=== PATIENT | male | born 1935 | race Caucasian/White ===

== ENCOUNTER 2023-09-02 18:29 | Emergency (ER) | payer MEDICARE, SELFPAY ==
[2023-09-02 18:33] VITALS: BP 118/65; PULSE 70; RESP 16; TEMP 36.3; O2SAT 99
--- NOTE | 2023-09-02 20:49 | PC.NURSE ---
Pt LWBS at this time. pt educated on s/s that warrant a return visit. pt wheeled out of dept and assisted into vehicle.
== END 2023-09-02 22:08 | disposition left against medical advice (07) ==
DX: S09.90XA Unspecified injury of head, initial encounter (principal)
CPT/HCPCS: 99199

== ENCOUNTER 2024-04-11 09:51 | Inpatient (IN) | payer MEDICARE, SELFPAY ==
[2024-04-11] VITALS (23 sets, daily range): BP systolic 105–141; BP diastolic 50–85; PULSE 85–119; RESP 23–36; TEMP 36.4–36.7; O2SAT 92–99; BMI 28.6
--- NOTE | ~2024-04-11 | XR_ITS ---
EXAMINATION: XR chest 1V portable DATE: 04/11/2024 10:59 INDICATION: Dyspnea TECHNIQUE: frontal view of the chest was obtained. COMPARISON: None FINDINGS: Airspace opacities in the bilateral mid and lower lung zones. Blunting at the bilateral costophrenic angles consistent with small bilateral pleural effusions. No pneumothorax. Cardiomegaly. Dual lead pa cemaker seen with leads projecting over the expected locations of the right atrium and right ventricl e. IMPRESSION: 1. Opacities in bilateral mid and lower lung zones which could represent atelectasis or pneumonia. 2. Small bilateral pleural effusions. 3. Cardiomegaly. Reviewed, dictated and finalized at location A. SCAPER IMPRESSION: 1. Opacities in bilateral mid and lower lung zones which could represent atelec tasis or pneumonia. 2. Small bilateral pleural effusions. 3. Cardiomegaly.
--- NOTE | ~2024-04-11 | XR_ITS ---
MODIFIED ESOPHAGRAM HISTORY: Dysphagia. TECHNIQUE: Modified barium esophagram was performed on 04/13/2024. I administered fluoroscopy and per formed the exam with speech pathologist. Patient was seated for lateral fluoroscopic imaging for ing estion of thin liquids, pudding, solids and quantified amounts, followed by thin liquids in uncontrol led amounts. This was recorded on tape. A single fluoroscopic spot image was also recorded. The DAP f or this procedure was 1.93 Gycm2. The amount of fluoroscopy time used during this procedure was 2.6 m inutes. FINDINGS: Oral stage: Adequate function. Pharyngeal stage: There is reduced laryngeal elevation and tongue base retraction. There is vallecula r residue and piriform sinus residue. Premature spillover from the vallecula into the piriform sinus prior to the swallow contributes to laryngeal penetration without aspiration with multiple consistenc ies. Cervical/esophageal stage: Adequate function. IMPRESSION: Pharyngeal dysphagia with laryngeal penetration without aspiration with multiple consiste ncies. Please correlate with speech pathologist findings and specific feeding recommendations. Reviewed, dictated and finalized at location A. SUPPORT REPRESENTATIVE IMPRESSION: Pharyngeal dysphagia with laryngeal penetration without aspiration with multiple consistencies. Please correlate with speech pathologist findings and specific feeding recommendations.
--- NOTE | ~2024-04-11 | XR_ITS ---
XR chest 1V portable 04/14/2024 15:26 Indication: Shortness of breath Procedure: AP portable chest Comparison: 04/11/2024 Findings: Small pleural effusions. There is patchy bilateral airspace disease, compatible with pneumo niru. No pneumothorax. No acute osseous abnormality. Pacemaker leads are stable. Impression: 1: Patchy bilateral airspace disease, compatible with pneumonia. 2: Small pleural effusions. Reviewed, dictated and finalized at location B. K GENERAL Impression: 1: Patchy bilateral airspace disease, compatible with pneumonia. 2: Small pleural effusions.
--- NOTE | ~2024-04-11 | XR_ITS ---
MODIFIED ESOPHAGRAM HISTORY: Aspiration pneumonia TECHNIQUE: Modified barium esophagram was performed on 04/16/2024. I administered fluoroscopy and per formed the exam with speech pathologist. Patient was seated for lateral fluoroscopic imaging for ing estion of thin liquids, pudding, solids and quantified amounts, followed by thin liquids in uncontrol led amounts. This was recorded on tape. A single fluoroscopic spot image was also recorded. The DAP f or this procedure was 1.0 Gycm2. The amount of fluoroscopy time used during this procedure was 1.6 mi nutes. FINDINGS: Oral stage: Adequate function. Pharyngeal stage: There is reduced laryngeal elevation and tongue base retraction. There is mild vall ecular residue. There is laryngeal penetration without aspiration. Cervical/esophageal stage: Adequate function. IMPRESSION: Pharyngeal dysphagia with laryngeal penetration without aspiration. Please correlate wit h speech pathologist findings and specific feeding recommendations. Reviewed, dictated and finalized at location A. PACKER IMPRESSION: Pharyngeal dysphagia with laryngeal penetration without aspiration. Please correlate with speech pathologist findings and specific feeding recomm endations.
--- NOTE | 2024-04-11 09:54 | ECG_ITS ---
Test Date: 2024-04-11 13:14:07 Measurements Intervals [place] Rate: 99 P: 0 LA: 0 QRS: 2 QRSD: 88 T: 32 QT: 342 QTc: 440 Interpretive Statements ATRIAL FIBRILLATION LOW QRS VOLTAGE IN PRECORDIAL LEADS [QRS DEFLECTION < 1.0 mV IN CHEST LEADS] POSSIBLE RIGHT VENTRICULAR CONDUCTION DELAY [RSR (QR) IN V1/V2] ABNORMAL RHYTHM ECG Compared to ECG 04/11/2024 09:57:21 ST (T wave) deviation no longer present Electronically Signed On 04-12-2024 08:42:58 FLIGHT ATTENDANT RAMP by Brandon Wright M.D.
[2024-04-11 10:17] LABS: Basophils Absolute Auto 0.1 K/mm3 (0.0-0.1); Basophils Percent Auto 1.9 % (0.2-1.2); Eosinophils Absolute Auto 0.2 K/mm3 (0-0.3); Eosinophils Percent Auto 7.1 % (0-4.4); Hematocrit 31.5 % (42.0-52.0); Hemoglobin 9.9 g/dL (14.0-18.0); Immature Granulocyte Absolute 0.01 K/mm3 (0.00-0.031); Immature Granulocyte Percent A 0.3 % (0-0.5); Lymphocytes Absolute Auto 0.44 K/mm3 (0.9-3.2); Lymphocytes Percent Auto 14.1 % (18.3-44.2); Mean Corpuscular HGB Conc 31.4 g/dl (32-36); Mean Corpuscular Hemoglobin 32.1 pg (26-34); Mean Corpuscular Volume 102.3 fl (80-100); Mean Platelet Volume 10.4 fl (7.4-10.4); Monocytes Absolute Auto 0.4 K/mm3 (0.1-0.6); Monocytes Percent Auto 13.8 % (2.6-8.5); Neutrophils Percent Auto 62.8 % (45.5-73.1); Platelet Count Result 209 k/mm3 (150-375); Red Blood Count 3.08 M/mm3 (4.6-6.20); Red Cell Distribution Width 16.7 % (11.5-14.5); White Blood Count 3.1 K/mm3 (4.5-10.0)
[2024-04-11] MEDS: IPRATROPIUM 0.5 MG/ALBUTEROL SULFATE 2.5 MG AMPUL.NEB 3 ML INHALATION (10:22)
[2024-04-11 10:27] LABS: Alveolar/Arterial O2 Gradient 63.6 mmHg; Base Excess ABG -1.6 mEq/l (+/-2.0); Fractional Inspired Oxygen 21 %; HCO3 ABG 20.9 mEq/l (22.0-26.0); Oxygen Content ABG 16.1 %vol (16.0-22.0); Oxygen Saturation ABG 89.1 % (95.0-100.0); PCO2 ABG 29.2 mmHg (35.0-45.0); PO2 ABG 51.2 mmHg (80.0-100.0); PO2 FiO2 Ratio Arterial Blood 2.44 %; Total Hemoglobin 13.3 g/dL (12.0-18.0); pH ABG 7.473 (7.350-7.450)
[2024-04-11 10:28] LABS: Device ROOM AIR; Modified Allen's Test Pass; Oxyhemoglobin 86.3 % THb (90.0-100.0); Site Drawn RIGHT RADIAL
[2024-04-11 10:29] LABS: INR 2.3; Prothrombin Time 25.2 Seconds (11.1-14.7)
[2024-04-11 10:30] LABS: Lactic Acid Reflex 2.9 mmol/L (0.7-2.0); Partial Thromboplastin Time 62.1 Seconds (22.3-36.8)
[2024-04-11 10:31] LABS: Alanine Aminotransferase 12 U/L (6-50); Alkaline Phosphatase 87 U/L (38-126); Anion Gap 2 mmol/L (4-12); Aspartate Amino Transferase 19 U/L (17-59); Bilirubin,Total 0.8 mg/dL (0.2-1.3); Blood Urea Nitrogen 16 mg/dL (9-20); Calcium 8.8 mg/dL (8.4-10.2); Carbon Dioxide 26 mmol/L (22-30); Chloride 111 mmol/L (98-107); Estimated CRCL calculation 57 ml/min; Estimated Glomerular Filt Rate > 60; Glucose 156 mg/dL (65-110); Magnesium 1.8 mg/dL (1.6-2.3); Potassium 3.5 mmol/L (3.4-5.0); Sodium 139 mmol/L (137-145)
[2024-04-11 10:42] LABS: NT Pro B Type Natriuretic Pept 5180 pg/mL (19.9-100); Troponin I 0.016 ng/mL (0.000-0.034)
[2024-04-11 10:56] LABS: Influenza A QL RT-PCR Negative (Negative); Influenza B QL RT-PCR Negative (Negative); RSV RNA, RT-PCR Negative (Negative); SARS-CoV-2 RNA PCR Negative (Negative)
--- NOTE | 2024-04-11 11:16 | ED.GENADULT ---
HPI - General Adult General Chief complaint: Shortness of Breath/Dyspnea Stated complaint: SOB Time Seen by Provider: 04/11/24 10:00 History of Present Illness HPI narrative: Patient is 88-year-old gentleman who presents emergency department with chief complaint of shortness of breath. Patient was diagnosed with pneumonia yesterday and started on Augmentin and initially a Z-Anish but then to doxycycline patient had increasing shortness of breath at the facility and was found to be hypoxic the patient does not normally wear oxygen patient has prior history of AFib dementia and has a pacemaker. Related Data Allergies Allergy/AdvReac Type Severity Reaction Status Date / Time No Known Allergies Allergy Verified 04/11/24 11:10 Review of Systems Review of Systems: A 10 system review of systems was completed on the patient and is negative except for what is stated in the HPI. Nursing and ancillary documentation was reviewed. Exam Narrative: GENERAL: Well-appearing, well-nourished, and in no acute distress. HEAD: Normocephalic, atraumatic. EYES: PERRLA and EOMI. ENT: Nares clear, no rhinorrhea or epistaxis. Mucous membranes moist. NECK: Supple. CHEST: Wheezes to auscultation. No respiratory distress. HEART: Regular rate and rhythm. No murmur heard. Normal peripheral pulses. ABDOMEN: Soft, nontender, nondistended, normal active bowel sounds. EXTREMITIES: Normal range of motion. No edema. SKIN: Warm, dry, no rash. NEURO: No focal deficits. Alert and oriented x3. PSYCH: Normal mood and affect. Course Vital Signs Vital signs: Vital Signs Temperature 36.4 C L 04/11/24 09:55 Pulse Rate 119 H 04/11/24 09:55 Respiratory Rate 27 H 04/11/24 09:55 Blood Pressure 105/62 04/11/24 09:55 Pulse Oximetry 93 04/11/24 09:55 Oxygen Delivery Room Air 04/11/24 09:55 Temperature 36.4 C L 04/11/24 09:55 Pulse Rate 114 H 04/11/24 11:09 Respiratory Rate 30 H 04/11/24 11:09 Blood Pressure 124/67 04/11/24 11:09 Pulse Oximetry 97 04/11/24 11:09 Oxygen Delivery Nasal Cannula 04/11/24 10:35 Oxygen Flow Rate 2 04/11/24 10:35 Fraction of Inspired Oxygen 28 14/24 10:35 Medical Decision Making [facility] Narrative Medical decision making narrative: differential diagnosis includes pneumonia, CHF laboratory studies were obtained which showed a white count of 3.1 INR is therapeutic at 2.3 ABG showed a pH 7.473 pCO2 was 29 PO2 was 51 saturation was 89% lactic acid was 2.9 electrolytes showed no significant abnormalities troponin is 0.016 BNP was 5180 COVID flu and RSV were negative blood cultures were obtained chest x-ray showed . Opacities in bilateral mid and lower lung zones which could represent atelectasis or pneumonia. 2. Small bilateral pleural effusions. 3. Cardiomegaly. Vital Signs Vital Signs: Vital Signs Temperature 36.4 C L 04/11/24 09:55 Pulse Rate 119 H 04/11/24 09:55 Respiratory Rate 27 H 04/11/24 09:55 Blood Pressure 105/62 04/11/24 09:55 Pulse Oximetry 93 04/11/24 09:55 Oxygen Delivery Room Air 04/11/24 09:55 Temperature 36.4 C L 04/11/24 09:55 Pulse Rate 114 H 04/11/24 11:09 Respiratory Rate 30 H 04/11/24 11:09 Blood Pressure 124/67 04/11/24 11:09 Pulse Oximetry 97 04/11/24 11:09 Oxygen Delivery Nasal Cannula 04/11/24 10:35 Oxygen Flow Rate 2 04/11/24 10:35 Fraction of Inspired Oxygen 04/11/24 10:35 Lab Data 04/11/24 10:07 04/11/24 10:09 Labs: Lab Results 04/11/24 04/11/24 Range/Units 10:07 10:09 WBC 3.1 L (4.5-10.0) K/mm3 RBC 3.08 L (4.6-6.20) M/mm3 Hgb 9.9 L (14.0-18.0) g/dL Hct 31.5 L (42.0-52.0) % MCV 102.3 H (80-100) fl MCH 32.1 (26-34) pg MCHC 31.4 L (32-36) g/dl RDW 16.7 H (11.5-14.5) % Plt Count 209 (150-375) k/mm3 MPV 10.4 (7.4-10.4) fl Immature Gran % (Auto) 0.3 (0-0.5) % Neut % (Auto) 62.8 (45.5-73.1) % Lymph % (Auto) 14.1 L (18.3-44.2) % Angelina % (Auto) 13.8 H (2.6-8.5) % Eos % (Auto) 7.1 H (0-4.4) % Baso % (Auto) 1.9 H (0.2-1.2) % Lymph # (Auto) 0.44 L (0.9-3.2) K/mm3 Angelina # (Auto) 0.4 (0.1-0.6) K/mm3 Eos # (Auto) 0.2 (0-0.3) K/mm3 Baso # (Auto) 0.1 (0.0-0.1) K/mm3 Abs Immat Gran (auto) 0.01 (0.00-0.031) K/mm3 Absolute Neuts (auto) 2.0 (1.3-6.7) K/mm3 Absolute Nucleated RBC 0.000 (0.0-0.012) K/mm3 Nucleated RBC % 0.0 (0.0-0.2) % PT 25.2 H (11.1-14.7) Seconds INR 2.3 APTT 62.1 H (22.3-36.8) Seconds Sodium Cancelled 139 Potassium Cancelled 3.5 Chloride Cancelled 111 H Carbon Dioxide Cancelled 26 Anion Gap Cancelled 2 L BUN Cancelled 16 Creatinine Cancelled 0.80 Estim Creat Clear Calc Cancelled 57 Estimated GFR Cancelled > 60 Glucose Cancelled 156 H Lactic Acid 2.9 H (0.7-2.0) mmol/L Calcium Cancelled 8.8 Magnesium 1.8 (1.6-2.3) mg/dL Total Bilirubin Cancelled 0.8 AST Cancelled 19 ALT Cancelled 12 Alkaline Phosphatase Cancelled 87 Troponin I 0.016 (0.000-0.034) ng/mL NT-Pro-B Natriuret Pep 5180 H (19.9-100) pg/mL Total Protein Cancelled 6.0 L Albumin Cancelled 3.0 L Procalcitonin Pending Influenza A (RT-PCR) Negative (Negative) Influenza B (RT-PCR) Negative (Negative) RSV (RT-PCR) Negative (Negative) SARS-CoV-2 RNA (RT-PCR) Negative (Negative) ABG Data ABG results: 04/11/24 10:20 Puncture Site Right radial ABG pH 7.473 H ABG pCO2 29.2 L ABG pO2 51.2 L ABG PO2/FiO2 Ratio 2.44 ABG HCO3 20.9 L ABG O2 Saturation 89.1 L ABG O2 Content 16.1 ABG Base Excess -1.6 A-a Gradient 63.6 Oxyhemoglobin 86.3 L* Total Hemoglobin 13.3 O2 Delivery Device Room air O2 Liters/Min Not Reportable FiO2 21 Discharge Plan Discharge Clinical Impression: Community acquired pneumonia, Acute hypoxic respiratory failure Patient Disposition: Still a Patient Condition: Stable Patient Language: Nepali Follow-up/Referrals: Aleyda,Bossman Snell DO [Primary Care Provider] -
[2024-04-11 11:29] LABS: Procalcitonin 0.1 ng/mL
[2024-04-11] MEDS: SODIUM CHLORIDE 0.9% IV 1,000 ML 999 ML IV CONT (12:11)
--- NOTE | 2024-04-11 12:45 | PC.NURSE ---
Gave Yuliya Burkett RN an update on pts admission dx.
[2024-04-11] MEDS: LORazepam INJ (*CRX) 2 MG/ML VIAL 0.5 MG IV PUSH (12:47)
[2024-04-11] MEDS: DOXYCYCLINE 100 MG/NS 100 ML 100 MG/100 ML BAG IVPB ×2 (12:48→21:14)
--- NOTE | 2024-04-11 12:50 | PM.IMHP ---
H&P: HPI History of Present Illness Date/Time: 04/11/24 13:30 Chief Complaint: Shortness of breath. Narrative: This is a pleasant 88-year-old male with dementia, coronary artery disease with history of stents, paroxysmal atrial fibrillation on chronic anticoagulation, obstructive sleep apnea, rheumatoid arthritis, hypothyroidism, and anxiety who presented to the emergency department via EMS from [facility] for evaluation of shortness of breath. The patient provides the following history and his daughter provides additional information with the patient's permission. He developed a loose but nonproductive cough last Saturday and was diagnosed with pneumonia yesterday for which he was started on amoxicillin/clavulanic acid and doxycycline. This morning he was increasingly short of breath and hypoxic with an SpO2 of 84% on room air and was sent in for evaluation. He does not have a roommate at the facility and denies sick contacts. At times he has dysphagia, mostly with breads and meats, and he admits that sometimes he coughs or chokes with eating but he does not recall a time where he could have aspirated. Daughter has noticed that he seems more swollen than usual in his upper and lower extremities. She denies fever, chills, sweats, sinus congestion, sore throat, chest pain, pleuritic pain, hematemesis, nausea, vomiting, diarrhea, and calf pain. In the ED: He was afebrile on arrival with stable blood pressures. He has been tachypneic in the mid 20s. SpO2 has been in the mid to upper 90s on 2 L. labs were significant for WBC count 3.1, hemoglobin 9.9, MCV 102.3, INR 2.3, lactic acid 2.9, proBNP 5180, procalcitonin 0.1, troponin 0.016. He tested negative for influenza, RSV, and COVID. Chest x-ray was read as having opacities in the bilateral mid and lower lung zones which could represent atelectasis or pneumonia, small bilateral effusions, and cardiomegaly. He was given nebulizer treatment, ceftriaxone 1 gm, doxycycline 100 mg and he is being admitted in this setting for further treatment. Review of Systems Review of Systems: 12 systems were reviewed and are negative except for as per HPI. FORMERLY [facility], [facility] Past Medical History Medical History (Updated 04/11/24 @ 19:19 by Clotilde G Gerling, PA-C) Hyperlipidemia Hypertension Rheumatoid arthritis Hypothyroidism Coronary artery disease Chronic anticoagulation Paroxysmal atrial fibrillation Surgical History Surgical History (Updated 04/11/24 @ 19:19 by Clotilde Stratton PA-C) History of vasectomy History of coronary artery stent placement History of permanent cardiac pacemaker placement Family History Family History (Updated 04/11/24 @ 19:19 by Clotilde Stratton PA-C) Other Family history non-contributory Social History Social History (Updated 04/11/24 @ 19:20 by Clotilde Stratton PA-C) Social History: Surrogate medical decision maker: Azucena welsh, children. Code status: Modified code, no intubation. Smoking status: Never smoker Alcohol intake: never Substance use: never Do You Feel Safe in your Home?: Yes Lack of Transportation: No Lack of Food: Never True Current Housing: I Have Housing Concerned About Future Housing: No Difficulty Paying Gas/Electric Bills: No Difficulty Paying for Meds: No Currently Unemployed: No Education: Trade/Vocational Certificate Difficulty w/ Childcare or Family Care: No Living arrangements: shelter Additional living arrangements comments: [facility]. Occupation/Education: retired Additional occupation/education comments: [employer]. Spiritual care concerns: Yes Meds Home Medications and Allergies Allergies Allergy/AdvReac Type Severity Reaction Status Date / Time No Known Allergies Allergy Verified 04/11/24 11:10 Vital Signs Vital Signs - 24 hr 04/11/24 09:55 04/11/24 10:02 04/11/24 10:02 Temperature 97.5 F L Pulse Rate 119 H 113 H Respiratory Rate 27 H Blood Pressure 105/62 Pulse Oximetry 93 94 Oxygen Delivery Room Air Room Air Oxygen Flow Rate Fraction of Inspired Oxygen 04/11/24 10:22 04/11/24 10:22 04/11/24 10:32 Temperature Pulse Rate 114 H 115 H Respiratory Rate 30 H 36 H Blood Pressure Pulse Oximetry 92 Oxygen Delivery Room Air Oxygen Flow Rate Fraction of Inspired Oxygen 21 04/11/24 10:35 04/11/24 11:09 04/11/24 11:38 Temperature Pulse Rate 114 H 96 Respiratory Rate 30 H 25 H Blood Pressure 124/67 108/69 Pulse Oximetry 94 97 99 Oxygen Delivery Nasal Cannula Oxygen Flow Rate 2 Fraction of Inspired Oxygen 28 04/11/24 12:14 Temperature Pulse Rate Respiratory Rate Blood Pressure Pulse Oximetry 98 Oxygen Delivery Nasal Cannula Oxygen Flow Rate 2 Fraction of Inspired Oxygen Exam Narrative: General: He moderately ill-appearing gentleman sitting up in bed. Weight: 87.9 kg. BMI: 28.6. HEENT: Slightly hard of hearing. Wearing glasses. PERRL, EOMI. Sclera anicteric. Oral mucosa moist. Neck: Supple. No significant JVD. Respiratory: Mild conversational dyspnea. Currently on 2 L nasal cannula. Lung sounds are coarse with scattered rales and crackles and occasional expiratory wheezing. Cardiovascular: Irregularly irregular rate and rhythm. Gastrointestinal: Abdomen is soft, protuberant, nontender, and nondistended with positive bowel sounds. Skin: Warm and dry. Widespread actinic keratoses. Skin is dry and scaly. Scattered bruising of the upper extremities. Chronic skin changes of the lower legs bilaterally with faint erythema, likely due to swelling. Extremities: No cyanosis or clubbing. Mild edema of the lower arms and legs bilaterally. Radial and pedal pulses intact. No palpable knots or cords. Negative Nicole sign bilaterally. Neurological: Alert. Cranial nerves 2-12 are grossly intact. No gross focal deficits to casual conversation. Psychiatric: Pleasant and cooperative with appropriate mood and affect. He is in good spirits. H&P: Results Labs Labs: Short CBC 04/11/24 Range/Units 10:07 WBC 3.1 L (4.5-10.0) K/mm3 Hgb 9.9 L (14.0-18.0) g/dL Hct 31.5 L (42.0-52.0) % Plt Count 209 (150-375) k/mm3 BMP 04/11/24 04/11/24 10:07 10:09 Sodium Cancelled 139 Potassium Cancelled 3.5 Chloride Cancelled 111 H Carbon Dioxide Cancelled 26 BUN Cancelled 16 Creatinine Cancelled 0.80 Glucose Cancelled 156 H Calcium Cancelled 8.8 Cardiac Enzymes 04/11/24 Range/Units 10:09 Troponin I 0.016 (0.000-0.034) ng/mL Liver Function 04/11/24 04/11/24 Range/Units 10:07 10:09 Total Bilirubin Cancelled 0.8 AST Cancelled 19 ALT Cancelled 12 Alkaline Phosphatase Cancelled 87 Albumin Cancelled 3.0 L Imaging Chest X-Ray 04/11/24 11:02 IMPRESSION: 1. Opacities in bilateral mid and lower lung zones which could represent atelectasis or pneumonia. 2. Small bilateral pleural effusions. 3. Cardiomegaly. ABG ABG results: 04/11/24 10:20 Puncture Site Right radial ABG pH 7.473 H ABG pCO2 29.2 L ABG pO2 51.2 L ABG PO2/FiO2 Ratio 2.44 ABG HCO3 20.9 L ABG O2 Saturation 89.1 L ABG O2 Content 16.1 ABG Base Excess -1.6 A-a Gradient 63.6 Oxyhemoglobin 86.3 L* Total Hemoglobin 13.3 O2 Delivery Device Room air O2 Liters/Min Not Reportable FiO2 21 Assessment and Plan Assessment and plan (1) Acute hypoxic respiratory failure: Code(s): J96.01 - Acute respiratory failure with hypoxia Status: Acute (2) Community acquired pneumonia: Code(s): J18.9 - Pneumonia, unspecified organism Status: Acute (3) Paroxysmal atrial fibrillation: Code(s): I48.0 - Paroxysmal atrial fibrillation Status: Acute (4) Macrocytic anemia: Code(s): D53.9 - Nutritional anemia, unspecified Status: Acute (5) Chronic anticoagulation: Code(s): Z79.01 - ocean transportation intermediary (current) use of anticoagulants Status: Acute (6) Hypertension: Code(s): I10 - Essential (primary) hypertension Status: Acute (7) Hyperlipidemia: Code(s): E78.5 - Hyperlipidemia, unspecified Status: Acute (8) Hypothyroidism: Code(s): E03.9 - Hypothyroidism, unspecified Status: Acute Plan The patient presented to the emergency department for increasing shortness of breath and hypoxia after being diagnosed with pneumonia yesterday as detailed in HPI. Labs, imaging, EKG, and all reports were personally reviewed. He is currently on 2 L nasal cannula to maintain his SpO2 in the mid upper 90s and oxygen will be weaned as tolerated. Continue ceftriaxone and doxycycline for community-acquired pneumonia. Attempt sputum for culture. Check Legionella and pneumococcal antigens as well as mycoplasma IgM. Continue scheduled bronchodilators. Add Mucinex and Cornet help mobilize secretions. Furosemide 40 mg IV x1 ordered given edema; there may be some component of heart failure as well. Echocardiogram ordered. Swallow study ordered given reports of dysphagia. He is currently in atrial fibrillation with rates in the upper 90s. Continue metoprolol for rate control and Xarelto for stroke prophylaxis. Check iron studies, B12, and folate for evaluation of macrocytic anemia. Blood pressures were reviewed and they have been stable. Continue levothyroxine and check TSH. The rest of his home medications will be reviewed and resumed as appropriate. Findings and treatment plan were discussed with the patient. Questions were solicited and answered to satisfaction. The patient's medical management will be taken over by the hospitalist team in a.m. Quality VTE Prophylaxis VTE prophylaxis: pharmacologic ordered (on rivaroxaban) The patient has been admitted under observation status. Hospitalist MIPS Advance Care Plan I have confirmed that the patient's Advanced Care Plan is present, code status is documented, or surrogate decision maker is listed in patient medical record.: Yes Medication Reconciliation I have utilized all available resources to obtain, update and review the patients current medications (includes all prescriptions, OTC, herbals, cannabis, and nutritional supplements).: Yes
--- NOTE | 2024-04-11 12:59 | ECG_ITS ---
Test Date: 2024-04-11 09:57:21 Measurements Intervals [place] Rate: 109 P: 0 MI: 0 QRS: 0 QRSD: 86 T: 180 QT: 375 QTc: 507 Interpretive Statements ATRIAL FIBRILLATION WITH RAPID VENTRICULAR RESPONSE LOW QRS VOLTAGE IN PRECORDIAL LEADS [QRS DEFLECTION < 1.0 mV IN CHEST LEADS] POSSIBLE RIGHT VENTRICULAR CONDUCTION DELAY [RSR (QR) IN V1/V2] none specific st changes ABNORMAL QRS-T ANGLE [QRS-T AXIS DIFFERENCE > 60] No previous ECG available for comparison Electronically Signed On 04-12-2024 08:40:30 CEMENT RUBBER by Brandon Wright M.D.
[2024-04-11 13:14] LABS: Reflex Lactic Acid Yes or No Add Lactic
[2024-04-11 13:44] LABS: Troponin I 0.018 ng/mL (0.000-0.034)
[2024-04-11 13:49] LABS: Iron 24 ug/dL (49-181)
[2024-04-11 13:58] LABS: Percent Iron Saturation 11 % (20-50)
[2024-04-11 14:28] LABS: Lactic Acid 2.1 mmol/L (0.7-2.0)
[2024-04-11] MEDS: IPRATROPIUM 0.5 MG/ALBUTEROL SULFATE 2.5 MG AMPUL.NEB 3 ML NEBULIZE ×2 (14:45→21:08)
[2024-04-11 14:56] LABS: Folic Acid 4.1 ng/mL (2.76->20)
[2024-04-11] MEDS: guaiFENesin 12 HR 600 MG TABCR 1200 MG PO ×2 (15:13→21:05)
[2024-04-11 16:39] LABS: MRSA (PCR) NOT DETECTED (NOT DETECTE)
[2024-04-11] MEDS: FUROSEMIDE INJ 40 MG/4 ML VIAL IV PUSH (16:51)
--- NOTE | 2024-04-11 19:03 | ADMGEN ---
This patient, Edwardo Justiec, was admitted to IMU Room 203-01 at 1713. Patient/family oriented to hospital policies and general routines including ID bracelet, bed and alarms, visiting hours, pain management, procedures, bathroom and other care routines, personal items, smoking policy, room service/diet, and visiting hours. Information on how to activate the Rapid Response Team has been discussed. Patient/Family are encouraged to report perceived risks to care and to ask questions if they do not understand what they are told or what they should do.
[2024-04-11] MEDS: ACETAMINOPHEN 325 MG TABLET 650 MG PO (21:05)
[2024-04-12] VITALS (29 sets, daily range): BP systolic 120–145; BP diastolic 50–84; PULSE 76–114; RESP 20–24; TEMP 36.3–37.1; O2SAT 90–96
[2024-04-12] MEDS: IPRATROPIUM 0.5 MG/ALBUTEROL SULFATE 2.5 MG AMPUL.NEB 3 ML NEBULIZE ×2 (01:24→08:30)
[2024-04-12 05:04] LABS: Hematocrit 27.8 % (42.0-52.0); Hemoglobin 8.9 g/dL (14.0-18.0); Mean Corpuscular Hemoglobin 32.2 pg (26-34); Mean Corpuscular Volume 100.7 fl (80-100); Mean Platelet Volume 10.5 fl (7.4-10.4); Platelet Count Result 203 k/mm3 (150-375); Red Blood Count 2.76 M/mm3 (4.6-6.20); Red Cell Distribution Width 16.8 % (11.5-14.5); White Blood Count 3.5 K/mm3 (4.5-10.0)
[2024-04-12 05:17] LABS: Anion Gap 0 mmol/L (4-12); Blood Urea Nitrogen 16 mg/dL (9-20); Calcium 8.7 mg/dL (8.4-10.2); Carbon Dioxide 29 mmol/L (22-30); Chloride 109 mmol/L (98-107); Estimated CRCL calculation 51 ml/min; Estimated Glomerular Filt Rate > 60; Glucose 87 mg/dL (65-110); Magnesium 1.9 mg/dL (1.6-2.3); Potassium 3.9 mmol/L (3.4-5.0); Sodium 138 mmol/L (137-145)
[2024-04-12] MEDS: LEVOTHYROXINE SODIUM 75 MCG TABLET PO (06:50)
[2024-04-12] MEDS: HYDROXYCHLOROQUINE SULFATE 200 MG TABLET PO ×2 (09:46→20:59)
[2024-04-12] MEDS: ACETAMINOPHEN 325 MG TABLET 650 MG PO (09:46)
[2024-04-12] MEDS: guaiFENesin 12 HR 600 MG TABCR 1200 MG PO ×2 (09:48→20:58)
[2024-04-12] MEDS: SENNOSIDES 8.6 MG TABLET PO (09:48)
[2024-04-12] MEDS: hydrALAZINE HCL 25 MG TABLET PO ×2 (09:49→20:58)
[2024-04-12] MEDS: TAMSULOSIN HCL 0.4 MG CAPSULE PO (09:49)
[2024-04-12] MEDS: METOPROLOL SUCCINATE EXT REL 100 MG TABCR PO (09:49)
--- NOTE | 2024-04-12 09:59 | PC.NURSE ---
04/11/24 at 2030-Pt's code status was verified with the Pt's son, Connor Justice (HCPOA), Pt's daughter, Azucena, and the lithopone charger, Halima Arvizu. Code status changed to a DNR as per the Pt's wishes.
[2024-04-12] MEDS: DOXYCYCLINE 100 MG/NS 100 ML 100 MG/100 ML BAG IVPB ×2 (10:12→20:57)
--- NOTE | 2024-04-12 11:36 | PM.IMPN ---
Progress Note: A&P Assessment and Plan (1) Acute hypoxic respiratory failure: Code(s): J96.01 - Acute respiratory failure with hypoxia Status: Acute (2) Community acquired pneumonia: Code(s): J18.9 - Pneumonia, unspecified organism Status: Acute (3) Paroxysmal atrial fibrillation: Code(s): I48.0 - Paroxysmal atrial fibrillation Status: Acute (4) Macrocytic anemia: Code(s): D53.9 - Nutritional anemia, unspecified Status: Acute (5) Chronic anticoagulation: Code(s): Z79.01 - [facility] (current) use of anticoagulants Status: Acute (6) Hypertension: Code(s): I10 - Essential (primary) hypertension Status: Acute (7) Hyperlipidemia: Code(s): E78.5 - Hyperlipidemia, unspecified Status: Acute (8) Hypothyroidism: Code(s): E03.9 - Hypothyroidism, unspecified Status: Acute Plan This is a pleasant 88-year-old male with dementia, coronary artery disease with history of stents, paroxysmal atrial fibrillation on chronic anticoagulation, obstructive sleep apnea, rheumatoid arthritis, hypothyroidism, and anxiety who presented to the emergency department via EMS from [facility] for evaluation of shortness of breath. He developed a loose but nonproductive cough last Saturday and was diagnosed with pneumonia yesterday for which he was started on amoxicillin/clavulanic acid and doxycycline. This morning he was increasingly short of breath and hypoxic with an SpO2 of 84% on room air and was sent in for evaluation. He does not have a roommate at the facility and denies sick contacts. At times he has dysphagia, mostly with breads and meats, and he admits that sometimes he coughs or chokes with eating but he does not recall a time where he could have aspirated. Daughter has noticed that he seems more swollen than usual in his upper and lower extremities. She denies fever, chills, sweats, sinus congestion, sore throat, chest pain, pleuritic pain, hematemesis, nausea, vomiting, diarrhea, and calf pain. In the ED: He was afebrile on arrival with stable blood pressures. He has been tachypneic in the mid 20s. SpO2 has been in the mid to upper 90s on 2 L. labs were significant for WBC count 3.1, hemoglobin 9.9, MCV 102.3, INR 2.3, lactic acid 2.9, proBNP 5180, procalcitonin 0.1, troponin 0.016. He tested negative for influenza, RSV, and COVID. Chest x-ray was read as having opacities in the bilateral mid and lower lung zones which could represent atelectasis or pneumonia, small bilateral effusions, and cardiomegaly. He was given nebulizer treatment, ceftriaxone 1 gm, doxycycline 100 mg and he is being admitted in this setting for further treatment. Acute hypoxic respiratory failure needing oxygen supplementation Multifocal pneumonia scheduled Mucinex and core night to help mobilize secretions. Urine antigens. Ceftriaxone and doxycycline Possible congestive heart failure received a dose of Lasix. Echocardiogram order. Elevated BNP. Will re-dose Lasix. Some bronchospasm with active wheezing. Will start some steroid. No history of smoking or asthma Dysphagia: Swallow study ordered AFib with RVR metoprolol and Xarelto Chronic anemia with no signs of bleeding Coronary artery disease status post stents Paroxysmal atrial fibrillation chronic anticoagulation Obstructive sleep apnea Rheumatoid arthritis Hypothyroidism Anxiety DVT prophylaxis on Xarelto Code status do not resuscitate Subjective Date/time seen: 04/12/24 11:36 Interval history: No Overnight events. Feels about the same. Wheezing present. AFib with mild RVR on telemetry. Prior history of AFib. Son at bedside discussed with him. Denies any leg swelling. Review of Systems Review of Systems: All systems reviewed & are unremarkable except as noted in HPI and below Exam Narrative: General: He moderately ill-appearing gentleman sitting up in bed. Not in acute distress HEENT: Slightly hard of hearing. Wearing glasses. PERRL, EOMI. Sclera anicteric. Oral mucosa moist. Neck: Supple. No significant JVD. Respiratory: Mild conversational dyspnea. Currently on 2 L nasal cannula. Lung sounds are coarse with scattered rales and crackles and expiratory wheezing. Cardiovascular: Irregularly irregular rate and rhythm. Mild RVR. Gastrointestinal: Abdomen is soft, protuberant, nontender, and nondistended with positive bowel sounds. Skin: Warm and dry. Widespread actinic keratoses. Skin is dry and scaly. Scattered bruising of the upper extremities. Chronic skin changes of the lower legs bilaterally with faint erythema, likely due to swelling. Extremities: No cyanosis or clubbing. Mild edema of the lower arms and legs bilaterally. Radial and pedal pulses intact. No palpable knots or cords. Negative Nicole sign bilaterally. Neurological: Alert. Cranial nerves 2-12 are grossly intact. No gross focal deficits to casual conversation. Psychiatric: Pleasant and cooperative with appropriate mood and affect. He is in good spirits. Objective Data Vital Signs Vital Signs: Vital Signs - 24 hr 04/11/24 11:38 04/11/24 12:14 04/11/24 12:50 Temperature Pulse Rate 96 96 Respiratory Rate 25 H 28 H Blood Pressure 108/69 133/80 Pulse Oximetry 99 98 96 Oxygen Delivery Nasal Cannula Oxygen Flow Rate 2 04/11/24 14:23 04/11/24 14:47 04/11/24 14:56 Temperature Pulse Rate 86 88 97 Respiratory Rate 24 H 25 H 24 H Blood Pressure 125/50 L Pulse Oximetry 96 Oxygen Delivery Oxygen Flow Rate 04/11/24 15:15 04/11/24 16:11 04/11/24 16:11 Temperature Pulse Rate 91 98 Respiratory Rate 28 H 23 H Blood Pressure 127/68 126/77 Pulse Oximetry 95 93 93 Oxygen Delivery Nasal Cannula Oxygen Flow Rate 2 04/11/24 17:10 04/11/24 18:00 04/11/24 18:25 Temperature 97.5 F L 98.0 F Pulse Rate 85 99 108 H Respiratory Rate 27 H 31 H Blood Pressure 124/85 141/79 H Pulse Oximetry 98 92 Oxygen Delivery Oxygen Flow Rate 04/11/24 19:33 04/11/24 19:50 04/11/24 20:00 Temperature 97.9 F Pulse Rate 103 H 103 H 93 Respiratory Rate 28 H 28 H Blood Pressure 113/50 L Pulse Oximetry 97 97 Oxygen Delivery Nasal Cannula Oxygen Flow Rate 2 04/11/24 21:08 04/11/24 21:12 04/11/24 22:00 Temperature Pulse Rate 88 102 H Respiratory Rate 24 H Blood Pressure Pulse Oximetry 95 Oxygen Delivery Nasal Cannula Oxygen Flow Rate 2 04/12/24 00:00 04/12/24 00:06 04/12/24 00:20 Temperature 98.0 F Pulse Rate 88 92 92 Respiratory Rate 22 H 22 H Blood Pressure 131/50 L Pulse Oximetry 94 94 Oxygen Delivery Nasal Cannula Oxygen Flow Rate 2 04/12/24 01:25 04/12/24 01:31 04/12/24 02:00 Temperature Pulse Rate 92 88 87 Respiratory Rate 24 H 24 H Blood Pressure Pulse Oximetry Oxygen Delivery Oxygen Flow Rate 04/12/24 03:47 04/12/24 03:47 04/12/24 04:00 Temperature 97.4 F L Pulse Rate 91 91 97 Respiratory Rate 20 20 Blood Pressure 128/68 Pulse Oximetry 96 96 Oxygen Delivery Nasal Cannula Oxygen Flow Rate 2 04/12/24 06:00 04/12/24 07:57 04/12/24 08:31 Temperature 97.4 F L Pulse Rate 94 107 H Respiratory Rate 20 Blood Pressure 145/76 H Pulse Oximetry 91 92 Oxygen Delivery Nasal Cannula Oxygen Flow Rate 2 04/12/24 08:31 04/12/24 08:38 04/12/24 11:26 Temperature 98.1 F Pulse Rate 108 H 112 H 101 H Respiratory Rate 24 H 24 H 24 H Blood Pressure 120/74 Pulse Oximetry 93 Oxygen Delivery Oxygen Flow Rate Intake/Output Intake/Output: Intake & Output 04/09/24 04/10/24 04/11/24 04/12/24 23:59 23:59 23:59 23:59 Intake Total 1250 250 Output Total 1150 1810 Balance 100 -1560 Meds/Results Medications: Active Medications Generic Name Dose Route Start Last Admin Trade Name Freq PRN Reason Stop Dose Admin Acetaminophen 650 mg 04/11/24 11:45 04/12/24 09:46 Acetaminophen 325 Mg Tablet PO 650 mg Q4H PRN Administration Mild Pain (1-3) or Fever Albuterol/Ipratropium 3 ml 04/11/24 14:00 04/12/24 08:30 Ipratropium 0.5 Mg/Albuterol Sulfate 2.5 Mg Ampul.Neb 3 Ml NEBULIZE 3 ml Q6HRT WILMA Administration Atorvastatin Calcium 10 mg 04/12/24 21:00 Atorvastatin 10 Mg Tablet PO HS [facility] Calcium Carbonate 200 mg 04/12/24 02:16 Calcium Carbonate (Tums) 500 Mg (200 Mg Elemental) PO DAILY PRN indigestion Guaifenesin 1,200 mg 04/11/24 21:00 04/12/24 09:48 Guaifenesin 12 Hr 600 Mg Tabcr PO 1,200 mg Q12HR WILMA Administration Hydralazine HCl 25 mg 04/12/24 09:00 04/12/24 09:49 Hydralazine Hcl 25 Mg Tablet PO 25 mg Q12HR [facility]ILMA Administration Hydroxychloroquine Sulfate 200 mg 04/12/24 09:00 04/12/24 09:46 Hydroxychloroquine Sulfate 200 Mg Tablet PO 200 mg Q12HR [facility]ILMA Administration Ceftriaxone Sodium 1 gm in 50 mls @ 100 mls/hr 04/12/24 09:00 04/12/24 10:00 Rocephin 1 Gm/Ns 50 Ml IVPB 100 mls/hr Q24H [facility]IL[facility] Administration Doxycycline Hyclate 100 mg in 100 mls @ 100 mls/hr 04/11/24 21:00 04/12/24 10:12 Vibramycin 100 Mg/Ns 100 Ml IVPB 100 mls/hr Q12H [facility] Administration Levothyroxine Sodium 75 mcg 04/12/24 06:30 04/12/24 06:50 Levothyroxine Sodium 75 Mcg Tablet PO 75 mcg DAILY@0630 [facility] Administration Metoprolol Succinate 100 mg 04/12/24 09:00 04/12/24 09:49 Metoprolol Succinate Ext Rel 100 Mg Tabcr PO 100 mg DAILY [facility] Administration Olanzapine 2.5 mg 04/12/24 18:00 Olanzapine 2.5 Mg Tablet PO QPM PRN AGITATION Perflutren Lipid Microsphere 0 ml 04/11/24 16:42 Perflutren Lipid Microspheres 1.5 Ml Vial Diluted To 10 Ml Total Volume IV PUSH 04/14/24 16:42 ONCE PRN adequate visualization Protocol Polyethylene Glycol 17 gm 04/12/24 09:00 04/12/24 09:50 Polyethylene Glycol 3350 17 Gm Powd.Pack PO Not Given BID [facility] Rivaroxaban 20 mg 04/12/24 17:00 Rivaroxaban 20 Mg Tablet PO DAILY@1700 [facility] Senna 8.6 mg 04/12/24 09:00 04/12/24 09:48 Sennosides 8.6 Mg Tablet PO 8.6 mg DAILY [facility] Administration Simethicone 125 mg 04/12/24 02:16 Simethicone 125 Mg Chew Tab PO TID PRN gas Tamsulosin HCl 0.4 mg 04/12/24 09:00 04/12/24 09:49 Tamsulosin Hcl 0.4 Mg Capsule PO 0.4 mg DAILY [facility] Administration Radiology Results: ITS Impressions Chest X-Ray 04/11/24 11:02 IMPRESSION: 1. Opacities in bilateral mid and lower lung zones which could represent atelectasis or pneumonia. 2. Small bilateral pleural effusions. 3. Cardiomegaly. Labs Labs: Laboratory Results - last 24 hr 04/11/24 04/11/24 04/11/24 13:02 13:10 14:14 WBC RBC Hgb Hct MCV MCH MCHC RDW Plt Count MPV Sodium Potassium Chloride Carbon Dioxide Anion Gap BUN Creatinine Estim Creat Clear Calc Estimated GFR Glucose Lactic Acid 2.1 H Calcium Magnesium Iron 24 L TIBC 225 L % Saturation 11 L Ferritin 226.00 Troponin I 0.018 Vitamin B12 276.0 Folate 4.1 TSH (Reflex) 2.670 Nasal MRSA (PCR) 04/11/24 04/12/24 15:17 04:28 WBC 3.5 L RBC 2.76 L Hgb 8.9 L Hct 27.8 L MCV 100.7 H MCH 32.2 MCHC 32.0 RDW 16.8 H Plt Count 203 MPV 10.5 H Sodium 138 Potassium 3.9 Chloride 109 H Carbon Dioxide 29 Anion Gap 0 L BUN 16 Creatinine 0.90 Estim Creat Clear Calc 51 Estimated GFR > 60 Glucose 87 Lactic Acid Calcium 8.7 Magnesium 1.9 Iron TIBC % Saturation Ferritin Troponin I Vitamin B12 Folate TSH (Reflex) Nasal MRSA (PCR) Not detected
[2024-04-12] MEDS: FUROSEMIDE INJ 40 MG/4 ML VIAL IV PUSH (11:55)
[2024-04-12] MEDS: LEVALBUTEROL NEB 1.25 MG/3 ML INHALATION ×2 (13:25→20:15)
[2024-04-12] MEDS: IPRATROPIUM BR 0.02% INH SOLN 0.5 MG/2.5 ML VIAL INHALATION ×2 (13:25→20:15)
[2024-04-12] MEDS: methylPREDNISolone SOD SUCC 40 MG VIAL IV PUSH ×2 (14:05→20:59)
[2024-04-12] MEDS: RIVAROXABAN 20 MG TABLET PO (18:28)
[2024-04-12] MEDS: ATORVASTATIN 10 MG TABLET PO (20:56)
[2024-04-13] VITALS (21 sets, daily range): BP systolic 105–140; BP diastolic 57–87; PULSE 82–104; RESP 18–30; TEMP 36.3–36.9; O2SAT 90–98
[2024-04-13] MEDS: LEVALBUTEROL NEB 1.25 MG/3 ML INHALATION ×4 (02:10→21:39)
[2024-04-13] MEDS: IPRATROPIUM BR 0.02% INH SOLN 0.5 MG/2.5 ML VIAL INHALATION ×4 (02:10→21:39)
[2024-04-13 05:46] LABS: Basophils Percent Auto 0.4 % (0.2-1.2); Hematocrit 29.7 % (42.0-52.0); Hemoglobin 9.5 g/dL (14.0-18.0); Immature Granulocyte Absolute 0.01 K/mm3 (0.00-0.031); Immature Granulocyte Percent A 0.4 % (0-0.5); Lymphocytes Absolute Auto 0.26 K/mm3 (0.9-3.2); Lymphocytes Percent Auto 9.6 % (18.3-44.2); Mean Corpuscular Hemoglobin 31.8 pg (26-34); Mean Corpuscular Volume 99.3 fl (80-100); Mean Platelet Volume 10.3 fl (7.4-10.4); Monocytes Absolute Auto 0.1 K/mm3 (0.1-0.6); Monocytes Percent Auto 3.7 % (2.6-8.5); Neutrophils Absolute Auto 2.3 K/mm3 (1.3-6.7); Neutrophils Percent Auto 85.9 % (45.5-73.1); Platelet Count Result 215 k/mm3 (150-375); Red Blood Count 2.99 M/mm3 (4.6-6.20); Red Cell Distribution Width 16.4 % (11.5-14.5); White Blood Count 2.7 K/mm3 (4.5-10.0)
[2024-04-13] MEDS: LEVOTHYROXINE SODIUM 75 MCG TABLET PO (06:01)
[2024-04-13] MEDS: methylPREDNISolone SOD SUCC 40 MG VIAL IV PUSH (06:01)
[2024-04-13 06:04] LABS: Alanine Aminotransferase 14 U/L (6-50); Albumin Level 2.8 g/dL (3.5-5.1); Alkaline Phosphatase 79 U/L (38-126); Anion Gap 5 mmol/L (4-12); Aspartate Amino Transferase 20 U/L (17-59); Bilirubin,Total 0.6 mg/dL (0.2-1.3); Blood Urea Nitrogen 19 mg/dL (9-20); Calcium 9.2 mg/dL (8.4-10.2); Carbon Dioxide 27 mmol/L (22-30); Chloride 107 mmol/L (98-107); Estimated CRCL calculation 57 ml/min; Estimated Glomerular Filt Rate > 60; Glucose 156 mg/dL (65-110); Magnesium 1.9 mg/dL (1.6-2.3); Potassium 3.8 mmol/L (3.4-5.0); Sodium 139 mmol/L (137-145)
[2024-04-13] MEDS: guaiFENesin 12 HR 600 MG TABCR 1200 MG PO ×2 (08:30→20:32)
[2024-04-13] MEDS: TAMSULOSIN HCL 0.4 MG CAPSULE PO (08:30)
[2024-04-13] MEDS: SENNOSIDES 8.6 MG TABLET PO (08:30)
[2024-04-13] MEDS: hydrALAZINE HCL 25 MG TABLET PO ×2 (08:31→20:31)
[2024-04-13] MEDS: HYDROXYCHLOROQUINE SULFATE 200 MG TABLET PO ×2 (08:31→20:31)
[2024-04-13] MEDS: METOPROLOL SUCCINATE EXT REL 100 MG TABCR PO (08:31)
[2024-04-13] MEDS: PERFLUTREN LIPID MICROSPHERES 1.5 ML VIAL DILUTED TO 10 ML TOTAL VOLUME IV PUSH (10:30)
--- NOTE | 2024-04-13 11:34 | PCSTNOTE ---
Please refer to the Modified Barium Swallow Evaluation in the EMR.
--- NOTE | 2024-04-13 12:10 | P.PNIM_ITS ---
Progress Note: A&P Assessment and Plan (1) Acute hypoxic respiratory failure: Code(s): J96.01 - Acute respiratory failure with hypoxia Status: Acute (2) Community acquired pneumonia: Code(s): J18.9 - Pneumonia, unspecified organism Status: Acute (3) Paroxysmal atrial fibrillation: Code(s): I48.0 - Paroxysmal atrial fibrillation Status: Acute (4) Macrocytic anemia: Code(s): D53.9 - Nutritional anemia, unspecified Status: Acute (5) Chronic anticoagulation: Code(s): Z79.01 - [facility] (current) use of anticoagulants Status: Acute (6) Hypertension: Code(s): I10 - Essential (primary) hypertension Status: Acute (7) Hyperlipidemia: Code(s): E78.5 - Hyperlipidemia, unspecified Status: Acute (8) Hypothyroidism: Code(s): E03.9 - Hypothyroidism, unspecified Status: Acute Plan This is a pleasant 88-year-old male with dementia, coronary artery disease with history of stents, paroxysmal atrial fibrillation on chronic anticoagulation, obstructive sleep apnea, rheumatoid arthritis, hypothyroidism, and anxiety who presented to the emergency department via EMS from [facility] for evaluation of shortness of breath. He developed a loose but nonproductive cough last Saturday and was diagnosed with pneumonia yesterday for which he was started on amoxicillin/clavulanic acid and doxycycline. This morning he was increasingly short of breath and hypoxic with an SpO2 of 84% on room air and was sent in for evaluation. He does not have a roommate at the facility and denies sick contacts. At times he has dysphagia, mostly with breads and meats, and he admits that sometimes he coughs or chokes with eating but he does not recall a time where he could have aspirated. Daughter has noticed that he seems more swollen than usual in his upper and lower extremities. She denies fever, chills, sweats, sinus congestion, sore throat, chest pain, pleuritic pain, hematemesis, nausea, vomiting, diarrhea, and calf pain. In the ED: He was afebrile on arrival with stable blood pressures. He has been tachypneic in the mid 20s. SpO2 has been in the mid to upper 90s on 2 L. labs were significant for WBC count 3.1, hemoglobin 9.9, MCV 102.3, INR 2.3, lactic acid 2.9, proBNP 5180, procalcitonin 0.1, troponin 0.016. He tested negative for influenza, RSV, and COVID. Chest x-ray was read as having opacities in the bilateral mid and lower lung zones which could represent atelectasis or pneumonia, small bilateral effusions, and cardiomegaly. He was given nebulizer treatment, ceftriaxone 1 gm, doxycycline 100 mg and he is being admitted in this setting for further treatment. Acute hypoxic respiratory failure needing oxygen supplementation Multifocal pneumonia scheduled Mucinex and core night to help mobilize secretions. Urine antigens. Ceftriaxone and doxycycline Possible congestive heart failure received a dose of Lasix. Echocardiogram pending. Elevated BNP. Will re-dose Lasix. Some bronchospasm with active wheezing. Started on some steroid. Will switch to oral prednisone. No history of smoking or asthma Dysphagia: Swallow study ordered therapy. On dysphagia diet with thickened liquid AFib with RVR metoprolol and Xarelto Chronic anemia with no signs of bleeding Coronary artery disease status post stents Paroxysmal atrial fibrillation chronic anticoagulation Obstructive sleep apnea has not use CPAP at night for year so Rheumatoid arthritis Hypothyroidism Anxiety DVT prophylaxis on Xarelto Code status do not resuscitate Subjective Date/time seen: 04/13/24 12:10 Interval history: No overnight events. Wheezing went away with this. Shortness of breath has improved. Remains on 2 L oxygen. Discussed with the nursing staff. Discussed son at bedside. Review of Systems Review of Systems: All systems reviewed & are unremarkable except as noted in HPI and below Exam Narrative: General: He moderately ill-appearing gentleman sitting up in bed. Not in acute distress HEENT: Slightly hard of hearing. Wearing glasses. PERRL, EOMI. Sclera anicteric. Oral mucosa moist. Neck: Supple. No significant JVD. Respiratory: Mild conversational dyspnea. Currently on 2 L nasal cannula. Lung sounds are coarse with scattered rales no wheezing Cardiovascular: Irregularly irregular rate and rhythm. Mild RVR. Gastrointestinal: Abdomen is soft, protuberant, nontender, and nondistended with positive bowel sounds. Skin: Warm and dry. Widespread actinic keratoses. Skin is dry and scaly. Scattered bruising of the upper extremities. Chronic skin changes of the lower legs bilaterally with faint erythema, likely due to swelling. Extremities: No cyanosis or clubbing. Mild edema of the lower arms and legs bilaterally. Radial and pedal pulses intact. No palpable knots or cords. Negative Nicole sign bilaterally. Neurological: Alert. Cranial nerves 2-12 are grossly intact. No gross focal deficits to casual conversation. Psychiatric: Pleasant and cooperative with appropriate mood and affect. He is in good spirits. Objective Data Vital Signs Vital Signs: Vital Signs - 24 hr 04/12/24 13:25 04/12/24 13:25 04/12/24 13:39 Temperature Pulse Rate 114 H 88 Respiratory Rate 20 20 Blood Pressure Pulse Oximetry 92 Oxygen Delivery Nasal Cannula Oxygen Flow Rate 2 Fraction of Inspired Oxygen 04/12/24 14:00 04/12/24 15:52 04/12/24 16:00 Temperature 97.7 F Pulse Rate 107 H 98 95 Respiratory Rate 20 Blood Pressure 145/84 H Pulse Oximetry 92 Oxygen Delivery Oxygen Flow Rate Fraction of Inspired Oxygen 04/12/24 18:00 04/12/24 19:51 04/12/24 20:00 Temperature 98.1 F Pulse Rate 84 91 76 Respiratory Rate 20 Blood Pressure 134/73 Pulse Oximetry 95 Oxygen Delivery Oxygen Flow Rate Fraction of Inspired Oxygen 04/12/24 20:15 04/12/24 20:15 04/12/24 20:25 Temperature Pulse Rate 82 76 Respiratory Rate 20 20 Blood Pressure Pulse Oximetry 92 Oxygen Delivery Nasal Cannula Oxygen Flow Rate 2 Fraction of Inspired Oxygen 04/12/24 20:25 04/12/24 22:00 04/12/24 22:59 Temperature 98.8 F Pulse Rate 91 83 84 Respiratory Rate 20 20 Blood Pressure 127/74 Pulse Oximetry 95 90 Oxygen Delivery Nasal Cannula Oxygen Flow Rate 2 Fraction of Inspired Oxygen 04/12/24 23:50 04/13/24 00:00 04/13/24 01:32 Temperature Pulse Rate 84 83 83 Respiratory Rate 20 Blood Pressure Pulse Oximetry 90 Oxygen Delivery Nasal Cannula Oxygen Flow Rate 2 Fraction of Inspired Oxygen 04/13/24 02:10 04/13/24 02:20 04/13/24 03:55 Temperature Pulse Rate 85 82 88 Respiratory Rate 20 20 20 Blood Pressure Pulse Oximetry 93 Oxygen Delivery Nasal Cannula Oxygen Flow Rate 2 Fraction of Inspired Oxygen 04/13/24 04:00 04/13/24 04:12 04/13/24 06:00 Temperature 97.5 F L Pulse Rate 97 88 85 Respiratory Rate 20 Blood Pressure 105/59 L Pulse Oximetry 93 Oxygen Delivery Oxygen Flow Rate Fraction of Inspired Oxygen 04/13/24 07:41 04/13/24 08:00 04/13/24 08:20 Temperature 98.1 F Pulse Rate 93 97 Respiratory Rate 18 Blood Pressure 117/72 Pulse Oximetry 93 90 Oxygen Delivery Nasal Cannula Oxygen Flow Rate 2 Fraction of Inspired Oxygen 28 04/13/24 08:20 04/13/24 08:27 04/13/24 10:00 Temperature Pulse Rate 87 96 101 H Respiratory Rate 20 20 Blood Pressure Pulse Oximetry Oxygen Delivery Oxygen Flow Rate Fraction of Inspired Oxygen 04/13/24 10:12 04/13/24 10:30 Temperature 98.4 F Pulse Rate 91 Respiratory Rate 20 Blood Pressure 113/57 L Pulse Oximetry 93 Oxygen Delivery Nasal Cannula Oxygen Flow Rate 2 Fraction of Inspired Oxygen Intake/Output Intake/Output: Intake & Output 04/10/24 04/11/24 04/12/24 04/13/24 23:59 23:59 23:59 23:59 Intake Total 1250 980 250 Output Total 1150 3710 1200 Balance 100 -5505 -950 Meds/Results Medications: Active Medications Generic Name Dose Route Start Last Admin Trade Name Freq PRN Reason Stop Dose Admin Acetaminophen 650 mg 04/11/24 11:45 04/12/24 09:46 Acetaminophen 325 Mg Tablet PO 650 mg Q4H PRN Administration Mild Pain (1-3) or Fever Atorvastatin Calcium 10 mg 04/12/24 21:00 04/12/24 20:56 Atorvastatin 10 Mg Tablet PO 10 mg HS [facility] Administration Calcium Carbonate 200 mg 04/12/24 02:16 Calcium Carbonate (Tums) 500 Mg (200 Mg Elemental) PO DAILY PRN indigestion Guaifenesin 1,200 mg 04/11/24 21:00 04/13/24 08:30 Guaifenesin 12 Hr 600 Mg Tabcr PO 1,200 mg Q12HR [facility] Administration Hydralazine HCl 25 mg 04/12/24 09:00 04/13/24 08:31 Hydralazine Hcl 25 Mg Tablet PO 25 mg Q12HR [facility] Administration Hydroxychloroquine Sulfate 200 mg 04/12/24 09:00 04/13/24 08:31 Hydroxychloroquine Sulfate 200 Mg Tablet PO 200 mg Q12HR [facility] Administration Ceftriaxone Sodium 1 gm in 50 mls @ 100 mls/hr 04/12/24 09:00 04/12/24 16:49 Rocephin 1 Gm/Ns 50 Ml IVPB Infused Q24H [facility] Infusion Doxycycline Hyclate 100 mg in 100 mls @ 100 mls/hr 04/11/24 21:00 04/12/24 22:00 Vibramycin 100 Mg/Ns 100 Ml IVPB Infused Q12H [facility] Infusion Ipratropium [place] 0.5 mg 04/12/24 14:00 04/13/24 08:20 Ipratropium Br 0.02% Inh Soln 0.5 Mg/2.5 Ml Vial INHALATION 0.5 mg Q6HRT WILMA Administration Levalbuterol HCl 1.25 mg 04/12/24 14:00 04/13/24 08:20 Levalbuterol Neb 1.25 Mg/3 Ml INHALATION 1.25 mg Q6HRT WILMA Administration Levothyroxine Sodium 75 mcg 04/12/24 06:30 04/13/24 06:01 Levothyroxine Sodium 75 Mcg Tablet PO 75 mcg DAILY@0630 [facility] Administration Methylprednisolone Sodium Succinate 40 mg 04/12/24 14:00 04/13/24 06:01 Methylprednisolone Sod Succ 40 Mg Vial IV PUSH 40 mg Q8H [facility] Administration Metoprolol Succinate 100 mg 04/12/24 09:00 04/13/24 08:31 Metoprolol Succinate Ext Rel 100 Mg Tabcr PO 100 mg DAILY [facility] Administration Olanzapine 2.5 mg 04/12/24 18:00 Olanzapine 2.5 Mg Tablet PO QPM PRN AGITATION Perflutren Lipid Microsphere 0 ml 04/11/24 16:42 Perflutren Lipid Microspheres 1.5 Ml Vial Diluted To 10 Ml Total Volume IV PUSH 04/14/24 16:42 ONCE PRN adequate visualization Protocol Polyethylene Glycol 17 gm 04/12/24 09:00 04/13/24 08:31 Polyethylene Glycol 3350 17 Gm Powd.Pack PO Not Given BID [facility] Rivaroxaban 20 mg 04/12/24 17:00 04/12/24 18:28 Rivaroxaban 20 Mg Tablet PO 20 mg DAILY@1700 [facility] Administration Senna 8.6 mg 04/12/24 09:00 04/13/24 08:30 Sennosides 8.6 Mg Tablet PO 8.6 mg DAILY [facility] Administration Simethicone 125 mg 04/12/24 02:16 Simethicone 125 Mg Chew Tab PO TID PRN gas Tamsulosin HCl 0.4 mg 04/12/24 09:00 04/13/24 08:30 Tamsulosin Hcl 0.4 Mg Capsule PO 0.4 mg DAILY [facility] Administration Radiology Results: ITS Impressions Chest X-Ray 04/11/24 11:02 IMPRESSION: 1. Opacities in bilateral mid and lower lung zones which could represent atelectasis or pneumonia. 2. Small bilateral pleural effusions. 3. Cardiomegaly. Modified Barium Swallow 04/13/24 09:29 IMPRESSION: Pharyngeal dysphagia with laryngeal penetration without aspiration with multiple consistencies. Please correlate with speech pathologist findings and specific feeding recommendations. Labs Labs: Laboratory Results - last 24 hr 04/13/24 04/13/24 05:32 05:33 WBC 2.7 L RBC 2.99 L Hgb 9.5 L Hct 29.7 L MCV 99.3 MCH 31.8 MCHC 32.0 RDW 16.4 H Plt Count 215 MPV 10.3 Immature Gran % (Auto) 0.4 Neut % (Auto) 85.9 H Lymph % (Auto) 9.6 L [place] % (Auto) 3.7 Eos % (Auto) 0.0 Baso % (Auto) 0.4 Lymph # (Auto) 0.26 L [place] # (Auto) 0.1 Eos # (Auto) 0.0 Baso # (Auto) 0.0 Abs Immat Gran (auto) 0.01 Absolute Neuts (auto) 2.3 Absolute Nucleated RBC 0.000 Nucleated RBC % 0.0 Sodium 139 Potassium 3.8 Chloride 107 Carbon Dioxide 27 Anion Gap 5 BUN 19 Creatinine 0.80 Estim Creat Clear Calc 57 Estimated GFR > 60 Glucose 156 H Calcium 9.2 Magnesium 1.9 Total Bilirubin 0.6 AST 20 ALT 14 Alkaline Phosphatase 79 Total Protein 6.0 L Albumin 2.8 L
[2024-04-13] MEDS: DOXYCYCLINE HYCLATE 100 MG TABLET PO ×2 (14:32→20:32)
[2024-04-13] MEDS: AMOXICILLIN/CLAVULANATE K 875-125 MG TAB 1 TABLET PO ×2 (14:32→20:32)
[2024-04-13] MEDS: FUROSEMIDE INJ 40 MG/4 ML VIAL IV PUSH (14:32)
--- NOTE | 2024-04-13 14:51 | IVDEFINITY ---
Prior to administration of IV Definity the patient was educated on the risks and benefits of the imaging enhancing agent including potential adverse side effects. The patient verbalized understanding. Allergies were verified. No exclusion criteria were identified and at least one of the following inclusion criteria were met: 1) physician request, 2) patient technically difficult to image (per the [place] [employer] guidelines of two or more segments not discernable within the apical view), or 3) questionable left ventricular function. ?
--- NOTE | 2024-04-13 16:42 | ECHO_ITS ---
Patient Info Name: Edwardo Justice Age: 88 years : 1935 Gender: Male Ht: 69 in Wt: 189 lbs BSA: 2.06 m2 HR: 85 bpm BP: 105 / 59 mmHg Heart Rhythm: Atrial Fibrillation Technical Quality: Fair Exam Date: 04/13/2024 11:21 AM Exam Location: Echo Lab Patient Status: Inpatient Admit Date: 04/11/2024 Staff Ordering Physician: Clotilde Stratton PA-C Logistics Planner: Elicia Steiner RDCS Attending Provider: Tre Schwab MD Referring Physician: Viral TONEY; Exam Type: CA echo dop color flow w con Study Info Indications - cad, chf, afib Complete two-dimensional, color flow and Doppler transthoracic echocardiogram is performed with contrast to opacify the left ventricle and to improve the deliniation of the left ventricle endocardial borders. Contrast/Agitated Saline Contrast/Ag. Saline: Definity Amount: 3.00 ml Administered By: Elicia Steiner RDCS Existing IV Access: Yes IV Access Condition: patent with no signs of infiltration Summary 1. Left ventricular systolic function is normal, estimated at 60-65%. 2. There is no increased left ventricular wall thickness. 3. Left atrial chamber dimension is mildly enlarged. 4. There is trace mitral valve regurgitation. 5. There is mild tricuspid valve regurgitation. 6. Moderate pulmonary hypertension, estimated pulmonary arterial systolic pressure is 49 mmHg. 7. There is small pericardial effusion. 8. Pleural effusion. Left Ventricle Left ventricular chamber dimension is normal. Left ventricular systolic function is normal, estimated at 60-65%. There is no increased left ventricular wall thickness. Left ventricular septal wall motion is normal. The left ventricular diastolic function is abnormal. Right Ventricle Right ventricular chamber dimension is normal. Right ventricular systolic function is normal. Left Atria Left atrial chamber dimension is mildly enlarged. Right Atria Right atrial chamber dimension is normal. Atrial Septum Intact interatrial septum visualized by color flow imaging. Aortic Valve The aortic valve is trileaflet. There is no aortic valve sclerosis. There is no aortic valve stenosis. There is no aortic valve regurgitation. Pulmonic Valve The pulmonic valve is normal. There is no pulmonic valve stenosis. There is no pulmonic regurgitation. Mitral Valve The mitral valve has normal leaflets. There is no mitral valve stenosis. There is trace mitral valve regurgitation. Tricuspid Valve The tricuspid valve leaflets are normal. There is no significant tricuspid valve stenosis. There is mild tricuspid valve regurgitation. Moderate pulmonary hypertension, estimated pulmonary arterial systolic pressure is 49 mmHg. Pericardium/Pleural The pericardium appears normal. There is small pericardial effusion. Inferior Vena Cava Normal inferior vena cava with >50% collapse upon inspiration consistent with Empty right atrial pressure, 5 mmHg. Aorta The aortic root size at the sinus of Valsalva is normal. The prox ascending aorta size is normal. Left Ventricular Outflow Tract Name Value Normal LVOT 2D LVOT Diameter 2.02 cm LVOT Doppler LVOT Peak Gradient 3 mmHg LVOT Mean Gradient 1 mmHg LVOT VTI 14.49 cm LVOT VTI/AV VTI Ratio 0.65 LVOT Stroke Volume 46.44 ml LVOT CO 8.76 l/min LVOT CI 4.25 L/min/m2 Mitral Valve Name Value Normal MV Doppler MV Decel Otero 656.60 cm/s2 MV PHT 0 s MV Area (PHT) 5.56 cm2 4.00-5.00 MV Diastolic Function MV E Peak Velocity 89.61 cm/s MV A Peak Velocity 1.53 cm/s MV E/A 58.75 MV Decel Time 0 s MV Annular TDI MV E/e' (Septal) 16.91 <=8.00 MV E/e' (Lateral) 11.23 <=8.00 MV E/e' (Average) 14.07 Tricuspid Valve Name Value Normal TV Regurgitation Doppler TR Peak Velocity 329.96 cm/s TR Peak Gradient 40 mmHg Estimated PAP/RSVP RA Pressure 5 mmHg <=5 PA Systolic Pressure 49 mmHg <36 RV Systolic Pressure 49 mmHg <36 Aorta Name Value Normal Ascending Aorta Ao Root Diameter (MM) 3.32 cm Ao Root Diam Index (MM) 1.61 cm/m2 Aortic Valve Name Value Normal AV Doppler AV Peak Velocity 125.50 cm/s AV Peak Gradient 5 mmHg AV Mean Gradient 3 mmHg AV VTI 22.35 cm AV Area (Cont Eq VTI) 2.08 cm2 >=3.00 AV Area (Cont Eq Bo) 2.32 cm2 AV Regurgitation 2D LVOT Area 3.21 cm2 Ventricles Name Value Normal LV Dimensions 2D/MM IVS Diastolic Thickness (2D) 1.11 cm 0.60-1.00 LVID Diastole (2D) 4.86 cm 4.20-5.80 LVIW Diastolic Thickness (2D) 0.97 cm 0.60-1.00 LVID Systole (2D) 2.76 cm 2.50-4.00 LVOT Diameter 2.02 cm LV Mass (2D Cubed) 183.31 g 88.00-224.00 LV Mass Index (2D Cubed) 0.01 g/cm2 0.00-0.01 Relative Wall Thickness (2D) 0.40 LV Fractional Shortening/Ejection Fraction 2D/MM LV Fractional Shortening (2D) 43 % 25-43 LV EF (2D Teicholz) 74 % 52-72 LV Diastolic Volume (4C MOD) 66.42 ml LV EF (4C MOD) 61 % LV Diastolic Volume (2C MOD) 40.00 ml LV EF (2C MOD) 72 % LV Diastolic Volume (BP MOD) 55.85 ml 62.00-150.00 LV Diastolic Volume Index (BP MOD) 0.03 l/m2 0.03-0.07 LV Systolic Volume (BP MOD) 17.49 ml 21.00-61.00 LV Systolic Volume Index (BP MOD) 0.01 l/m2 0.01-0.03 LV EF (BP MOD) 69 % 52-72 LV Diastolic Length (4C) 9.00 cm LV Systolic Length (4C) 6.67 cm LV Stroke Volume (4C MOD) 40.49 ml Atria Name Value Normal LA Dimensions LA Dimension (MM) 5.48 cm 3.00-4.10 LA Volume (4C A-L) 75.99 ml LA Volume (BP A-L) 83.46 ml RA Dimensions RA Area (4C) 15.52 cm2 <=18.00 Report Signatures
[2024-04-13] MEDS: RIVAROXABAN 20 MG TABLET PO (17:29)
[2024-04-13] MEDS: hydrOXYzine HCL 25 MG TABLET PO (17:51)
[2024-04-13] MEDS: OLANZapine 2.5 MG TABLET PO (20:31)
[2024-04-13] MEDS: ATORVASTATIN 10 MG TABLET PO (20:32)
[2024-04-14] VITALS (18 sets, daily range): BP systolic 92–144; BP diastolic 53–84; PULSE 61–118; RESP 18–26; TEMP 36.1–36.8; O2SAT 90–98
[2024-04-14] MEDS: LEVALBUTEROL NEB 1.25 MG/3 ML INHALATION ×4 (02:58→21:46)
[2024-04-14] MEDS: IPRATROPIUM BR 0.02% INH SOLN 0.5 MG/2.5 ML VIAL INHALATION ×4 (02:59→21:45)
[2024-04-14] MEDS: LEVOTHYROXINE SODIUM 75 MCG TABLET PO (05:50)
[2024-04-14 06:14] LABS: Basophils Percent Auto 1.1 % (0.2-1.2); Eosinophils Absolute Auto 0.1 K/mm3 (0-0.3); Eosinophils Percent Auto 2.2 % (0-4.4); Hematocrit 33.6 % (42.0-52.0); Hemoglobin 10.7 g/dL (14.0-18.0); Immature Granulocyte Absolute 0.01 K/mm3 (0.00-0.031); Immature Granulocyte Percent A 0.4 % (0-0.5); Lymphocytes Absolute Auto 0.24 K/mm3 (0.9-3.2); Lymphocytes Percent Auto 8.9 % (18.3-44.2); Mean Corpuscular HGB Conc 31.8 g/dl (32-36); Mean Corpuscular Hemoglobin 31.6 pg (26-34); Mean Corpuscular Volume 99.1 fl (80-100); Mean Platelet Volume 10.4 fl (7.4-10.4); Monocytes Absolute Auto 0.3 K/mm3 (0.1-0.6); Monocytes Percent Auto 9.3 % (2.6-8.5); Neutrophils Absolute Auto 2.1 K/mm3 (1.3-6.7); Neutrophils Percent Auto 78.1 % (45.5-73.1); Platelet Count Result 243 k/mm3 (150-375); Red Blood Count 3.39 M/mm3 (4.6-6.20); Red Cell Distribution Width 16.8 % (11.5-14.5); White Blood Count 2.7 K/mm3 (4.5-10.0)
[2024-04-14 06:26] LABS: Alanine Aminotransferase 13 U/L (6-50); Alkaline Phosphatase 87 U/L (38-126); Anion Gap 3 mmol/L (4-12); Aspartate Amino Transferase 22 U/L (17-59); Bilirubin,Total 0.6 mg/dL (0.2-1.3); Blood Urea Nitrogen 27 mg/dL (9-20); Calcium 9.2 mg/dL (8.4-10.2); Carbon Dioxide 29 mmol/L (22-30); Chloride 103 mmol/L (98-107); Estimated CRCL calculation 51 ml/min; Estimated Glomerular Filt Rate > 60; Glucose 101 mg/dL (65-110); Magnesium 1.9 mg/dL (1.6-2.3); Potassium 3.6 mmol/L (3.4-5.0); Sodium 135 mmol/L (137-145)
--- NOTE | 2024-04-14 06:50 | PCRCNOTE ---
Unable to complete Apnea link at this time. Pt became confused in the middle of the night and took everything off. Pt only had the apnea link on for a couple of hrs and hadn't really gone to sleep.
[2024-04-14] MEDS: HYDROXYCHLOROQUINE SULFATE 200 MG TABLET PO ×2 (08:55→21:04)
[2024-04-14] MEDS: guaiFENesin 12 HR 600 MG TABCR 1200 MG PO ×2 (08:55→21:04)
[2024-04-14] MEDS: TAMSULOSIN HCL 0.4 MG CAPSULE PO (08:55)
[2024-04-14] MEDS: predniSONE 20 MG TABLET 40 MG PO (08:55)
[2024-04-14] MEDS: AMOXICILLIN/CLAVULANATE K 875-125 MG TAB 1 TABLET PO ×2 (08:55→21:04)
[2024-04-14] MEDS: SENNOSIDES 8.6 MG TABLET PO (08:55)
[2024-04-14] MEDS: METOPROLOL SUCCINATE EXT REL 100 MG TABCR PO (08:56)
[2024-04-14] MEDS: DOXYCYCLINE HYCLATE 100 MG TABLET PO ×2 (08:56→21:05)
[2024-04-14] MEDS: polyethylene glycoL 3350 17 GM POWD.PACK PO (08:58)
[2024-04-14] MEDS: hydrALAZINE HCL 25 MG TABLET PO ×2 (08:59→21:04)
--- NOTE | 2024-04-14 12:47 | PM.IMPN ---
Progress Note: A&P Assessment and Plan (1) Acute hypoxic respiratory failure: Code(s): J96.01 - Acute respiratory failure with hypoxia Status: Acute (2) Community acquired pneumonia: Code(s): J18.9 - Pneumonia, unspecified organism Status: Acute (3) Paroxysmal atrial fibrillation: Code(s): I48.0 - Paroxysmal atrial fibrillation Status: Acute (4) Macrocytic anemia: Code(s): D53.9 - Nutritional anemia, unspecified Status: Acute (5) Chronic anticoagulation: Code(s): Z79.01 - residential (current) use of anticoagulants Status: Acute (6) Hypertension: Code(s): I10 - Essential (primary) hypertension Status: Acute (7) Hyperlipidemia: Code(s): E78.5 - Hyperlipidemia, unspecified Status: Acute (8) Hypothyroidism: Code(s): E03.9 - Hypothyroidism, unspecified Status: Acute Plan This is a pleasant 88-year-old male with dementia, coronary artery disease with history of stents, paroxysmal atrial fibrillation on chronic anticoagulation, obstructive sleep apnea, rheumatoid arthritis, hypothyroidism, and anxiety who presented to the emergency department via EMS from [facility] for evaluation of shortness of breath. He developed a loose but nonproductive cough last Saturday and was diagnosed with pneumonia yesterday for which he was started on amoxicillin/clavulanic acid and doxycycline. This morning he was increasingly short of breath and hypoxic with an SpO2 of 84% on room air and was sent in for evaluation. He does not have a roommate at the facility and denies sick contacts. At times he has dysphagia, mostly with breads and meats, and he admits that sometimes he coughs or chokes with eating but he does not recall a time where he could have aspirated. Daughter has noticed that he seems more swollen than usual in his upper and lower extremities. She denies fever, chills, sweats, sinus congestion, sore throat, chest pain, pleuritic pain, hematemesis, nausea, vomiting, diarrhea, and calf pain. In the ED: He was afebrile on arrival with stable blood pressures. He has been tachypneic in the mid 20s. SpO2 has been in the mid to upper 90s on 2 L. labs were significant for WBC count 3.1, hemoglobin 9.9, MCV 102.3, INR 2.3, lactic acid 2.9, proBNP 5180, procalcitonin 0.1, troponin 0.016. He tested negative for influenza, RSV, and COVID. Chest x-ray was read as having opacities in the bilateral mid and lower lung zones which could represent atelectasis or pneumonia, small bilateral effusions, and cardiomegaly. He was given nebulizer treatment, ceftriaxone 1 gm, doxycycline 100 mg and he is being admitted in this setting for further treatment. Acute hypoxic respiratory failure needing oxygen supplementation. continue to taper oxygen as needed. will get xray chest repeated Multifocal pneumonia scheduled Mucinex and core night to help mobilize secretions. Urine antigens. Ceftriaxone and doxycycline Possible congestive heart failure received a dose of Lasix. Echocardiogram pending. Elevated BNP. Will re-dose Lasix. Some bronchospasm with active wheezing. Started on some steroid. switched to oral prednisone. No history of smoking or asthma Dysphagia: Swallow study ordered therapy. On dysphagia diet with thickened liquid AFib with RVR metoprolol and Xarelto. Echo with normal EF moderate pulmonary hypertension. Chronic anemia with no signs of bleeding Coronary artery disease status post stents Paroxysmal atrial fibrillation chronic anticoagulation Obstructive sleep apnea has not use CPAP at night for year so Rheumatoid arthritis Hypothyroidism Anxiety used to be on venlafaxine, which was recently stopped. used to be on 225 mg daily will restart. anxiety/panic attack yesterday. will add hydroxyzine prn as well. he follows with psychiatrist as op basis. DVT prophylaxis on Xarelto Code status do not resuscitate Subjective Date/time seen: 04/14/24 12:47 Interval history: Patient was quite anxious yesterday evening. Received hydroxyzine also got a dose of olanzapine last night. Breathing has improved per patient. Still has some cough. Son at bedside used to be on Effexor in the past which was stopped 3 weeks ago Review of Systems Review of Systems: All systems reviewed & are unremarkable except as noted in HPI and below Exam Narrative: General: He moderately ill-appearing gentleman sitting up in bed. Not in acute distress HEENT: Slightly hard of hearing. Wearing glasses. PERRL, EOMI. Sclera anicteric. Oral mucosa moist. Neck: Supple. No significant JVD. Respiratory: Mild conversational dyspnea. Currently on 2 L nasal cannula. Lung sounds are coarse with scattered rales no wheezing Cardiovascular: Irregularly irregular rate and rhythm. Mild RVR. Gastrointestinal: Abdomen is soft, protuberant, nontender, and nondistended with positive bowel sounds. Skin: Warm and dry. Widespread actinic keratoses. Skin is dry and scaly. Scattered bruising of the upper extremities. Chronic skin changes of the lower legs bilaterally with faint erythema, likely due to swelling. Extremities: No cyanosis or clubbing. Mild edema of the lower arms and legs bilaterally. Radial and pedal pulses intact. No palpable knots or cords. Negative Nicole sign bilaterally. Neurological: Alert. Cranial nerves 2-12 are grossly intact. No gross focal deficits to casual conversation. Psychiatric: Pleasant and cooperative with appropriate mood and affect. He is in good spirits. Objective Data Vital Signs Vital Signs: Vital Signs - 24 hr 04/13/24 12:54 04/13/24 13:38 04/13/24 13:38 Temperature Pulse Rate 90 Respiratory Rate 20 Blood Pressure Pulse Oximetry 91 Oxygen Delivery Nasal Cannula Nasal Cannula Oxygen Flow Rate 2 3 Fraction of Inspired Oxygen 32 04/13/24 16:00 04/13/24 16:00 04/13/24 20:00 Temperature 97.4 F L 98.3 F Pulse Rate 94 91 101 H Respiratory Rate 20 30 H Blood Pressure 127/69 140/87 Pulse Oximetry 96 98 Oxygen Delivery Oxygen Flow Rate Fraction of Inspired Oxygen 04/13/24 20:00 04/13/24 21:40 04/13/24 21:49 Temperature Pulse Rate 104 H 97 Respiratory Rate 28 H Blood Pressure Pulse Oximetry 92 Oxygen Delivery Nasal Cannula Oxygen Flow Rate 3 Fraction of Inspired Oxygen 04/13/24 21:59 04/14/24 00:00 04/14/24 02:59 Temperature Pulse Rate 98 106 H 103 H Respiratory Rate 28 H 24 H Blood Pressure Pulse Oximetry Oxygen Delivery Oxygen Flow Rate Fraction of Inspired Oxygen 04/14/24 03:10 04/14/24 04:00 04/14/24 06:00 Temperature 98.2 F Pulse Rate 103 H 102 H 99 Respiratory Rate 24 H 26 H Blood Pressure 112/57 L Pulse Oximetry 96 Oxygen Delivery Oxygen Flow Rate Fraction of Inspired Oxygen 04/14/24 08:00 04/14/24 08:00 04/14/24 08:24 Temperature Pulse Rate 114 H 111 H Respiratory Rate 20 Blood Pressure Pulse Oximetry 90 93 Oxygen Delivery Nasal Cannula Nasal Cannula Oxygen Flow Rate 3 3 Fraction of Inspired Oxygen 04/14/24 08:24 04/14/24 08:46 04/14/24 08:56 Temperature Pulse Rate 111 H 114 H 112 H Respiratory Rate 20 20 Blood Pressure Pulse Oximetry Oxygen Delivery Oxygen Flow Rate Fraction of Inspired Oxygen Intake/Output Intake/Output: Intake & Output 04/11/24 04/12/24 04/13/24 04/14/24 23:59 23:59 23:59 23:59 Intake Total 1250 980 840 340 Output Total 1150 3710 2600 1500 Balance 100 -2730 -1760 -1160 Meds/Results Medications: Active Medications Generic Name Dose Route Start Last Admin Trade Name Freq PRN Reason Stop Dose Admin Acetaminophen 650 mg 04/11/24 11:45 04/12/24 09:46 Acetaminophen 325 Mg Tablet PO 650 mg Q4H PRN Administration Mild Pain (1-3) or Fever Amoxicillin/Clavulanate Potassium 1 tablet 04/13/24 13:30 04/14/24 08:55 Amoxicillin/Clavulanate K 875-125 Mg Tab PO 04/17/24 21:01 1 tablet Q12HR WILMA Administration Atorvastatin Calcium 10 mg 04/12/24 21:00 04/13/24 20:32 Atorvastatin 10 Mg Tablet PO 10 mg HS WILMA Administration Calcium Carbonate 200 mg 04/12/24 02:16 Calcium Carbonate (Tums) 500 Mg (200 Mg Elemental) PO DAILY PRN indigestion Doxycycline Hyclate 100 mg 04/13/24 13:30 04/14/24 08:56 Doxycycline Hyclate 100 Mg Tablet PO 04/15/24 21:01 100 mg Q12HR WILMA Administration Guaifenesin 1,200 mg 04/11/24 21:00 04/14/24 08:55 Guaifenesin 12 Hr 600 Mg Tabcr PO 1,200 mg Q12HR WILMA Administration Hydralazine HCl 25 mg 04/12/24 09:00 04/14/24 08:59 Hydralazine Hcl 25 Mg Tablet PO 25 mg Q12HR WILMA Administration Hydroxychloroquine Sulfate 200 mg 04/12/24 09:00 04/14/24 08:55 Hydroxychloroquine Sulfate 200 Mg Tablet PO 200 mg Q12HR WILMA Administration Ipratropium [place] 0.5 mg 04/12/24 14:00 04/14/24 08:20 Ipratropium Br 0.02% Inh Soln 0.5 Mg/2.5 Ml Vial INHALATION 0.5 mg Q6HRT WILMA Administration Levalbuterol HCl 1.25 mg 04/12/24 14:00 04/14/24 08:20 Levalbuterol Neb 1.25 Mg/3 Ml INHALATION 1.25 mg Q6HRT WILMA Administration Levothyroxine Sodium 75 mcg 04/12/24 06:30 04/14/24 05:50 Levothyroxine Sodium 75 Mcg Tablet PO 75 mcg DAILY@0630 WILMA Administration Metoprolol Succinate 100 mg 04/12/24 09:00 04/14/24 08:56 Metoprolol Succinate Ext Rel 100 Mg Tabcr PO 100 mg DAILY WILMA Administration Olanzapine 2.5 mg 04/12/24 18:00 04/13/24 20:31 Olanzapine 2.5 Mg Tablet PO 2.5 mg QPM PRN Administration AGITATION Polyethylene Glycol 17 gm 04/12/24 09:00 04/14/24 08:58 Polyethylene Glycol 3350 17 Gm Powd.Pack PO 17 gm BID WILMA Administration Prednisone 40 mg 04/14/24 08:00 04/14/24 08:55 Prednisone 20 Mg Tablet PO 40 mg DAILY@0800 WILMA Administration Rivaroxaban 20 mg 04/12/24 17:00 04/13/24 17:29 Rivaroxaban 20 Mg Tablet PO 20 mg DAILY@1700 [facility] Administration Senna 8.6 mg 04/12/24 09:00 04/14/24 08:55 Sennosides 8.6 Mg Tablet PO 8.6 mg DAILY WILMA Administration Simethicone 125 mg 04/12/24 02:16 Simethicone 125 Mg Chew Tab PO TID PRN gas Tamsulosin HCl 0.4 mg 04/12/24 09:00 04/14/24 08:55 Tamsulosin Hcl 0.4 Mg Capsule PO 0.4 mg DAILY WILMA Administration Radiology Results: ITS Impressions Chest X-Ray 04/11/24 11:02 IMPRESSION: 1. Opacities in bilateral mid and lower lung zones which could represent atelectasis or pneumonia. 2. Small bilateral pleural effusions. 3. Cardiomegaly. Modified Barium Swallow 04/13/24 09:29 IMPRESSION: Pharyngeal dysphagia with laryngeal penetration without aspiration with multiple consistencies. Please correlate with speech pathologist findings and specific feeding recommendations. Labs Labs: Laboratory Results - last 24 hr 04/14/24 05:44 WBC 2.7 L RBC 3.39 L Hgb 10.7 L Hct 33.6 L MCV 99.1 MCH 31.6 MCHC 31.8 L RDW 16.8 H Plt Count 243 MPV 10.4 Immature Gran % (Auto) 0.4 Neut % (Auto) 78.1 H Lymph % (Auto) 8.9 L [place] % (Auto) 9.3 H Eos % (Auto) 2.2 Baso % (Auto) 1.1 Lymph # (Auto) 0.24 L [place] # (Auto) 0.3 Eos # (Auto) 0.1 Baso # (Auto) 0.0 Abs Immat Gran (auto) 0.01 Absolute Neuts (auto) 2.1 Absolute Nucleated RBC 0.000 Nucleated RBC % 0.0 Sodium 135 L Potassium 3.6 Chloride 103 Carbon Dioxide 29 Anion Gap 3 L BUN 27 H Creatinine 0.90 Estim Creat Clear Calc 51 Estimated GFR > 60 Glucose 101 Calcium 9.2 Magnesium 1.9 Total Bilirubin 0.6 AST 22 ALT 13 Alkaline Phosphatase 87 Total Protein 6.0 L Albumin 3.0 L
[2024-04-14 13:35] LABS: NT Pro B Type Natriuretic Pept 5170 pg/mL (19.9-100)
[2024-04-14] MEDS: VENLAFAXINE HCL XR 37.5 MG CAP PO (14:06)
[2024-04-14] MEDS: FUROSEMIDE INJ 40 MG/4 ML VIAL IV PUSH (14:06)
[2024-04-14] MEDS: RIVAROXABAN 20 MG TABLET PO (17:30)
[2024-04-14] MEDS: ATORVASTATIN 10 MG TABLET PO (21:04)
[2024-04-15] VITALS (19 sets, daily range): BP systolic 107–125; BP diastolic 56–62; PULSE 60–109; RESP 16–20; TEMP 36.1–36.7; O2SAT 94–99
[2024-04-15] MEDS: LEVALBUTEROL NEB 1.25 MG/3 ML INHALATION ×3 (02:31→21:39)
[2024-04-15] MEDS: IPRATROPIUM BR 0.02% INH SOLN 0.5 MG/2.5 ML VIAL INHALATION ×4 (02:32→21:39)
[2024-04-15] MEDS: LEVOTHYROXINE SODIUM 75 MCG TABLET PO (06:48)
[2024-04-15 07:01] LABS: Basophils Percent Auto 0.3 % (0.2-1.2); Eosinophils Percent Auto 0.7 % (0-4.4); Hematocrit 28.6 % (42.0-52.0); Hemoglobin 8.8 g/dL (14.0-18.0); Immature Granulocyte Absolute 0.01 K/mm3 (0.00-0.031); Immature Granulocyte Percent A 0.3 % (0-0.5); Lymphocytes Absolute Auto 0.51 K/mm3 (0.9-3.2); Lymphocytes Percent Auto 17.1 % (18.3-44.2); Mean Corpuscular HGB Conc 30.8 g/dl (32-36); Mean Corpuscular Volume 100.7 fl (80-100); Mean Platelet Volume 10.5 fl (7.4-10.4); Monocytes Absolute Auto 0.5 K/mm3 (0.1-0.6); Monocytes Percent Auto 15.4 % (2.6-8.5); Neutrophils Percent Auto 66.2 % (45.5-73.1); Platelet Count Result 191 k/mm3 (150-375); Red Blood Count 2.84 M/mm3 (4.6-6.20); Red Cell Distribution Width 16.3 % (11.5-14.5)
[2024-04-15 07:07] LABS: Alanine Aminotransferase 12 U/L (6-50); Albumin Level 2.5 g/dL (3.5-5.1); Alkaline Phosphatase 76 U/L (38-126); Anion Gap 1 mmol/L (4-12); Aspartate Amino Transferase 20 U/L (17-59); Bilirubin,Total 0.5 mg/dL (0.2-1.3); Blood Urea Nitrogen 27 mg/dL (9-20); Calcium 8.9 mg/dL (8.4-10.2); Carbon Dioxide 31 mmol/L (22-30); Chloride 105 mmol/L (98-107); Estimated CRCL calculation 51 ml/min; Estimated Glomerular Filt Rate > 60; Glucose 109 mg/dL (65-110); Magnesium 2.1 mg/dL (1.6-2.3); Potassium 3.3 mmol/L (3.4-5.0); Sodium 137 mmol/L (137-145)
[2024-04-15] MEDS: predniSONE 20 MG TABLET 40 MG PO (09:49)
[2024-04-15] MEDS: POTASSIUM CHLORIDE 20 MEQ ER TABLET 40 MEQ PO (09:49)
[2024-04-15] MEDS: VENLAFAXINE HCL XR 37.5 MG CAP PO (09:49)
[2024-04-15] MEDS: HYDROXYCHLOROQUINE SULFATE 200 MG TABLET PO ×2 (09:50→20:37)
[2024-04-15] MEDS: hydrALAZINE HCL 25 MG TABLET PO ×2 (09:50→20:37)
[2024-04-15] MEDS: AMOXICILLIN/CLAVULANATE K 875-125 MG TAB 1 TABLET PO ×2 (09:50→20:40)
[2024-04-15] MEDS: CYANOCOBALAMIN 1,000 MCG TABLET 1000 MCG PO (09:50)
[2024-04-15] MEDS: DOXYCYCLINE HYCLATE 100 MG TABLET PO ×2 (09:50→20:37)
[2024-04-15] MEDS: TAMSULOSIN HCL 0.4 MG CAPSULE PO (09:50)
[2024-04-15] MEDS: METOPROLOL SUCCINATE EXT REL 100 MG TABCR PO (09:51)
[2024-04-15] MEDS: guaiFENesin 12 HR 600 MG TABCR 1200 MG PO ×2 (09:51→20:37)
[2024-04-15] MEDS: SENNOSIDES 8.6 MG TABLET PO (09:53)
[2024-04-15] MEDS: CYANOCOBALAMIN INJ 1,000 MCG/ML VIAL 1000 MCG IM (10:03)
--- NOTE | 2024-04-15 14:24 | P.PNIM_ITS ---
Progress Note: A&P Assessment and Plan (1) Acute hypoxic respiratory failure: Code(s): J96.01 - Acute respiratory failure with hypoxia Status: Acute (2) Community acquired pneumonia: Code(s): J18.9 - Pneumonia, unspecified organism Status: Acute (3) Paroxysmal atrial fibrillation: Code(s): I48.0 - Paroxysmal atrial fibrillation Status: Acute (4) Macrocytic anemia: Code(s): D53.9 - Nutritional anemia, unspecified Status: Acute (5) Chronic anticoagulation: Code(s): Z79.01 - longterm (current) use of anticoagulants Status: Acute (6) Hypertension: Code(s): I10 - Essential (primary) hypertension Status: Acute (7) Hyperlipidemia: Code(s): E78.5 - Hyperlipidemia, unspecified Status: Acute (8) Hypothyroidism: Code(s): E03.9 - Hypothyroidism, unspecified Status: Acute Plan Patient was brought in to the emergency department via EMS from [facility] for evaluation of shortness of breath. He was started on amoxicillin/clavulanic acid and doxycycline the day before for pneumonia. Patient noted to be hypoxic on day admission. In the ED, patient was afebrile with stable blood pressure. Was mildly tachypneic and was hypoxic. WBC 3.1K, Hgb 9.9 with macrocytosis, INR 2.3, lactic acid 2.9, proBNP 5180, procalcitonin 0.1, troponin 0.016. TSH and folate normal. B12 low end of normal at 276 (MMA ordered). Iron studies more consistent with anemia of chronic disease. He tested negative for influenza, RSV, and COVID. MRSA nasal swab negative. CXR with opacities in the bilateral mid and lower lung zones which could represent atelectasis or pneumonia, small bilateral effusions, and cardiomegaly. He was started on ceftriaxone and doxycycline. He was started on bronchodilators. He has MARISELA but has not use CPAP for over a year. ABG; 7.47 on RA. He did receive a dose of Lasix. Echo showing EF of 60-65% and diastolic dysfunction with moderate pulmonary hypertension. Patient has been treated with multiple doses of IV Lasix. He has a negative fluid balance since admission. Speech therapy evaluation with [facility] ed barium swallow minced and moist diet level 5 with moderately thick level 3 liquids. Heart rate has been mildly elevated at times. Prednisone started 04 14 due to wheezing. Patient does not have a history of smoking or asthma. Patient with Anxiety and used to be on venlafaxine, which was recently stopped. Venlafaxine and hydroxyzine was started here due to anxiety/panic attack the other day. He follows with psychiatrist as outpatient. Apnea link was incomplete. Sputum Cx negative. BCx grew Staph capitis in one aerobic bottle only that was sensitive to tetracycline and vanco. BCx not repeated. CXR 04/14 showing patchy bilateral airspace disease and small pleural effusions. Patient switched to oral abx. Assuming care. Patient still with O2 requirement but feels better overall. Speech therapy felt patient did much better with bedside. Since he had trace aspiration by MBS, we will repeat this test before advancing diet. Replace B12. Low WBC related to Plaquenil. Waiting on insurance approval to see if he qualifies for SNF. Continue PT/OT. Wean O2 off as tolerated. DVT prophylaxis on Xarelto Code status do not resuscitate Subjective Date/time seen: 04/15/24 14:24 Interval history: 88yo male with dementia, CAD, pAFib on anticoagulation, MARISELA, RA and anxiety here for SOB. Assuming care. Chart reviewed. Patient does not wear oxygen at the facility. States he was supposed to be on a noninvasive ventilator has not been wearing this recently. He slept well last night. He did not wear the noninvasive ventilator. No chest pain or shortness of breath. No odynophagia or dysphagia. He is wheelchair-bound mostly but can stand and pivot. Exam Narrative: AF 96.9 116/56 88 16 98% 3L Gen - NARD Chest -right basilar inspiratory crackles. Patient with a course dry cough. CV -irregularly irregular. S1-S2. Telemetry showing PACs and occasionally paced rhythm. Abd - Soft, NT/ND, Positive BS Ext - No pedal edema Neuro - Alert and oriented x4 Psych - Nml mood and affect Skin - Warm and dry Objective Data Vital Signs Vital Signs: Vital Signs - 24 hr 04/14/24 14:50 04/14/24 15:03 04/14/24 16:00 Temperature Pulse Rate 61 72 83 Respiratory Rate 20 20 Blood Pressure Pulse Oximetry Oxygen Delivery Oxygen Flow Rate 04/14/24 20:00 04/14/24 21:41 04/14/24 21:46 Temperature 97.8 F Pulse Rate 73 76 77 Respiratory Rate 22 H 20 Blood Pressure 92/53 L Pulse Oximetry 97 Oxygen Delivery Oxygen Flow Rate 04/14/24 21:55 04/15/24 00:00 04/15/24 02:32 Temperature Pulse Rate 74 74 61 Respiratory Rate 20 20 Blood Pressure Pulse Oximetry Oxygen Delivery Oxygen Flow Rate 04/15/24 02:45 04/15/24 04:00 04/15/24 07:43 Temperature Pulse Rate 73 78 67 Respiratory Rate 20 Blood Pressure Pulse Oximetry 98 Oxygen Delivery Nasal Cannula Oxygen Flow Rate 3 04/15/24 07:43 04/15/24 07:58 04/15/24 09:51 Temperature Pulse Rate 67 66 72 Respiratory Rate 18 18 Blood Pressure Pulse Oximetry Oxygen Delivery Oxygen Flow Rate 04/15/24 11:51 04/15/24 14:06 04/15/24 14:14 Temperature 97.1 F L Pulse Rate 109 H 61 63 Respiratory Rate 16 18 18 Blood Pressure 125/57 L Pulse Oximetry 99 Oxygen Delivery Oxygen Flow Rate 04/15/24 14:17 Temperature 96.9 F L Pulse Rate 88 Respiratory Rate 16 Blood Pressure 116/56 L Pulse Oximetry 98 Oxygen Delivery Oxygen Flow Rate Intake/Output Intake/Output: Intake & Output 04/12/24 04/13/24 04/14/24 04/15/24 23:59 23:59 23:59 23:59 Intake Total 903 323 2145 320 Output Total 3710 2600 2100 750 Balance -2730 -1760 -1020 -430 Meds/Results Medications: Active Medications Generic Name Dose Route Start Last Admin Trade Name Blas PRN Reason Stop Dose Admin Acetaminophen 650 mg 04/11/24 11:45 04/12/24 09:46 Acetaminophen 325 Mg Tablet PO 650 mg Q4H PRN Administration Mild Pain (1-3) or Fever Amoxicillin/Clavulanate Potassium 1 tablet 04/13/24 13:30 04/15/24 09:50 Amoxicillin/Clavulanate K 875-125 Mg Tab PO 04/17/24 21:01 1 tablet Q12HR WILMA Administration Atorvastatin Calcium 10 mg 04/12/24 21:00 04/14/24 21:04 Atorvastatin 10 Mg Tablet PO 10 mg HS WILMA Administration Calcium Carbonate 200 mg 04/12/24 02:16 Calcium Carbonate (Tums) 500 Mg (200 Mg Elemental) PO DAILY PRN indigestion Cyanocobalamin 1,000 mcg 04/15/24 09:00 04/15/24 09:50 Cyanocobalamin 1,000 Mcg Tablet PO 1,000 mcg QAM WILMA Administration Doxycycline Hyclate 100 mg 04/13/24 13:30 04/15/24 09:50 Doxycycline Hyclate 100 Mg Tablet PO 04/15/24 21:01 100 mg Q12HR WILMA Administration Guaifenesin 1,200 mg 04/11/24 21:00 04/15/24 09:51 Guaifenesin 12 Hr 600 Mg Tabcr PO 1,200 mg Q12HR WILMA Administration Hydralazine HCl 25 mg 04/12/24 09:00 04/15/24 09:50 Hydralazine Hcl 25 Mg Tablet PO 25 mg Q12HR WILMA Administration Hydroxychloroquine Sulfate 200 mg 04/12/24 09:00 04/15/24 09:50 Hydroxychloroquine Sulfate 200 Mg Tablet PO 200 mg Q12HR WILMA Administration Ipratropium [place] 0.5 mg 04/12/24 14:00 04/15/24 13:58 Ipratropium Br 0.02% Inh Soln 0.5 Mg/2.5 Ml Vial INHALATION 0.5 mg Q6HRT WILMA Administration Levalbuterol HCl 1.25 mg 04/12/24 14:00 04/15/24 07:43 Levalbuterol Neb 1.25 Mg/3 Ml INHALATION 1.25 mg Q6HRT WILMA Administration Levothyroxine Sodium 75 mcg 04/12/24 06:30 04/15/24 06:48 Levothyroxine Sodium 75 Mcg Tablet PO 75 mcg DAILY@0630 [facility] Administration Metoprolol Succinate 100 mg 04/12/24 09:00 04/15/24 09:51 Metoprolol Succinate Ext Rel 100 Mg Tabcr PO 100 mg DAILY [facility] Administration Olanzapine 2.5 mg 04/12/24 18:00 04/13/24 20:31 Olanzapine 2.5 Mg Tablet PO 2.5 mg QPM PRN Administration AGITATION Polyethylene Glycol 17 gm 04/12/24 09:00 04/15/24 09:52 Polyethylene Glycol 3350 17 Gm Powd.Pack PO Not Given BID [facility] Prednisone 40 mg 04/14/24 08:00 04/15/24 09:49 Prednisone 20 Mg Tablet PO 40 mg DAILY@0800 WILMA Administration Rivaroxaban 20 mg 04/12/24 17:00 04/14/24 17:30 Rivaroxaban 20 Mg Tablet PO 20 mg DAILY@1700 [facility] Administration Senna 8.6 mg 04/12/24 09:00 04/15/24 09:53 Sennosides 8.6 Mg Tablet PO 8.6 mg DAILY WILMA Administration Simethicone 125 mg 04/12/24 02:16 Simethicone 125 Mg Chew Tab PO TID PRN gas Tamsulosin HCl 0.4 mg 04/12/24 09:00 04/15/24 09:50 Tamsulosin Hcl 0.4 Mg Capsule PO 0.4 mg DAILY WILMA Administration Venlafaxine HCl 37.5 mg 04/14/24 12:55 04/15/24 09:49 Venlafaxine Hcl Xr 37.5 Mg Cap PO 37.5 mg DAILY@0800 WILMA Administration Radiology Results: ITS Impressions Modified Barium Swallow 04/13/24 09:29 IMPRESSION: Pharyngeal dysphagia with laryngeal penetration without aspiration with multiple consistencies. Please correlate with speech pathologist findings and specific feeding recommendations. Chest X-Ray 04/14/24 15:34 Impression: 1: Patchy bilateral airspace disease, compatible with pneumonia. 2: Small pleural effusions. Labs Labs: Laboratory Results - last 24 hr 04/15/24 06:24 WBC 3.0 L RBC 2.84 L Hgb 8.8 L Hct 28.6 L MCV 100.7 H MCH 31.0 MCHC 30.8 L RDW 16.3 H Plt Count 191 MPV 10.5 H Immature Gran % (Auto) 0.3 Neut % (Auto) 66.2 Lymph % (Auto) 17.1 L Wallace % (Auto) 15.4 H Eos % (Auto) 0.7 Baso % (Auto) 0.3 Lymph # (Auto) 0.51 L Wallace # (Auto) 0.5 Eos # (Auto) 0.0 Baso # (Auto) 0.0 Abs Immat Gran (auto) 0.01 Absolute Neuts (auto) 2.0 Absolute Nucleated RBC 0.000 Nucleated RBC % 0.0 Sodium 137 Potassium 3.3 L Chloride 105 Carbon Dioxide 31 H Anion Gap 1 L BUN 27 H Creatinine 0.90 Estim Creat Clear Calc 51 Estimated GFR > 60 Glucose 109 Calcium 8.9 Magnesium 2.1 Total Bilirubin 0.5 AST 20 ALT 12 Alkaline Phosphatase 76 Total Protein 5.0 L Albumin 2.5 L
[2024-04-15] MEDS: RIVAROXABAN 20 MG TABLET PO (17:34)
[2024-04-15] MEDS: ATORVASTATIN 10 MG TABLET PO (20:37)
[2024-04-16] VITALS (15 sets, daily range): BP systolic 108–121; BP diastolic 58–59; PULSE 58–95; RESP 16–18; TEMP 36.3–36.7; O2SAT 92–97
[2024-04-16] MEDS: IPRATROPIUM BR 0.02% INH SOLN 0.5 MG/2.5 ML VIAL INHALATION ×3 (03:25→13:13)
[2024-04-16] MEDS: LEVALBUTEROL NEB 1.25 MG/3 ML INHALATION ×3 (03:25→13:13)
[2024-04-16] MEDS: LEVOTHYROXINE SODIUM 75 MCG TABLET PO (06:24)
[2024-04-16 07:15] LABS: Hematocrit 28.3 % (42.0-52.0); Hemoglobin 8.7 g/dL (14.0-18.0); Lymphocytes Absolute Auto 0.42 K/mm3 (0.9-3.2); Lymphocytes Percent Auto 15.3 % (18.3-44.2); Mean Corpuscular HGB Conc 30.7 g/dl (32-36); Mean Corpuscular Hemoglobin 31.1 pg (26-34); Mean Corpuscular Volume 101.1 fl (80-100); Mean Platelet Volume 10.6 fl (7.4-10.4); Monocytes Absolute Auto 0.3 K/mm3 (0.1-0.6); Monocytes Percent Auto 9.9 % (2.6-8.5); Neutrophils Absolute Auto 2.1 K/mm3 (1.3-6.7); Neutrophils Percent Auto 74.8 % (45.5-73.1); Platelet Count Result 189 k/mm3 (150-375); Red Cell Distribution Width 15.9 % (11.5-14.5); White Blood Count 2.7 K/mm3 (4.5-10.0)
[2024-04-16 07:22] LABS: Anion Gap 2 mmol/L (4-12); Blood Urea Nitrogen 24 mg/dL (9-20); Calcium 9.1 mg/dL (8.4-10.2); Carbon Dioxide 29 mmol/L (22-30); Chloride 107 mmol/L (98-107); Estimated CRCL calculation 64 ml/min; Estimated Glomerular Filt Rate > 60; Glucose 111 mg/dL (65-110); Magnesium 2.2 mg/dL (1.6-2.3); Potassium 4.1 mmol/L (3.4-5.0); Sodium 138 mmol/L (137-145)
[2024-04-16] MEDS: CYANOCOBALAMIN 1,000 MCG TABLET 1000 MCG PO (08:22)
[2024-04-16] MEDS: polyethylene glycoL 3350 17 GM POWD.PACK PO (08:22)
[2024-04-16] MEDS: SENNOSIDES 8.6 MG TABLET PO (08:22)
[2024-04-16] MEDS: AMOXICILLIN/CLAVULANATE K 875-125 MG TAB 1 TABLET PO (08:22)
[2024-04-16] MEDS: TAMSULOSIN HCL 0.4 MG CAPSULE PO (08:22)
[2024-04-16] MEDS: VENLAFAXINE HCL XR 37.5 MG CAP PO (08:22)
[2024-04-16] MEDS: predniSONE 20 MG TABLET 40 MG PO (08:22)
[2024-04-16] MEDS: METOPROLOL SUCCINATE EXT REL 100 MG TABCR PO (08:22)
[2024-04-16] MEDS: HYDROXYCHLOROQUINE SULFATE 200 MG TABLET PO (08:22)
[2024-04-16] MEDS: hydrALAZINE HCL 25 MG TABLET PO (08:23)
[2024-04-16] MEDS: guaiFENesin 12 HR 600 MG TABCR 1200 MG PO (08:23)
--- NOTE | 2024-04-16 15:37 | PM.DS ---
DS: Admitting Diagnosis Discharge Date 04/16/24 Admitting Diagnosis Shortness of breath DS: Discharge Diagnosis Discharge Diagnosis (1) Acute hypoxic respiratory failure: Code(s): J96.01 - Acute respiratory failure with hypoxia Status: Acute (2) Community acquired pneumonia: Code(s): J18.9 - Pneumonia, unspecified organism Status: Acute (3) Paroxysmal atrial fibrillation: Code(s): I48.0 - Paroxysmal atrial fibrillation Status: Acute (4) Macrocytic anemia: Code(s): D53.9 - Nutritional anemia, unspecified Status: Acute (5) Chronic anticoagulation: Code(s): Z79.01 - group home (current) use of anticoagulants Status: Acute (6) Hypertension: Code(s): I10 - Essential (primary) hypertension Status: Acute (7) Hyperlipidemia: Code(s): E78.5 - Hyperlipidemia, unspecified Status: Acute (8) Hypothyroidism: Code(s): E03.9 - Hypothyroidism, unspecified Status: Acute DS: Summary Hospital Course Reason for hospitalization: 88yo male with dementia, CAD, pAFib on anticoagulation, MARISELA, RA and anxiety here for SOB. Please see H&P for details. Hospital Course: Patient was brought in to the emergency department via EMS from [facility] for evaluation of shortness of breath. He was started on amoxicillin/clavulanic acid and doxycycline the day before for pneumonia. Patient noted to be hypoxic on day of admission. In the ED, patient was afebrile with stable blood pressure. Was mildly tachypneic and was hypoxic. WBC 3.1K, Hgb 9.9 with macrocytosis, INR 2.3, lactic acid 2.9, proBNP 5180, procalcitonin 0.1, troponin 0.016. TSH and folate normal. B12 low end of normal at 276 (MMA ordered). Iron studies more consistent with anemia of chronic disease. He tested negative for influenza, RSV, and COVID. MRSA nasal swab negative. CXR with opacities in the bilateral mid and lower lung zones which could represent atelectasis or pneumonia, small bilateral effusions, and cardiomegaly. He was started on ceftriaxone and doxycycline. He was started on bronchodilators. He has MARISELA but has not use CPAP for over a year. ABG; 7.47/29/51 on RA. He did receive a dose of Lasix. Echo showing EF of 60-65% and diastolic dysfunction with moderate pulmonary hypertension. Patient has been treated with multiple doses of IV Lasix. He has a negative fluid balance since admission. Speech therapy evaluation with modified barium swallow minced and moist diet level 5 with moderately thick level 3 liquids. Heart rate has been mildly elevated at times. Prednisone started 04/14 due to wheezing. Patient does not have a history of smoking or asthma. Patient with anxiety and used to be on venlafaxine, which was recently stopped. Venlafaxine and hydroxyzine was started here due to anxiety/panic attack with benefit. He follows with psychiatrist as outpatient. Apnea link was incomplete. Sputum Cx negative. BCx grew Staph capitis in one aerobic bottle only that was sensitive to tetracycline and vanco. BCx not repeated. CXR 04/14 showing patchy bilateral airspace disease and small pleural effusions. Patient switched to oral abx. Speech therapy felt patient did much better with bedside swallow so MBS was repeated. This showed patietn could be advanced to Level 6 soft and bite sized but remain on Level 3 thickened liquids. Long discussion with patient and son in the room about these findings. Discussed risks of not adhering to this diet including PNA, resp distress, resp failure and even . THey both voice understanding but patient was insistent on having coffee without thickener. We replaced B12. WBC remained low but more chronic issue and could be related to Plaquenil. Patient was able to be weaned down on his Oxygen. He overall did well and was able to be discharged on 04/16/24 Status at Discharge Cognitive/behavioral status at discharge: stable Time Spent with Patient Time attestation: Total time spent providing and/or coordinating discharge services:38 minutes Time spent: Greater than 30 minutes Exam Narrative: AF 98.0 108/59 66 18 92% 1L Gen - NARD Chest - distant BS CV - irregularly irregular. S1-S2. Tele showing AFib Abd - Soft, NT/ND, Positive BS Ext - trace pedal edema Psych - Nml mood and affect Skin - Warm and dry DS: Data Data Completed and Pending Labs on day of discharge: Labs from last 24 hours 04/16/24 06:47 WBC 2.7 L RBC 2.80 L Hgb 8.7 L Hct 28.3 L MCV 101.1 H MCH 31.1 MCHC 30.7 L RDW 15.9 H Plt Count 189 MPV 10.6 H Immature Gran % (Auto) 0.0 Neut % (Auto) 74.8 H Lymph % (Auto) 15.3 L [place] % (Auto) 9.9 H Eos % (Auto) 0.0 Baso % (Auto) 0.0 L Lymph # (Auto) 0.42 L [place] # (Auto) 0.3 Eos # (Auto) 0.0 Baso # (Auto) 0.0 Abs Immat Gran (auto) 0.00 Absolute Neuts (auto) 2.1 Absolute Nucleated RBC 0.000 Nucleated RBC % 0.0 Sodium 138 Potassium 4.1 Chloride 107 Carbon Dioxide 29 Anion Gap 2 L BUN 24 H Creatinine 0.70 Estim Creat Clear Calc 64 Estimated GFR > 60 Glucose 111 H Calcium 9.1 Magnesium 2.2 Preliminary micro results at discharge 04/11/24 10:15 Blood Culture - Preliminary Blood Staphylococcus capitis 04/11/24 10:47 Blood Culture - Preliminary Blood Discharge Plan Discharge Attending physician on discharge: Vitaly Martin Discharging Clinician: Vitaly Martin Anticipated Discharge Date/Time: 04/16/24 15:47 Patient Disposition: NH Senior Living/Asst Living Activity: as tolerated Diet: heart healthy and other - see discharge instructions Discharge Instructions: Diet: soft and bite sized Level 6 diet with moderately thick liquids Level 3. Alternate sips and solids. Assistance with eating. Multiple chews per bite. Oxygen at 1Liter. Wean to off to keep Spo2>92%. Check blood pressure 1 to 2 times a day. Record for the doctor's review. Take precautions to avoid falls. Rise slowly from a lying or sitting position. Contact the doctor if the patient has any shortness of breath, persistent cough or other worrisome symptoms. Avoid NSAIDs (ibuprofen, naproxen, Aleve). Tylenol is safe to take. Follow-up with the provider at the facility. Thank you for using [facility] for your health care needs. Patient Instructions: Antibiotic Form, Rivaroxaban (By mouth), Pneumonia (DC) Patient Language: [place]se Stand Alone Forms: General Discharge Information Follow-up/Referrals: Aleyda,Bossman Snell DO [Primary Care Provider] - Discharge Medications: New guaifenesin [Mucus Relief ER] 600 mg Tablet Extended Release 12hr 1,200 mg PO Q12HR Qty: 10 0RF venlafaxine [Effexor XR] 37.5 mg Capsule,Extended Release 24hr 37.5 mg PO DAILY@0800 Qty: 30 0RF cyanocobalamin (vitamin B-12) [Vitamin B-12] 1,000 mcg Tablet 1,000 mcg PO QAM Qty: 30 0RF Continued acetaminophen 650 mg tablet extended release 650 mg PO Q6H PRN (Reason: Pain, fever) ipratropium-albuterol 0.5 mg-3 mg(2.5 mg base)/3 mL solution for nebulization 3 ml INHALATION Q6-8H PRN (Reason: shortness of breath or wheezing) atorvastatin 10 mg tablet 10 mg PO HS metoprolol succinate 100 mg tablet extended release 24 hr 100 mg PO DAILY hydralazine 25 mg tablet 25 mg PO Q12H levothyroxine 75 mcg tablet 75 mcg PO 0630 hydroxychloroquine 200 mg tablet 200 mg PO .q12hr polyethylene glycol 3350 [Miralax] 17 gram/dose powder 17 g PO BID Xarelto 20 mg tablet 20 mg PO Q24H tamsulosin 0.4 mg capsule 0.4 mg PO Q24H sennosides 8.6 mg tablet 8.6 mg PO DAILY simethicone [Gas Relief (simethicone)] 125 mg capsule 125 mg PO .q8 PRN (Reason: gas) calcium carbonate [Antacid (calcium carbonate)] 200 mg calcium (500 mg) tablet,chewable 200 mg PO DAILY PRN (Reason: indigestion) amoxicillin-pot clavulanate 875-125 mg tablet 1 tablet PO Q12H Qty: 3 0RF Rx Instructions: twice a day x 7 days Changed olanzapine 2.5 mg tablet 2.5 mg PO QPM PRN (Reason: Anxiety) Qty: 10 0RF Rx Instructions: POA requests this medication be made PRN Discontinued doxycycline hyclate 100 mg capsule 100 mg PO Q12H Rx Instructions: x 7 days Date of admission: 04/11/24 17:10 Primary Care Provider: DerrickBossman Admitting Provider: Tre Schwab Attending physician on admission: Tre Schwab Condition: Stable Hospitalist MIPS Heart Failure (Exclusion) Patient has history of Heart Transplant or Left Ventricular Assistive Device?: No IF YES, STOP HERE Heart Failure (Qualifier) Patient has current or prior documentation of LVEF less than or equal to 40%, or mod/servere depressed LVSF?: No IF NO, STOP HERE
[2024-04-16 16:04] LABS: Pneumococcal Antigen Urine NOT DETECTED
[2024-04-16 18:23] LABS: Mycoplasma IgM Antibody Titer 47 U/mL
[2024-04-17 15:43] LABS: Methylmalonic Acid 176 nmol/L (85-423)
[2024-04-21 17:28] LABS: Legionella pneumophila Ag Ur NOT DETECTED
== END 2024-04-16 16:55 | DRG 193 ==
LOC: ANHED 11:23 → ANHIMU 12:36 → ANH3MEDSUR 04-13 12:12
PROVIDERS: Physician Assistant; Admitting Provider Internal Medicine; Emergency Provider Emergency Medicine; PCP Internal Medicine; Visit Provider Internal Medicine
DX: J18.9 Pneumonia, unspecified organism (principal); I50.31 Acute diastolic (congestive) heart failure; J96.01 Acute respiratory failure with hypoxia; I11.0 Hypertensive heart disease with heart failure; I25.10 Atherosclerotic heart disease of native coronary artery without angina pectoris; I48.0 Paroxysmal atrial fibrillation; D53.9 Nutritional anemia, unspecified; E03.9 Hypothyroidism, unspecified; R13.10 Dysphagia, unspecified; M06.9 Rheumatoid arthritis, unspecified; G47.33 Obstructive sleep apnea (adult) (pediatric); F41.9 Anxiety disorder, unspecified; F03.90 Unspecified dementia, unspecified severity, without behavioral disturbance, psychotic disturbance, mood disturbance, and anxiety; Z20.822 Contact with and (suspected) exposure to COVID-19; Z95.5 Presence of coronary angioplasty implant and graft; Z95.0 Presence of cardiac pacemaker; Z79.01 Long term (current) use of anticoagulants; Z99.3 Dependence on wheelchair
CPT/HCPCS: 36415; 36600; 71045; 80048; 80053; 82607; 82728; 82746; 82805; 83540; 83550; 83605; 83735; 83880; 83921; 84145; 84443; 84484; 85018; 85025; 85027; 85610; 85730; 86738; 87040; 87070; 87181; 87205; 87449; 87637; 87641; 87899; 92526; 92611; 93005; 94640; 94667; 94668; 94762; 96365; 96367; 96375; 97110; 97116; 97161; 97165; 97530; 99285; A9270; C8929; G0378; J0696; J1940; J2060; J2919; J3420; J7030; J7040; J7512; Q9957

== ENCOUNTER 2024-04-29 10:21 | Inpatient (IN) | payer MEDICARE, SELFPAY ==
[2024-04-29] VITALS (13 sets, daily range): BP systolic 106–152; BP diastolic 54–70; PULSE 60–85; RESP 14–20; TEMP 36.2–36.7; O2SAT 95–99; BMI 26.2
--- NOTE | ~2024-04-29 | XR_ITS ---
XR chest 1V portable Ordering provider: Brian Jang MD History: 88 years Male with . left effusion . Comparison: May 05, 2024 FINDINGS: MEDIASTINUM: The cardiac silhouette is slightly enlarged. Prominent both maude. Left bipolar pacemaker. LUNGS: No effusions or pneumothorax. Opacification the right upper lobe unchanged from previous exami nation. OTHER: Multiple healing rib fractures in the right upper thorax. No free air under the diaphragm. Deg enerative changes of the spine. IMPRESSION: Right upper lobe pneumonia. Reviewed, dictated and finalized at location A. S ATTENDANT BUILDING MATERIALS IMPRESSION: Right upper lobe pneumonia.
--- NOTE | ~2024-04-29 | XR_ITS ---
CHEST RADIOGRAPH CLINICAL HISTORY: post thoracentesis . COMPARISON: 05/04/2024 TECHNIQUE: Single portable view of the chest. FINDINGS The left mid lung is partially obscured due to pacemaker generator. Wires project over the right atrium and right ventricle. The remainder of the cardiomediastinal silhouette is otherwise unremarkable. Improved aeration of the left hemithorax with significant decrease in the left-sided pleural effusion , seen on earlier examination. The left lung is fully inflated. Right upper lobe opacification is unchanged. IMPRESSION: No pneumothorax following left-sided thoracentesis, as detailed above. Improved aeration when compared with earlier study. Reviewed, dictated and finalized at location A. CULTURE DEPARTMENT CHAIR
--- NOTE | ~2024-04-29 | XR_ITS ---
EXAMINATION: XR chest 1V portable DATE: 05/04/2024 09:20 INDICATION: Pneumonia. TECHNIQUE: A single frontal view of the chest was obtained. COMPARISON: Chest 2 views 04/29/2024 FINDINGS: There are airspace opacities in all lung zones bilaterally, worst in the right upper lung z one and left mid and lower lung zones. There is a small left pleural effusion. No pneumothorax. The h eart size is normal. There is a left chest wall pacer with leads in the right atrium and right ventri kamilah. There are old healed right rib fractures. IMPRESSION: 1. Diffuse lung disease with worsening in left midlung zone, consistent with pneumonia. 2. Stable small left pleural effusion. Reviewed, dictated and finalized at location A. RVISOR TRANSFERRING AND BOXING IMPRESSION: 1. Diffuse lung disease with worsening in left midlung zone, consistent with pn eumonia. 2. Stable small left pleural effusion.
--- NOTE | ~2024-04-29 | CT_ITS ---
EXAMINATION:CT diagnostic chest wo con DATE: 05/04/2024 14:33 INDICATION: Lung infiltrates. Rheumatoid arthritis. TECHNIQUE: Computed tomography (CT) of the chest was performed without intravenous contrast. Automate d exposure control and iterative reconstruction technique were employed. The dose-length product (DLP ) was 608.39 mGy-cm. COMPARISON: Chest single view 05/04/2024, 04/14/2024 FINDINGS: There are patchy airspace and groundglass opacities in the upper lobes, right middle lobe, and right lower lobe. There is a small loculated right pleural effusion. There is a moderate-sized le ft pleural effusion. Cardiomegaly is noted. There are coronary artery calcifications. No pericardial effusion. Calcified left hilar and mediastinal lymph nodes are consistent with old granulomatous dise ase. There is a left chest wall pacer with leads in the right atrium and right ventricle. There is bi lateral gynecomastia. Calcifications in the liver and spleen are consistent with old granulomatous di sease. There is a filter in the inferior vena cava. There are cysts in right kidney measuring up to 3 .3 cm. There are old healed bilateral rib fractures. There is severe cervical spondylosis and mild th oracic spondylosis. There is a subacute versus chronic burst fracture of T11 with 3/5 loss of height and retropulsion of bone 2 mm into central spinal canal. IMPRESSION: 1. Diffuse lung disease, consistent with pneumonia. 2. Small loculated right pleural effusion. Moderate-sized left pleural effusion. 3. Cardiomegaly. Reviewed, dictated and finalized at location A. NG CUTTING MACHINE OPERATOR IMPRESSION: 1. Diffuse lung disease, consistent with pneumonia. 2. Small loculated right pleural effusion. Moderate-sized left pleural effusion . 3. Cardiomegaly.
--- NOTE | ~2024-04-29 | US_ITS ---
EXAMINATION:US venous doppler UE LT INDICATION:Swelling TECHNIQUE: Multiple grayscale, color flow and Doppler images of the left upper extremity deep venous systems were obtained and reviewed. COMPARISON:None FINDINGS: The left jugular, subclavian, axillary, brachial, basilic, cephalic, radial and ulnar veins demonstrate normal respiratory variation, augmentation and compressibility. Color flow is also seen within the left jugular, subclavian, axillary, brachial, basilic, cephalic an d radial veins. IMPRESSION: No left upper extremity deep venous thrombosis. Reviewed, dictated and finalized at location A. I POWDER MIXER
--- NOTE | ~2024-04-29 | XR_ITS ---
EXAMINATION: XR chest 2V DATE: 04/29/2024 12:37 INDICATION: Abnormal lung zones TECHNIQUE: frontal and lateral views of the chest were obtained. COMPARISON: Chest radiograph dated 04/14/2024 FINDINGS: Increasing diffuse opacities in the right lung greatest in the upper lung zone. Additional increasing opacities in the left mid and lower lung zone which include a small posterior layering left pleural effusion. No pneumothorax or right-sided pleural effusion. Heart size is normal. Dual lead pacemaker seen with leads projecting over the expected locations of the right atrium and right ventricle. IMPRESSION: 1. Increasing bilateral airspace opacities suspicious for worsening pneumonia. 2. Increasing small left pleural effusion. Reviewed, dictated and finalized at location A. OR BACK END JAVA DEVELOPER
--- NOTE | ~2024-04-29 | US_ITS ---
EXAMINATION: US thoracentesis DATE: 05/05/2024 16:30 INDICATION: pleural effusion TECHNIQUE: The procedure and its risks, benefits, and alternatives were discussed with the patient an d his son. Potential risks discussed included bleeding, infection, and pneumothorax. The patient's so n understood the risks and agreed to proceed. The skin was prepped and draped in sterile fashion. 1% lidocaine was used for local anesthesia. Under ultrasound guidance, a 5 Fr catheter with trochar was advanced into the left pleural effusion. Fluid was aspirated. The catheter was removed, and a dressin g was applied. There were no immediate complications. FINDINGS: Ultrasound images demonstrate a left pleural effusion and the catheter within the fluid. IMPRESSION: 1. Successful ultrasound-guided thoracentesis yielding 1000 mL of yellow fluid. Reviewed, dictated and finalized at location A. ASSISTANT MANAGER IMPRESSION: 1. Successful ultrasound-guided thoracentesis yielding 1000 mL of yellow fluid .
--- NOTE | 2024-04-29 11:32 | ED_ITS ---
HPI - Recheck/Abnormal Lab/Rx General Chief Complaint: Recheck/Abnormal Lab/Rx Stated Complaint: ABN lung sounds Time Seen by Provider: 04/29/24 10:47 Source: patient, EMS and RN notes reviewed Mode of arrival: EMS Limitations: no limitations History of Present Illness HPI narrative: Patient presents from a facility for report of abnormal lung sounds. Recently diagnosed with pneumonia and placed on antibiotis. Alert and oriented by report. He received a DuoNeb en route and wears 2L NC at baseline. PA had taken provider to provider report and documented that the patient's doctor wanted him to get a troponin, CBC, CMP and EKG. Patient states he has been coughing up sputum and is having a little difficulty breathing as well as some chest pain. In particular, he states it hurts when he coughs. He is also having back pain. Denies weakness. Related Data Home Medications ?Medication ?Instructions ?Recorded ?Confirmed ?Last Taken ?Type acetaminophen 650 mg 650 mg PO Q6H PRN Pain, fever 04/11/24 04/29/24 Unknown History tablet,extended release atorvastatin 10 mg tablet 10 mg PO HS 04/11/24 04/29/24 Unknown History hydralazine 25 mg tablet 25 mg PO Q12H 04/11/24 04/29/24 Unknown History hydroxychloroquine 200 mg tablet 200 mg PO .q12hr 04/11/24 04/29/24 Unknown History ipratropium 0.5 mg-albuterol 3 mg 3 ml inhalation Q6-8H PRN 04/11/24 04/29/24 Unknown History (2.5 mg base)/3 mL nebulization shortness of breath or wheezing soln levothyroxine 75 mcg tablet 75 mcg PO 0630 04/11/24 04/29/24 Unknown History metoprolol succinate 100 mg 100 mg PO DAILY 04/11/24 04/29/24 Unknown History tablet,extended release 24 hr polyethylene glycol 3350 17 17 g PO BID 04/11/24 04/29/24 Unknown History gram/dose oral powder (Miralax) calcium carbonate (Antacid 200 mg PO DAILY PRN indigestion 04/12/24 04/29/24 Unknown History (calcium carbonate)) rivaroxaban 20 mg tablet (Xarelto) 20 mg PO Q24H 04/12/24 04/29/24 Unknown History sennosides 8.6 mg tablet 8.6 mg PO DAILY 04/12/24 04/29/24 Unknown History simethicone 125 mg capsule (Gas 125 mg PO .q8 PRN gas 04/12/24 04/29/24 Unknown History Relief (simethicone)) tamsulosin 0.4 mg capsule 0.4 mg PO Q24H 04/12/24 04/29/24 Unknown History Allergies Allergy/AdvReac Type Severity Reaction Status Date / Time No Known Allergies Allergy Verified 04/29/24 10:37 [facility] Past Medical History Medical History Hyperlipidemia Hypertension Rheumatoid arthritis Hypothyroidism Coronary artery disease Chronic anticoagulation Paroxysmal atrial fibrillation Surgical History Surgical History History of vasectomy History of coronary artery stent placement History of permanent cardiac pacemaker placement Family History Family History Other Family history non-contributory Social History Social History Social History: Surrogate medical decision maker: Azucena or Connor welsh, children. Code status: Modified code, no intubation. (long-term documentation signed 02/21/24 lists No CPR/Do not attempt resuscitation, selective treatment). Smoking status: Never smoker Alcohol intake: never Substance use: never Do You Feel Safe in your Home?: Yes Lack of Transportation: No Lack of Food: Never True Current Housing: I Have Housing Concerned About Future Housing: No Difficulty Paying Gas/Electric Bills: No Difficulty Paying for Meds: No Currently Unemployed: No Education: Trade/Vocational Certificate Difficulty w/ Childcare or Family Care: No Living arrangements: half-way Additional living arrangements comments: [facility] Occupation/Education: retired Additional occupation/education comments: [employer]. Spiritual care concerns: Yes Exam 2 Narrative: GENERAL: well-nourished, and in no acute distress. HEAD: Normocephalic, atraumatic. EYES: Non injected, non icteric ENT: Nares clear, no rhinorrhea or epistaxis. NECK: Supple. CHEST: Speaking in full sentences. No respiratory distress. NC in place. Coarse bilateral breath sounds. HEART: Regular rate and rhythm. . ABDOMEN: Soft, nondistended. EXTREMITIES: Normal range of motion. No lower extremity edema. SKIN: Warm, dry, no rash. NEURO: No focal deficits. Alert and oriented x3. PSYCH: Normal mood and affect. Course Vital Signs Vital signs: Vital Signs Temperature 97.1 F L 04/29/24 10:23 Pulse Rate 85 04/29/24 10:23 Respiratory Rate 14 04/29/24 10:23 Blood Pressure 127/60 04/29/24 10:23 Pulse Oximetry 96 04/29/24 10:23 Oxygen Delivery Nasal Cannula 04/29/24 10:23 Oxygen Flow Rate 2 04/29/24 10:23 Temperature 98.1 F 04/30/24 21:26 Pulse Rate 95 04/30/24 21:26 Respiratory Rate 18 04/30/24 21:26 Blood Pressure 112/60 04/30/24 21:26 Pulse Oximetry 95 04/30/24 21:26 Oxygen Delivery Nasal Cannula 04/30/24 20:04 Oxygen Flow Rate 2 04/30/24 20:04 MDM - Recheck/Abnormal Lab/Rx MDM Narrative Medical decision making narrative: Patient presents from facility with report of abnormal breath sounds. Recently diagnosed with PNA and started on antibiotics. Coarse bilateral breath sounds. Wears 2L at baseline. In the emergency department they are afebrile with vital signs within normal limits. Per review of half-way documentation, patient is on Xarelto. CXR shows worsening PNA with negative viral swab. Has essentially failed outpatient therapy. PSI/PORT Score: Pneumonia Severity Index for CAP Age: 88 years Sex (F -10; Male 0): 0 long-term resident (No 0, Yes +10): 10 Neoplastic disease (No 0, Yes +30): 0 Liver disease history (No 0, Yes +20): 0 CHF history (No 0, Yes +10):0 Cerebrovascular disease history (No 0, Yes +10):0 Renal disease history (No 0, Yes +10):0 Altered mental status (No 0, Yes +20):0 RR >/=30 breaths/min (No 0, Yes +20):0 SBP <90mmHg (No 0, Yes +20):0 Temp <35C (95F) or >39.9C (103.8F) - (No 0, Yes +15):0 Pulse >/=125 beats/min (No 0, Yes +10):0 pH <7.35 (No 0, Yes +30):0 BUN >/=30 mg/dL or >/=11mmol/L (No 0, Yes +20):0 Na <130mmol/L (No 0, Yes +20):0 Glucose >/=250mg/dl (No 0, Yes +10):0 Hct <30% (No 0, Yes +10):0 partial pressure of oxygen <60mmHg (No 0, Yes +10):0 Pleural effusion on xray (No 0, Yes +10): 10 Result: 107 points, Risk Class IV; 8.2-9.3% mortality. Moderate risk and inpatient admission recommended. Given this will be an inpatient/floor patient, will start ceftriaxone for potential drug resistant strep + azithromycin. Patient has a leukocytosis. Also macrocytic anemia that does appear to be stable from a had previously been seen. Because there was questionable discrepancy between documentation regarding patient's code status, I did have conversation with patient and his daughter was at bedside and they both confirm that in the event of cardiopulmonary arrest, patient would did not want chest compressions or intubation. His coarse breath sounds are improving on exam but now there are appreciable wheeze; additional albuterol ordered. Discussed with water purification chemist hospitalist KEISHA. Stable for admission. Lab Data Attestation: I reviewed the patient's lab results. 04/30/24 06:56 04/30/24 06:56 Labs: Lab Results 04/29/24 Range/Units 12:55 WBC 3.2 L (4.5-10.0) K/mm3 RBC 3.10 L (4.6-6.20) M/mm3 Hgb 9.7 L (14.0-18.0) g/dL Hct 31.2 L (42.0-52.0) % MCV 100.6 H (80-100) fl MCH 31.3 (26-34) pg MCHC 31.1 L (32-36) g/dl RDW 15.4 H (11.5-14.5) % Plt Count 217 (150-375) k/mm3 MPV 10.3 (7.4-10.4) fl Immature Gran % (Auto) 0.3 (0-0.5) % Neut % (Auto) 71.9 (45.5-73.1) % Lymph % (Auto) 9.8 L (18.3-44.2) % [place] % (Auto) 11.7 H (2.6-8.5) % Eos % (Auto) 5.0 H (0-4.4) % Baso % (Auto) 1.3 H (0.2-1.2) % Lymph # (Auto) 0.31 L (0.9-3.2) K/mm3 [place] # (Auto) 0.4 (0.1-0.6) K/mm3 Eos # (Auto) 0.2 (0-0.3) K/mm3 Baso # (Auto) 0.0 (0.0-0.1) K/mm3 Abs Immat Gran (auto) 0.01 (0.00-0.031) K/mm3 Absolute Neuts (auto) 2.3 (1.3-6.7) K/mm3 Absolute Nucleated RBC 0.000 (0.0-0.012) K/mm3 Nucleated RBC % 0.0 (0.0-0.2) % Sodium 140 (137-145) mmol/L Potassium 4.2 (3.4-5.0) mmol/L Chloride 106 (98-107) mmol/L Carbon Dioxide 34 H (22-30) mmol/L Anion Gap 0 L (4-12) mmol/L BUN 14 D (9-20) mg/dL Creatinine 0.80 (0.7-1.3) mg/dL Estim Creat Clear Calc 60 ml/min Estimated GFR > 60 (59 - ) Glucose 101 (65-110) mg/dL Calcium 9.4 (8.4-10.2) mg/dL Total Bilirubin 0.9 (0.2-1.3) mg/dL AST 21 (17-59) U/L ALT 17 (6-50) U/L Alkaline Phosphatase 106 (38-126) U/L Troponin I < 0.012 (0.000-0.034) ng/mL Total Protein 6.0 L (6.3-8.2) g/dL Albumin 3.0 L (3.5-5.1) g/dL Lipase 18 L (23-300) U/L Influenza A (RT-PCR) Negative (Negative) Influenza B (RT-PCR) Negative (Negative) RSV (RT-PCR) Negative (Negative) SARS-CoV-2 RNA (RT-PCR) Negative (Negative) ABG Data ABG results: 04/29/24 11:53 Puncture Site Right radial ABG pH 7.443 ABG pCO2 44.5 ABG pO2 78.6 L ABG PO2/FiO2 Ratio 2.81 ABG HCO3 29.8 H ABG O2 Saturation 96.0 ABG O2 Content 13.8 L ABG Base Excess 5.1 A-a Gradient 68.5 Oxyhemoglobin 94.7 Total Hemoglobin 10.3 L O2 Delivery Device Nasal cannula O2 Liters/Min Not Reportable FiO2 28 Attestation: I personally reviewed and interpreted this ABG as follows: Interpretation: Metabolic alkalosis , appropriately compensated by resp acidosis Imaging Data Radiologist's impression: IMPRESSION: 1. Increasing bilateral airspace opacities suspicious for worsening pneumonia. 2. Increasing small left pleural effusion. ECG Data EKG #1: Attestation: I personally reviewed and interpreted this ECG as follows: ECG completion date: 04/29/24 ECG completion time: 11:43 Prior ECG tracings: available for review (atrial fibrillation with RVR 04/11/24) Interpretation: Electronic atrial pacemaker at a rate of 62 beats per minute. DC interval marked as prolonged at 310 but it is difficult to appreciate P-waves. QRS 97. Incomplete RBBB given QRS less [id number]; RSR' M-shaped pattern in V1-V3; wide, slurred S wave in lateral leads (I, aVL, V5-6). T-wave flattening throughout the inferior leads. Poor baseline wander in lateral precordial leads limits interpretation although it does not appear there marked elevations or T- wave inversions. Discharge Plan Discharge Clinical Impression: Bilateral pneumonia, Hypoalbuminemia, Leukocytosis, Anemia, macrocytic Patient Disposition: Still a Patient Condition: Stable
--- NOTE | 2024-04-29 11:32 | ECG_ITS ---
Test Date: 2024-04-29 11:43:38 Measurements Intervals Dietrich Rate: 62 P: 60 WA: 310 QRS: -16 QRSD: 97 T: -27 QT: 442 QTc: 450 Interpretive Statements ATRIAL FIBRILLATION INCOMPLETE RIGHT BUNDLE BRANCH BLOCK [90+ ms QRS DURATION, TERMINAL R IN V1/V2, 40+ ms S IN I/aVL/V4/V5/V6] SEPTAL MYOCARDIAL INFARCTION , PROBABLY OLD [40+ ms Q WAVE IN V1/V2] INFERIOR MYOCARDIAL INFARCTION , PROBABLY OLD [40+ ms Q WAVE AND/OR ST/T ABNORMALITY IN II/aVF] Compared to ECG 04/11/2024 13:14:07 Incomplete right bundle-branch block now present Myocardial infarct finding now present Atrial fibrillation no longer present Electronically Signed On 05-04-2024 10:16:22 PRODUCTION SUPPORT SUPERVISOR by Ralph Leonardo M.D.
[2024-04-29] MEDS: IPRATROPIUM 0.5 MG/ALBUTEROL SULFATE 2.5 MG AMPUL.NEB 3 ML INHALATION (11:47)
[2024-04-29 11:55] LABS: Alveolar/Arterial O2 Gradient 68.5 mmHg; Base Excess ABG 5.1 mEq/l (+/-2.0); Fractional Inspired Oxygen 28 %; HCO3 ABG 29.8 mEq/l (22.0-26.0); Oxygen Content ABG 13.8 %vol (16.0-22.0); Oxyhemoglobin 94.7 % THb (90.0-100.0); PCO2 ABG 44.5 mmHg (35.0-45.0); PO2 ABG 78.6 mmHg (80.0-100.0); PO2 FiO2 Ratio Arterial Blood 2.81 %; Total Hemoglobin 10.3 g/dL (12.0-18.0); pH ABG 7.443 (7.350-7.450)
[2024-04-29 11:56] LABS: Device NASAL CANNULA; Modified Allen's Test Pass; Site Drawn RIGHT RADIAL
[2024-04-29 13:01] LABS: Basophils Percent Auto 1.3 % (0.2-1.2); Eosinophils Absolute Auto 0.2 K/mm3 (0-0.3); Hematocrit 31.2 % (42.0-52.0); Hemoglobin 9.7 g/dL (14.0-18.0); Immature Granulocyte Absolute 0.01 K/mm3 (0.00-0.031); Immature Granulocyte Percent A 0.3 % (0-0.5); Lymphocytes Absolute Auto 0.31 K/mm3 (0.9-3.2); Lymphocytes Percent Auto 9.8 % (18.3-44.2); Mean Corpuscular HGB Conc 31.1 g/dl (32-36); Mean Corpuscular Hemoglobin 31.3 pg (26-34); Mean Corpuscular Volume 100.6 fl (80-100); Mean Platelet Volume 10.3 fl (7.4-10.4); Monocytes Absolute Auto 0.4 K/mm3 (0.1-0.6); Monocytes Percent Auto 11.7 % (2.6-8.5); Neutrophils Absolute Auto 2.3 K/mm3 (1.3-6.7); Neutrophils Percent Auto 71.9 % (45.5-73.1); Platelet Count Result 217 k/mm3 (150-375); Red Cell Distribution Width 15.4 % (11.5-14.5); White Blood Count 3.2 K/mm3 (4.5-10.0)
[2024-04-29 13:16] LABS: Alanine Aminotransferase 17 U/L (6-50); Alkaline Phosphatase 106 U/L (38-126); Anion Gap 0 mmol/L (4-12); Aspartate Amino Transferase 21 U/L (17-59); Bilirubin,Total 0.9 mg/dL (0.2-1.3); Blood Urea Nitrogen 14 mg/dL (9-20); Calcium 9.4 mg/dL (8.4-10.2); Carbon Dioxide 34 mmol/L (22-30); Chloride 106 mmol/L (98-107); Estimated CRCL calculation 60 ml/min; Estimated Glomerular Filt Rate > 60; Glucose 101 mg/dL (65-110); Lipase 18 U/L (23-300); Potassium 4.2 mmol/L (3.4-5.0); Sodium 140 mmol/L (137-145)
[2024-04-29 13:28] LABS: Troponin I < 0.012 ng/mL (0.000-0.034)
[2024-04-29 13:42] LABS: Influenza A QL RT-PCR Negative (Negative); Influenza B QL RT-PCR Negative (Negative); RSV RNA, RT-PCR Negative (Negative); SARS-CoV-2 RNA PCR Negative (Negative)
[2024-04-29] MEDS: ALBUTEROL SULFATE NEB 2.5 MG/3 ML INH INHALATION (14:17)
--- NOTE | 2024-04-29 17:39 | P.HP_ITS ---
H&P: HPI History of Present Illness Date/Time: 04/29/24 17:39 Chief Complaint: Abnormal Lung Sounds Narrative: Patient has a Hx of dementia, coronary artery disease with history of stents, paroxysmal atrial fibrillation on chronic anticoagulation, obstructive sleep apnea, rheumatoid arthritis, hypothyroidism, and anxiety. Patient was brought to the ER when staff at the SNF that he resides notice adventitious lung sounds. Patient is very BUCKLAND and does not provide much Hx but daughter bedside reports that pt was discharged from this facility less than 2 weeks ago after being treated for PNA. During the last admission, pt was seen by ST and soft and bite sized diet with thickened liquids was recommended. Patient is reporting that he has been having regular fluids at the facility with no thickenings. He reports some episodes of coughing during meals. He denies any fevers or chills, chest pain, SOB, nausea and vomiting, diarrhea. Review of Systems Review of Systems: All systems reviewed & are unremarkable except as noted in HPI and below PMFSH Past Medical History Medical History Hyperlipidemia Hypertension Rheumatoid arthritis Hypothyroidism Coronary artery disease Chronic anticoagulation Paroxysmal atrial fibrillation Surgical History Surgical History History of vasectomy History of coronary artery stent placement History of permanent cardiac pacemaker placement Family History Family History Other Family history non-contributory Social History Social History Social History: Surrogate medical decision maker: Azucena or Connor welsh, children. Code status: Modified code, no intubation. (senior living documentation signed 02/21/24 lists No CPR/Do not attempt resuscitation, selective treatment). Smoking status: Never smoker Alcohol intake: never Substance use: never Do You Feel Safe in your Home?: Yes Lack of Transportation: No Lack of Food: Never True Current Housing: I Have Housing Concerned About Future Housing: No Difficulty Paying Gas/Electric Bills: No Difficulty Paying for Meds: No Currently Unemployed: No Education: Trade/Vocational Certificate Difficulty w/ Childcare or Family Care: No Living arrangements: residential Additional living arrangements comments: [facility] Occupation/Education: retired Additional occupation/education comments: [employer]. Spiritual care concerns: Yes Meds Home Medications and Allergies Home Medications ?Medication ?Instructions ?Recorded ?Confirmed ?Type acetaminophen 650 mg 650 mg PO Q6H PRN Pain, fever 04/11/24 04/29/24 History tablet,extended release atorvastatin 10 mg tablet 10 mg PO HS 04/11/24 04/29/24 History hydralazine 25 mg tablet 25 mg PO Q12H 04/11/24 04/29/24 History hydroxychloroquine 200 mg tablet 200 mg PO .q12hr 04/11/24 04/29/24 History ipratropium 0.5 mg-albuterol 3 mg 3 ml inhalation Q6-8H PRN 04/11/24 04/29/24 History (2.5 mg base)/3 mL nebulization shortness of breath or wheezing soln levothyroxine 75 mcg tablet 75 mcg PO 0630 04/11/24 04/29/24 History metoprolol succinate 100 mg 100 mg PO DAILY 04/11/24 04/29/24 History tablet,extended release 24 hr polyethylene glycol 3350 17 17 g PO BID 04/11/24 04/29/24 History gram/dose oral powder (Miralax) calcium carbonate (Antacid 200 mg PO DAILY PRN indigestion 04/12/24 04/29/24 History (calcium carbonate)) rivaroxaban 20 mg tablet (Xarelto) 20 mg PO Q24H 04/12/24 04/29/24 History sennosides 8.6 mg tablet 8.6 mg PO DAILY 04/12/24 04/29/24 History simethicone 125 mg capsule (Gas 125 mg PO .q8 PRN gas 04/12/24 04/29/24 History Relief (simethicone)) tamsulosin 0.4 mg capsule 0.4 mg PO Q24H 04/12/24 04/29/24 History amoxicillin 875 mg-potassium 1 tablet PO Q12H #3 tabs 04/16/24 04/29/24 Rx clavulanate 125 mg tablet cyanocobalamin (vitamin B-12) 1,000 mcg PO QAM #30 tabs 04/16/24 04/29/24 Rx 1,000 mcg tablet (Vitamin B-12) guaifenesin 600 mg tablet, 1,200 mg (2 x 600 mg) PO Q12HR #10 04/16/24 04/29/24 Rx extended release 12 hr (Mucus tabs Relief ER) olanzapine 2.5 mg tablet 2.5 mg PO QPM PRN Anxiety #10 tabs 04/16/24 04/29/24 Rx venlafaxine 37.5 mg 37.5 mg PO DAILY@0800 #30 caps 04/16/24 04/29/24 Rx capsule,extended release 24 hr (Effexor XR) Allergies Allergy/AdvReac Type Severity Reaction Status Date / Time No Known Allergies Allergy Verified 04/29/24 10:37 Vital Signs Vital Signs - 24 hr 04/29/24 10:23 04/29/24 10:35 04/29/24 11:24 Temperature 97.1 F L 97.8 F Pulse Rate 85 60 Respiratory Rate 14 18 Blood Pressure 127/60 124/62 Pulse Oximetry 96 96 98 Oxygen Delivery Nasal Cannula Oxygen Flow Rate 2 2 04/29/24 11:50 04/29/24 12:01 04/29/24 13:44 Temperature 97.7 F Pulse Rate 62 62 60 Respiratory Rate 19 19 18 Blood Pressure 152/70 H Pulse Oximetry 99 Oxygen Delivery Oxygen Flow Rate 04/29/24 14:17 04/29/24 14:28 04/29/24 16:42 Temperature 98.1 F Pulse Rate 62 63 68 Respiratory Rate 20 18 20 Blood Pressure 144/70 H Pulse Oximetry 97 Oxygen Delivery Oxygen Flow Rate 04/29/24 17:17 Temperature 97.7 F Pulse Rate 67 Respiratory Rate 18 Blood Pressure 126/62 Pulse Oximetry 99 Oxygen Delivery Oxygen Flow Rate Exam Narrative: General: Fair appearing, general muscle weakness. HEENT: Atraumatic, PERRL, EOM, anicteric, moist mucosa. NECK: Supple. Lungs: Coarse bilaterally. Heart: RRR, no murmurs. Abdomen: Soft, obese, non-tender, non-distended. Extremities: Acyanotic, no edema. Skin: Warm and dry. Neuro: Fairly oriented, BU[place], CN II-XII grossly intact. Psych: Pleasant and co-operative. H&P: Results Labs Labs: Short CBC 04/29/24 Range/Units 12:55 WBC 3.2 L (4.5-10.0) K/mm3 Hgb 9.7 L (14.0-18.0) g/dL Hct 31.2 L (42.0-52.0) % Plt Count 217 (150-375) k/mm3 BMP 04/29/24 12:55 Sodium 140 Potassium 4.2 Chloride 106 Carbon Dioxide 34 H BUN 14 D Creatinine 0.80 Glucose 101 Calcium 9.4 Cardiac Enzymes 04/29/24 Range/Units 12:55 Troponin I < 0.012 (0.000-0.034) ng/mL Liver Function 04/29/24 Range/Units 12:55 Total Bilirubin 0.9 (0.2-1.3) mg/dL AST 21 (17-59) U/L ALT 17 (6-50) U/L Alkaline Phosphatase 106 (38-126) U/L Albumin 3.0 L (3.5-5.1) g/dL Assessment and Plan Assessment and plan (1) Bilateral pneumonia: Code(s): J18.9 - Pneumonia, unspecified organism Status: Acute Assessment and Plan: - Blood cultures collected. - Urine strep pneumo Ag, urine legionella Ag ordered. - Started on broad-spectrum IV abx. - Currently on RA with sats > 90 %. - Follow cultures. (2) Paroxysmal atrial fibrillation: Code(s): I48.0 - Paroxysmal atrial fibrillation Status: Acute Assessment and Plan: - Rate well controlled. - Continue Metoprolol and Xarelto. (3) Hypertension: Code(s): I10 - Essential (primary) hypertension Status: Acute Assessment and Plan: - Well controlled. - Continue metoprolol and hydralazine. (4) Coronary artery disease: Code(s): I25.10 - Atherosclerotic heart disease of [place] coronary artery without angina pectoris Status: Acute Assessment and Plan: - Stable. - Continue metoprolol, xarelto and statin. (5) Hyperlipidemia: Code(s): E78.5 - Hyperlipidemia, unspecified Status: Acute Assessment and Plan: - Resume statin (6) Hypothyroidism: Code(s): E03.9 - Hypothyroidism, unspecified Status: Acute Assessment and Plan: - Resume levothyroxine. (7) Leukopenia: Code(s): D72.819 - Decreased white blood cell count, unspecified Status: Acute Assessment and Plan: - Appears chronic. - Monitor trend. Quality VTE Prophylaxis VTE prophylaxis: pharmacologic ordered Hospitalist MIPS Advance Care Plan I have confirmed that the patient's Advanced Care Plan is present, code status is documented, or surrogate decision maker is listed in patient medical record.: Yes Medication Reconciliation I have utilized all available resources to obtain, update and review the mayco ents current medications (includes all prescriptions, OTC, herbals, cannabis, and nutritional supplements).: Yes
[2024-04-29] MEDS: AZITHROMYCIN 500 MG/NS 250 ML 500 MG/250 ML BAG 250 MG IVPB (18:29)
[2024-04-29] MEDS: CEFEPIME 1 GM/NS 50 ML 1 GM/50 ML BAG IVPB (18:34)
[2024-04-29] MEDS: ACETAMINOPHEN 325 MG TABLET 650 MG PO (18:55)
[2024-04-29] MEDS: OLANZapine 2.5 MG TABLET PO (19:20)
[2024-04-29] MEDS: VANCOMYCIN 1,000 MG/NS 250 ML 1,000 MG/250 ML BAG 250 MG IVPB (22:00)
[2024-04-29] MEDS: VANCOMYCIN 1,250 MG/NS 250 ML 1,250 MG/250 ML BAG 166.67 MG IVPB (22:01)
[2024-04-30] VITALS (10 sets, daily range): BP systolic 103–127; BP diastolic 47–72; PULSE 60–95; RESP 16–18; TEMP 36.4–36.9; O2SAT 94–96
[2024-04-30] MEDS: LEVOTHYROXINE SODIUM 75 MCG TABLET PO (06:33)
[2024-04-30] MEDS: CEFEPIME 1 GM/NS 50 ML 1 GM/50 ML BAG IVPB (06:35)
[2024-04-30 07:01] LABS: Basophils Absolute Auto 0.1 K/mm3 (0.0-0.1); Basophils Percent Auto 2.3 % (0.2-1.2); Eosinophils Absolute Auto 0.2 K/mm3 (0-0.3); Eosinophils Percent Auto 6.8 % (0-4.4); Hematocrit 29.7 % (42.0-52.0); Immature Granulocyte Absolute 0.01 K/mm3 (0.00-0.031); Immature Granulocyte Percent A 0.4 % (0-0.5); Lymphocytes Absolute Auto 0.35 K/mm3 (0.9-3.2); Lymphocytes Percent Auto 13.2 % (18.3-44.2); Mean Corpuscular HGB Conc 30.3 g/dl (32-36); Mean Corpuscular Hemoglobin 31.4 pg (26-34); Mean Corpuscular Volume 103.5 fl (80-100); Mean Platelet Volume 10.3 fl (7.4-10.4); Monocytes Absolute Auto 0.4 K/mm3 (0.1-0.6); Monocytes Percent Auto 13.6 % (2.6-8.5); Neutrophils Absolute Auto 1.7 K/mm3 (1.3-6.7); Neutrophils Percent Auto 63.7 % (45.5-73.1); Platelet Count Result 194 k/mm3 (150-375); Red Blood Count 2.87 M/mm3 (4.6-6.20); Red Cell Distribution Width 15.6 % (11.5-14.5); White Blood Count 2.7 K/mm3 (4.5-10.0)
[2024-04-30 07:13] LABS: Anion Gap -2 mmol/L (4-12); Blood Urea Nitrogen 14 mg/dL (9-20); Carbon Dioxide 31 mmol/L (22-30); Chloride 108 mmol/L (98-107); Estimated CRCL calculation 68 ml/min; Estimated Glomerular Filt Rate > 60; Glucose 79 mg/dL (65-110); Potassium 4.2 mmol/L (3.4-5.0); Sodium 137 mmol/L (137-145)
[2024-04-30 07:58] LABS: MRSA (PCR) NOT DETECTED (NOT DETECTE)
[2024-04-30] MEDS: hydrALAZINE HCL 25 MG TABLET PO ×2 (09:16→20:32)
[2024-04-30] MEDS: SENNOSIDES 8.6 MG TABLET PO (09:16)
[2024-04-30] MEDS: HYDROXYCHLOROQUINE SULFATE 200 MG TABLET PO ×2 (09:16→20:32)
[2024-04-30] MEDS: CYANOCOBALAMIN 1,000 MCG TABLET 1000 MCG PO (09:16)
[2024-04-30] MEDS: VENLAFAXINE HCL XR 37.5 MG CAP PO (09:17)
[2024-04-30] MEDS: guaiFENesin 12 HR 600 MG TABCR 1200 MG PO ×2 (09:18→20:32)
[2024-04-30] MEDS: METOPROLOL SUCCINATE EXT REL 100 MG TABCR PO (09:18)
[2024-04-30] MEDS: polyethylene glycoL 3350 17 GM POWD.PACK PO ×2 (09:19→17:04)
--- NOTE | 2024-04-30 11:11 | PM.IMPN ---
Progress Note: A&P Assessment and Plan (1) Bilateral pneumonia: Code(s): J18.9 - Pneumonia, unspecified organism Status: Acute Assessment and Plan: - Blood cultures collected. - Urine strep pneumo Ag, urine legionella Ag ordered. - Started on broad-spectrum IV abx. - Currently on RA with sats > 90 %. - During the last admission, pt was seen by ST and soft and bite sized diet with thickened liquids was recommended. Patient is reporting that he has been having regular fluids at the facility with no thickenings. He reports some episodes of coughing during meals. - ST to evaluate swallowing. - Cefepime 2 gram IVPB q 12. - Follow cultures. (2) Paroxysmal atrial fibrillation: Code(s): I48.0 - Paroxysmal atrial fibrillation Status: Acute Assessment and Plan: - Rate well controlled. - Continue Metoprolol and Xarelto. (3) Hypertension: Code(s): I10 - Essential (primary) hypertension Status: Acute Assessment and Plan: - Well controlled, blood pressure today 127/72. - Continue metoprolol and hydralazine. (4) Coronary artery disease: Code(s): I25.10 - Atherosclerotic heart disease of [place] coronary artery without angina pectoris Status: Acute Assessment and Plan: - Stable. - Continue metoprolol, xarelto and statin. (5) Hyperlipidemia: Code(s): E78.5 - Hyperlipidemia, unspecified Status: Acute Assessment and Plan: - Resume statin (6) Hypothyroidism: Code(s): E03.9 - Hypothyroidism, unspecified Status: Acute Assessment and Plan: - Resume levothyroxine. (7) Leukopenia: Code(s): D72.819 - Decreased white blood cell count, unspecified Status: Acute Assessment and Plan: - Appears chronic. - Monitor trend. Subjective Date/time seen: 04/30/24 11:11 Interval history: Patient sitting up in bed with daughter at bedside. Patient reports shortness of breath at rest and with exertion. Patient denies chest pain, palpitations, headache, dizziness, nausea, or vomiting. Patient reports coughing up green sputum. Review of Systems Review of Systems: All systems reviewed & are unremarkable except as noted in HPI and below Exam Const: General: no acute distress HENMT: Other: [place] Eyes: Sclera: sclerae normal Resp: Auscultation: crackles (scattered) and wheezes expiratory wheezes Cardio: Rate: regular rate Rhythm: regular rhythm GI: GI Palp: Yes Soft to palpation Auscultation: normal bowel sounds Skin: General skin exam: no rashes or lesions noted Neuro: Speech: normal speech Extrem: General: pedal edema Other: 1+ LLE edema, Trace LUE and trace RLE edema. Psych: Affect: normal affect Other: Pleasant and co-operative. Objective Data Vital Signs Vital Signs: Vital Signs - 24 hr 04/29/24 11:24 04/29/24 11:50 04/29/24 12:01 Temperature 97.8 F Pulse Rate 60 62 62 Respiratory Rate 18 19 19 Blood Pressure 124/62 Pulse Oximetry 98 Oxygen Delivery Oxygen Flow Rate 04/29/24 13:44 04/29/24 14:17 04/29/24 14:28 Temperature 97.7 F Pulse Rate 60 62 63 Respiratory Rate 18 20 18 Blood Pressure 152/70 H Pulse Oximetry 99 Oxygen Delivery Oxygen Flow Rate 04/29/24 16:42 04/29/24 17:17 04/29/24 18:41 Temperature 98.1 F 97.7 F Pulse Rate 68 67 Respiratory Rate 20 18 Blood Pressure 144/70 H 126/62 Pulse Oximetry 97 99 95 Oxygen Delivery Nasal Cannula Oxygen Flow Rate 2 04/29/24 20:00 04/29/24 22:00 04/30/24 06:00 Temperature 97.5 F L 98.4 F Pulse Rate 62 60 Respiratory Rate 16 18 Blood Pressure 106/54 L 127/72 Pulse Oximetry 97 97 95 Oxygen Delivery Nasal Cannula Oxygen Flow Rate 2 04/30/24 09:18 Temperature Pulse Rate 74 Respiratory Rate Blood Pressure Pulse Oximetry Oxygen Delivery Oxygen Flow Rate Intake/Output Intake/Output: Intake & Output 04/27/24 04/28/24 04/29/24 04/30/24 23:59 23:59 23:59 23:59 Intake Total 290 Output Total 1900 Balance 290 -1900 Meds/Results Medications: Active Medications Generic Name Dose Route Start Last Admin Trade Name Freq PRN Reason Stop Dose Admin Acetaminophen 650 mg 04/29/24 22:48 Acetaminophen 325 Mg Tablet PO Q6H PRN PAIN RATED 1-3/FEVER Albuterol/Ipratropium 3 ml 04/29/24 22:48 Ipratropium 0.5 Mg/Albuterol Sulfate 2.5 Mg Ampul.Neb 3 Ml INHALATION Q6H PRN shortness of breath or wheezin Atorvastatin Calcium 10 mg 04/30/24 21:00 Atorvastatin 10 Mg Tablet PO HS WILMA Calcium Carbonate 200 mg 04/29/24 22:48 Calcium Carbonate (Tums) 500 Mg (200 Mg Elemental) PO DAILY PRN indigestion Cyanocobalamin 1,000 mcg 04/30/24 09:00 04/30/24 09:16 Cyanocobalamin 1,000 Mcg Tablet PO 1,000 mcg QAM WILMA Administration Guaifenesin 1,200 mg 04/30/24 09:00 04/30/24 09:18 Guaifenesin 12 Hr 600 Mg Tabcr PO 1,200 mg Q12HR WILMA Administration Hydralazine HCl 25 mg 04/30/24 09:00 04/30/24 09:16 Hydralazine Hcl 25 Mg Tablet PO 25 mg Q12HR WILMA Administration Hydroxychloroquine Sulfate 200 mg 04/30/24 09:00 04/30/24 09:16 Hydroxychloroquine Sulfate 200 Mg Tablet PO 200 mg Q12HR WILMA Administration Cefepime HCl 1 gm in 50 mls @ 100 mls/hr 04/29/24 18:00 04/30/24 06:35 Maxipime 1 Gm/Ns 50 Ml IVPB 100 mls/hr Q12H WILMA Administration Vancomycin HCl 1,250 mg in 250 mls @ 166.667 mls/hr 04/30/24 16:00 Vancomycin 1,250 Mg/Ns 250 Ml IVPB Q18H WILMA Levothyroxine Sodium 75 mcg 04/30/24 06:30 04/30/24 06:33 Levothyroxine Sodium 75 Mcg Tablet PO 75 mcg 0630 WILMA Administration Metoprolol Succinate 100 mg 04/30/24 09:00 04/30/24 09:18 Metoprolol Succinate Ext Rel 100 Mg Tabcr PO 100 mg DAILY WILMA Administration Olanzapine 2.5 mg 04/29/24 22:48 Olanzapine 2.5 Mg Tablet PO QPM PRN Anxiety Ondansetron HCl 4 mg 04/29/24 14:56 Ondansetron Inj 4 Mg/2 Ml Vial IV PUSH Q4H PRN Nausea Polyethylene Glycol 17 gm 04/30/24 09:00 04/30/24 09:19 Polyethylene Glycol 3350 17 Gm Powd.Pack PO 17 gm BID [facility] Administration Rivaroxaban 20 mg 04/30/24 17:00 Rivaroxaban 20 Mg Tablet PO DAILY@1700 [facility] Senna 8.6 mg 04/30/24 09:00 04/30/24 09:16 Sennosides 8.6 Mg Tablet PO 8.6 mg DAILY WILMA Administration Simethicone 125 mg 04/29/24 22:48 Simethicone 125 Mg Chew Tab PO Q8H PRN gas Tamsulosin HCl 0.4 mg 04/30/24 21:00 Tamsulosin Hcl 0.4 Mg Capsule PO HS [facility] Venlafaxine HCl 37.5 mg 04/30/24 08:00 04/30/24 09:17 Venlafaxine Hcl Xr 37.5 Mg Cap PO 37.5 mg DAILY@0800 [facility] Administration Radiology Results: ITS Impressions Chest X-Ray 04/29/24 12:48 IMPRESSION: 1. Increasing bilateral airspace opacities suspicious for worsening pneumonia. 2. Increasing small left pleural effusion. Labs Labs: Laboratory Results - last 24 hr 04/29/24 04/29/24 04/30/24 11:53 12:55 06:37 WBC 3.2 L RBC 3.10 L Hgb 9.7 L Hct 31.2 L MCV 100.6 H MCH 31.3 MCHC 31.1 L RDW 15.4 H Plt Count 217 MPV 10.3 Immature Gran % (Auto) 0.3 Neut % (Auto) 71.9 Lymph % (Auto) 9.8 L [place] % (Auto) 11.7 H Eos % (Auto) 5.0 H Baso % (Auto) 1.3 H Lymph # (Auto) 0.31 L [place] # (Auto) 0.4 Eos # (Auto) 0.2 Baso # (Auto) 0.0 Abs Immat Gran (auto) 0.01 Absolute Neuts (auto) 2.3 Absolute Nucleated RBC 0.000 Nucleated RBC % 0.0 Puncture Site Right radial ABG pH 7.443 ABG pCO2 44.5 ABG pO2 78.6 L ABG PO2/FiO2 Ratio 2.81 ABG HCO3 29.8 H ABG O2 Saturation 96.0 ABG O2 Content 13.8 L ABG Base Excess 5.1 A-a Gradient 68.5 Oxyhemoglobin 94.7 Total Hemoglobin 10.3 L O2 Delivery Device Nasal cannula O2 Liters/Min Not Reportable FiO2 28 Sodium 140 Potassium 4.2 Chloride 106 Carbon Dioxide 34 H Anion Gap 0 L BUN 14 D Creatinine 0.80 Estim Creat Clear Calc 60 Estimated GFR > 60 Glucose 101 Calcium 9.4 Magnesium Total Bilirubin 0.9 AST 21 ALT 17 Alkaline Phosphatase 106 Troponin I < 0.012 Total Protein 6.0 L Albumin 3.0 L Lipase 18 L Nasal MRSA (PCR) Not detected Influenza A (RT-PCR) Negative Influenza B (RT-PCR) Negative RSV (RT-PCR) Negative SARS-CoV-2 RNA (RT-PCR) Negative 04/30/24 06:56 WBC 2.7 L RBC 2.87 L Hgb 9.0 L Hct 29.7 L MCV 103.5 H MCH 31.4 MCHC 30.3 L RDW 15.6 H Plt Count 194 MPV 10.3 Immature Gran % (Auto) 0.4 Neut % (Auto) 63.7 Lymph % (Auto) 13.2 L [place] % (Auto) 13.6 H Eos % (Auto) 6.8 H Baso % (Auto) 2.3 H Lymph # (Auto) 0.35 L [place] # (Auto) 0.4 Eos # (Auto) 0.2 Baso # (Auto) 0.1 Abs Immat Gran (auto) 0.01 Absolute Neuts (auto) 1.7 Absolute Nucleated RBC 0.000 Nucleated RBC % 0.0 Puncture Site ABG pH ABG pCO2 ABG pO2 ABG PO2/FiO2 Ratio ABG HCO3 ABG O2 Saturation ABG O2 Content ABG Base Excess A-a Gradient Oxyhemoglobin Total Hemoglobin O2 Delivery Device O2 Liters/Min FiO2 Sodium 137 Potassium 4.2 Chloride 108 H Carbon Dioxide 31 H Anion Gap -2 L BUN 14 Creatinine 0.70 Estim Creat Clear Calc 68 Estimated GFR > 60 Glucose 79 Calcium 9.0 Magnesium 2.0 Total Bilirubin AST ALT Alkaline Phosphatase Troponin I Total Protein Albumin Lipase Nasal MRSA (PCR) Influenza A (RT-PCR) Influenza B (RT-PCR) RSV (RT-PCR) SARS-CoV-2 RNA (RT-PCR) Quality VTE Prophylaxis VTE prophylaxis: pharmacologic ordered
[2024-04-30] MEDS: FUROSEMIDE INJ 40 MG/4 ML VIAL 20 MG IV PUSH (12:46)
[2024-04-30] MEDS: IPRATROPIUM 0.5 MG/ALBUTEROL SULFATE 2.5 MG AMPUL.NEB 3 ML INHALATION ×2 (13:05→19:58)
[2024-04-30] MEDS: CEFEPIME 2 GM/NS 50 ML 2 GM/50 ML BAG IVPB ×2 (14:20→23:20)
--- NOTE | 2024-04-30 17:02 | PCSTNOTE ---
Please refer to the Bedside Swallow Evaluation in the EMR. Please note, silent aspiration cannot be ruled out at bedside.
[2024-04-30] MEDS: RIVAROXABAN 20 MG TABLET PO (17:04)
[2024-04-30] MEDS: TAMSULOSIN HCL 0.4 MG CAPSULE PO (20:32)
[2024-04-30] MEDS: ATORVASTATIN 10 MG TABLET PO (20:32)
[2024-05-01] VITALS (14 sets, daily range): BP systolic 105–112; BP diastolic 46–71; PULSE 61–73; RESP 16–19; TEMP 36.3–36.6; O2SAT 94–100
[2024-05-01] MEDS: IPRATROPIUM 0.5 MG/ALBUTEROL SULFATE 2.5 MG AMPUL.NEB 3 ML INHALATION ×4 (01:00→20:17)
[2024-05-01] MEDS: LEVOTHYROXINE SODIUM 75 MCG TABLET PO (05:42)
[2024-05-01 07:35] LABS: Basophils Absolute Auto 0.1 K/mm3 (0.0-0.1); Eosinophils Absolute Auto 0.2 K/mm3 (0-0.3); Eosinophils Percent Auto 9.8 % (0-4.4); Hemoglobin 8.9 g/dL (14.0-18.0); Immature Granulocyte Absolute 0.01 K/mm3 (0.00-0.031); Immature Granulocyte Percent A 0.4 % (0-0.5); Lymphocytes Absolute Auto 0.46 K/mm3 (0.9-3.2); Lymphocytes Percent Auto 18.9 % (18.3-44.2); Mean Corpuscular HGB Conc 30.7 g/dl (32-36); Mean Corpuscular Hemoglobin 30.8 pg (26-34); Mean Corpuscular Volume 100.3 fl (80-100); Mean Platelet Volume 10.3 fl (7.4-10.4); Monocytes Absolute Auto 0.3 K/mm3 (0.1-0.6); Monocytes Percent Auto 13.9 % (2.6-8.5); Neutrophils Absolute Auto 1.3 K/mm3 (1.3-6.7); Platelet Count Result 185 k/mm3 (150-375); Red Blood Count 2.89 M/mm3 (4.6-6.20); Red Cell Distribution Width 15.3 % (11.5-14.5); White Blood Count 2.4 K/mm3 (4.5-10.0)
[2024-05-01 07:52] LABS: Alanine Aminotransferase 19 U/L (6-50); Albumin Level 2.5 g/dL (3.5-5.1); Alkaline Phosphatase 95 U/L (38-126); Anion Gap -2 mmol/L (4-12); Aspartate Amino Transferase 25 U/L (17-59); Bilirubin,Total 0.7 mg/dL (0.2-1.3); Blood Urea Nitrogen 15 mg/dL (9-20); Calcium 8.9 mg/dL (8.4-10.2); Carbon Dioxide 34 mmol/L (22-30); Chloride 103 mmol/L (98-107); Estimated CRCL calculation 68 ml/min; Estimated Glomerular Filt Rate > 60; Glucose 85 mg/dL (65-110); Potassium 3.8 mmol/L (3.4-5.0); Sodium 135 mmol/L (137-145)
[2024-05-01] MEDS: polyethylene glycoL 3350 17 GM POWD.PACK PO ×2 (09:28→17:37)
[2024-05-01] MEDS: HYDROXYCHLOROQUINE SULFATE 200 MG TABLET PO ×2 (09:29→22:03)
[2024-05-01] MEDS: METOPROLOL SUCCINATE EXT REL 100 MG TABCR PO (09:29)
[2024-05-01] MEDS: CYANOCOBALAMIN 1,000 MCG TABLET 1000 MCG PO (09:29)
[2024-05-01] MEDS: VENLAFAXINE HCL XR 37.5 MG CAP PO (09:29)
[2024-05-01] MEDS: guaiFENesin 12 HR 600 MG TABCR 1200 MG PO ×2 (09:31→22:02)
[2024-05-01] MEDS: hydrALAZINE HCL 25 MG TABLET PO ×2 (09:32→22:03)
[2024-05-01] MEDS: CEFEPIME 2 GM/NS 50 ML 2 GM/50 ML BAG IVPB ×2 (09:32→22:01)
[2024-05-01] MEDS: SENNOSIDES 8.6 MG TABLET PO (09:33)
--- NOTE | 2024-05-01 11:10 | P.PNIM_ITS ---
Progress Note: A&P Assessment and Plan (1) Bilateral pneumonia: Code(s): J18.9 - Pneumonia, unspecified organism Status: Acute Assessment and Plan: - Blood cultures collected. - Urine strep pneumo Ag, urine legionella Ag ordered. - Started on broad-spectrum IV abx. - Currently on RA with sats > 90 %. - During the last admission, pt was seen by ST and soft and bite sized diet with thickened liquids was recommended. Patient is reporting that he has been having regular fluids at the facility with no thickenings. He reports some episodes of coughing during meals. - ST evaluated swallowing and patient did well eating breakfast. - Cefepime 2 gram IVPB q 12. - Follow cultures. (2) Paroxysmal atrial fibrillation: Code(s): I48.0 - Paroxysmal atrial fibrillation Status: Acute Assessment and Plan: - Rate well controlled. - Continue Metoprolol and Xarelto. (3) Hypertension: Code(s): I10 - Essential (primary) hypertension Status: Acute Assessment and Plan: - Well controlled, blood pressure today 112/71. - Continue metoprolol and hydralazine. (4) Coronary artery disease: Code(s): I25.10 - Atherosclerotic heart disease of [place] coronary artery without angina pectoris Status: Acute Assessment and Plan: - Stable. - Continue metoprolol, xarelto and statin. (5) Hyperlipidemia: Code(s): E78.5 - Hyperlipidemia, unspecified Status: Acute Assessment and Plan: - Resume statin (6) Hypothyroidism: Code(s): E03.9 - Hypothyroidism, unspecified Status: Acute Assessment and Plan: - Continue levothyroxine. (7) Leukopenia: Code(s): D72.819 - Decreased white blood cell count, unspecified Status: Acute Assessment and Plan: - Appears chronic. WBC 2.4 today. - Monitor trend. - Oncology/ Hematology consult. (8) Iron deficiency anemia: Code(s): D50.9 - Iron deficiency anemia, unspecified Status: Acute Assessment and Plan: * 04/11/24: Iron 24, TIBC 225, % saturation 11. * Start Ferrous Sulfate 325 mg PO BID. * Oncology/ Hematology consult. Subjective Date/time seen: 05/01/24 11:10 Interval history: Patient sitting up in bed with daughter at bedside. Patient reports shortness of breath at rest has slightly improved. Patient denies chest pain, palpitations, headache, dizziness, nausea, or vomiting. Patient reports coughing up green sputum. Patient tolerated breakfast well per daughter and nurse. Review of Systems Review of Systems: All systems reviewed & are unremarkable except as noted in HPI and below Exam Const: General: no acute distress Eyes: Sclera: sclerae normal Resp: Auscultation: crackles (scattered) and diminished lung sounds Cardio: Rate: regular rate Rhythm: regular rhythm GI: GI Palp: Yes Soft to palpation Auscultation: normal bowel sounds Skin: General skin exam: no rashes or lesions noted Neuro: Speech: normal speech Extrem: Other: trace LUE and LLE edema. Psych: Affect: normal affect Other: Pleasant and co-operative. Objective Data Vital Signs Vital Signs: Vital Signs - 24 hr 04/30/24 13:05 04/30/24 13:15 04/30/24 14:00 Temperature 97.5 F L Pulse Rate 70 72 61 Respiratory Rate 18 18 16 Blood Pressure 103/47 L Pulse Oximetry 96 Oxygen Delivery Oxygen Flow Rate 04/30/24 20:00 04/30/24 20:04 04/30/24 20:07 Temperature Pulse Rate 74 68 Respiratory Rate 18 18 Blood Pressure Pulse Oximetry 96 Oxygen Delivery Nasal Cannula Oxygen Flow Rate 2 04/30/24 21:26 05/01/24 01:26 05/01/24 01:33 Temperature 98.1 F Pulse Rate 95 65 64 Respiratory Rate 18 18 19 Blood Pressure 112/60 Pulse Oximetry 95 Oxygen Delivery Oxygen Flow Rate 05/01/24 06:00 05/01/24 07:00 05/01/24 07:00 Temperature 97.9 F Pulse Rate 63 66 66 Respiratory Rate 16 18 18 Blood Pressure 112/71 Pulse Oximetry 98 97 Oxygen Delivery Nasal Cannula Oxygen Flow Rate 2 05/01/24 07:10 05/01/24 09:29 Temperature Pulse Rate 65 73 Respiratory Rate 18 Blood Pressure Pulse Oximetry Oxygen Delivery Oxygen Flow Rate Intake/Output Intake/Output: Intake & Output 04/28/24 04/29/24 04/30/24 05/01/24 23:59 23:59 23:59 23:59 Intake Total 290 1180 880 Output Total 4600 900 Balance 290 -9140 -20 Meds/Results Medications: Active Medications Generic Name Dose Route Start Last Admin Trade Name Freq PRN Reason Stop Dose Admin Acetaminophen 650 mg 04/29/24 22:48 Acetaminophen 325 Mg Tablet PO Q6H PRN PAIN RATED 1-3/FEVER Albuterol/Ipratropium 3 ml 04/30/24 12:00 05/01/24 07:00 Ipratropium 0.5 Mg/Albuterol Sulfate 2.5 Mg Ampul.Neb 3 Ml INHALATION 3 ml Q6HR WILMA Administration Atorvastatin Calcium 10 mg 04/30/24 21:00 04/30/24 20:32 Atorvastatin 10 Mg Tablet PO 10 mg HS [facility]ILMA Administration Calcium Carbonate 200 mg 04/29/24 22:48 Calcium Carbonate (Tums) 500 Mg (200 Mg Elemental) PO DAILY PRN indigestion Cyanocobalamin 1,000 mcg 04/30/24 09:00 05/01/24 09:29 Cyanocobalamin 1,000 Mcg Tablet PO 1,000 mcg QAM WILMA Administration Guaifenesin 1,200 mg 04/30/24 09:00 05/01/24 09:31 Guaifenesin 12 Hr 600 Mg Tabcr PO 1,200 mg Q12HR WILMA Administration Hydralazine HCl 25 mg 04/30/24 09:00 05/01/24 09:32 Hydralazine Hcl 25 Mg Tablet PO 25 mg Q12HR WILMA Administration Hydroxychloroquine Sulfate 200 mg 04/30/24 09:00 05/01/24 09:29 Hydroxychloroquine Sulfate 200 Mg Tablet PO 200 mg Q12HR [facility] Administration Cefepime HCl 2 gm in 50 mls @ 100 mls/hr 04/30/24 13:30 05/01/24 09:32 Maxipime 2 Gm/Ns 50 Ml IVPB 100 mls/hr Q12HR [facility]ILMA Administration Levothyroxine Sodium 75 mcg 04/30/24 06:30 05/01/24 05:42 Levothyroxine Sodium 75 Mcg Tablet PO 75 mcg 0630 WILMA Administration Metoprolol Succinate 100 mg 04/30/24 09:00 05/01/24 09:29 Metoprolol Succinate Ext Rel 100 Mg Tabcr PO 100 mg DAILY [facility] Administration Olanzapine 2.5 mg 04/29/24 22:48 Olanzapine 2.5 Mg Tablet PO QPM PRN Anxiety Ondansetron HCl 4 mg 04/29/24 14:56 Ondansetron Inj 4 Mg/2 Ml Vial IV PUSH Q4H PRN Nausea Polyethylene Glycol 17 gm 04/30/24 09:00 05/01/24 09:28 Polyethylene Glycol 3350 17 Gm Powd.Pack PO 17 gm BID WILMA Administration Rivaroxaban 20 mg 04/30/24 17:00 04/30/24 17:04 Rivaroxaban 20 Mg Tablet PO 20 mg DAILY@1700 [facility] Administration Senna 8.6 mg 04/30/24 09:00 05/01/24 09:33 Sennosides 8.6 Mg Tablet PO 8.6 mg DAILY [facility]IL[facility] Administration Simethicone 125 mg 04/29/24 22:48 Simethicone 125 Mg Chew Tab PO Q8H PRN gas Tamsulosin HCl 0.4 mg 04/30/24 21:00 04/30/24 20:32 Tamsulosin Hcl 0.4 Mg Capsule PO 0.4 mg HS WILMA Administration Venlafaxine HCl 37.5 mg 04/30/24 08:00 05/01/24 09:29 Venlafaxine Hcl Xr 37.5 Mg Cap PO 37.5 mg DAILY@0800 [facility] Administration Radiology Results: ITS Impressions Chest X-Ray 04/29/24 12:48 IMPRESSION: 1. Increasing bilateral airspace opacities suspicious for worsening pneumonia. 2. Increasing small left pleural effusion. Labs Labs: Laboratory Results - last 24 hr 05/01/24 06:54 WBC 2.4 L RBC 2.89 L Hgb 8.9 L Hct 29.0 L MCV 100.3 H MCH 30.8 MCHC 30.7 L RDW 15.3 H Plt Count 185 MPV 10.3 Immature Gran % (Auto) 0.4 Neut % (Auto) 55.0 Lymph % (Auto) 18.9 [place] % (Auto) 13.9 H Eos % (Auto) 9.8 H Baso % (Auto) 2.0 H Lymph # (Auto) 0.46 L [place] # (Auto) 0.3 Eos # (Auto) 0.2 Baso # (Auto) 0.1 Abs Immat Gran (auto) 0.01 Absolute Neuts (auto) 1.3 Absolute Nucleated RBC 0.000 Nucleated RBC % 0.0 Sodium 135 L Potassium 3.8 Chloride 103 Carbon Dioxide 34 H Anion Gap -2 L BUN 15 Creatinine 0.70 Estim Creat Clear Calc 68 Estimated GFR > 60 Glucose 85 Calcium 8.9 Total Bilirubin 0.7 AST 25 ALT 19 Alkaline Phosphatase 95 Total Protein 5.0 L Albumin 2.5 L Quality VTE Prophylaxis VTE prophylaxis: pharmacologic ordered
--- NOTE | 2024-05-01 11:14 | PCPTNOTE ---
pt refused PT eval ~ 1050 due to tired. Unable to convince pt to get OOB; family present and agreed with pt-- tired and needs to rest.
[2024-05-01] MEDS: POTASSIUM CHLORIDE 20 MEQ ER TABLET 40 MEQ PO (12:16)
[2024-05-01] MEDS: FUROSEMIDE INJ 40 MG/4 ML VIAL 20 MG IV PUSH (12:17)
[2024-05-01] MEDS: FERROUS SULFATE 325 MG TABLET DR PO (17:37)
[2024-05-01] MEDS: RIVAROXABAN 20 MG TABLET PO (17:37)
[2024-05-01] MEDS: ATORVASTATIN 10 MG TABLET PO (22:03)
[2024-05-01] MEDS: TAMSULOSIN HCL 0.4 MG CAPSULE PO (22:03)
[2024-05-02] VITALS (14 sets, daily range): BP systolic 102–114; BP diastolic 48–54; PULSE 62–76; RESP 16–20; TEMP 36.1–36.6; O2SAT 93–99
[2024-05-02] MEDS: IPRATROPIUM 0.5 MG/ALBUTEROL SULFATE 2.5 MG AMPUL.NEB 3 ML INHALATION ×4 (02:48→20:20)
[2024-05-02] MEDS: LEVOTHYROXINE SODIUM 75 MCG TABLET PO (06:30)
[2024-05-02 06:33] LABS: Basophils Percent Auto 1.6 % (0.2-1.2); Eosinophils Absolute Auto 0.2 K/mm3 (0-0.3); Eosinophils Percent Auto 9.5 % (0-4.4); Hematocrit 28.8 % (42.0-52.0); Hemoglobin 8.8 g/dL (14.0-18.0); Immature Granulocyte Absolute 0.01 K/mm3 (0.00-0.031); Immature Granulocyte Percent A 0.4 % (0-0.5); Lymphocytes Absolute Auto 0.46 K/mm3 (0.9-3.2); Lymphocytes Percent Auto 18.3 % (18.3-44.2); Mean Corpuscular HGB Conc 30.6 g/dl (32-36); Mean Corpuscular Hemoglobin 30.9 pg (26-34); Mean Corpuscular Volume 101.1 fl (80-100); Mean Platelet Volume 10.5 fl (7.4-10.4); Monocytes Absolute Auto 0.4 K/mm3 (0.1-0.6); Monocytes Percent Auto 15.9 % (2.6-8.5); Neutrophils Absolute Auto 1.4 K/mm3 (1.3-6.7); Neutrophils Percent Auto 54.3 % (45.5-73.1); Platelet Count Result 177 k/mm3 (150-375); Red Blood Count 2.85 M/mm3 (4.6-6.20); Red Cell Distribution Width 15.2 % (11.5-14.5); White Blood Count 2.5 K/mm3 (4.5-10.0)
[2024-05-02 07:04] LABS: Alanine Aminotransferase 21 U/L (6-50); Albumin Level 2.4 g/dL (3.5-5.1); Alkaline Phosphatase 95 U/L (38-126); Anion Gap -4 mmol/L (4-12); Aspartate Amino Transferase 27 U/L (17-59); Bilirubin,Total 0.7 mg/dL (0.2-1.3); Blood Urea Nitrogen 19 mg/dL (9-20); Calcium 9.1 mg/dL (8.4-10.2); Carbon Dioxide 34 mmol/L (22-30); Chloride 105 mmol/L (98-107); Estimated CRCL calculation 60 ml/min; Estimated Glomerular Filt Rate > 60; Glucose 82 mg/dL (65-110); Sodium 135 mmol/L (137-145)
[2024-05-02] MEDS: METOPROLOL SUCCINATE EXT REL 100 MG TABCR PO (09:17)
[2024-05-02] MEDS: HYDROXYCHLOROQUINE SULFATE 200 MG TABLET PO ×2 (09:17→22:11)
[2024-05-02] MEDS: FERROUS SULFATE 325 MG TABLET DR PO ×2 (09:17→16:23)
[2024-05-02] MEDS: polyethylene glycoL 3350 17 GM POWD.PACK PO ×2 (09:17→16:23)
[2024-05-02] MEDS: VENLAFAXINE HCL XR 37.5 MG CAP PO (09:17)
[2024-05-02] MEDS: guaiFENesin 12 HR 600 MG TABCR 1200 MG PO ×2 (09:17→22:10)
[2024-05-02] MEDS: SENNOSIDES 8.6 MG TABLET PO (09:17)
[2024-05-02] MEDS: CYANOCOBALAMIN 1,000 MCG TABLET 1000 MCG PO (09:18)
[2024-05-02] MEDS: CEFEPIME 2 GM/NS 50 ML 2 GM/50 ML BAG IVPB ×2 (09:18→22:12)
[2024-05-02] MEDS: hydrALAZINE HCL 25 MG TABLET PO ×2 (09:18→22:11)
--- NOTE | 2024-05-02 12:07 | P.PNIM_ITS ---
Progress Note: A&P Assessment and Plan (1) Bilateral pneumonia: Code(s): J18.9 - Pneumonia, unspecified organism Status: Acute Assessment and Plan: - Blood cultures collected. - Urine strep pneumo Ag, urine legionella Ag ordered. - Started on broad-spectrum IV abx. - Currently on RA with sats > 90 %. - During the last admission, pt was seen by ST and soft and bite sized diet with thickened liquids was recommended. Patient is reporting that he has been having regular fluids at the facility with no thickenings. He reports some episodes of coughing during meals. - ST evaluated swallowing and patient did well eating breakfast. - Cefepime 2 gram IVPB q 12. - Follow cultures. (2) Paroxysmal atrial fibrillation: Code(s): I48.0 - Paroxysmal atrial fibrillation Status: Acute Assessment and Plan: - Rate well controlled. - Continue Metoprolol and Xarelto. (3) Hypertension: Code(s): I10 - Essential (primary) hypertension Status: Acute Assessment and Plan: - Well controlled, blood pressure today 106/51. - Continue metoprolol and hydralazine. (4) Coronary artery disease: Code(s): I25.10 - Atherosclerotic heart disease of [place] coronary artery without angina pectoris Status: Acute Assessment and Plan: - Stable. - Continue metoprolol, xarelto and statin. (5) Hyperlipidemia: Code(s): E78.5 - Hyperlipidemia, unspecified Status: Acute Assessment and Plan: - Resume statin (6) Hypothyroidism: Code(s): E03.9 - Hypothyroidism, unspecified Status: Acute Assessment and Plan: - Continue levothyroxine. (7) Leukopenia: Code(s): D72.819 - Decreased white blood cell count, unspecified Status: Acute Assessment and Plan: - Appears chronic. WBC 2.5 today. - Monitor trend. - Oncology/ Hematology consult. (8) Iron deficiency anemia: Code(s): D50.9 - Iron deficiency anemia, unspecified Status: Acute Assessment and Plan: * 04/11/24: Iron 24, TIBC 225, % saturation 11. * Start Ferrous Sulfate 325 mg PO BID. * Oncology/ Hematology consult, appreciate recommendations. -Ferritin, B12, folate, stool occult blood, and reticulocyte count. -We will continue to monitor his blood counts. -A bone marrow test will be considered if above workup is negative and if leukopenia persists at the present level. Subjective Date/time seen: 05/02/24 12:07 Interval history: Patient sitting up in bed with daughter at bedside. Patient denies chest pain, palpitations, shortness of breath at rest, headache, dizziness, nausea, or vo miting. Review of Systems Review of Systems: All systems reviewed & are unremarkable except as noted in HPI and below Exam Const: General: comfortable and no acute distress Eyes: Sclera: sclerae normal Resp: Auscultation: diminished lung sounds Cardio: Rate: regular rate Rhythm: regular rhythm GI: GI Palp: Yes Soft to palpation Auscultation: normal bowel sounds Skin: General skin exam: no rashes or lesions noted Neuro: Speech: normal speech Extrem: Other: Trace LUE and LLE edema. Psych: Affect: normal affect Other: Pleasant and co-operative. Objective Data Vital Signs Vital Signs: Vital Signs - 24 hr 05/01/24 12:10 05/01/24 12:55 05/01/24 13:02 Temperature Pulse Rate 67 66 Respiratory Rate 18 18 Blood Pressure Pulse Oximetry Oxygen Delivery Nasal Cannula Oxygen Flow Rate 2 Fraction of Inspired Oxygen 05/01/24 14:00 05/01/24 20:00 05/01/24 20:19 Temperature 97.7 F Pulse Rate 61 Respiratory Rate 18 Blood Pressure 105/58 L Pulse Oximetry 100 98 97 Oxygen Delivery Nasal Cannula Nasal Cannula Oxygen Flow Rate 2 2 Fraction of Inspired Oxygen 05/01/24 20:19 05/01/24 20:29 05/01/24 21:54 Temperature 97.3 F L Pulse Rate 63 66 72 Respiratory Rate 18 18 18 Blood Pressure 110/46 L Pulse Oximetry 99 Oxygen Delivery Oxygen Flow Rate Fraction of Inspired Oxygen 05/02/24 02:51 05/02/24 02:59 05/02/24 04:10 Temperature 98 F Pulse Rate 67 69 73 Respiratory Rate 18 18 18 Blood Pressure 106/51 L Pulse Oximetry 93 Oxygen Delivery Oxygen Flow Rate Fraction of Inspired Oxygen 05/02/24 07:29 05/02/24 07:29 05/02/24 07:37 Temperature Pulse Rate 68 71 Respiratory Rate 16 16 Blood Pressure Pulse Oximetry 97 Oxygen Delivery Nasal Cannula Oxygen Flow Rate 2 Fraction of Inspired Oxygen 28 05/02/24 08:00 05/02/24 10:31 Temperature Pulse Rate Respiratory Rate Blood Pressure Pulse Oximetry 97 Oxygen Delivery Nasal Cannula Nasal Cannula Oxygen Flow Rate 2 2 Fraction of Inspired Oxygen Intake/Output Intake/Output: Intake & Output 04/29/24 04/30/24 05/01/24 05/02/24 23:59 23:59 23:59 23:59 Intake Total 290 1180 1780 300 Output Total 4600 8093 650 Balance 290 -3420 -545 -350 Meds/Results Medications: Active Medications Generic Name Dose Route Start Last Admin Trade Name Freq PRN Reason Stop Dose Admin Acetaminophen 650 mg 04/29/24 22:48 Acetaminophen 325 Mg Tablet PO Q6H PRN PAIN RATED 1-3/FEVER Albuterol/Ipratropium 3 ml 04/30/24 12:00 05/02/24 07:29 Ipratropium 0.5 Mg/Albuterol Sulfate 2.5 Mg Ampul.Neb 3 Ml INHALATION 3 ml Q6HR WILMA Administration Atorvastatin Calcium 10 mg 04/30/24 21:00 05/01/24 22:03 Atorvastatin 10 Mg Tablet PO 10 mg HS [facility]IL[facility] Administration Calcium Carbonate 200 mg 04/29/24 22:48 Calcium Carbonate (Tums) 500 Mg (200 Mg Elemental) PO DAILY PRN indigestion Cyanocobalamin 1,000 mcg 04/30/24 09:00 05/02/24 09:18 Cyanocobalamin 1,000 Mcg Tablet PO 1,000 mcg QAM [facility]ILMA Administration Ferrous Sulfate 325 mg 05/01/24 17:00 05/02/24 09:17 Ferrous Sulfate [address] PO 325 mg BIDWM [facility]ILMA Administration Guaifenesin 1,200 mg 04/30/24 09:00 05/02/24 09:17 Guaifenesin 12 Hr 600 Mg Tabcr PO 1,200 mg Q12HR [facility]IL[facility] Administration Hydralazine HCl 25 mg 04/30/24 09:00 05/02/24 09:18 Hydralazine Hcl 25 Mg Tablet PO 25 mg Q12HR [facility] Administration Hydroxychloroquine Sulfate 200 mg 04/30/24 09:00 05/02/24 09:17 Hydroxychloroquine Sulfate 200 Mg Tablet PO 200 mg Q12HR [facility]ILMA Administration Cefepime HCl 2 gm in 50 mls @ 100 mls/hr 04/30/24 13:30 05/02/24 09:48 Maxipime 2 Gm/Ns 50 Ml IVPB Infused Q12HR [facility] Infusion Levothyroxine Sodium 75 mcg 04/30/24 06:30 05/02/24 06:30 Levothyroxine Sodium 75 Mcg Tablet PO 75 mcg 0630 [facility]IL[facility] Administration Metoprolol Succinate 100 mg 04/30/24 09:00 05/02/24 09:17 Metoprolol Succinate Ext Rel 100 Mg Tabcr PO 100 mg DAILY [facility] Administration Olanzapine 2.5 mg 04/29/24 22:48 Olanzapine 2.5 Mg Tablet PO QPM PRN Anxiety Ondansetron HCl 4 mg 04/29/24 14:56 Ondansetron Inj 4 Mg/2 Ml Vial IV PUSH Q4H PRN Nausea Polyethylene Glycol 17 gm 04/30/24 09:00 05/02/24 09:17 Polyethylene Glycol 3350 17 Gm Powd.Pack PO 17 gm BID [facility] Administration Rivaroxaban 20 mg 04/30/24 17:00 05/01/24 17:37 Rivaroxaban 20 Mg Tablet PO 20 mg DAILY@1700 [facility] Administration Senna 8.6 mg 04/30/24 09:00 05/02/24 09:17 Sennosides 8.6 Mg Tablet PO 8.6 mg DAILY [facility] Administration Simethicone 125 mg 04/29/24 22:48 Simethicone 125 Mg Chew Tab PO Q8H PRN gas Tamsulosin HCl 0.4 mg 04/30/24 21:00 05/01/24 22:03 Tamsulosin Hcl 0.4 Mg Capsule PO 0.4 mg HS [facility] Administration Venlafaxine HCl 37.5 mg 04/30/24 08:00 05/02/24 09:17 Venlafaxine Hcl Xr 37.5 Mg Cap PO 37.5 mg DAILY@0800 [facility] Administration Radiology Results: ITS Impressions Chest X-Ray 04/29/24 12:48 IMPRESSION: 1. Increasing bilateral airspace opacities suspicious for worsening pneumonia. 2. Increasing small left pleural effusion. Labs Labs: Laboratory Results - last 24 hr 05/02/24 06:01 WBC 2.5 L RBC 2.85 L Hgb 8.8 L Hct 28.8 L MCV 101.1 H MCH 30.9 MCHC 30.6 L RDW 15.2 H Plt Count 177 MPV 10.5 H Immature Gran % (Auto) 0.4 Neut % (Auto) 54.3 Lymph % (Auto) 18.3 [place] % (Auto) 15.9 H Eos % (Auto) 9.5 H Baso % (Auto) 1.6 H Lymph # (Auto) 0.46 L [place] # (Auto) 0.4 Eos # (Auto) 0.2 Baso # (Auto) 0.0 Abs Immat Gran (auto) 0.01 Absolute Neuts (auto) 1.4 Absolute Nucleated RBC 0.000 Nucleated RBC % 0.0 Sodium 135 L Potassium 4.0 Chloride 105 Carbon Dioxide 34 H Anion Gap -4 L BUN 19 Creatinine 0.80 Estim Creat Clear Calc 60 Estimated GFR > 60 Glucose 82 Calcium 9.1 Total Bilirubin 0.7 AST 27 ALT 21 Alkaline Phosphatase 95 Total Protein 5.0 L Albumin 2.4 L Quality VTE Prophylaxis VTE prophylaxis: pharmacologic ordered
--- NOTE | 2024-05-02 14:51 | P.CONS_ITS ---
HPI Data of Consult Date/Time: 05/02/24 14:51 Requesting Physician: Zach Martin MD Primary Care Provider: Bossman Maynard, DO Consult Narrative Narrative: Edwardo Welsh is a 88 year old male Review of Systems 2 Review of Systems: This is an 88-year-old gentleman with a [facility] resident with a background of dementia coronary artery disease hypertension and paroxysmal atrial fibrillation. He is hard of hearing and gives little history. He was noted to to be coughing more and to be ch[facility] on [facility] at the [facility]. She was brought to the emergency room for evaluation. Imaging studies showed bilateral pneumonia. Therefore he was admitted for in-hospital treatment. He was noted to have neutropenia with a white cell as low as 2.5 K per mL. He was also noted to have microcytic anemia. He is referred for evaluation and comanagement of hematologic problems. There is no history of GI bleeding. There is no history of frequent infections. [facility] Past Medical History Medical History Hyperlipidemia Hypertension Rheumatoid arthritis Hypothyroidism Coronary artery disease Chronic anticoagulation Paroxysmal atrial fibrillation Surgical History Surgical History History of vasectomy History of coronary artery stent placement History of permanent cardiac pacemaker placement Family History Family History Other Family history non-contributory Social History Social History Social History: Surrogate medical decision maker: Azucena hammond Connor welsh, children. Code status: Modified code, no intubation. (jail documentation signed 02/21/24 lists No CPR/Do not attempt resuscitation, selective treatment). Smoking status: Never smoker Alcohol intake: never Substance use: never Do You Feel Safe in your Home?: Yes Lack of Transportation: No Lack of Food: Never True Current Housing: I Have Housing Concerned About Future Housing: No Difficulty Paying Gas/Electric Bills: No Difficulty Paying for Meds: No Currently Unemployed: No Education: Trade/Vocational Certificate Difficulty w/ Childcare or Family Care: No Living arrangements: [facility] Additional living arrangements comments: [facility] Occupation/Education: retired Additional occupation/education comments: [employer]. Spiritual care concerns: Yes Meds Home Medications and Allergies Home Medications ?Medication ?Instructions ?Recorded ?Confirmed ?Type acetaminophen 650 mg 650 mg PO Q6H PRN Pain, fever 04/11/24 04/29/24 History tablet,extended release atorvastatin 10 mg tablet 10 mg PO HS 04/11/24 04/29/24 History hydralazine 25 mg tablet 25 mg PO Q12H 04/11/24 04/29/24 History hydroxychloroquine 200 mg tablet 200 mg PO .q12hr 04/11/24 04/29/24 History ipratropium 0.5 mg-albuterol 3 mg 3 ml inhalation Q6-8H PRN 04/11/24 04/29/24 History (2.5 mg base)/3 mL nebulization shortness of breath or wheezing soln levothyroxine 75 mcg tablet 75 mcg PO 0630 04/11/24 04/29/24 History metoprolol succinate 100 mg 100 mg PO DAILY 04/11/24 04/29/24 History tablet,extended release 24 hr polyethylene glycol 3350 17 17 g PO BID 04/11/24 04/29/24 History gram/dose oral powder (Miralax) calcium carbonate (Antacid 200 mg PO DAILY PRN indigestion 04/12/24 04/29/24 History (calcium carbonate)) rivaroxaban 20 mg tablet (Xarelto) 20 mg PO Q24H 04/12/24 04/29/24 History sennosides 8.6 mg tablet 8.6 mg PO DAILY 04/12/24 04/29/24 History simethicone 125 mg capsule (Gas 125 mg PO .q8 PRN gas 04/12/24 04/29/24 History Relief (simethicone)) tamsulosin 0.4 mg capsule 0.4 mg PO Q24H 04/12/24 04/29/24 History amoxicillin 875 mg-potassium 1 tablet PO Q12H #3 tabs 04/16/24 04/29/24 Rx clavulanate 125 mg tablet cyanocobalamin (vitamin B-12) 1,000 mcg PO QAM #30 tabs 04/16/24 04/29/24 Rx 1,000 mcg tablet (Vitamin B-12) guaifenesin 600 mg tablet, 1,200 mg (2 x 600 mg) PO Q12HR #10 04/16/24 04/29/24 Rx extended release 12 hr (Mucus tabs Relief ER) olanzapine 2.5 mg tablet 2.5 mg PO QPM PRN Anxiety #10 tabs 04/16/24 04/29/24 Rx venlafaxine 37.5 mg 37.5 mg PO DAILY@0800 #30 caps 04/16/24 04/29/24 Rx capsule,extended release 24 hr (Effexor XR) Allergies Allergy/AdvReac Type Severity Reaction Status Date / Time No Known Allergies Allergy Verified 04/29/24 10:37 Vital Signs Vital Signs - 24 hr 05/01/24 20:00 05/01/24 20:19 05/01/24 20:19 Temperature Pulse Rate 63 Respiratory Rate 18 Blood Pressure Pulse Oximetry 98 97 Oxygen Delivery Nasal Cannula Nasal Cannula Oxygen Flow Rate 2 2 Fraction of Inspired Oxygen 05/01/24 20:29 05/01/24 21:54 05/02/24 02:51 Temperature 36.3 C L Pulse Rate 66 72 67 Respiratory Rate 18 18 18 Blood Pressure 110/46 L Pulse Oximetry 99 Oxygen Delivery Oxygen Flow Rate Fraction of Inspired Oxygen 05/02/24 02:59 05/02/24 04:10 05/02/24 07:29 Temperature 36.6 C Pulse Rate 69 73 Respiratory Rate 18 18 Blood Pressure 106/51 L Pulse Oximetry 93 97 Oxygen Delivery Nasal Cannula Oxygen Flow Rate 2 Fraction of Inspired Oxygen 28 05/02/24 07:29 05/02/24 07:37 05/02/24 08:00 Temperature Pulse Rate 68 71 Respiratory Rate 16 16 Blood Pressure Pulse Oximetry 97 Oxygen Delivery Nasal Cannula Oxygen Flow Rate 2 Fraction of Inspired Oxygen 05/02/24 10:31 05/02/24 13:22 05/02/24 13:22 Temperature Pulse Rate 76 Respiratory Rate 20 Blood Pressure Pulse Oximetry 93 Oxygen Delivery Nasal Cannula Nasal Cannula Oxygen Flow Rate 2 2 Fraction of Inspired Oxygen 28 05/02/24 13:29 Temperature Pulse Rate 70 Respiratory Rate 20 Blood Pressure Pulse Oximetry Oxygen Delivery Oxygen Flow Rate Fraction of Inspired Oxygen Results Labs 05/02/24 06:01 05/02/24 06:01 Labs: Short CBC 05/02/24 Range/Units 06:01 WBC 2.5 L (4.5-10.0) K/mm3 Hgb 8.8 L (14.0-18.0) g/dL Hct 28.8 L (42.0-52.0) % Plt Count 177 (150-375) k/mm3 BMP 05/02/24 06:01 Sodium 135 L Potassium 4.0 Chloride 105 Carbon Dioxide 34 H BUN 19 Creatinine 0.80 Glucose 82 Calcium 9.1 Liver Function 05/02/24 Range/Units 06:01 Total Bilirubin 0.7 (0.2-1.3) mg/dL AST 27 (17-59) U/L ALT 21 (6-50) U/L Alkaline Phosphatase 95 (38-126) U/L Albumin 2.4 L (3.5-5.1) g/dL Attestation Student Attestation Assessment: Leukopenia of undetermined cause it is. Review of his medications shows none with adverse effects of leukopenia. As stated above there is also no known history of blood loss to explain his anemia. Plan: We will perform a basic evaluation for anemia to include Ferritin, B12, folate, stool occult blood, and reticulocyte count. We will continue to monitor his blood counts. A bone marrow test will be considered if above workup is negative and if leukopenia persists at the present level.
[2024-05-02 15:23] LABS: Reticulocyte Hemoglobin Conten 28.6 pg (28.2-36.6); Reticulocyte Percent 2.62 % (0.7-4.3); Reticulocytes Absolute 0.07 10^6/uL (0.02-0.10)
[2024-05-02] MEDS: RIVAROXABAN 20 MG TABLET PO (16:23)
[2024-05-02 17:10] LABS: Folic Acid 5.1 ng/mL (2.76->20)
[2024-05-02] MEDS: ATORVASTATIN 10 MG TABLET PO (22:10)
[2024-05-02] MEDS: TAMSULOSIN HCL 0.4 MG CAPSULE PO (22:11)
[2024-05-03] VITALS (11 sets, daily range): BP systolic 110–115; BP diastolic 53–55; PULSE 60–76; RESP 16–20; TEMP 36.1–36.5; O2SAT 92–99
[2024-05-03] MEDS: IPRATROPIUM 0.5 MG/ALBUTEROL SULFATE 2.5 MG AMPUL.NEB 3 ML INHALATION ×3 (02:02→16:06)
[2024-05-03] MEDS: LEVOTHYROXINE SODIUM 75 MCG TABLET PO (05:13)
[2024-05-03 06:24] LABS: Basophils Percent Auto 1.3 % (0.2-1.2); Eosinophils Absolute Auto 0.3 K/mm3 (0-0.3); Eosinophils Percent Auto 12.3 % (0-4.4); Hemoglobin 8.4 g/dL (14.0-18.0); Immature Granulocyte Absolute 0.01 K/mm3 (0.00-0.031); Immature Granulocyte Percent A 0.4 % (0-0.5); Lymphocytes Absolute Auto 0.46 K/mm3 (0.9-3.2); Lymphocytes Percent Auto 20.3 % (18.3-44.2); Mean Corpuscular HGB Conc 31.1 g/dl (32-36); Mean Corpuscular Hemoglobin 30.9 pg (26-34); Mean Corpuscular Volume 99.3 fl (80-100); Mean Platelet Volume 10.1 fl (7.4-10.4); Monocytes Absolute Auto 0.4 K/mm3 (0.1-0.6); Monocytes Percent Auto 15.4 % (2.6-8.5); Neutrophils Absolute Auto 1.1 K/mm3 (1.3-6.7); Neutrophils Percent Auto 50.3 % (45.5-73.1); Platelet Count Result 176 k/mm3 (150-375); Red Blood Count 2.72 M/mm3 (4.6-6.20); Red Cell Distribution Width 15.3 % (11.5-14.5); White Blood Count 2.3 K/mm3 (4.5-10.0)
[2024-05-03 06:38] LABS: Alanine Aminotransferase 22 U/L (6-50); Albumin Level 2.4 g/dL (3.5-5.1); Alkaline Phosphatase 100 U/L (38-126); Anion Gap -4 mmol/L (4-12); Aspartate Amino Transferase 25 U/L (17-59); Bilirubin,Total 0.8 mg/dL (0.2-1.3); Blood Urea Nitrogen 16 mg/dL (9-20); Calcium 8.9 mg/dL (8.4-10.2); Carbon Dioxide 35 mmol/L (22-30); Chloride 102 mmol/L (98-107); Estimated CRCL calculation 60 ml/min; Estimated Glomerular Filt Rate > 60; Glucose 76 mg/dL (65-110); Potassium 4.1 mmol/L (3.4-5.0); Sodium 133 mmol/L (137-145)
[2024-05-03] MEDS: CEFEPIME 2 GM/NS 50 ML 2 GM/50 ML BAG IVPB ×2 (08:51→20:23)
[2024-05-03] MEDS: HYDROXYCHLOROQUINE SULFATE 200 MG TABLET PO ×2 (08:52→20:23)
[2024-05-03] MEDS: FERROUS SULFATE 325 MG TABLET DR PO ×2 (08:52→16:19)
[2024-05-03] MEDS: SENNOSIDES 8.6 MG TABLET PO (08:52)
[2024-05-03] MEDS: guaiFENesin 12 HR 600 MG TABCR 1200 MG PO ×2 (08:52→20:23)
[2024-05-03] MEDS: VENLAFAXINE HCL XR 37.5 MG CAP PO (08:52)
[2024-05-03] MEDS: hydrALAZINE HCL 25 MG TABLET PO ×2 (08:52→20:23)
[2024-05-03] MEDS: METOPROLOL SUCCINATE EXT REL 100 MG TABCR PO (08:52)
[2024-05-03] MEDS: CYANOCOBALAMIN 1,000 MCG TABLET 1000 MCG PO (08:52)
--- NOTE | 2024-05-03 11:57 | PM.IMPN ---
Progress Note: A&P Assessment and Plan (1) Bilateral pneumonia: Code(s): J18.9 - Pneumonia, unspecified organism Status: Acute Assessment and Plan: - Blood cultures no growth to date. - Urine strep pneumo Ag, urine legionella Ag ordered. - Started on broad-spectrum IV abx. - Currently on RA with sats > 90 %. - During the last admission, pt was seen by ST and soft and bite sized diet with thickened liquids was recommended. Patient is reporting that he has been having regular fluids at the facility with no thickenings. He reports some episodes of coughing during meals. - ST evaluated swallowing and patient did well eating breakfast. - Cefepime 2 gram IVPB q 12. - Pulmonary consult. (2) Paroxysmal atrial fibrillation: Code(s): I48.0 - Paroxysmal atrial fibrillation Status: Acute Assessment and Plan: - Rate well controlled. - Continue Metoprolol and Xarelto. (3) Hypertension: Code(s): I10 - Essential (primary) hypertension Status: Acute Assessment and Plan: - Well controlled, blood pressure today 115/55. - Continue metoprolol and hydralazine. (4) Coronary artery disease: Code(s): I25.10 - Atherosclerotic heart disease of [place] coronary artery without angina pectoris Status: Acute Assessment and Plan: - Stable. - Continue metoprolol, xarelto and statin. (5) Hyperlipidemia: Code(s): E78.5 - Hyperlipidemia, unspecified Status: Acute Assessment and Plan: - Resume statin (6) Hypothyroidism: Code(s): E03.9 - Hypothyroidism, unspecified Status: Acute Assessment and Plan: - Continue levothyroxine. (7) Leukopenia: Code(s): D72.819 - Decreased white blood cell count, unspecified Status: Acute Assessment and Plan: - Appears chronic. WBC 2.3 today. - Monitor trend. - Oncology/ Hematology consulted, appreciate recommendations. (8) Iron deficiency anemia: Code(s): D50.9 - Iron deficiency anemia, unspecified Status: Acute Assessment and Plan: 04/11/24: Iron 24, TIBC 225, % saturation 11. Start Ferrous Sulfate 325 mg PO BID. Oncology/ Hematology consult, appreciate recommendations. -Ferritin 263, B12 848, folate 5.1, and reticulocyte count (absolute retic 0.07, percent retic 2.62, immature retic fraction 23.0, retic Hgb content 28.6). -Stool for occult blood. -We will continue to monitor his blood counts. -A bone marrow test will be considered if above workup is negative and if leukopenia persists at the present level. Subjective Date/time seen: 05/03/24 11:57 Interval history: Son at bedside. Patient denies chest pain, palpitations, headache, dizziness, nausea, or vomiting. Reports shortness of breath at times. 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 Review of Systems Review of Systems: All systems reviewed & are unremarkable except as noted in HPI and below Exam Const: General: comfortable and no acute distress Eyes: Sclera: sclerae normal Resp: Auscultation: diminished lung sounds Cardio: Rate: regular rate Rhythm: regular rhythm GI: GI Palp: Yes Soft to palpation Auscultation: normal bowel sounds Neuro: Speech: normal speech Extrem: Other: Trace LUE edema, check doppler. Psych: Affect: normal affect Other: Pleasant and cooperative. Objective Data Vital Signs Vital Signs: Vital Signs - 24 hr 05/02/24 13:22 05/02/24 13:22 05/02/24 13:29 Temperature Pulse Rate 76 70 Respiratory Rate 20 20 Blood Pressure Pulse Oximetry 93 Oxygen Delivery Nasal Cannula Oxygen Flow Rate 2 Fraction of Inspired Oxygen 05/02/24 14:00 05/02/24 20:00 05/02/24 20:21 Temperature 97.5 F L Pulse Rate 63 69 Respiratory Rate 18 20 Blood Pressure 102/54 L Pulse Oximetry 99 98 Oxygen Delivery Nasal Cannula Oxygen Flow Rate 2 Fraction of Inspired Oxygen 05/02/24 20:25 05/02/24 20:30 05/02/24 22:00 Temperature 97 F L Pulse Rate 70 62 Respiratory Rate 20 18 Blood Pressure 114/48 L Pulse Oximetry 93 99 Oxygen Delivery Nasal Cannula Oxygen Flow Rate 2 Fraction of Inspired Oxygen 05/03/24 02:02 05/03/24 02:18 05/03/24 05:10 Temperature 97.7 F Pulse Rate 65 68 60 Respiratory Rate 20 20 16 Blood Pressure 111/54 L Pulse Oximetry 99 Oxygen Delivery Oxygen Flow Rate Fraction of Inspired Oxygen 05/03/24 08:00 05/03/24 09:49 05/03/24 09:49 Temperature Pulse Rate 72 Respiratory Rate 20 Blood Pressure Pulse Oximetry 99 95 Oxygen Delivery Nasal Cannula Nasal Cannula Oxygen Flow Rate 2 2 Fraction of Inspired Oxygen 05/03/24 10:01 Temperature Pulse Rate 76 Respiratory Rate 20 Blood Pressure Pulse Oximetry Oxygen Delivery Oxygen Flow Rate Fraction of Inspired Oxygen Intake/Output Intake/Output: Intake & Output 04/30/24 05/01/24 05/02/24 05/03/24 23:59 23:59 23:59 23:59 Intake Total 1180 1780 1330 440 Output Total 4600 2325 1400 550 [facility] -3420 -545 -70 -110 Meds/Results Medications: Active Medications Generic Name Dose Route Start Last Admin Trade Name Freq PRN Reason Stop Dose Admin Acetaminophen 650 mg 04/29/24 22:48 Acetaminophen 325 Mg Tablet PO Q6H PRN PAIN RATED 1-3/FEVER Albuterol/Ipratropium 3 ml 05/03/24 08:00 05/03/24 09:43 Ipratropium 0.5 Mg/Albuterol Sulfate 2.5 Mg Ampul.Neb 3 Ml INHALATION 3 ml Q6HRT WILMA Administration Atorvastatin Calcium 10 mg 04/30/24 21:00 05/02/24 22:10 Atorvastatin 10 Mg Tablet PO 10 mg HS WILMA Administration Calcium Carbonate 200 mg 04/29/24 22:48 Calcium Carbonate (Tums) 500 Mg (200 Mg Elemental) PO DAILY PRN indigestion Cyanocobalamin 1,000 mcg 04/30/24 09:00 05/03/24 08:52 Cyanocobalamin 1,000 Mcg Tablet PO 1,000 mcg QAM WILMA Administration Ferrous Sulfate 325 mg 05/01/24 17:00 05/03/24 08:52 Ferrous Sulfate [address] PO 325 mg BIDWM WILMA Administration Guaifenesin 1,200 mg 04/30/24 09:00 05/03/24 08:52 Guaifenesin 12 Hr 600 Mg Tabcr PO 1,200 mg Q12HR [facility]ILMA Administration Hydralazine HCl 25 mg 04/30/24 09:00 05/03/24 08:52 Hydralazine Hcl 25 Mg Tablet PO 25 mg Q12HR [facility]IL[facility] Administration Hydroxychloroquine Sulfate 200 mg 04/30/24 09:00 05/03/24 08:52 Hydroxychloroquine Sulfate 200 Mg Tablet PO 200 mg Q12HR [facility] Administration Cefepime HCl 2 gm in 50 mls @ 100 mls/hr 04/30/24 13:30 05/03/24 09:21 Maxipime 2 Gm/Ns 50 Ml IVPB Infused Q12HR [facility] Infusion Levothyroxine Sodium 75 mcg 04/30/24 06:30 05/03/24 05:13 Levothyroxine Sodium 75 Mcg Tablet PO 75 mcg 0630 [facility] Administration Metoprolol Succinate 100 mg 04/30/24 09:00 05/03/24 08:52 Metoprolol Succinate Ext Rel 100 Mg Tabcr PO 100 mg DAILY [facility] Administration Olanzapine 2.5 mg 04/29/24 22:48 Olanzapine 2.5 Mg Tablet PO QPM PRN Anxiety Ondansetron HCl 4 mg 04/29/24 14:56 Ondansetron Inj 4 Mg/2 Ml Vial IV PUSH Q4H PRN Nausea Polyethylene Glycol 17 gm 04/30/24 09:00 05/03/24 08:52 Polyethylene Glycol 3350 17 Gm Powd.Pack PO Not Given BID [facility] Rivaroxaban 20 mg 04/30/24 17:00 05/02/24 16:23 Rivaroxaban 20 Mg Tablet PO 20 mg DAILY@1700 [facility] Administration Senna 8.6 mg 04/30/24 09:00 05/03/24 08:52 Sennosides 8.6 Mg Tablet PO 8.6 mg DAILY [facility] Administration Simethicone 125 mg 04/29/24 22:48 Simethicone 125 Mg Chew Tab PO Q8H PRN gas Tamsulosin HCl 0.4 mg 04/30/24 21:00 05/02/24 22:11 Tamsulosin Hcl 0.4 Mg Capsule PO 0.4 mg HS [facility] Administration Venlafaxine HCl 37.5 mg 04/30/24 08:00 05/03/24 08:52 Venlafaxine Hcl Xr 37.5 Mg Cap PO 37.5 mg DAILY@0800 [facility] Administration Radiology Results: ITS Impressions Chest X-Ray 04/29/24 12:48 IMPRESSION: 1. Increasing bilateral airspace opacities suspicious for worsening pneumonia. 2. Increasing small left pleural effusion. Labs Labs: Laboratory Results - last 24 hr 05/02/24 05/02/24 05/02/24 06:01 15:21 15:21 WBC RBC Hgb Hct MCV MCH MCHC RDW Plt Count MPV Immature Gran % (Auto) Neut % (Auto) Lymph % (Auto) [place] % (Auto) Eos % (Auto) Baso % (Auto) Lymph # (Auto) [place] # (Auto) Eos # (Auto) Baso # (Auto) Abs Immat Gran (auto) Absolute Neuts (auto) Absolute Nucleated RBC Nucleated RBC % Absolute Retic 0.07 Percent Retic 2.62 Immature Retic Fraction 23.0 H Retic Hgb Content 28.6 Sodium Potassium Chloride Carbon Dioxide Anion Gap BUN Creatinine Estim Creat Clear Calc Estimated GFR Glucose Calcium Ferritin 263.00 Total Bilirubin AST ALT Alkaline Phosphatase Total Protein Albumin Vitamin B12 848.0 Folate Cancelled 5.1 05/03/24 06:02 WBC 2.3 L RBC 2.72 L Hgb 8.4 L Hct 27.0 L MCV 99.3 MCH 30.9 MCHC 31.1 L RDW 15.3 H Plt Count 176 MPV 10.1 Immature Gran % (Auto) 0.4 Neut % (Auto) 50.3 Lymph % (Auto) 20.3 [place] % (Auto) 15.4 H Eos % (Auto) 12.3 H Baso % (Auto) 1.3 H Lymph # (Auto) 0.46 L [place] # (Auto) 0.4 Eos # (Auto) 0.3 Baso # (Auto) 0.0 Abs Immat Gran (auto) 0.01 Absolute Neuts (auto) 1.1 L Absolute Nucleated RBC 0.000 Nucleated RBC % 0.0 Absolute Retic Percent Retic Immature Retic Fraction Retic Hgb Content Sodium 133 L Potassium 4.1 Chloride 102 Carbon Dioxide 35 H Anion Gap -4 L BUN 16 Creatinine 0.80 Estim Creat Clear Calc 60 Estimated GFR > 60 Glucose 76 Calcium 8.9 Ferritin Total Bilirubin 0.8 AST 25 ALT 22 Alkaline Phosphatase 100 Total Protein 5.0 L Albumin 2.4 L Vitamin B12 Folate Quality VTE Prophylaxis VTE prophylaxis: pharmacologic ordered
[2024-05-03] MEDS: OLANZapine 2.5 MG TABLET PO ×2 (15:07→21:51)
[2024-05-03] MEDS: RIVAROXABAN 20 MG TABLET PO (16:20)
[2024-05-03] MEDS: TAMSULOSIN HCL 0.4 MG CAPSULE PO (20:23)
[2024-05-03] MEDS: ATORVASTATIN 10 MG TABLET PO (20:23)
[2024-05-04] VITALS (15 sets, daily range): BP systolic 116–125; BP diastolic 54–71; PULSE 60–71; RESP 16–24; TEMP 36.1–36.4; O2SAT 87–100
[2024-05-04 01:44] LABS: Legionella pneumophila Ag Ur. NOT DETECTED
[2024-05-04] MEDS: IPRATROPIUM 0.5 MG/ALBUTEROL SULFATE 2.5 MG AMPUL.NEB 3 ML INHALATION ×4 (02:50→19:55)
[2024-05-04] MEDS: LEVOTHYROXINE SODIUM 75 MCG TABLET PO (05:42)
[2024-05-04 06:05] LABS: Basophils Absolute Auto 0.1 K/mm3 (0.0-0.1); Basophils Percent Auto 2.5 % (0.2-1.2); Eosinophils Absolute Auto 0.3 K/mm3 (0-0.3); Eosinophils Percent Auto 10.3 % (0-4.4); Hematocrit 27.6 % (42.0-52.0); Hemoglobin 8.4 g/dL (14.0-18.0); Immature Granulocyte Absolute 0.01 K/mm3 (0.00-0.031); Immature Granulocyte Percent A 0.4 % (0-0.5); Lymphocytes Percent Auto 20.6 % (18.3-44.2); Mean Corpuscular HGB Conc 30.4 g/dl (32-36); Mean Corpuscular Hemoglobin 30.5 pg (26-34); Mean Corpuscular Volume 100.4 fl (80-100); Mean Platelet Volume 10.4 fl (7.4-10.4); Monocytes Absolute Auto 0.4 K/mm3 (0.1-0.6); Monocytes Percent Auto 15.2 % (2.6-8.5); Neutrophils Absolute Auto 1.2 K/mm3 (1.3-6.7); Platelet Count Result 163 k/mm3 (150-375); Red Blood Count 2.75 M/mm3 (4.6-6.20); Red Cell Distribution Width 15.1 % (11.5-14.5); White Blood Count 2.4 K/mm3 (4.5-10.0)
[2024-05-04 06:19] LABS: Alanine Aminotransferase 23 U/L (6-50); Albumin Level 2.4 g/dL (3.5-5.1); Alkaline Phosphatase 97 U/L (38-126); Anion Gap -5 mmol/L (4-12); Aspartate Amino Transferase 29 U/L (17-59); Bilirubin,Total 0.7 mg/dL (0.2-1.3); Blood Urea Nitrogen 17 mg/dL (9-20); Calcium 9.2 mg/dL (8.4-10.2); Carbon Dioxide 37 mmol/L (22-30); Chloride 104 mmol/L (98-107); Estimated CRCL calculation 60 ml/min; Estimated Glomerular Filt Rate > 60; Glucose 89 mg/dL (65-110); Magnesium 2.2 mg/dL (1.6-2.3); Potassium 4.4 mmol/L (3.4-5.0); Sodium 136 mmol/L (137-145)
[2024-05-04] MEDS: SENNOSIDES 8.6 MG TABLET PO (09:11)
[2024-05-04] MEDS: CYANOCOBALAMIN 1,000 MCG TABLET 1000 MCG PO (09:11)
[2024-05-04] MEDS: FERROUS SULFATE 325 MG TABLET DR PO ×2 (09:11→17:36)
[2024-05-04] MEDS: polyethylene glycoL 3350 17 GM POWD.PACK PO ×2 (09:11→17:36)
[2024-05-04] MEDS: VENLAFAXINE HCL XR 37.5 MG CAP PO (09:11)
[2024-05-04] MEDS: hydrALAZINE HCL 25 MG TABLET PO ×2 (09:12→20:00)
[2024-05-04] MEDS: METOPROLOL SUCCINATE EXT REL 100 MG TABCR PO (09:12)
[2024-05-04] MEDS: guaiFENesin 12 HR 600 MG TABCR 1200 MG PO ×2 (09:13→20:00)
[2024-05-04] MEDS: CEFEPIME 2 GM/NS 50 ML 2 GM/50 ML BAG IVPB ×2 (09:14→19:59)
[2024-05-04] MEDS: HYDROXYCHLOROQUINE SULFATE 200 MG TABLET PO ×2 (09:15→20:00)
--- NOTE | 2024-05-04 09:45 | PCOTNOTE ---
The patient treatment was not able to be completed. Respiratory in the room. Will plan to continue treatment per plan of care.
--- NOTE | 2024-05-04 10:16 | PCPTNOTE ---
Attempted to see for physical therapy treatment, pt shook his head no when asked to participate. Pts son states he was up all night and finally resting. RN notified, will continue to follow.
[2024-05-04 10:58] LABS: NT Pro B Type Natriuretic Pept 2450 pg/mL (19.9-100)
[2024-05-04 11:16] LABS: Procalcitonin 0.1 ng/mL
--- NOTE | 2024-05-04 11:46 | PM.IMPN ---
Progress Note: A&P Assessment and Plan (1) Bilateral pneumonia: Code(s): J18.9 - Pneumonia, unspecified organism Status: Acute Assessment and Plan: - Blood cultures no growth to date. - Urine strep pneumo Ag, urine legionella Ag ordered. - Started on broad-spectrum IV abx. - Currently on RA with sats > 90 %. - During the last admission, pt was seen by ST and soft and bite sized diet with thickened liquids was recommended. Patient is reporting that he has been having regular fluids at the facility with no thickenings. He reports some episodes of coughing during meals. - ST evaluated swallowing and patient did well eating breakfast. - Cefepime 2 gram IVPB q 12. - Chest X-ray today showed: IMPRESSION: 1. Diffuse lung disease with worsening in left midlung zone, consistent with pneumonia. 2. Stable small left pleural effusion. - Pulmonary consult, appreciate recommendations: Add Levofloxacin 750 IVPB daily, chest CT, respiratory panel, BNP, sputum culture, and add Cornet flutter valve. (2) Paroxysmal atrial fibrillation: Code(s): I48.0 - Paroxysmal atrial fibrillation Status: Acute Assessment and Plan: - Rate well controlled. - Continue Metoprolol and Xarelto. (3) Hypertension: Code(s): I10 - Essential (primary) hypertension Status: Acute Assessment and Plan: - Well controlled, blood pressure today 120/54. - Continue metoprolol and hydralazine. (4) Coronary artery disease: Code(s): I25.10 - Atherosclerotic heart disease of [place] coronary artery without angina pectoris Status: Acute Assessment and Plan: - Stable. - Continue metoprolol, xarelto and statin. (5) Hyperlipidemia: Code(s): E78.5 - Hyperlipidemia, unspecified Status: Acute Assessment and Plan: - Resume statin (6) Hypothyroidism: Code(s): E03.9 - Hypothyroidism, unspecified Status: Acute Assessment and Plan: - Continue levothyroxine. (7) Leukopenia: Code(s): D72.819 - Decreased white blood cell count, unspecified Status: Acute Assessment and Plan: - Appears chronic. WBC 2.4 today. - Monitor trend. - Oncology/ Hematology consulted, appreciate recommendations. (8) Iron deficiency anemia: Code(s): D50.9 - Iron deficiency anemia, unspecified Status: Acute Assessment and Plan: 04/11/24: Iron 24, TIBC 225, % saturation 11. Start Ferrous Sulfate 325 mg PO BID. Oncology/ Hematology consult, appreciate recommendations. -Ferritin 263, B12 848, folate 5.1, and reticulocyte count (absolute retic 0.07, percent retic 2.62, immature retic fraction 23.0, retic Hgb content 28.6). -Stool for occult blood. -We will continue to monitor his blood counts. -A bone marrow test will be considered if above workup is negative and if leukopenia persists at the present level. Subjective Date/time seen: 05/04/24 11:46 Interval history: Son at bedside. Patient denies chest pain, palpitations, headache, dizziness, nausea, or vomiting. Reports shortness of breath at times and coughing up garsia sputum. Review of Systems Review of Systems: All systems reviewed & are unremarkable except as noted in HPI and below Exam Const: General: comfortable and no acute distress Resp: Effort & Inspection: normal respiratory effort Auscultation: crackles Cardio: Rate: regular rate Rhythm: regular rhythm GI: GI Palp: Yes Soft to palpation Auscultation: normal bowel sounds Neuro: Speech: normal speech Extrem: Other: Trace LUE edema, doppler negative. Psych: Affect: normal affect Other: Pleasant and cooperative. Objective Data Vital Signs Vital Signs: Vital Signs - 24 hr 05/03/24 15:35 05/03/24 16:06 05/03/24 16:16 Temperature 97.0 F L Pulse Rate 70 76 76 Respiratory Rate 18 20 20 Blood Pressure 115/55 L Pulse Oximetry 92 Oxygen Delivery Oxygen Flow Rate Fraction of Inspired Oxygen 05/03/24 20:00 05/03/24 22:00 05/04/24 02:52 Temperature 97.1 F L Pulse Rate 73 Respiratory Rate 18 Blood Pressure 110/53 L Pulse Oximetry 99 93 94 Oxygen Delivery Nasal Cannula Nasal Cannula Oxygen Flow Rate 2 2 Fraction of Inspired Oxygen 05/04/24 02:52 05/04/24 02:58 05/04/24 06:00 Temperature 97.3 F L Pulse Rate 66 70 63 Respiratory Rate 24 H 24 H 22 H Blood Pressure 120/54 L Pulse Oximetry 96 Oxygen Delivery Oxygen Flow Rate Fraction of Inspired Oxygen 05/04/24 09:12 05/04/24 09:39 05/04/24 09:39 Temperature Pulse Rate 70 60 Respiratory Rate 20 Blood Pressure Pulse Oximetry 93 Oxygen Delivery Nasal Cannula Oxygen Flow Rate 2 Fraction of Inspired Oxygen 28 05/04/24 09:46 Temperature Pulse Rate 60 Respiratory Rate 20 Blood Pressure Pulse Oximetry Oxygen Delivery Oxygen Flow Rate Fraction of Inspired Oxygen Intake/Output Intake/Output: Intake & Output 05/01/24 05/02/24 05/03/24 05/04/24 23:59 23:59 23:59 23:59 Intake Total 1780 1330 1520 Output Total 2325 5932 786 3482 Balance -545 -70 570 -1200 Meds/Results Medications: Active Medications Generic Name Dose Route Start Last Admin Trade Name Freq PRN Reason Stop Dose Admin Acetaminophen 650 mg 04/29/24 22:48 Acetaminophen 325 Mg Tablet PO Q6H PRN PAIN RATED 1-3/FEVER Albuterol/Ipratropium 3 ml 05/03/24 08:00 05/04/24 09:39 Ipratropium 0.5 Mg/Albuterol Sulfate 2.5 Mg Ampul.Neb 3 Ml INHALATION 3 ml Q6HRT WILMA Administration Atorvastatin Calcium 10 mg 04/30/24 21:00 05/03/24 20:23 Atorvastatin 10 Mg Tablet PO 10 mg HS WILMA Administration Calcium Carbonate 200 mg 04/29/24 22:48 Calcium Carbonate (Tums) 500 Mg (200 Mg Elemental) PO DAILY PRN indigestion Cyanocobalamin 1,000 mcg 04/30/24 09:00 05/04/24 09:11 Cyanocobalamin 1,000 Mcg Tablet PO 1,000 mcg QAM WILMA Administration Ferrous Sulfate 325 mg 05/01/24 17:00 05/04/24 09:11 Ferrous Sulfate [address] PO 325 mg BIDWM WILMA Administration Guaifenesin 1,200 mg 04/30/24 09:00 05/04/24 09:13 Guaifenesin 12 Hr 600 Mg Tabcr PO 1,200 mg Q12HR WILMA Administration Hydralazine HCl 25 mg 04/30/24 09:00 05/04/24 09:12 Hydralazine Hcl 25 Mg Tablet PO 25 mg Q12HR WILMA Administration Hydroxychloroquine Sulfate 200 mg 04/30/24 09:00 05/04/24 09:15 Hydroxychloroquine Sulfate 200 Mg Tablet PO 200 mg Q12HR WILMA Administration Cefepime HCl 2 gm in 50 mls @ 100 mls/hr 04/30/24 13:30 05/04/24 09:14 Maxipime 2 Gm/Ns 50 Ml IVPB 100 mls/hr Q12HR WILMA Administration Levothyroxine Sodium 75 mcg 04/30/24 06:30 05/04/24 05:42 Levothyroxine Sodium 75 Mcg Tablet PO 75 mcg 0630 WILMA Administration Metoprolol Succinate 100 mg 04/30/24 09:00 05/04/24 09:12 Metoprolol Succinate Ext Rel 100 Mg Tabcr PO 100 mg DAILY WILMA Administration Olanzapine 2.5 mg 04/29/24 22:48 05/03/24 15:07 Olanzapine 2.5 Mg Tablet PO 2.5 mg QPM PRN Administration Anxiety Ondansetron HCl 4 mg 04/29/24 14:56 Ondansetron Inj 4 Mg/2 Ml Vial IV PUSH Q4H PRN Nausea Polyethylene Glycol 17 gm 04/30/24 09:00 05/04/24 09:11 Polyethylene Glycol 3350 17 Gm Powd.Pack PO 17 gm BID WILMA Administration Rivaroxaban 20 mg 04/30/24 17:00 05/03/24 16:20 Rivaroxaban 20 Mg Tablet PO 20 mg DAILY@1700 [facility] Administration Senna 8.6 mg 04/30/24 09:00 05/04/24 09:11 Sennosides 8.6 Mg Tablet PO 8.6 mg DAILY WILMA Administration Simethicone 125 mg 04/29/24 22:48 Simethicone 125 Mg Chew Tab PO Q8H PRN gas Tamsulosin HCl 0.4 mg 04/30/24 21:00 05/03/24 20:23 Tamsulosin Hcl 0.4 Mg Capsule PO 0.4 mg HS WILMA Administration Venlafaxine HCl 37.5 mg 04/30/24 08:00 05/04/24 09:11 Venlafaxine Hcl Xr 37.5 Mg Cap PO 37.5 mg DAILY@0800 [facility] Administration Radiology Results: ITS Impressions Venous Doppler Study 05/03/24 16:17 IMPRESSION: No left upper extremity deep venous thrombosis. Chest X-Ray 05/04/24 09:22 IMPRESSION: 1. Diffuse lung disease with worsening in left midlung zone, consistent with pneumonia. 2. Stable small left pleural effusion. Labs Labs: Laboratory Results - last 24 hr 04/30/24 05/04/24 14:58 05:46 WBC 2.4 L RBC 2.75 L Hgb 8.4 L Hct 27.6 L MCV 100.4 H MCH 30.5 MCHC 30.4 L RDW 15.1 H Plt Count 163 MPV 10.4 Immature Gran % (Auto) 0.4 Neut % (Auto) 51.0 Lymph % (Auto) 20.6 [place] % (Auto) 15.2 H Eos % (Auto) 10.3 H Baso % (Auto) 2.5 H Lymph # (Auto) 0.50 L [place] # (Auto) 0.4 Eos # (Auto) 0.3 Baso # (Auto) 0.1 Abs Immat Gran (auto) 0.01 Absolute Neuts (auto) 1.2 L Absolute Nucleated RBC 0.000 Nucleated RBC % 0.0 Sodium 136 L Potassium 4.4 Chloride 104 Carbon Dioxide 37 H Anion Gap -5 L BUN 17 Creatinine 0.80 Estim Creat Clear Calc 60 Estimated GFR > 60 Glucose 89 Calcium 9.2 Magnesium 2.2 Total Bilirubin 0.7 AST 29 ALT 23 Alkaline Phosphatase 97 NT-Pro-B Natriuret Pep 2450 H Total Protein 5.0 L Albumin 2.4 L Procalcitonin 0.1 Ur L.pneumophila Ag Not detected Quality VTE Prophylaxis VTE prophylaxis: pharmacologic ordered
--- NOTE | 2024-05-04 12:30 | P.CONPL_ITS ---
Assessment and Plan Assessment and plan (1) Bilateral pneumonia: Code(s): J18.9 - Pneumonia, unspecified organism Status: Acute Assessment and Plan: patient recently admitted for pneumonia on 04/11/2024 through 04/16/2024 was treated with ceftriaxone, doxycycline. Also with fluid overloaded and treated with IV Lasix. Recommended he have thickened liquids it is unclear if this is being followed. According to the son he never really improved and still had coughing and presented on 04/29/2024 with white blood cell count 2.7, afebrile, 2 L nasal cannula saturation 96% and a chest x-ray that showed right upper lobe infiltrate and left lower lobe infiltrate stable since previous admission. The patient has been admitted and treated with vancomycin initially until his MRSA swab was negative and now cefepime. 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 Plan: I will add Levaquin 750 mg IV q.day to his cefepime, day 6. obtain a CT scan of the chest looking for focal consolidations, evidence of chronic aspiration, interstitial lung disease and fluid overload. I will send a respiratory pathogen panel looking for 21 respiratory pathogens. I will send a BNP. I will send a sputum for culture. I will continue guaifenesin 1200 mg p.o. b.i.d., DuoNebs q.6 hours and add a Cornet flutter valve. Discussed with son in room, daughter on speaker phone and with Marilin Ramirez, will follow with you (2) Acute hypoxic respiratory failure: Code(s): J96.01 - Acute respiratory failure with hypoxia Status: Acute Assessment and Plan: Patient was discharged on 04/16 with 1 L nasal cannula. 05/04/2024: ABG on admission was 7.44/45/79. currently is on 1 L nasal cannula saturations 95%. Plan: Goal saturation 90-94%, will wean oxygen accordingly. History of Present Illness History of Present Illness Consult date: 05/04/24 Chief complaint: Pneumonia Narrative: 05/04/2024: This is a new pulmonary consult for pneumonia. 88-year-old with a history of dementia, coronary artery disease status post stents, paroxysmal atrial fibrillation on anticoagulation, untreated obstructive sleep apnea, rheumatoid arthritis from 2017 initially on prednisone and now on Plaquenil, hypothyroidism and recent pneumonia and fluid overload admitted to [facility] 04/11-04/16. patient was discharged on 1 L oxygen. Speech therapy recommended that he have thickened liquids although is unclear if this is being followed at the longterm. the son who is in the room says the patient never completely recovered from this pneumonia on and has had persistent cough since then. The cough cause back pains. Patient denies fever, chills, rigors, sweats. He presented to the emergency room on 04/29/2024 with a blood pressure 127/60, heart rate 85, afebrile, 2 L nasal cannula saturation 96%. White blood cell count 2.7, creatinine 0.7, COVID, influenza, RSV RT PCR negative, MRSA swab negative, 2 L ABG 7.44/45/79. Patient was admitted and treated for pneumonia with ceftriaxone and azithromycin. He was then changed to vancomycin and cefepime later in the day. Overall the patient tells me that he feels about the same. The daughter who was on the phone says that she thinks he got better over the 1st 2 or 3 days but has plateaued off or worse at this point. The patient tells me he has some rest shortness of breath and dyspnea on exertion although he does not walk he pivots to wheelchair. When I enter the room his saturations were 99% on 2 L and I decreased him to room air and after 3 minutes he desatted to 89 I placed him on 1 L and his saturations were 95%. DATA: EXAMINATION: XR chest 1V portable DATE: 05/04/2024 09:20 INDICATION: Pneumonia. TECHNIQUE: A single frontal view of the chest was obtained. COMPARISON: Chest 2 views 04/29/2024 FINDINGS: There are airspace opacities in all lung zones bilaterally, worst in the right upper lung zone and left mid and lower lung zones. There is a small left pleural effusion. No pneumothorax. The heart size is normal. There is a left chest wall pacer with leads in the right atrium and right ventricle. There are old healed right rib fractures. IMPRESSION: 1. Diffuse lung disease with worsening in left midlung zone, consistent with pneumonia. 2. Stable small left pleural effusion. 04/16/24: IMPRESSION: Pharyngeal dysphagia with laryngeal penetration without aspiration. Please correlate with speech pathologist findings and specific feeding recommendations. 04/13/25: Summary 1. Left ventricular systolic function is normal, estimated at 60-65%. 2. There is no increased left ventricular wall thickness. 3. Left atrial chamber dimension is mildly enlarged. 4. There is trace mitral valve regurgitation. 5. There is mild tricuspid valve regurgitation. 6. Moderate pulmonary hypertension, estimated pulmonary arterial systolic pressure is 49 mmHg. 7. There is small pericardial effusion. 8. Pleural effusion. Left Ventricle Left ventricular chamber dimension is normal. Left ventricular systolic function is normal, estimated at 60-65%. There is no increased left ventricular wall thickness. Left ventricular septal wall motion is normal. The left ventricular diastolic function is abnormal. Right Ventricle Right ventricular chamber dimension is normal. Right ventricular systolic function is normal. Left Atria Left atrial chamber dimension is mildly enlarged. Right Atria Right atrial chamber dimension is normal. Atrial Septum Intact interatrial septum visualized by color flow imaging. 04/11/25: EXAMINATION: XR chest 1V portable INDICATION: Dyspnea TECHNIQUE: frontal view of the chest was obtained. COMPARISON: None FINDINGS: Airspace opacities in the bilateral mid and lower lung zones. Blunting at the bilateral costophrenic angles consistent with small bilateral pleural effusions. No pneumothorax. Cardiomegaly. Dual lead pacemaker seen with leads projecting over the expected locations of the right atrium and right ventricle. IMPRESSION: 1. Opacities in bilateral mid and lower lung zones which could represent atelectasis or pneumonia. 2. Small bilateral pleural effusions. 3. Cardiomegaly. Review of Systems 2 Constitutional: Constitutional: Reports no additional constitutional complaints Eyes: Eyes: Reports no additional eye complaints ENT: Reports system reviewed and no additional complaints, except as documented Cardiovascular: Cardiovascular: Reports no additional cardiovascular complaints Respiratory: Respiratory: Reports no additional respiratory complaints Gastrointestinal: Gastrointestinal: Reports no additional gastrointestinal complaints Musculoskeletal: Musculoskeletal: Reports no additional musculoskeletal complaints Neurologic: Reports system reviewed and no additional complaints, except as documented Psychiatric: Psychiatric: Reports no additional psychiatric complaints Endocrine: Endocrine: Reports no additional endocrine complaints Hematologic/Lymphatic: Hematologic/Lymphatic: Reports no additional hematologic/lymphatic complaints Allergic/Immunologic: Allergic/Immunologic: Reports no additional allergic/immunologic complaints [facility] Past Medical History Medical History Hyperlipidemia Hypertension Rheumatoid arthritis Hypothyroidism Coronary artery disease Chronic anticoagulation Paroxysmal atrial fibrillation Surgical History Surgical History History of vasectomy History of coronary artery stent placement History of permanent cardiac pacemaker placement Family History Family History Other Family history non-contributory Social History Social History Social History: Surrogate medical decision maker: Azucena or Connor welsh, children. Code status: Modified code, no intubation. ([facility] documentation signed 02/21/24 lists No CPR/Do not attempt resuscitation, selective treatment). Smoking status: Never smoker Alcohol intake: never Substance use: never Do You Feel Safe in your Home?: Yes Lack of Transportation: No Lack of Food: Never True Current Housing: I Have Housing Concerned About Future Housing: No Difficulty Paying Gas/Electric Bills: No Difficulty Paying for Meds: No Currently Unemployed: No Education: Trade/Vocational Certificate Difficulty w/ Childcare or Family Care: No Living arrangements: longterm Additional living arrangements comments: [facility] Occupation/Education: retired Additional occupation/education comments: [employer]. Spiritual care concerns: Yes Meds Home Medications and Allergies Home Medications ?Medication ?Instructions ?Recorded ?Confirmed ?Type acetaminophen 650 mg 650 mg PO Q6H PRN Pain, fever 04/11/24 04/29/24 History tablet,extended release atorvastatin 10 mg tablet 10 mg PO HS 04/11/24 04/29/24 History hydralazine 25 mg tablet 25 mg PO Q12H 04/11/24 04/29/24 History hydroxychloroquine 200 mg tablet 200 mg PO .q12hr 04/11/24 04/29/24 History ipratropium 0.5 mg-albuterol 3 mg 3 ml inhalation Q6-8H PRN 04/11/24 04/29/24 History (2.5 mg base)/3 mL nebulization shortness of breath or wheezing soln levothyroxine 75 mcg tablet 75 mcg PO 0630 04/11/24 04/29/24 History metoprolol succinate 100 mg 100 mg PO DAILY 04/11/24 04/29/24 History tablet,extended release 24 hr polyethylene glycol 3350 17 17 g PO BID 04/11/24 04/29/24 History gram/dose oral powder (Miralax) calcium carbonate (Antacid 200 mg PO DAILY PRN indigestion 04/12/24 04/29/24 History (calcium carbonate)) rivaroxaban 20 mg tablet (Xarelto) 20 mg PO Q24H 04/12/24 04/29/24 History sennosides 8.6 mg tablet 8.6 mg PO DAILY 04/12/24 04/29/24 History simethicone 125 mg capsule (Gas 125 mg PO .q8 PRN gas 04/12/24 04/29/24 History Relief (simethicone)) tamsulosin 0.4 mg capsule 0.4 mg PO Q24H 04/12/24 04/29/24 History amoxicillin 875 mg-potassium 1 tablet PO Q12H #3 tabs 04/16/24 04/29/24 Rx clavulanate 125 mg tablet cyanocobalamin (vitamin B-12) 1,000 mcg PO QAM #30 tabs 04/16/24 04/29/24 Rx 1,000 mcg tablet (Vitamin B-12) guaifenesin 600 mg tablet, 1,200 mg (2 x 600 mg) PO Q12HR #10 04/16/24 04/29/24 Rx extended release 12 hr (Mucus tabs Relief ER) olanzapine 2.5 mg tablet 2.5 mg PO QPM PRN Anxiety #10 tabs 04/16/24 04/29/24 Rx venlafaxine 37.5 mg 37.5 mg PO DAILY@0800 #30 caps 04/16/24 04/29/24 Rx capsule,extended release 24 hr (Effexor XR) Allergies Allergy/AdvReac Type Severity Reaction Status Date / Time No Known Allergies Allergy Verified 04/29/24 10:37 Vital Signs Vital Signs - 24 hr 05/03/24 15:35 05/03/24 16:06 05/03/24 16:16 Temperature 36.1 C L Pulse Rate 70 76 76 Respiratory Rate 18 20 20 Blood Pressure 115/55 L Pulse Oximetry 92 Oxygen Delivery Oxygen Flow Rate Fraction of Inspired Oxygen 05/03/24 20:00 05/03/24 22:00 05/04/24 02:52 Temperature 36.2 C L Pulse Rate 73 Respiratory Rate 18 Blood Pressure 110/53 L Pulse Oximetry 99 93 94 Oxygen Delivery Nasal Cannula Nasal Cannula Oxygen Flow Rate 2 2 Fraction of Inspired Oxygen 05/04/24 02:52 05/04/24 02:58 05/04/24 06:00 Temperature 36.3 C L Pulse Rate 66 70 63 Respiratory Rate 24 H 24 H 22 H Blood Pressure 120/54 L Pulse Oximetry 96 Oxygen Delivery Oxygen Flow Rate Fraction of Inspired Oxygen 05/04/24 09:12 05/04/24 09:39 05/04/24 09:39 Temperature Pulse Rate 70 60 Respiratory Rate 20 Blood Pressure Pulse Oximetry 93 Oxygen Delivery Nasal Cannula Oxygen Flow Rate 2 Fraction of Inspired Oxygen 28 05/04/24 09:46 Temperature Pulse Rate 60 Respiratory Rate 20 Blood Pressure Pulse Oximetry Oxygen Delivery Oxygen Flow Rate Fraction of Inspired Oxygen Exam 2 Const: General: cooperative and comfortable HENMT: Head: normal to inspection Ears: hearing grossly normal bilaterally Eyes: General: appearance normal, both eyes and all related structures Neck: Neck: normal visual inspection Chest: Chest palpation & inspection: normal inspection of the chest Resp: Effort & Inspection: normal respiratory effort and able to speak in complete sentences Auscultation: crackles, no rales, no rhonchi, no wheezes and lung sounds not diminished Cardio: Jugular venous distension: no JVD GI: Inspection: normal to inspection GI Palp: No abdominal tenderness Skin: General skin exam: normal color Neuro: General: oriented to person, oriented to place and oriented to time Extrem: General: normal to inspection Other: Swollen left upper extremity no pedal edema Psych: Appearance: grossly normal Results Laboratory Findings 05/04/24 05:46 05/04/24 05:46 ABG, PT/INR, D-dimer: ABG ABG pH 7.443 (7.350-7.450) 04/29/24 11:53 ABG pCO2 44.5 mmHg (35.0-45.0) 04/29/24 11:53 ABG pO2 78.6 mmHg (80.0-100.0) L 04/29/24 11:53 ABG O2 Saturation 96.0 % (95.0-100.0) 04/29/24 11:53 Abnormal lab findings: Abnormal Labs 04/29/24 04/29/24 04/30/24 11:53 12:55 06:56 WBC 3.2 L 2.7 L RBC 3.10 L 2.87 L Hgb 9.7 L 9.0 L Hct 31.2 L 29.7 L MCV 100.6 H 103.5 H MCHC 31.1 L 30.3 L RDW 15.4 H 15.6 H MPV Lymph % (Auto) 9.8 L 13.2 L [place] % (Auto) 11.7 H 13.6 H Eos % (Auto) 5.0 H 6.8 H Baso % (Auto) 1.3 H 2.3 H Lymph # (Auto) 0.31 L 0.35 L Absolute Neuts (auto) Immature Retic Fraction ABG pO2 78.6 L ABG HCO3 29.8 H ABG O2 Content 13.8 L Total Hemoglobin 10.3 L Sodium Chloride 108 H Carbon Dioxide 34 H 31 H Anion Gap 0 L -2 L NT-Pro-B Natriuret Pep Total Protein 6.0 L Albumin 3.0 L Lipase 18 L 05/01/24 05/02/24 05/03/24 06:54 06:01 06:02 WBC 2.4 L 2.5 L 2.3 L RBC 2.89 L 2.85 L 2.72 L Hgb 8.9 L 8.8 L 8.4 L Hct 29.0 L 28.8 L 27.0 L MCV 100.3 H 101.1 H MCHC 30.7 L 30.6 L 31.1 L RDW 15.3 H 15.2 H 15.3 H MPV 10.5 H Lymph % (Auto) [place] % (Auto) 13.9 H 15.9 H 15.4 H Eos % (Auto) 9.8 H 9.5 H 12.3 H Baso % (Auto) 2.0 H 1.6 H 1.3 H Lymph # (Auto) 0.46 L 0.46 L 0.46 L Absolute Neuts (auto) 1.1 L Immature Retic Fraction 23.0 H ABG pO2 ABG HCO3 ABG O2 Content Total Hemoglobin Sodium 135 L 135 L 133 L Chloride Carbon Dioxide 34 H 34 H 35 H Anion Gap -2 L -4 L -4 L NT-Pro-B Natriuret Pep Total Protein 5.0 L 5.0 L 5.0 L Albumin 2.5 L 2.4 L 2.4 L Lipase 05/04/24 05:46 WBC 2.4 L RBC 2.75 L Hgb 8.4 L Hct 27.6 L MCV 100.4 H MCHC 30.4 L RDW 15.1 H MPV Lymph % (Auto) [place] % (Auto) 15.2 H Eos % (Auto) 10.3 H Baso % (Auto) 2.5 H Lymph # (Auto) 0.50 L Absolute Neuts (auto) 1.2 L Immature Retic Fraction ABG pO2 ABG HCO3 ABG O2 Content Total Hemoglobin Sodium 136 L Chloride Carbon Dioxide 37 H Anion Gap -5 L NT-Pro-B Natriuret Pep 2450 H Total Protein 5.0 L Albumin 2.4 L Lipase Diagnostic Findings Additional studies: ITS Impressions Chest X-Ray 04/29/24 12:48 IMPRESSION: 1. Increasing bilateral airspace opacities suspicious for worsening pneumonia. 2. Increasing small left pleural effusion. Venous Doppler Study 05/03/24 16:17 IMPRESSION: No left upper extremity deep venous thrombosis. Chest X-Ray 05/04/24 09:22
[2024-05-04] MEDS: OLANZapine 2.5 MG TABLET PO (12:37)
[2024-05-04] MEDS: levoFLOXacin 750 MG/D5W 150 ML 750 MG/150 ML BAG 100 MG IVPB (15:21)
[2024-05-04] MEDS: TAMSULOSIN HCL 0.4 MG CAPSULE PO (20:00)
[2024-05-04] MEDS: ATORVASTATIN 10 MG TABLET PO (20:00)
[2024-05-05] VITALS (13 sets, daily range): BP systolic 97–114; BP diastolic 48–60; PULSE 53–97; RESP 18–20; TEMP 36.1; O2SAT 93–96
[2024-05-05] MEDS: IPRATROPIUM 0.5 MG/ALBUTEROL SULFATE 2.5 MG AMPUL.NEB 3 ML INHALATION ×3 (01:32→19:45)
[2024-05-05] MEDS: LEVOTHYROXINE SODIUM 75 MCG TABLET PO (05:39)
[2024-05-05 05:57] LABS: Basophils Percent Auto 1.5 % (0.2-1.2); Eosinophils Absolute Auto 0.3 K/mm3 (0-0.3); Eosinophils Percent Auto 10.9 % (0-4.4); Hematocrit 28.7 % (42.0-52.0); Hemoglobin 8.6 g/dL (14.0-18.0); Immature Granulocyte Absolute 0.01 K/mm3 (0.00-0.031); Immature Granulocyte Percent A 0.4 % (0-0.5); Lymphocytes Absolute Auto 0.43 K/mm3 (0.9-3.2); Lymphocytes Percent Auto 16.2 % (18.3-44.2); Mean Corpuscular Hemoglobin 30.4 pg (26-34); Mean Corpuscular Volume 101.4 fl (80-100); Mean Platelet Volume 10.3 fl (7.4-10.4); Monocytes Absolute Auto 0.4 K/mm3 (0.1-0.6); Monocytes Percent Auto 15.5 % (2.6-8.5); Neutrophils Absolute Auto 1.5 K/mm3 (1.3-6.7); Neutrophils Percent Auto 55.5 % (45.5-73.1); Platelet Count Result 172 k/mm3 (150-375); Red Blood Count 2.83 M/mm3 (4.6-6.20); White Blood Count 2.7 K/mm3 (4.5-10.0)
[2024-05-05 06:08] LABS: INR 1.7; Prothrombin Time 20.7 Seconds (11.1-14.7)
[2024-05-05 06:09] LABS: Partial Thromboplastin Time 44.4 Seconds (22.3-36.8)
[2024-05-05 06:14] LABS: Alanine Aminotransferase 20 U/L (6-50); Albumin Level 2.6 g/dL (3.5-5.1); Alkaline Phosphatase 112 U/L (38-126); Anion Gap 0 mmol/L (4-12); Aspartate Amino Transferase 21 U/L (17-59); Bilirubin,Total 0.8 mg/dL (0.2-1.3); Blood Urea Nitrogen 14 mg/dL (9-20); Carbon Dioxide 33 mmol/L (22-30); Chloride 103 mmol/L (98-107); Estimated CRCL calculation 72 ml/min; Estimated Glomerular Filt Rate > 60; Glucose 80 mg/dL (65-110); Lactate Dehydrogenase 167 U/L (120-246); Magnesium 2.2 mg/dL (1.6-2.3); Potassium 4.1 mmol/L (3.4-5.0); Sodium 136 mmol/L (137-145)
--- NOTE | 2024-05-05 09:17 | CY_PTH ---
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 Flick, DO Tissues: A - Pleural Fluid Procedures: Hematoxylin and Eosin Stain Cell Block Cytopathology Cytospin
--- NOTE | 2024-05-05 09:44 | P.PNPL_ITS ---
Progress Note: A&P Assessment and Plan (1) Bilateral pneumonia: Code(s): J18.9 - Pneumonia, unspecified organism Status: Acute Assessment and Plan: patient recently admitted for pneumonia on 04/11/2024 through 04/16/2024 was treated with ceftriaxone, doxycycline. Also with fluid overloaded and treated with IV Lasix. Recommended he have thickened liquids it is unclear if this is being followed. According to the son he never really improved and still had coughing and presented on 04/29/2024 with white blood cell count 2.7, afebrile, 2 L nasal cannula saturation 96% and a chest x-ray that showed right upper lobe infiltrate and left lower lobe infiltrate stable since previous admission. The patient has been admitted and treated with vancomycin initially until his MRSA swab was negative and now cefepime. 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 Plan: I will add Levaquin 750 mg IV q.day to his cefepime, day 6. obtain a CT scan of the chest looking for focal consolidations, evidence of chronic aspiration, interstitial lung disease and fluid overload. I will send a respiratory pathogen panel looking for 21 respiratory pathogens. I will send a BNP. I will send a sputum for culture. I will continue guaifenesin 1200 mg p.o. b.i.d., DuoNebs q.6 hours and add a Cornet flutter valve. Discussed with son in room, daughter on speaker phone and with Marilin Ramirez, will follow with you Later in the day the patient had a CT scan of the chest with right upper, right middle and right lower lobe infiltrates, left upper lobe infiltrates with small right and moderate left pleural effusion. 05/05/2024: Overall the patient states that he feels the same. From the son who was with him all day yesterday and spent the night last night he is about the same. He has some difficulty at night trying to take his oxygen off. His cough is about the same patient does not complain of shortness of breath at rest. Currently is on 2 L nasal cannula saturations 97%. White blood cell count is 2.7, creatinine is 0.66. Plan: Will continue to treat for bacterial pneumonia with cefepime day 7 and Levaquin day 2. continue DuoNebs and guaifenesin. Patient with a moderate left pleural effusion and I were ordered a left thoracentesis with full set of chemistries, cell count, stains and cultures and cytology. Last dose of Xarelto was 05/03 at 4:20 p.m. respiratory pathogen panel pending. CT scan shows infiltrates all lobes of the right and left upper lobe. I have talked to the son and he is unsure if the patient ever had any old CAT scans but he will check with [facility] and if so try to printout reports. I have encouraged them to try to obtain discs with any old imaging for comparison. Discussed with son in the room and Marilin Ramirez. (2) Acute hypoxic respiratory failure: Code(s): J96.01 - Acute respiratory failure with hypoxia Status: Acute Assessment and Plan: Patient was discharged on 04/16 with 1 L nasal cannula. 05/04/2024: ABG on admission was 7.44/45/79. currently is on 1 L nasal cannula saturations 95%. Plan: Goal saturation 90-94%, will wean oxygen accordingly. 05/05/23: Currently on 2 L nasal cannula saturations 97%. Wean saturations for goal 90-94%. Subjective Date/time seen: 05/05/24 09:44 Interval history: 05/04/2024: This is a new pulmonary consult for pneumonia. 88-year-old with a history of dementia, coronary artery disease status post stents, paroxysmal atrial fibrillation on anticoagulation, untreated obstructive sleep apnea, rheumatoid arthritis from 2017 initially on prednisone and now on Plaquenil, hypothyroidism and recent pneumonia and fluid overload admitted to [facility] 04/11-04/16. patient was discharged on 1 L oxygen. Speech therapy recommended that he have thickened liquids although is unclear if this is being followed at the [place] [facility]. the son who is in the room says the patient never completely recovered from this pneumonia on and has had persistent cough since then. The cough cause back pains. Patient denies fever, chills, rigors, sweats. He presented to the emergency room on 04/29/2024 with a blood pressure 127/60, heart rate 85, afebrile, 2 L nasal cannula saturation 96%. White blood cell count 2.7, creatinine 0.7, COVID, influenza, RSV RT PCR negative, MRSA swab negative, 2 L ABG 7.44/45/79. Patient was admitted and treated for pneumonia with ceftriaxone and azithromycin. He was then changed to vancomycin and cefepime later in the day. 05/04/24: Overall the patient tells me that he feels about the same. The daughter who was on the phone says that she thinks he got better over the 1st 2 or 3 days but has plateaued off or worse at this point. The patient tells me he has some rest shortness of breath and dyspnea on exertion although he does not walk he pivots to wheelchair. When I enter the room his saturations were 99% on 2 L and I decreased him to room air and after 3 minutes he desatted to 89 I placed him on 1 L and his saturations were 95%. Later in the day the patient had a CT scan of the chest with right upper, right middle and right lower lobe infiltrates, left upper lobe infiltrates with small right and moderate left pleural effusion. 05/05/2024: Overall the patient states that he feels the same. From the son who was with him all day yesterday and spent the night last night he is about the same. He has some difficulty at night trying to take his oxygen off. His cough is about the same patient does not complain of shortness of breath at rest. Currently is on 2 L nasal cannula saturations 97%. White blood cell count is 2.7, creatinine is 0.66. DATA: EXAMINATION: XR chest 1V portable DATE: 05/04/2024 09:20 INDICATION: Pneumonia. TECHNIQUE: A single frontal view of the chest was obtained. COMPARISON: Chest 2 views 04/29/2024 FINDINGS: There are airspace opacities in all lung zones bilaterally, worst in the right upper lung zone and left mid and lower lung zones. There is a small left pleural effusion. No pneumothorax. The heart size is normal. There is a left chest wall pacer with leads in the right atrium and right ventricle. There are old healed right rib fractures. IMPRESSION: 1. Diffuse lung disease with worsening in left midlung zone, consistent with pneumonia. 2. Stable small left pleural effusion. 04/16/24: IMPRESSION: Pharyngeal dysphagia with laryngeal penetration without aspiration. Please correlate with speech pathologist findings and specific feeding recommendations. 04/13/25: Summary 1. Left ventricular systolic function is normal, estimated at 60-65%. 2. There is no increased left ventricular wall thickness. 3. Left atrial chamber dimension is mildly enlarged. 4. There is trace mitral valve regurgitation. 5. There is mild tricuspid valve regurgitation. 6. Moderate pulmonary hypertension, estimated pulmonary arterial systolic pressure is 49 mmHg. 7. There is small pericardial effusion. 8. Pleural effusion. Left Ventricle Left ventricular chamber dimension is normal. Left ventricular systolic function is normal, estimated at 60-65%. There is no increased left ventricular wall thickness. Left ventricular septal wall motion is normal. The left ventricular diastolic function is abnormal. Right Ventricle Right ventricular chamber dimension is normal. Right ventricular systolic function is normal. Left Atria Left atrial chamber dimension is mildly enlarged. Right Atria Right atrial chamber dimension is normal. Atrial Septum Intact interatrial septum visualized by color flow imaging. 04/11/25: EXAMINATION: XR chest 1V portable INDICATION: Dyspnea TECHNIQUE: frontal view of the chest was obtained. COMPARISON: None FINDINGS: Airspace opacities in the bilateral mid and lower lung zones. Blunting at the bilateral costophrenic angles consistent with small bilateral pleural effusions. No pneumothorax. Cardiomegaly. Dual lead pacemaker seen with leads projecting over the expected locations of the right atrium and right ventricle. IMPRESSION: 1. Opacities in bilateral mid and lower lung zones which could represent atelectasis or pneumonia. 2. Small bilateral pleural effusions. 3. Cardiomegaly. Review of Systems Constitutional: Constitutional: Reports no additional constitutional complaints Eyes: Eyes: Reports no additional eye complaints ENT: Reports system reviewed and no additional complaints, except as documented Cardiovascular: Cardiovascular: Reports no additional cardiovascular complaints Respiratory: Respiratory: Reports no additional respiratory complaints Gastrointestinal: Gastrointestinal: Reports no additional gastrointestinal complaints Musculoskeletal: Musculoskeletal: Reports no additional musculoskeletal complaints Neurologic: Reports system reviewed and no additional complaints, except as documented Psychiatric: Psychiatric: Reports no additional psychiatric complaints Endocrine: Endocrine: Reports no additional endocrine complaints Hematologic/Lymphatic: Hematologic/Lymphatic: Reports no additional hematologic/lymphatic complaints Allergic/Immunologic: Allergic/Immunologic: Reports no additional allergic/immunologic complaints Exam Const: General: cooperative and comfortable Orientation/consciousness: oriented to person, oriented to place and oriented to time HENMT: Head: normal to inspection Ears: hearing grossly normal bilaterally Eyes: General: appearance normal, both eyes and all related structures Neck: Neck: normal visual inspection Chest: Chest palpation & inspection: normal inspection of the chest Resp: Effort & Inspection: normal respiratory effort and able to speak in complete sentences Auscultation: crackles, no rales, no rhonchi, no wheezes and diminished lung sounds Other: bases Cardio: Jugular venous distension: no JVD GI: Inspection: normal to inspection Skin: General skin exam: normal color Neuro: General: oriented to person, oriented to place and oriented to time Extrem: General: normal to inspection Other: Swollen left upper extremity no pedal edema Psych: Appearance: grossly normal Objective Data Vital Signs Vital Signs: Vital Signs - 24 hr 05/04/24 09:46 05/04/24 14:00 05/04/24 14:04 Temperature 36.4 C Pulse Rate 60 65 65 Respiratory Rate 20 16 18 Blood Pressure 125/71 Pulse Oximetry 94 Oxygen Delivery Oxygen Flow Rate Fraction of Inspired Oxygen 05/04/24 14:13 05/04/24 19:58 05/04/24 20:00 Temperature Pulse Rate 62 71 Respiratory Rate 18 18 Blood Pressure Pulse Oximetry 87 L Oxygen Delivery Nasal Cannula Oxygen Flow Rate 2 Fraction of Inspired Oxygen 28 05/04/24 20:00 05/04/24 20:01 05/04/24 20:10 Temperature Pulse Rate 68 Respiratory Rate 18 Blood Pressure Pulse Oximetry 100 91 Oxygen Delivery Nasal Cannula Nasal Cannula Oxygen Flow Rate 2 2.5 Fraction of Inspired Oxygen 05/04/24 20:21 05/05/24 01:34 05/05/24 01:40 Temperature 36.1 C L Pulse Rate 66 63 65 Respiratory Rate 20 18 18 Blood Pressure 116/55 L Pulse Oximetry 100 Oxygen Delivery Oxygen Flow Rate Fraction of Inspired Oxygen 05/05/24 05:40 Temperature 36.1 C L Pulse Rate 63 Respiratory Rate 20 Blood Pressure 113/53 L Pulse Oximetry 96 Oxygen Delivery Oxygen Flow Rate Fraction of Inspired Oxygen Intake/Output Intake/Output: Intake & Output 01/04/25 05/03/24 05/04/24 05/05/24 23:59 23:59 23:59 23:59 Intake Total 1330 1520 830 350 Output Total 9214 786 7327 550 Balance -70 570 -370 -200 Meds/Results Medications: Active Medications Generic Name Dose Route Start Last Admin Trade Name Freq PRN Reason Stop Dose Admin Acetaminophen 650 mg 04/29/24 22:48 Acetaminophen 325 Mg Tablet PO Q6H PRN PAIN RATED 1-3/FEVER Albuterol/Ipratropium 3 ml 05/03/24 08:00 05/05/24 01:32 Ipratropium 0.5 Mg/Albuterol Sulfate 2.5 Mg Ampul.Neb 3 Ml INHALATION 3 ml Q6HRT WILMA Administration Atorvastatin Calcium 10 mg 04/30/24 21:00 05/04/24 20:00 Atorvastatin 10 Mg Tablet PO 10 mg HS WILMA Administration Calcium Carbonate 200 mg 04/29/24 22:48 Calcium Carbonate (Tums) 500 Mg (200 Mg Elemental) PO DAILY PRN indigestion Cyanocobalamin 1,000 mcg 04/30/24 09:00 05/04/24 09:11 Cyanocobalamin 1,000 Mcg Tablet PO 1,000 mcg QAM WILMA Administration Ferrous Sulfate 325 mg 05/01/24 17:00 05/04/24 17:36 Ferrous Sulfate [address] PO 325 mg BIDWM WILMA Administration Guaifenesin 1,200 mg 04/30/24 09:00 05/04/24 20:00 Guaifenesin 12 Hr 600 Mg Tabcr PO 1,200 mg Q12HR WILMA Administration Hydralazine HCl 25 mg 04/30/24 09:00 05/04/24 20:00 Hydralazine Hcl 25 Mg Tablet PO 25 mg Q12HR WILMA Administration Hydroxychloroquine Sulfate 200 mg 04/30/24 09:00 05/04/24 20:00 Hydroxychloroquine Sulfate 200 Mg Tablet PO 200 mg Q12HR WILMA Administration Cefepime HCl 2 gm in 50 mls @ 100 mls/hr 04/30/24 13:30 05/04/24 20:29 Maxipime 2 Gm/Ns 50 Ml IVPB Infused Q12HR WILMA Infusion Levofloxacin/Dextrose 750 mg in 150 mls @ 100 mls/hr 05/04/24 13:00 05/04/24 15:21 Levaquin 750 Mg/D5w 150 Ml IVPB 100 mls/hr Q24H WILMA Administration Levothyroxine Sodium 75 mcg 04/30/24 06:30 05/05/24 05:39 Levothyroxine Sodium 75 Mcg Tablet PO 75 mcg 0630 WILMA Administration Metoprolol Succinate 100 mg 04/30/24 09:00 05/04/24 09:12 Metoprolol Succinate Ext Rel 100 Mg Tabcr PO 100 mg DAILY WILMA Administration Olanzapine 2.5 mg 04/29/24 22:48 05/04/24 12:37 Olanzapine 2.5 Mg Tablet PO 2.5 mg QPM PRN Administration Anxiety Ondansetron HCl 4 mg 04/29/24 14:56 Ondansetron Inj 4 Mg/2 Ml Vial IV PUSH Q4H PRN Nausea Polyethylene Glycol 17 gm 04/30/24 09:00 05/04/24 17:36 Polyethylene Glycol 3350 17 Gm Powd.Pack PO 17 gm BID WILMA Administration Rivaroxaban 20 mg 04/30/24 17:00 05/03/24 16:20 Rivaroxaban 20 Mg Tablet PO 20 mg DAILY@1700 [facility] Administration Senna 8.6 mg 04/30/24 09:00 05/04/24 09:11 Sennosides 8.6 Mg Tablet PO 8.6 mg DAILY WILMA Administration Simethicone 125 mg 04/29/24 22:48 Simethicone 125 Mg Chew Tab PO Q8H PRN gas Tamsulosin HCl 0.4 mg 04/30/24 21:00 05/04/24 20:00 Tamsulosin Hcl 0.4 Mg Capsule PO 0.4 mg HS [facility] Administration Venlafaxine HCl 37.5 mg 04/30/24 08:00 05/04/24 09:11 Venlafaxine Hcl Xr 37.5 Mg Cap PO 37.5 mg DAILY@0800 [facility] Administration Radiology Results: ITS Impressions Venous Doppler Study 05/03/24 16:17 IMPRESSION: No left upper extremity deep venous thrombosis. Chest X-Ray 05/04/24 09:22 IMPRESSION: 1. Diffuse lung disease with worsening in left midlung zone, consistent with pneumonia. 2. Stable small left pleural effusion. Chest CT 05/04/24 14:47 IMPRESSION: 1. Diffuse lung disease, consistent with pneumonia. 2. Small loculated right pleural effusion. Moderate-sized left pleural effusion. 3. Cardiomegaly. Labs Labs: Laboratory Results - last 24 hr 05/04/24 05/05/24 05:46 05:38 WBC 2.7 L RBC 2.83 L Hgb 8.6 L Hct 28.7 L MCV 101.4 H MCH 30.4 MCHC 30.0 L RDW 15.0 H Plt Count 172 MPV 10.3 Immature Gran % (Auto) 0.4 Neut % (Auto) 55.5 Lymph % (Auto) 16.2 L [place] % (Auto) 15.5 H Eos % (Auto) 10.9 H Baso % (Auto) 1.5 H Lymph # (Auto) 0.43 L [place] # (Auto) 0.4 Eos # (Auto) 0.3 Baso # (Auto) 0.0 Abs Immat Gran (auto) 0.01 Absolute Neuts (auto) 1.5 Absolute Nucleated RBC 0.000 Nucleated RBC % 0.0 PT 20.7 H INR 1.7 APTT 44.4 H Sodium 136 L Potassium 4.1 Chloride 103 Carbon Dioxide 33 H Anion Gap 0 L BUN 14 Creatinine 0.66 L Estim Creat Clear Calc 72 Estimated GFR > 60 Glucose 80 Calcium 9.0 Magnesium 2.2 Total Bilirubin 0.8 AST 21 ALT 20 Alkaline Phosphatase 112 Lactate Dehydrogenase 167 NT-Pro-B Natriuret Pep 2450 H Total Protein 5.0 L Albumin 2.6 L Procalcitonin 0.1
--- NOTE | 2024-05-05 10:08 | PM.IMPN ---
Progress Note: A&P Assessment and Plan (1) Bilateral pneumonia: Code(s): J18.9 - Pneumonia, unspecified organism Status: Acute Assessment and Plan: - Blood cultures no growth to date. - Urine strep pneumo Ag, urine legionella Ag ordered. - Started on broad-spectrum IV abx. - Currently on RA with sats > 90 %. - During the last admission, pt was seen by ST and soft and bite sized diet with thickened liquids was recommended. Patient is reporting that he has been having regular fluids at the facility with no thickenings. He reports some episodes of coughing during meals. - ST evaluated swallowing and patient did well eating breakfast. - Cefepime 2 gram IVPB q 12. - Chest X-ray today showed: IMPRESSION: 1. Diffuse lung disease with worsening in left midlung zone, consistent with pneumonia. 2. Stable small left pleural effusion. - Pulmonary consult, appreciate recommendations: Add Levofloxacin 750 IVPB daily, chest CT, respiratory panel, BNP, sputum culture, and add Cornet flutter valve. - Chest CT on 05/04/24 showed: IMPRESSION: 1. Diffuse lung disease, consistent with pneumonia. 2. Small loculated right pleural effusion. Moderate-sized left pleural effusion. 3. Cardiomegaly. 05/05/24 Thoracentesis completed and 1,000 ml removed and fluid sent for testing. (2) Paroxysmal atrial fibrillation: Code(s): I48.0 - Paroxysmal atrial fibrillation Status: Acute Assessment and Plan: - Rate well controlled. - Continue Metoprolol and Xarelto. (3) Hypertension: Code(s): I10 - Essential (primary) hypertension Status: Acute Assessment and Plan: - Well controlled, blood pressure today 114/60. - Continue metoprolol and hydralazine. (4) Coronary artery disease: Code(s): I25.10 - Atherosclerotic heart disease of [place] coronary artery without angina pectoris Status: Acute Assessment and Plan: - Stable. - Continue metoprolol, xarelto and statin. (5) Hyperlipidemia: Code(s): E78.5 - Hyperlipidemia, unspecified Status: Acute Assessment and Plan: - Resume statin (6) Hypothyroidism: Code(s): E03.9 - Hypothyroidism, unspecified Status: Acute Assessment and Plan: - Continue levothyroxine. (7) Leukopenia: Code(s): D72.819 - Decreased white blood cell count, unspecified Status: Acute Assessment and Plan: - Appears chronic. WBC 2.7 today. - Monitor trend. - Oncology/ Hematology consulted, appreciate recommendations. (8) Iron deficiency anemia: Code(s): D50.9 - Iron deficiency anemia, unspecified Status: Acute Assessment and Plan: 04/11/24: Iron 24, TIBC 225, % saturation 11. Start Ferrous Sulfate 325 mg PO BID. Oncology/ Hematology consult, appreciate recommendations. -Ferritin 263, B12 848, folate 5.1, and reticulocyte count (absolute retic 0.07, percent retic 2.62, immature retic fraction 23.0, retic Hgb content 28.6). -Stool for occult blood. -We will continue to monitor his blood counts. -A bone marrow test will be considered if above workup is negative and if leukopenia persists at the present level. Plan Dr. Jang wanted any outside records films. Son mentioned tests at [facility]. Lalita nurse was going to have him fill out paper for medical records release. Subjective Date/time seen: 05/05/24 10:08 Interval history: Son at bedside. Patient denies chest pain, palpitations, headache, dizziness, nausea, or vomiting. Patient NPO for thoracentesis. Review of Systems Review of Systems: All systems reviewed & are unremarkable except as noted in HPI and below Exam Const: General: comfortable and no acute distress Resp: Effort & Inspection: normal respiratory effort Auscultation: crackles Cardio: Rate: regular rate Rhythm: regular rhythm GI: GI Palp: Yes Soft to palpation Auscultation: normal bowel sounds Neuro: Speech: normal speech Extrem: Other: Trace LUE edema, doppler negative. Psych: Other: Pleasant and cooperative. Objective Data Vital Signs Vital Signs: Vital Signs - 24 hr 05/04/24 14:00 05/04/24 14:04 05/04/24 14:13 Temperature 97.6 F Pulse Rate 65 65 62 Respiratory Rate 16 18 18 Blood Pressure 125/71 Pulse Oximetry 94 Oxygen Delivery Oxygen Flow Rate Fraction of Inspired Oxygen 05/04/24 19:58 05/04/24 20:00 05/04/24 20:00 Temperature Pulse Rate 71 Respiratory Rate 18 Blood Pressure Pulse Oximetry 87 L 100 Oxygen Delivery Nasal Cannula Nasal Cannula Oxygen Flow Rate 2 2 Fraction of Inspired Oxygen 05/04/24 20:01 05/04/24 20:10 05/04/24 20:21 Temperature 97.0 F L Pulse Rate 68 66 Respiratory Rate 18 20 Blood Pressure 116/55 L Pulse Oximetry 91 100 Oxygen Delivery Nasal Cannula Oxygen Flow Rate 2.5 Fraction of Inspired Oxygen 05/05/24 01:34 05/05/24 01:40 05/05/24 05:40 Temperature 97.0 F L Pulse Rate 63 65 63 Respiratory Rate 18 18 20 Blood Pressure 113/53 L Pulse Oximetry 96 Oxygen Delivery Oxygen Flow Rate Fraction of Inspired Oxygen 05/05/24 09:50 05/05/24 09:50 05/05/24 10:00 Temperature Pulse Rate 75 64 Respiratory Rate 18 20 Blood Pressure Pulse Oximetry 93 Oxygen Delivery Nasal Cannula Oxygen Flow Rate 2.5 Fraction of Inspired Oxygen Intake/Output Intake/Output: Intake & Output 05/02/24 05/03/24 05/04/24 05/05/24 23:59 23:59 23:59 23:59 Intake Total 1330 1520 830 350 Output Total 3809 028 0482 550 Balance -70 570 -370 -200 Meds/Results Medications: Active Medications Generic Name Dose Route Start Last Admin Trade Name Freq PRN Reason Stop Dose Admin Acetaminophen 650 mg 04/29/24 22:48 Acetaminophen 325 Mg Tablet PO Q6H PRN PAIN RATED 1-3/FEVER Albuterol/Ipratropium 3 ml 05/03/24 08:00 05/05/24 09:50 Ipratropium 0.5 Mg/Albuterol Sulfate 2.5 Mg Ampul.Neb 3 Ml INHALATION 3 ml Q6HRT WILMA Administration Atorvastatin Calcium 10 mg 04/30/24 21:00 05/04/24 20:00 Atorvastatin 10 Mg Tablet PO 10 mg HS WILMA Administration Calcium Carbonate 200 mg 04/29/24 22:48 Calcium Carbonate (Tums) 500 Mg (200 Mg Elemental) PO DAILY PRN indigestion Cyanocobalamin 1,000 mcg 04/30/24 09:00 05/04/24 09:11 Cyanocobalamin 1,000 Mcg Tablet PO 1,000 mcg QAM WILMA Administration Ferrous Sulfate 325 mg 05/01/24 17:00 05/04/24 17:36 Ferrous Sulfate [address] PO 325 mg BIDWM [facility] Administration Guaifenesin 1,200 mg 04/30/24 09:00 05/04/24 20:00 Guaifenesin 12 Hr 600 Mg Tabcr PO 1,200 mg Q12HR WILMA Administration Hydralazine HCl 25 mg 04/30/24 09:00 05/04/24 20:00 Hydralazine Hcl 25 Mg Tablet PO 25 mg Q12HR WILMA Administration Hydroxychloroquine Sulfate 200 mg 04/30/24 09:00 05/04/24 20:00 Hydroxychloroquine Sulfate 200 Mg Tablet PO 200 mg Q12HR WILMA Administration Cefepime HCl 2 gm in 50 mls @ 100 mls/hr 04/30/24 13:30 05/04/24 20:29 Maxipime 2 Gm/Ns 50 Ml IVPB Infused Q12HR WILMA Infusion Levofloxacin/Dextrose 750 mg in 150 mls @ 100 mls/hr 05/04/24 13:00 05/04/24 15:21 Levaquin 750 Mg/D5w 150 Ml IVPB 100 mls/hr Q24H WILMA Administration Levothyroxine Sodium 75 mcg 04/30/24 06:30 05/05/24 05:39 Levothyroxine Sodium 75 Mcg Tablet PO 75 mcg 0630 [facility] Administration Metoprolol Succinate 100 mg 04/30/24 09:00 05/04/24 09:12 Metoprolol Succinate Ext Rel 100 Mg Tabcr PO 100 mg DAILY [facility] Administration Ondansetron HCl 4 mg 04/29/24 14:56 Ondansetron Inj 4 Mg/2 Ml Vial IV PUSH Q4H PRN Nausea Polyethylene Glycol 17 gm 04/30/24 09:00 05/04/24 17:36 Polyethylene Glycol 3350 17 Gm Powd.Pack PO 17 gm BID WILMA Administration Rivaroxaban 20 mg 04/30/24 17:00 05/03/24 16:20 Rivaroxaban 20 Mg Tablet PO 20 mg DAILY@1700 [facility] Administration Senna 8.6 mg 04/30/24 09:00 05/04/24 09:11 Sennosides 8.6 Mg Tablet PO 8.6 mg DAILY WILMA Administration Simethicone 125 mg 04/29/24 22:48 Simethicone 125 Mg Chew Tab PO Q8H PRN gas Tamsulosin HCl 0.4 mg 04/30/24 21:00 05/04/24 20:00 Tamsulosin Hcl 0.4 Mg Capsule PO 0.4 mg HS WILMA Administration Venlafaxine HCl 37.5 mg 04/30/24 08:00 05/04/24 09:11 Venlafaxine Hcl Xr 37.5 Mg Cap PO 37.5 mg DAILY@0800 [facility] Administration Radiology Results: ITS Impressions Venous Doppler Study 05/03/24 16:17 IMPRESSION: No left upper extremity deep venous thrombosis. Chest X-Ray 05/04/24 09:22 IMPRESSION: 1. Diffuse lung disease with worsening in left midlung zone, consistent with pneumonia. 2. Stable small left pleural effusion. Chest CT 05/04/24 14:47 IMPRESSION: 1. Diffuse lung disease, consistent with pneumonia. 2. Small loculated right pleural effusion. Moderate-sized left pleural effusion. 3. Cardiomegaly. Labs Labs: Laboratory Results - last 24 hr 05/04/24 05/05/24 05:46 05:38 WBC 2.7 L RBC 2.83 L Hgb 8.6 L Hct 28.7 L MCV 101.4 H MCH 30.4 MCHC 30.0 L RDW 15.0 H Plt Count 172 MPV 10.3 Immature Gran % (Auto) 0.4 Neut % (Auto) 55.5 Lymph % (Auto) 16.2 L [place] % (Auto) 15.5 H Eos % (Auto) 10.9 H Baso % (Auto) 1.5 H Lymph # (Auto) 0.43 L [place] # (Auto) 0.4 Eos # (Auto) 0.3 Baso # (Auto) 0.0 Abs Immat Gran (auto) 0.01 Absolute Neuts (auto) 1.5 Absolute Nucleated RBC 0.000 Nucleated RBC % 0.0 PT 20.7 H INR 1.7 APTT 44.4 H Sodium 136 L Potassium 4.1 Chloride 103 Carbon Dioxide 33 H Anion Gap 0 L BUN 14 Creatinine 0.66 L Estim Creat Clear Calc 72 Estimated GFR > 60 Glucose 80 Calcium 9.0 Magnesium 2.2 Total Bilirubin 0.8 AST 21 ALT 20 Alkaline Phosphatase 112 Lactate Dehydrogenase 167 NT-Pro-B Natriuret Pep 2450 H Total Protein 5.0 L Albumin 2.6 L Procalcitonin 0.1 Quality VTE Prophylaxis VTE prophylaxis: pharmacologic ordered
[2024-05-05] MEDS: FERROUS SULFATE 325 MG TABLET DR PO ×2 (10:41→17:55)
[2024-05-05] MEDS: CYANOCOBALAMIN 1,000 MCG TABLET 1000 MCG PO (10:41)
[2024-05-05] MEDS: HYDROXYCHLOROQUINE SULFATE 200 MG TABLET PO ×2 (10:41→20:31)
[2024-05-05] MEDS: guaiFENesin 12 HR 600 MG TABCR 1200 MG PO ×2 (10:41→20:31)
[2024-05-05] MEDS: CEFEPIME 2 GM/NS 50 ML 2 GM/50 ML BAG IVPB ×2 (10:41→20:31)
[2024-05-05] MEDS: VENLAFAXINE HCL XR 37.5 MG CAP PO (10:41)
[2024-05-05] MEDS: hydrALAZINE HCL 25 MG TABLET PO (10:41)
[2024-05-05] MEDS: METOPROLOL SUCCINATE EXT REL 100 MG TABCR PO (10:43)
[2024-05-05] MEDS: levoFLOXacin 750 MG/D5W 150 ML 750 MG/150 ML BAG 100 MG IVPB (13:11)
[2024-05-05] MEDS: FUROSEMIDE INJ 40 MG/4 ML VIAL 20 MG IV PUSH (13:12)
[2024-05-05] MEDS: OLANZapine 2.5 MG TABLET PO (14:23)
[2024-05-05 17:27] LABS: Appearance Pleural Fluid Clear (Clear); Pleural fluid source Pleural fluid
[2024-05-05 17:28] LABS: Color Pleural Fluid Yellow (Colorless); Nucleated Cell Pleural Fluid 150 /uL (0-1000); RBC Pleural Fluid < 2000 /uL (0-10000)
[2024-05-05 17:33] LABS: Neutrophils Pleural Fluid 35 % (0-25)
[2024-05-05 17:34] LABS: Lymphocytes Pleural Fluid 56 %; Mesothelial Cells Pleural Flui 1 %; Monocytes Pleural Fluid 8 %
[2024-05-05] MEDS: SENNOSIDES 8.6 MG TABLET PO (17:55)
[2024-05-05] MEDS: polyethylene glycoL 3350 17 GM POWD.PACK PO (18:04)
[2024-05-05] MEDS: ATORVASTATIN 10 MG TABLET PO (20:31)
[2024-05-05] MEDS: TAMSULOSIN HCL 0.4 MG CAPSULE PO (20:31)
[2024-05-06] VITALS (13 sets, daily range): BP systolic 90–110; BP diastolic 47–56; PULSE 60–86; RESP 15–20; TEMP 36.2–36.6; O2SAT 95–99
[2024-05-06] MEDS: IPRATROPIUM 0.5 MG/ALBUTEROL SULFATE 2.5 MG AMPUL.NEB 3 ML INHALATION ×4 (01:53→19:46)
[2024-05-06] MEDS: LEVOTHYROXINE SODIUM 75 MCG TABLET PO (05:29)
[2024-05-06 06:09] LABS: Basophils Percent Auto 1.1 % (0.2-1.2); Eosinophils Absolute Auto 0.3 K/mm3 (0-0.3); Eosinophils Percent Auto 10.1 % (0-4.4); Hematocrit 29.4 % (42.0-52.0); Immature Granulocyte Absolute 0.01 K/mm3 (0.00-0.031); Immature Granulocyte Percent A 0.4 % (0-0.5); Lymphocytes Absolute Auto 0.53 K/mm3 (0.9-3.2); Lymphocytes Percent Auto 19.2 % (18.3-44.2); Mean Corpuscular HGB Conc 30.6 g/dl (32-36); Mean Corpuscular Hemoglobin 30.7 pg (26-34); Mean Corpuscular Volume 100.3 fl (80-100); Mean Platelet Volume 10.9 fl (7.4-10.4); Monocytes Absolute Auto 0.5 K/mm3 (0.1-0.6); Monocytes Percent Auto 16.7 % (2.6-8.5); Neutrophils Absolute Auto 1.5 K/mm3 (1.3-6.7); Neutrophils Percent Auto 52.5 % (45.5-73.1); Platelet Count Result 177 k/mm3 (150-375); Red Blood Count 2.93 M/mm3 (4.6-6.20); Red Cell Distribution Width 14.9 % (11.5-14.5); White Blood Count 2.8 K/mm3 (4.5-10.0)
[2024-05-06 06:33] LABS: Alanine Aminotransferase 21 U/L (6-50); Albumin Level 2.5 g/dL (3.5-5.1); Alkaline Phosphatase 110 U/L (38-126); Anion Gap 0 mmol/L (4-12); Aspartate Amino Transferase 28 U/L (17-59); Bilirubin,Total 0.8 mg/dL (0.2-1.3); Blood Urea Nitrogen 19 mg/dL (9-20); Calcium 8.8 mg/dL (8.4-10.2); Carbon Dioxide 33 mmol/L (22-30); Chloride 101 mmol/L (98-107); Estimated CRCL calculation 58 ml/min; Estimated Glomerular Filt Rate > 60; Glucose 64 mg/dL (65-110); Magnesium 2.3 mg/dL (1.6-2.3); Potassium 3.8 mmol/L (3.4-5.0); Sodium 134 mmol/L (137-145)
[2024-05-06 09:44] LABS: NT Pro B Type Natriuretic Pept 1620 pg/mL (19.9-100)
[2024-05-06] MEDS: FERROUS SULFATE 325 MG TABLET DR PO ×2 (09:52→17:31)
[2024-05-06] MEDS: HYDROXYCHLOROQUINE SULFATE 200 MG TABLET PO ×2 (09:52→19:32)
[2024-05-06] MEDS: hydrALAZINE HCL 25 MG TABLET PO (09:52)
[2024-05-06] MEDS: VENLAFAXINE HCL XR 37.5 MG CAP PO (09:52)
[2024-05-06] MEDS: SENNOSIDES 8.6 MG TABLET PO (09:52)
[2024-05-06] MEDS: guaiFENesin 12 HR 600 MG TABCR 1200 MG PO ×2 (09:52→19:31)
[2024-05-06] MEDS: CYANOCOBALAMIN 1,000 MCG TABLET 1000 MCG PO (09:52)
[2024-05-06] MEDS: polyethylene glycoL 3350 17 GM POWD.PACK PO ×2 (09:53→17:31)
[2024-05-06] MEDS: CEFEPIME 2 GM/NS 50 ML 2 GM/50 ML BAG IVPB ×2 (09:53→20:21)
[2024-05-06] MEDS: METOPROLOL SUCCINATE EXT REL 100 MG TABCR PO (09:55)
--- NOTE | 2024-05-06 10:13 | P.PNPL_ITS ---
Progress Note: A&P Assessment and Plan (1) Bilateral pneumonia: Code(s): J18.9 - Pneumonia, unspecified organism Status: Acute Assessment and Plan: patient recently admitted for pneumonia on 04/11/2024 through 04/16/2024 was treated with ceftriaxone, doxycycline. Also with fluid overloaded and treated with IV Lasix. Recommended he have thickened liquids it is unclear if this is being followed. According to the son he never really improved and still had coughing and presented on 04/29/2024 with white blood cell count 2.7, afebrile, 2 L nasal cannula saturation 96% and a chest x-ray that showed right upper lobe infiltrate and left lower lobe infiltrate stable since previous admission. The patient has been admitted and treated with vancomycin initially until his MRSA swab was negative and now cefepime. 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 Plan: I will add Levaquin 750 mg IV q.day to his cefepime, day 6. obtain a CT scan of the chest looking for focal consolidations, evidence of chronic aspiration, interstitial lung disease and fluid overload. I will send a respiratory pathogen panel looking for 21 respiratory pathogens. I will send a BNP. I will send a sputum for culture. I will continue guaifenesin 1200 mg p.o. b.i.d., DuoNebs q.6 hours and add a Cornet flutter valve. Discussed with son in room, daughter on speaker phone and with Marilin Ramirez, will follow with you Later in the day the patient had a CT scan of the chest with right upper, right middle and right lower lobe infiltrates, left upper lobe infiltrates with small right and moderate left pleural effusion. 05/05/2024: Overall the patient states that he feels the same. From the son who was with him all day yesterday and spent the night last night he is about the same. He has some difficulty at night trying to take his oxygen off. His cough is about the same patient does not complain of shortness of breath at rest. Currently is on 2 L nasal cannula saturations 97%. White blood cell count is 2.7, creatinine is 0.66. Plan: Will continue to treat for bacterial pneumonia with cefepime day 7 and Levaquin day 2. continue DuoNebs and guaifenesin. Patient with a moderate left pleural effusion and I were ordered a left thoracentesis with full set of chemistries, cell count, stains and cultures and cytology. Last dose of Xarelto was 05/03 at 4:20 p.m. respiratory pathogen panel pending. CT scan shows infiltrates all lobes of the right and left upper lobe. I have talked to the son and he is unsure if the patient ever had any old CAT scans but he will check with [facility] and if so try to printout reports. I have encouraged them to try to obtain discs with any old imaging for comparison. Later in the day the patient underwent a thoracentesis with 1000 mL of yellow fluid removed. G stain showed few white blood cells, no organisms. White blood cells 150. Differential neutrophils 35%, lymphocytes 56%, monocytes 8%, mesothelial cells 1%. Chest x-ray post procedure demonstrated no change in the right upper lobe infiltrates and resolution of the left pleural effusion. 05/06/2024: Overall the patient tells me he feels the same. The son who was at the bedside tells me the cough is better. When I entered the room the patient was on 2 L nasal cannula saturations 98%. I decreased him to room air and after 5 minutes his saturations were 89%. I placed him on 1 L nasal cannula and his saturations were 96% after 15 minutes. White blood cell count 2.8, creatinine 0.84, BNP 1620, improved from 2450 on 05/04. Repeat chest x-ray this morning shows no change right upper lobe infiltrate and no left pleural effusion. Patient received 20 of Lasix IV yesterday with 750 mL diuresis, cumulative diuresis since admission is 4.1 L. His weight today is 78 with an admission weight of 85.3. Plan: overall patient's cough is improved. His oxygen is stable from his baseline at 1 L, he is afebrile is white blood cell count is actually low. He is status post thoracentesis with no rapid reaccumulation. Review of prior CT scans of the chest demonstrates he has chronic interstitial lung disease. I would continue to treat for possible bacterial infection. Currently is on cefepime day 8 and Levaquin day 3 and would continue these today. I will give 20 of Lasix today. Discussed with son in the room and Dr. Oghina. (2) Acute hypoxic respiratory failure: Code(s): J96.01 - Acute respiratory failure with hypoxia Status: Acute Assessment and Plan: Patient was discharged on 04/16 with 1 L nasal cannula to [facility]. At [facility] oxygenation worsened and patient required 2-3 L. 05/04/2024: ABG on admission was 7.44/45/79. currently is on 1 L nasal cannula saturations 95%. Plan: Goal saturation 90-94%, will wean oxygen accordingly. 05/05/23: Currently on 2 L nasal cannula saturations 97%. Wean saturations for goal 90-94%. 05/06/24: currently on 1 L nasal cannula with saturations 94%. (3) ILD (interstitial lung disease): Code(s): J84.9 - Interstitial pulmonary disease, unspecified Status: Acute Assessment and Plan: The son was able to pull up the [facility] MyChart portal and I reviewed prior imaging reports 02/14/2024 chest x-ray compared with 08/07/2023 new opacities in the left lower lobe. 08/07/2023: CT scan of the chest obtained after a fall with rib fractures. Lung findings: Scattered bibasilar and posterior dependent atelectasis and/or scarring. Additional areas of reticular opacities compatible with chronic interstitial lung changes. No honeycombing or traction bronchiectasis. Mild biapical pleural parenchymal thickening and scarring. No focal airspace consolidation. 03/17/2019 CT scan of the chest compared to 08/08/2013: Lung findings: Linear and nodular opacity within the posterior inferior lingula with no change compared to 08/08/2013. Linear scarring right middle lobe similar to 08/08/2013. Linear scar and ground-glass infiltrate posterior right upper lobe similar to 08/08/2013. Mild dependent atelectasis lower lobes. CT scan 05/04/2024 with anterior segment right upper lobe interstitial infiltrate with some consolidation, anterior segment left upper lobe with interstitial infiltrate and consolidation both with air bronchograms. peripheral right lower lobe reticulations in inter finished oral infiltrate and a large left pleural effusion with left lower lobe atelectasis. 05/06/2024: The patient has had chronic infiltrates since 08/08/2013. He is 88-year-old and carries a diagnosis of rheumatoid arthritis. 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 Given his age, dementia and comorbidities I would not entertain giving him anti fibrotic set this time. Plan: Will continue treatment of pneumonia as above. Will ensure adequate oxygenation at rest, with ambulation with sleep. Will perform overnight oximetry on 2 L nasal cannula tonight. The family will attempt to obtain a disc with CT scans of the chest from 08/08/2013, 03/17/2019 and 08/07/2023 for comparison. Subjective Date/time seen: 05/06/24 10:13 Interval history: 05/04/2024: This is a new pulmonary consult for pneumonia. 88-year-old with a history of dementia, coronary artery disease status post stents, paroxysmal atrial fibrillation on anticoagulation, untreated obstructive sleep apnea, rheumatoid arthritis from 2017 initially on prednisone and now on Plaquenil, hypothyroidism and recent pneumonia and fluid overload admitted to [facility] 04/11-04/16. patient was discharged on 1 L oxygen. Speech therapy recommended that he have thickened liquids although is unclear if this is being followed at the assisted. the son who is in the room says the patient never completely recovered from this pneumonia on and has had persistent cough since then. The cough cause back pains. Patient denies fever, chills, rigors, sweats. He presented to the emergency room on 04/29/2024 with a blood pressure 127/60, heart rate 85, afebrile, 2 L nasal cannula saturation 96%. White blood cell count 2.7, creatinine 0.7, COVID, influenza, RSV RT PCR negative, MRSA swab negative, 2 L ABG 7.44/45/79. Patient was admitted and treated for pneumonia with ceftriaxone and azithromycin. He was then changed to vancomycin and cefepime later in the day. 05/04/24: Overall the patient tells me that he feels about the same. The daughter who was on the phone says that she thinks he got better over the 1st 2 or 3 days but has plateaued off or worse at this point. The patient tells me he has some rest shortness of breath and dyspnea on exertion although he does not walk he pivots to wheelchair. When I enter the room his saturations were 99% on 2 L and I decreased him to room air and after 3 minutes he desatted to 89 I placed him on 1 L and his saturations were 95%. Later in the day the patient had a CT scan of the chest with right upper, right middle and right lower lobe infiltrates, left upper lobe infiltrates with small right and moderate left pleural effusion. 05/05/2024: Overall the patient states that he feels the same. From the son who was with him all day yesterday and spent the night last night he is about the same. He has some difficulty at night trying to take his oxygen off. His cough is about the same patient does not complain of shortness of breath at rest. Currently is on 2 L nasal cannula saturations 97%. White blood cell count is 2.7, creatinine is 0.66. Later in the day the patient underwent a thoracentesis with 1000 mL of yellow fluid removed. G stain showed few white blood cells, no organisms. White blood cells 150. Differential neutrophils 35%, lymphocytes 56%, monocytes 8%, mesothelial cells 1%. Chest x-ray post procedure demonstrated no change in the right upper lobe infiltrates and resolution of the left pleural effusion. 05/06/2024: Overall the patient tells me he feels the same. The son who was at the bedside tells me the cough is better. When I entered the room the patient was on 2 L nasal cannula saturations 98%. I decreased him to room air and after 5 minutes his saturations were 89%. I placed him on 1 L nasal cannula and his saturations were 96% after 15 minutes. White blood cell count 2.8, creatinine 0.84, BNP 1620, improved from 2450 on 05/04. Repeat chest x-ray this morning shows no change right upper lobe infiltrate and no left pleural effusion. The son was able to pull up [facility] portal and I was able to review prior x-ray reports. 02/14/2024 chest x-ray compared with 08/07/2023 new opacities in the left lower lobe. 08/07/2023: CT scan of the chest obtained after a fall with rib fractures. Lung findings: Scattered bibasilar and posterior dependent atelectasis and/or scarring. Additional areas of reticular opacities compatible with chronic interstitial lung changes. No honeycombing or traction bronchiectasis. Mild biapical pleural parenchymal thickening and scarring. No focal airspace consolidation. 03/17/2019 CT scan of the chest compared to 08/08/2013: Lung findings: Linear and nodular opacity within the posterior inferior lingula with no change compared to 08/08/2013. Linear scarring right middle lobe similar to 08/08/2013. Linear scar and ground-glass infiltrate posterior right upper lobe similar to 08/08/2013. Mild dependent atelectasis lower lobes. DATA: EXAMINATION: XR chest 1V portable DATE: 05/04/2024 09:20 INDICATION: Pneumonia. TECHNIQUE: A single frontal view of the chest was obtained. COMPARISON: Chest 2 views 04/29/2024 FINDINGS: There are airspace opacities in all lung zones bilaterally, worst in the right upper lung zone and left mid and lower lung zones. There is a small left pleural effusion. No pneumothorax. The heart size is normal. There is a left chest wall pacer with leads in the right atrium and right ventricle. There are old healed right rib fractures. IMPRESSION: 1. Diffuse lung disease with worsening in left midlung zone, consistent with pneumonia. 2. Stable small left pleural effusion. 04/16/24: IMPRESSION: Pharyngeal dysphagia with laryngeal penetration without aspiration. Please correlate with speech pathologist findings and specific feeding recommendations. 04/13/25: Summary 1. Left ventricular systolic function is normal, estimated at 60-65%. 2. There is no increased left ventricular wall thickness. 3. Left atrial chamber dimension is mildly enlarged. 4. There is trace mitral valve regurgitation. 5. There is mild tricuspid valve regurgitation. 6. Moderate pulmonary hypertension, estimated pulmonary arterial systolic pressure is 49 mmHg. 7. There is small pericardial effusion. 8. Pleural effusion. Left Ventricle Left ventricular chamber dimension is normal. Left ventricular systolic function is normal, estimated at 60-65%. There is no increased left ventricular wall thickness. Left ventricular septal wall motion is normal. The left ventricular diastolic function is abnormal. Right Ventricle Right ventricular chamber dimension is normal. Right ventricular systolic function is normal. Left Atria Left atrial chamber dimension is mildly enlarged. Right Atria Right atrial chamber dimension is normal. Atrial Septum Intact interatrial septum visualized by color flow imaging. 04/11/25: EXAMINATION: XR chest 1V portable INDICATION: Dyspnea TECHNIQUE: frontal view of the chest was obtained. COMPARISON: None FINDINGS: Airspace opacities in the bilateral mid and lower lung zones. Blunting at the bilateral costophrenic angles consistent with small bilateral pleural effusions. No pneumothorax. Cardiomegaly. Dual lead pacemaker seen with leads projecting over the expected locations of the right atrium and right ventricle. IMPRESSION: 1. Opacities in bilateral mid and lower lung zones which could represent atelectasis or pneumonia. 2. Small bilateral pleural effusions. 3. Cardiomegaly. 02/14/2024 chest x-ray compared with 08/07/2023 new opacities in the left lower lobe. 08/07/2023: CT scan of the chest obtained after a fall with rib fractures. Lung findings: Scattered bibasilar and posterior dependent atelectasis and/or scarring. Additional areas of reticular opacities compatible with chronic interstitial lung changes. No honeycombing or traction bronchiectasis. Mild biapical pleural parenchymal thickening and scarring. No focal airspace consolidation. 03/17/2019 CT scan of the chest compared to 08/08/2013: Lung findings: Linear and nodular opacity within the posterior inferior lingula with no change compared to 08/08/2013. Linear scarring right middle lobe similar to 08/08/2013. Linear scar and ground-glass infiltrate posterior right upper lobe similar to 08/08/2013. Mild dependent atelectasis lower lobes. Review of Systems Constitutional: Constitutional: Reports no additional constitutional complaints Eyes: Eyes: Reports no additional eye complaints ENT: Reports system reviewed and no additional complaints, except as documented Cardiovascular: Cardiovascular: Reports no additional cardiovascular complaints Respiratory: Respiratory: Reports no additional respiratory complaints Gastrointestinal: Gastrointestinal: Reports no additional gastrointestinal complaints Musculoskeletal: Musculoskeletal: Reports no additional musculoskeletal complaints Neurologic: Reports system reviewed and no additional complaints, except as documented Psychiatric: Psychiatric: Reports no additional psychiatric complaints Endocrine: Endocrine: Reports no additional endocrine complaints Hematologic/Lymphatic: Hematologic/Lymphatic: Reports no additional hematologic/lymphatic complaints Allergic/Immunologic: Allergic/Immunologic: Reports no additional allergic/immunologic complaints Exam Const: General: cooperative and comfortable Orientation/consciousness: oriented to person, oriented to place and oriented to time HENMT: Head: normal to inspection Ears: hearing grossly normal bilaterally Eyes: General: appearance normal, both eyes and all related structures Neck: Neck: normal visual inspection Chest: Chest palpation & inspection: normal inspection of the chest Resp: Effort & Inspection: normal respiratory effort and able to speak in complete sentences Auscultation: crackles, no rales, no rhonchi, no wheezes and diminished lung sounds Other: bases Cardio: Jugular venous distension: no JVD GI: Inspection: normal to inspection Skin: General skin exam: normal color Neuro: General: oriented to person, oriented to place and oriented to time Extrem: General: normal to inspection Other: Swollen left upper extremity no pedal edema Psych: Appearance: grossly normal Objective Data Vital Signs Vital Signs: Vital Signs - 24 hr 05/05/24 10:43 05/05/24 14:44 05/05/24 19:46 Temperature 36.1 C L Pulse Rate 53 L 97 77 Respiratory Rate 18 20 Blood Pressure 114/60 Pulse Oximetry 94 Oxygen Delivery Oxygen Flow Rate 05/05/24 19:48 05/05/24 19:55 05/05/24 20:00 Temperature Pulse Rate 65 Respiratory Rate 20 Blood Pressure Pulse Oximetry 94 95 Oxygen Delivery Nasal Cannula Nasal Cannula Oxygen Flow Rate 2.5 2.5 05/05/24 20:28 05/06/24 01:54 05/06/24 02:00 Temperature 36.1 C L Pulse Rate 73 65 71 Respiratory Rate 20 20 20 Blood Pressure 97/48 L Pulse Oximetry 96 Oxygen Delivery Oxygen Flow Rate 05/06/24 05:28 05/06/24 08:00 05/06/24 08:22 Temperature 36.2 C L Pulse Rate 62 76 86 Respiratory Rate 20 18 20 Blood Pressure 110/56 L Pulse Oximetry 96 96 Oxygen Delivery Nasal Cannula Oxygen Flow Rate 1 05/06/24 08:27 05/06/24 09:55 Temperature Pulse Rate 60 76 Respiratory Rate 18 Blood Pressure Pulse Oximetry Oxygen Delivery Oxygen Flow Rate Intake/Output Intake/Output: Intake & Output 05/03/24 05/04/24 05/05/24 05/06/24 23:59 23:59 23:59 23:59 Intake Total 1520 980 840 488 Output Total 950 1200 1550 300 Balance 609 -425 -203 188 Meds/Results Medications: Active Medications Generic Name Dose Route Start Last Admin Trade Name Freq PRN Reason Stop Dose Admin Acetaminophen 650 mg 04/29/24 22:48 Acetaminophen 325 Mg Tablet PO Q6H PRN PAIN RATED 1-3/FEVER Albuterol/Ipratropium 3 ml 05/03/24 08:00 05/06/24 08:21 Ipratropium 0.5 Mg/Albuterol Sulfate 2.5 Mg Ampul.Neb 3 Ml INHALATION 3 ml Q6HRT WILMA Administration Atorvastatin Calcium 10 mg 04/30/24 21:00 05/05/24 20:31 Atorvastatin 10 Mg Tablet PO 10 mg HS WILMA Administration Calcium Carbonate 200 mg 04/29/24 22:48 Calcium Carbonate (Tums) 500 Mg (200 Mg Elemental) PO DAILY PRN indigestion Cyanocobalamin 1,000 mcg 04/30/24 09:00 05/06/24 09:52 Cyanocobalamin 1,000 Mcg Tablet PO 1,000 mcg QAM WILMA Administration Ferrous Sulfate 325 mg 05/01/24 17:00 05/06/24 09:52 Ferrous Sulfate [address] PO 325 mg BIDWM WILMA Administration Guaifenesin 1,200 mg 04/30/24 09:00 05/06/24 09:52 Guaifenesin 12 Hr 600 Mg Tabcr PO 1,200 mg Q12HR WILMA Administration Hydralazine HCl 25 mg 04/30/24 09:00 05/06/24 09:52 Hydralazine Hcl 25 Mg Tablet PO 25 mg Q12HR WILMA Administration Hydroxychloroquine Sulfate 200 mg 04/30/24 09:00 05/06/24 09:52 Hydroxychloroquine Sulfate 200 Mg Tablet PO 200 mg Q12HR WILMA Administration Cefepime HCl 2 gm in 50 mls @ 100 mls/hr 04/30/24 13:30 05/06/24 09:53 Maxipime 2 Gm/Ns 50 Ml IVPB 100 mls/hr Q12HR WILMA Administration Levofloxacin/Dextrose 750 mg in 150 mls @ 100 mls/hr 05/04/24 13:00 05/05/24 14:41 Levaquin 750 Mg/D5w 150 Ml IVPB Infused Q24H WILMA Infusion Levothyroxine Sodium 75 mcg 04/30/24 06:30 05/06/24 05:29 Levothyroxine Sodium 75 Mcg Tablet PO 75 mcg 0630 WILMA Administration Metoprolol Succinate 100 mg 04/30/24 09:00 05/06/24 09:55 Metoprolol Succinate Ext Rel 100 Mg Tabcr PO 100 mg DAILY WILMA Administration Olanzapine 2.5 mg 05/05/24 10:08 05/05/24 14:23 Olanzapine 2.5 Mg Tablet PO 2.5 mg BID PRN Administration Anxiety Ondansetron HCl 4 mg 04/29/24 14:56 Ondansetron Inj 4 Mg/2 Ml Vial IV PUSH Q4H PRN Nausea Polyethylene Glycol 17 gm 04/30/24 09:00 05/06/24 09:53 Polyethylene Glycol 3350 17 Gm Powd.Pack PO 17 gm BID WILMA Administration Rivaroxaban 20 mg 04/30/24 17:00 05/03/24 16:20 Rivaroxaban 20 Mg Tablet PO 20 mg DAILY@1700 [facility] Administration Senna 8.6 mg 04/30/24 09:00 05/06/24 09:52 Sennosides 8.6 Mg Tablet PO 8.6 mg DAILY WILMA Administration Simethicone 125 mg 04/29/24 22:48 Simethicone 125 Mg Chew Tab PO Q8H PRN gas Tamsulosin HCl 0.4 mg 04/30/24 21:00 05/05/24 20:31 Tamsulosin Hcl 0.4 Mg Capsule PO 0.4 mg HS [facility] Administration Venlafaxine HCl 37.5 mg 04/30/24 08:00 05/06/24 09:52 Venlafaxine Hcl Xr 37.5 Mg Cap PO 37.5 mg DAILY@0800 WILMA Administration Radiology Results: ITS Impressions Venous Doppler Study 05/03/24 16:17 IMPRESSION: No left upper extremity deep venous thrombosis. Chest CT 05/04/24 14:47 IMPRESSION: 1. Diffuse lung disease, consistent with pneumonia. 2. Small loculated right pleural effusion. Moderate-sized left pleural effusion. 3. Cardiomegaly. Thoracentesis Ultrasound 05/05/24 16:31 IMPRESSION: 1. Successful ultrasound-guided thoracentesis yielding 1000 mL of yellow fluid. Chest X-Ray 05/06/24 08:14 IMPRESSION: Right upper lobe pneumonia. Labs Labs: Laboratory Results - last 24 hr 05/05/24 05/06/24 15:43 05:26 WBC 2.8 L RBC 2.93 L Hgb 9.0 L Hct 29.4 L MCV 100.3 H MCH 30.7 MCHC 30.6 L RDW 14.9 H Plt Count 177 MPV 10.9 H Immature Gran % (Auto) 0.4 Neut % (Auto) 52.5 Lymph % (Auto) 19.2 [place] % (Auto) 16.7 H Eos % (Auto) 10.1 H Baso % (Auto) 1.1 Lymph # (Auto) 0.53 L [place] # (Auto) 0.5 Eos # (Auto) 0.3 Baso # (Auto) 0.0 Abs Immat Gran (auto) 0.01 Absolute Neuts (auto) 1.5 Absolute Nucleated RBC 0.000 Nucleated RBC % 0.0 Sodium 134 L Potassium 3.8 Chloride 101 Carbon Dioxide 33 H Anion Gap 0 L BUN 19 Creatinine 0.84 Estim Creat Clear Calc 58 Estimated GFR > 60 Glucose 64 L Calcium 8.8 Magnesium 2.3 Total Bilirubin 0.8 AST 28 ALT 21 Alkaline Phosphatase 110 NT-Pro-B Natriuret Pep 1620 H Total Protein 5.0 L Albumin 2.5 L Pleural Fluid Source Pleural fluid Pleural Color Yellow Pleural Appearance Clear Pleural RBC < 2000 Pleural Nuc Cells 150 Pleural Neutrophils 35 H Pleural Lymphocytes 56 Pleural Monocytes 8 Pleural Mesothelial 1
[2024-05-06] MEDS: FUROSEMIDE INJ 40 MG/4 ML VIAL 20 MG IV PUSH (13:37)
[2024-05-06] MEDS: levoFLOXacin 750 MG/D5W 150 ML 750 MG/150 ML BAG 100 MG IVPB (13:37)
--- NOTE | 2024-05-06 18:24 | PM.IMPN ---
Progress Note: A&P Assessment and Plan (1) Acute hypoxic respiratory failure: Code(s): J96.01 - Acute respiratory failure with hypoxia Status: Acute Assessment and Plan: - Likely secondary to below +/vs pleural effusion +/vs other. - s/p thoracentesis with 1L fluid removal. - [employer] following and we appreciate assistance. - Currently on 1L/NC for sats > 90 %. 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 (2) Bilateral pneumonia: Code(s): J18.9 - Pneumonia, unspecified organism Status: Acute Assessment and Plan: - CXR 05/04/24: Diffuse lung disease with worsening in left midlung zone, consistent with pneumonia. - Repeat CXR 05/06/24; Right upper lobe PNA. - Blood cultures no growth to date. - Urine strep pneumo Ag, urine legionella Ag negative. - Currently on Cefepime and PO Levaquin. - Currently on 1L/NC with sats > 90 %. - MBS 04/21; Pharyngeal dysphagia with laryngeal penetration without aspiration. - Seen by ST and soft and bite sized diet with thickened liquids recommended. - Pt refusing to use liquid thickener and declines repeat MBS as he'll still drink thin liquids regardless of the results of MBS. - [employer] following and we appreciate assistance. - Pleural fluid gram stain with few WBC's. - Sputum culture with few WBC's and gram +ve cocci. - Pulmonary consult, appreciate recommendations: Levofloxacin 750 PO daily, respiratory panel, sputum culture, and add Cornet flutter valve. - Chest CT 05/04/24: IMPRESSION: 1. Diffuse lung disease, consistent with pneumonia. 2. Small loculated right pleural effusion. Moderate-sized left pleural effusion. 3. Cardiomegaly. 05/05/24 Thoracentesis completed and 1,000 ml removed and fluid sent for testing. (3) Paroxysmal atrial fibrillation: Code(s): I48.0 - Paroxysmal atrial fibrillation Status: Acute Assessment and Plan: - Rate well controlled. - Continue Metoprolol and Xarelto. (4) Hypertension: Code(s): I10 - Essential (primary) hypertension Status: Acute Assessment and Plan: - Well controlled. - Continue metoprolol and hydralazine. (5) Coronary artery disease: Code(s): I25.10 - Atherosclerotic heart disease of [place] coronary artery without angina pectoris Status: Acute Assessment and Plan: - Stable. - Continue metoprolol, xarelto and statin. (6) Hyperlipidemia: Code(s): E78.5 - Hyperlipidemia, unspecified Status: Acute Assessment and Plan: - Resume statin (7) Hypothyroidism: Code(s): E03.9 - Hypothyroidism, unspecified Status: Acute Assessment and Plan: - Continue levothyroxine. (8) Leukopenia: Code(s): D72.819 - Decreased white blood cell count, unspecified Status: Acute Assessment and Plan: - Appears chronic. WBC 2.4>>2.7>>2.8 - Continue to monitor trend. (9) Iron deficiency anemia: Code(s): D50.9 - Iron deficiency anemia, unspecified Status: Acute Assessment and Plan: 04/11/24: Iron 24, TIBC 225, % saturation 11. Started on Ferrous Sulfate 325 mg PO BID. Oncology/ Hematology consult, appreciate recommendations. Hgb stable and trending up; 8.4>>8.6>>9 Monitor for now. Plan Possible discharge tomorrow if stable. Evaluate for home O2 requirement before discharge. Time Spent With Patient Time with patient: 25 - 35 minutes Subjective Date/time seen: 05/06/24 11:24 Patient sitting on chair with son bedside. States does not want to use liquids thickener and therefore there's no need of doing modified barium swallow as he would still drink thin liquids even if he's aspirating. Son bedside and states we have to go with patient's wishes. Interval history: Patient calm sitting on chair and denies acute distress. Patient admitted for acute respiratory distress, now on 1L/NC for sats > 90 %. Patient suspected of chronic silent aspiration and was recommended for liquids thickening but pt non-compliant. [employer] following. Review of Systems Review of Systems: All systems reviewed & are unremarkable except as noted in HPI and below Exam Narrative: General: Fair appearing, generalized muscle weakness. HEENT: Atraumatic, PERRL, EOM, anicteric, moist mucosa. NECK: Supple. Lungs: Faint crackles to bases. Heart: RRR, no murmurs. Abdomen: Soft, non-tender, non-distended, +ve BS X4 Quadrants. Extremities: Acyanotic, no edema. Skin: Warm and dry. Neuro: Fairly oriented, [place], CN II-XII grossly intact. Psych: Calm and co-operative. Objective Data Vital Signs Vital Signs: Vital Signs - 24 hr 05/05/24 19:46 05/05/24 19:48 05/05/24 19:55 Temperature Pulse Rate 77 65 Respiratory Rate 20 20 Blood Pressure Pulse Oximetry 94 Oxygen Delivery Nasal Cannula Oxygen Flow Rate 2.5 05/05/24 20:00 05/05/24 20:28 05/06/24 01:54 Temperature 97.0 F L Pulse Rate 73 65 Respiratory Rate 20 20 Blood Pressure 97/48 L Pulse Oximetry 95 96 Oxygen Delivery Nasal Cannula Oxygen Flow Rate 2.5 05/06/24 02:00 05/06/24 05:28 05/06/24 08:00 Temperature 97.1 F L Pulse Rate 71 62 76 Respiratory Rate 20 20 18 Blood Pressure 110/56 L Pulse Oximetry 96 96 Oxygen Delivery Nasal Cannula Oxygen Flow Rate 1 05/06/24 08:22 05/06/24 08:27 05/06/24 09:55 Temperature Pulse Rate 86 60 76 Respiratory Rate 20 18 Blood Pressure Pulse Oximetry Oxygen Delivery Oxygen Flow Rate 05/06/24 13:45 05/06/24 14:00 Temperature 97.5 F L Pulse Rate 62 70 Respiratory Rate 18 16 Blood Pressure 103/47 L Pulse Oximetry 96 Oxygen Delivery Oxygen Flow Rate Intake/Output Intake/Output: Intake & Output 05/03/24 05/04/24 05/05/24 05/06/24 23:59 23:59 23:59 23:59 Intake Total 1520 980 840 548 Output Total 950 1200 1550 650 Balance 570 -220 -710 -102 Meds/Results Medications: Active Medications Generic Name Dose Route Start Last Admin Trade Name Freq PRN Reason Stop Dose Admin Acetaminophen 650 mg 04/29/24 22:48 Acetaminophen 325 Mg Tablet PO Q6H PRN PAIN RATED 1-3/FEVER Albuterol/Ipratropium 3 ml 05/03/24 08:00 05/06/24 13:43 Ipratropium 0.5 Mg/Albuterol Sulfate 2.5 Mg Ampul.Neb 3 Ml INHALATION 3 ml Q6HRT WILMA Administration Atorvastatin Calcium 10 mg 04/30/24 21:00 05/05/24 20:31 Atorvastatin 10 Mg Tablet PO 10 mg HS WILMA Administration Calcium Carbonate 200 mg 04/29/24 22:48 Calcium Carbonate (Tums) 500 Mg (200 Mg Elemental) PO DAILY PRN indigestion Cyanocobalamin 1,000 mcg 04/30/24 09:00 05/06/24 09:52 Cyanocobalamin 1,000 Mcg Tablet PO 1,000 mcg QAM WILMA Administration Ferrous Sulfate 325 mg 05/01/24 17:00 05/06/24 17:31 Ferrous Sulfate [address] PO 325 mg BIDWM WILMA Administration Guaifenesin 1,200 mg 04/30/24 09:00 05/06/24 09:52 Guaifenesin 12 Hr 600 Mg Tabcr PO 1,200 mg Q12HR WILMA Administration Hydralazine HCl 25 mg 04/30/24 09:00 05/06/24 09:52 Hydralazine Hcl 25 Mg Tablet PO 25 mg Q12HR WILMA Administration Hydroxychloroquine Sulfate 200 mg 04/30/24 09:00 05/06/24 09:52 Hydroxychloroquine Sulfate 200 Mg Tablet PO 200 mg Q12HR WILMA Administration Cefepime HCl 2 gm in 50 mls @ 100 mls/hr 04/30/24 13:30 05/06/24 09:53 Maxipime 2 Gm/Ns 50 Ml IVPB 05/06/24 23:59 100 mls/hr Q12HR WILMA Administration Levofloxacin 750 mg 05/07/24 09:00 Levofloxacin 750 Mg Tablet PO 05/10/24 09:01 DAILY [facility] Levothyroxine Sodium 75 mcg 04/30/24 06:30 05/06/24 05:29 Levothyroxine Sodium 75 Mcg Tablet PO 75 mcg 0630 WILMA Administration Metoprolol Succinate 100 mg 04/30/24 09:00 05/06/24 09:55 Metoprolol Succinate Ext Rel 100 Mg Tabcr PO 100 mg DAILY WILMA Administration Olanzapine 2.5 mg 05/05/24 10:08 05/05/24 14:23 Olanzapine 2.5 Mg Tablet PO 2.5 mg BID PRN Administration Anxiety Ondansetron HCl 4 mg 04/29/24 14:56 Ondansetron Inj 4 Mg/2 Ml Vial IV PUSH Q4H PRN Nausea Polyethylene Glycol 17 gm 04/30/24 09:00 05/06/24 17:31 Polyethylene Glycol 3350 17 Gm Powd.Pack PO 17 gm BID WILMA Administration Rivaroxaban 20 mg 04/30/24 17:00 05/03/24 16:20 Rivaroxaban 20 Mg Tablet PO 20 mg DAILY@1700 [facility] Administration Senna 8.6 mg 04/30/24 09:00 05/06/24 09:52 Sennosides 8.6 Mg Tablet PO 8.6 mg DAILY WILMA Administration Simethicone 125 mg 04/29/24 22:48 Simethicone 125 Mg Chew Tab PO Q8H PRN gas Tamsulosin HCl 0.4 mg 04/30/24 21:00 05/05/24 20:31 Tamsulosin Hcl 0.4 Mg Capsule PO 0.4 mg HS WILMA Administration Venlafaxine HCl 37.5 mg 04/30/24 08:00 05/06/24 09:52 Venlafaxine Hcl Xr 37.5 Mg Cap PO 37.5 mg DAILY@0800 WILMA Administration Radiology Results: ITS Impressions Venous Doppler Study 05/03/24 16:17 IMPRESSION: No left upper extremity deep venous thrombosis. Chest CT 05/04/24 14:47 IMPRESSION: 1. Diffuse lung disease, consistent with pneumonia. 2. Small loculated right pleural effusion. Moderate-sized left pleural effusion. 3. Cardiomegaly. Thoracentesis Ultrasound 05/05/24 16:31 IMPRESSION: 1. Successful ultrasound-guided thoracentesis yielding 1000 mL of yellow fluid. Chest X-Ray 05/06/24 08:14 IMPRESSION: Right upper lobe pneumonia. Labs Labs: Laboratory Results - last 24 hr 05/06/24 05:26 WBC 2.8 L RBC 2.93 L Hgb 9.0 L Hct 29.4 L MCV 100.3 H MCH 30.7 MCHC 30.6 L RDW 14.9 H Plt Count 177 MPV 10.9 H Immature Gran % (Auto) 0.4 Neut % (Auto) 52.5 Lymph % (Auto) 19.2 [place] % (Auto) 16.7 H Eos % (Auto) 10.1 H Baso % (Auto) 1.1 Lymph # (Auto) 0.53 L [place] # (Auto) 0.5 Eos # (Auto) 0.3 Baso # (Auto) 0.0 Abs Immat Gran (auto) 0.01 Absolute Neuts (auto) 1.5 Absolute Nucleated RBC 0.000 Nucleated RBC % 0.0 Sodium 134 L Potassium 3.8 Chloride 101 Carbon Dioxide 33 H Anion Gap 0 L BUN 19 Creatinine 0.84 Estim Creat Clear Calc 58 Estimated GFR > 60 Glucose 64 L Calcium 8.8 Magnesium 2.3 Total Bilirubin 0.8 AST 28 ALT 21 Alkaline Phosphatase 110 NT-Pro-B Natriuret Pep 1620 H Total Protein 5.0 L Albumin 2.5 L Quality VTE Prophylaxis VTE prophylaxis: pharmacologic ordered Hospitalist MIPS Advance Care Plan I have confirmed that the patient's Advanced Care Plan is present, code status is documented, or surrogate decision maker is listed in patient medical record.: Yes Medication Reconciliation I have utilized all available resources to obtain, update and review the patients current medications (includes all prescriptions, OTC, herbals, cannabis, and nutritional supplements).: Yes
--- NOTE | 2024-05-06 18:43 | PC.NURSE ---
In previous documentation it was found that patient had signed a waiver for his thickened liquids. Pt in the past has been told he needs to thicken his liquids. Per family patient does not like thickened liquids and signed a waiver at [facility] to have thin regular liquids. I informed family that this could be contributing to his chronic cough and ailments. Education provided and MD message left.
[2024-05-06] MEDS: OLANZapine 2.5 MG TABLET PO (19:31)
[2024-05-06] MEDS: TAMSULOSIN HCL 0.4 MG CAPSULE PO (19:31)
[2024-05-06] MEDS: ATORVASTATIN 10 MG TABLET PO (19:32)
[2024-05-07] VITALS (7 sets, daily range): BP systolic 112; BP diastolic 47; PULSE 46–76; RESP 16–18; TEMP 36.1; O2SAT 92–96
[2024-05-07] MEDS: LEVOTHYROXINE SODIUM 75 MCG TABLET PO (05:30)
[2024-05-07 05:43] LABS: Basophils Percent Auto 1.5 % (0.2-1.2); Eosinophils Absolute Auto 0.3 K/mm3 (0-0.3); Eosinophils Percent Auto 11.5 % (0-4.4); Hematocrit 28.3 % (42.0-52.0); Hemoglobin 8.8 g/dL (14.0-18.0); Lymphocytes Absolute Auto 0.57 K/mm3 (0.9-3.2); Lymphocytes Percent Auto 21.2 % (18.3-44.2); Mean Corpuscular HGB Conc 31.1 g/dl (32-36); Mean Corpuscular Hemoglobin 30.8 pg (26-34); Mean Platelet Volume 10.4 fl (7.4-10.4); Monocytes Absolute Auto 0.5 K/mm3 (0.1-0.6); Monocytes Percent Auto 17.8 % (2.6-8.5); Neutrophils Absolute Auto 1.3 K/mm3 (1.3-6.7); Platelet Count Result 185 k/mm3 (150-375); Red Blood Count 2.86 M/mm3 (4.6-6.20); Red Cell Distribution Width 14.9 % (11.5-14.5); White Blood Count 2.7 K/mm3 (4.5-10.0)
[2024-05-07 05:54] LABS: Alanine Aminotransferase 21 U/L (6-50); Albumin Level 2.4 g/dL (3.5-5.1); Alkaline Phosphatase 105 U/L (38-126); Anion Gap 1 mmol/L (4-12); Aspartate Amino Transferase 27 U/L (17-59); Bilirubin,Total 0.7 mg/dL (0.2-1.3); Blood Urea Nitrogen 19 mg/dL (9-20); Calcium 8.6 mg/dL (8.4-10.2); Carbon Dioxide 34 mmol/L (22-30); Chloride 101 mmol/L (98-107); Estimated CRCL calculation 52 ml/min; Estimated Glomerular Filt Rate > 60; Glucose 81 mg/dL (65-110); Potassium 3.9 mmol/L (3.4-5.0); Sodium 136 mmol/L (137-145)
[2024-05-07] MEDS: IPRATROPIUM 0.5 MG/ALBUTEROL SULFATE 2.5 MG AMPUL.NEB 3 ML INHALATION ×2 (07:49→13:14)
[2024-05-07] MEDS: hydrALAZINE HCL 25 MG TABLET PO (09:39)
[2024-05-07] MEDS: FERROUS SULFATE 325 MG TABLET DR PO (09:39)
[2024-05-07] MEDS: VENLAFAXINE HCL XR 37.5 MG CAP PO (09:39)
[2024-05-07] MEDS: CYANOCOBALAMIN 1,000 MCG TABLET 1000 MCG PO (09:39)
[2024-05-07] MEDS: HYDROXYCHLOROQUINE SULFATE 200 MG TABLET PO (09:39)
[2024-05-07] MEDS: levoFLOXacin 750 MG TABLET PO (09:39)
[2024-05-07] MEDS: guaiFENesin 12 HR 600 MG TABCR 1200 MG PO (09:39)
[2024-05-07] MEDS: polyethylene glycoL 3350 17 GM POWD.PACK PO (09:39)
[2024-05-07] MEDS: SENNOSIDES 8.6 MG TABLET PO (09:39)
[2024-05-07] MEDS: OLANZapine 2.5 MG TABLET PO (10:42)
--- NOTE | 2024-05-07 10:48 | PCDIET ---
Diet order: regular with Ensure compact BID. Patient is refusing thickener. Plans to continue thin liquids. Hospitalist is aware. Intake has been about 50% of meals. He is drinking diet supplements providing an additional 220 kcal and 9 gm protein. Plans for discharge today.
--- NOTE | 2024-05-07 11:21 | P.PNPL_ITS ---
Progress Note: A&P Assessment and Plan (1) Bilateral pneumonia: Code(s): J18.9 - Pneumonia, unspecified organism Status: Acute Assessment and Plan: patient recently admitted for pneumonia on 04/11/2024 through 04/16/2024 was treated with ceftriaxone, doxycycline. Also with fluid overloaded and treated with IV Lasix. Recommended he have thickened liquids it is unclear if this is being followed. According to the son he never really improved and still had coughing and presented on 04/29/2024 with white blood cell count 2.7, afebrile, 2 L nasal cannula saturation 96% and a chest x-ray that showed right upper lobe infiltrate and left lower lobe infiltrate stable since previous admission. The patient has been admitted and treated with vancomycin initially until his MRSA swab was negative and now cefepime. 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 Plan: I will add Levaquin 750 mg IV q.day to his cefepime, day 6. obtain a CT scan of the chest looking for focal consolidations, evidence of chronic aspiration, interstitial lung disease and fluid overload. I will send a respiratory pathogen panel looking for 21 respiratory pathogens. I will send a BNP. I will send a sputum for culture. I will continue guaifenesin 1200 mg p.o. b.i.d., DuoNebs q.6 hours and add a Cornet flutter valve. Discussed with son in room, daughter on speaker phone and with Marilin Ramirez, will follow with you Later in the day the patient had a CT scan of the chest with right upper, right middle and right lower lobe infiltrates, left upper lobe infiltrates with small right and moderate left pleural effusion. 05/05/2024: Overall the patient states that he feels the same. From the son who was with him all day yesterday and spent the night last night he is about the same. He has some difficulty at night trying to take his oxygen off. His cough is about the same patient does not complain of shortness of breath at rest. Currently is on 2 L nasal cannula saturations 97%. White blood cell count is 2.7, creatinine is 0.66. Plan: Will continue to treat for bacterial pneumonia with cefepime day 7 and Levaquin day 2. continue DuoNebs and guaifenesin. Patient with a moderate left pleural effusion and I were ordered a left thoracentesis with full set of chemistries, cell count, stains and cultures and cytology. Last dose of Xarelto was 05/03 at 4:20 p.m. respiratory pathogen panel pending. CT scan shows infiltrates all lobes of the right and left upper lobe. I have talked to the son and he is unsure if the patient ever had any old CAT scans but he will check with [facility] and if so try to printout reports. I have encouraged them to try to obtain discs with any old imaging for comparison. Later in the day the patient underwent a thoracentesis with 1000 mL of yellow fluid removed. G stain showed few white blood cells, no organisms. White blood cells 150. Differential neutrophils 35%, lymphocytes 56%, monocytes 8%, mesothelial cells 1%. Chest x-ray post procedure demonstrated no change in the right upper lobe infiltrates and resolution of the left pleural effusion. 05/06/2024: Overall the patient tells me he feels the same. The son who was at the bedside tells me the cough is better. When I entered the room the patient was on 2 L nasal cannula saturations 98%. I decreased him to room air and after 5 minutes his saturations were 89%. I placed him on 1 L nasal cannula and his saturations were 96% after 15 minutes. White blood cell count 2.8, creatinine 0.84, BNP 1620, improved from 2450 on 05/04. Repeat chest x-ray this morning shows no change right upper lobe infiltrate and no left pleural effusion. Patient received 20 of Lasix IV yesterday with 750 mL diuresis, cumulative diuresis since admission is 4.1 L. His weight today is 78 with an admission weight of 85.3. Plan: overall patient's cough is improved. His oxygen is stable from his baseline at 1 L, he is afebrile is white blood cell count is actually low. He is status post thoracentesis with no rapid reaccumulation. Review of prior CT scans of the chest demonstrates he has chronic interstitial lung disease. I would continue to treat for possible bacterial infection. Currently is on cefepime day 8 and Levaquin day 3 and would continue these today. I will give 20 of Lasix today. 05/07/24: Patient overall tells me he feels the same. Son tells me the cough is better. He is on 1 L nasal cannula saturations 96%. White blood cell count 2.7, creatinine 0.93. His weight is 78.1 kg. Patient had an overnight oximetry on 2 L with recording duration 7 hours and 18 minutes, average saturation 92%, low saturation 83%. Time with saturation less than or equal to 88% was 27 minutes, oxygen desaturation index 13.6. From a pulmonary perspective patient is ready to be discharged on these pulmonary medications: Levofloxacin 750 mg p.o. q.day x3 days. Last dose 05/10/2024. DuoNebs q.4 hours p.r.n. shortness of breath or wheezing. Diuretics per hospitalist team. Oxygen 3 L when he naps or sleeps. Oxygen at rest or with ambulation per [facility] protocol. Follow-up in the Pulmonary Clinic in 4-6 weeks. I gave him our business card and informed our director cardiac. Discussed with son in the room and Dr. Easley. Call with questions (2) Acute hypoxic respiratory failure: Code(s): J96.01 - Acute respiratory failure with hypoxia Status: Acute Assessment and Plan: Patient was discharged on 04/16 with 1 L nasal cannula to [facility]. At [facility] oxygenation worsened and patient required 2-3 L. 05/04/2024: ABG on admission was 7.44/45/79. currently is on 1 L nasal cannula saturations 95%. Plan: Goal saturation 90-94%, will wean oxygen accordingly. 05/05/23: Currently on 2 L nasal cannula saturations 97%. Wean saturations for goal 90-94%. 05/06/24: currently on 1 L nasal cannula with saturations 94%. 05/07/24: Currently on 1 L with saturation 96%. He will require 3 L at night. (3) ILD (interstitial lung disease): Code(s): J84.9 - Interstitial pulmonary disease, unspecified Status: Acute Assessment and Plan: The son was able to pull up the [facility] [employer] portal and I reviewed prior imaging reports 02/14/2024 chest x-ray compared with 08/07/2023 new opacities in the left lower lobe. 08/07/2023: CT scan of the chest obtained after a fall with rib fractures. Lung findings: Scattered bibasilar and posterior dependent atelectasis and/or scarring. Additional areas of reticular opacities compatible with chronic interstitial lung changes. No honeycombing or traction bronchiectasis. Mild biapical pleural parenchymal thickening and scarring. No focal airspace consolidation. 03/17/2019 CT scan of the chest compared to 08/08/2013: Lung findings: Linear and nodular opacity within the posterior inferior lingula with no change compared to 08/08/2013. Linear scarring right middle lobe similar to 08/08/2013. Linear scar and ground-glass infiltrate posterior right upper lobe similar to 08/08/2013. Mild dependent atelectasis lower lobes. CT scan 05/04/2024 with anterior segment right upper lobe interstitial infiltrate with some consolidation, anterior segment left upper lobe with interstitial infiltrate and consolidation both with air bronchograms. peripheral right lower lobe reticulations in inter finished oral infiltrate and a large left pleural effusion with left lower lobe atelectasis. 05/06/2024: The patient has had chronic infiltrates since 08/08/2013. He is 88-year-old and carries a diagnosis of rheumatoid arthritis. 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 Given his age, dementia and comorbidities I would not entertain giving him anti fibrotic set this time. Plan: Will continue treatment of pneumonia as above. Will ensure adequate oxygenation at rest, with ambulation with sleep. Will perform overnight oximetry on 2 L nasal cannula tonight. The family will attempt to obtain a disc with CT scans of the chest from 08/08/2013, 03/17/2019 and 08/07/2023 for comparison. 05/07/24: patient is clinically stable. Awaiting disc with CT scans for comparison. Subjective Date/time seen: 05/07/24 11:21 Interval history: 05/04/2024: This is a new pulmonary consult for pneumonia. 88-year-old with a history of dementia, coronary artery disease status post stents, paroxysmal atrial fibrillation on anticoagulation, untreated obstructive sleep apnea, rheumatoid arthritis from 2017 initially on prednisone and now on Plaquenil, hypothyroidism and recent pneumonia and fluid overload admitted to [facility] 04/11-04/16. patient was discharged on 1 L oxygen. Speech therapy recommended that he have thickened liquids although is unclear if this is being followed at the assisted. the son who is in the room says the patient never completely recovered from this pneumonia on and has had persistent cough since then. The cough cause back pains. Patient denies fever, chills, rigors, sweats. He presented to the emergency room on 04/29/2024 with a blood pressure 127/60, heart rate 85, afebrile, 2 L nasal cannula saturation 96%. White blood cell count 2.7, creatinine 0.7, COVID, influenza, RSV RT PCR negative, MRSA swab negative, 2 L ABG 7.44/45/79. Patient was admitted and treated for pneumonia with ceftriaxone and azithromycin. He was then changed to vancomycin and cefepime later in the day. 05/04/24: Overall the patient tells me that he feels about the same. The daughter who was on the phone says that she thinks he got better over the 1st 2 or 3 days but has plateaued off or worse at this point. The patient tells me he has some rest shortness of breath and dyspnea on exertion although he does not walk he pivots to wheelchair. When I enter the room his saturations were 99% on 2 L and I decreased him to room air and after 3 minutes he desatted to 89 I placed him on 1 L and his saturations were 95%. Later in the day the patient had a CT scan of the chest with right upper, right middle and right lower lobe infiltrates, left upper lobe infiltrates with small right and moderate left pleural effusion. 05/05/2024: Overall the patient states that he feels the same. From the son who was with him all day yesterday and spent the night last night he is about the same. He has some difficulty at night trying to take his oxygen off. His cough is about the same patient does not complain of shortness of breath at rest. Currently is on 2 L nasal cannula saturations 97%. White blood cell count is 2.7, creatinine is 0.66. Later in the day the patient underwent a thoracentesis with 1000 mL of yellow fluid removed. G stain showed few white blood cells, no organisms. White blood cells 150. Differential neutrophils 35%, lymphocytes 56%, monocytes 8%, mesothelial cells 1%. Chest x-ray post procedure demonstrated no change in the right upper lobe infiltrates and resolution of the left pleural effusion. 05/06/2024: Overall the patient tells me he feels the same. The son who was at the bedside tells me the cough is better. When I entered the room the patient was on 2 L nasal cannula saturations 98%. I decreased him to room air and after 5 minutes his saturations were 89%. I placed him on 1 L nasal cannula and his saturations were 96% after 15 minutes. White blood cell count 2.8, creatinine 0.84, BNP 1620, improved from 2450 on 05/04. Repeat chest x-ray this morning shows no change right upper lobe infiltrate and no left pleural effusion. The son was able to pull up [facility] [employer] portal and I was able to review prior x-ray reports. 02/14/2024 chest x-ray compared with 08/07/2023 new opacities in the left lower lobe. 08/07/2023: CT scan of the chest obtained after a fall with rib fractures. Lung findings: Scattered bibasilar and posterior dependent atelectasis and/or scarring. Additional areas of reticular opacities compatible with chronic interstitial lung changes. No honeycombing or traction bronchiectasis. Mild biapical pleural parenchymal thickening and scarring. No focal airspace consolidation. 03/17/2019 CT scan of the chest compared to 08/08/2013: Lung findings: Linear and nodular opacity within the posterior inferior lingula with no change compared to 08/08/2013. Linear scarring right middle lobe similar to 08/08/2013. Linear scar and ground-glass infiltrate posterior right upper lobe similar to 08/08/2013. Mild dependent atelectasis lower lobes. 05/07/24: Patient overall tells me he feels the same. Son tells me the cough is better. He is on 1 L nasal cannula saturations 96%. White blood cell count 2.7, creatinine 0.93. His weight is 78.1 kg. Patient had an overnight oximetry on 2 L with recording duration 7 hours and 18 minutes, average saturation 92%, low saturation 83%. Time with saturation less than or equal to 88% was 27 minutes, oxygen desaturation index 13.6. DATA: EXAMINATION: XR chest 1V portable DATE: 05/04/2024 09:20 INDICATION: Pneumonia. TECHNIQUE: A single frontal view of the chest was obtained. COMPARISON: Chest 2 views 04/29/2024 FINDINGS: There are airspace opacities in all lung zones bilaterally, worst in the right upper lung zone and left mid and lower lung zones. There is a small left pleural effusion. No pneumothorax. The heart size is normal. There is a left chest wall pacer with leads in the right atrium and right ventricle. There are old healed right rib fractures. IMPRESSION: 1. Diffuse lung disease with worsening in left midlung zone, consistent with pneumonia. 2. Stable small left pleural effusion. 04/16/24: IMPRESSION: Pharyngeal dysphagia with laryngeal penetration without aspiration. Please correlate with speech pathologist findings and specific feed ing recommendations. 04/13/25: Summary 1. Left ventricular systolic function is normal, estimated at 60-65%. 2. There is no increased left ventricular wall thickness. 3. Left atrial chamber dimension is mildly enlarged. 4. There is trace mitral valve regurgitation. 5. There is mild tricuspid valve regurgitation. 6. Moderate pulmonary hypertension, estimated pulmonary arterial systolic pressure is 49 mmHg. 7. There is small pericardial effusion. 8. Pleural effusion. Left Ventricle Left ventricular chamber dimension is normal. Left ventricular systolic function is normal, estimated at 60-65%. There is no increased left ventricular wall thickness. Left ventricular septal wall motion is normal. The left ventricular diastolic function is abnormal. Right Ventricle Right ventricular chamber dimension is normal. Right ventricular systolic function is normal. Left Atria Left atrial chamber dimension is mildly enlarged. Right Atria Right atrial chamber dimension is normal. Atrial Septum Intact interatrial septum visualized by color flow imaging. 04/11/25: EXAMINATION: XR chest 1V portable INDICATION: Dyspnea TECHNIQUE: frontal view of the chest was obtained. COMPARISON: None FINDINGS: Airspace opacities in the bilateral mid and lower lung zones. Blunting at the bilateral costophrenic angles consistent with small bilateral pleural effusions. No pneumothorax. Cardiomegaly. Dual lead pacemaker seen with leads projecting over the expected locations of the right atrium and right ventricle. IMPRESSION: 1. Opacities in bilateral mid and lower lung zones which could represent atelectasis or pneumonia. 2. Small bilateral pleural effusions. 3. Cardiomegaly. 02/14/2024 chest x-ray compared with 08/07/2023 new opacities in the left lower lobe. 08/07/2023: CT scan of the chest obtained after a fall with rib fractures. Lung findings: Scattered bibasilar and posterior dependent atelectasis and/or scarring. Additional areas of reticular opacities compatible with chronic interstitial lung changes. No honeycombing or traction bronchiectasis. Mild biapical pleural parenchymal thickening and scarring. No focal airspace consolidation. 03/17/2019 CT scan of the chest compared to 08/08/2013: Lung findings: Linear and nodular opacity within the posterior inferior lingula with no change compared to 08/08/2013. Linear scarring right middle lobe similar to 08/08/2013. Linear scar and ground-glass infiltrate posterior right upper lobe similar to 08/08/2013. Mild dependent atelectasis lower lobes. Review of Systems Constitutional: Constitutional: Reports no additional constitutional complaints Eyes: Eyes: Reports no additional eye complaints ENT: Reports system reviewed and no additional complaints, except as documented Cardiovascular: Cardiovascular: Reports no additional cardiovascular complaints Respiratory: Respiratory: Reports no additional respiratory complaints Gastrointestinal: Gastrointestinal: Reports no additional gastrointestinal complaints Musculoskeletal: Musculoskeletal: Reports no additional musculoskeletal complaints Neurologic: Reports system reviewed and no additional complaints, except as documented Psychiatric: Psychiatric: Reports no additional psychiatric complaints Endocrine: Endocrine: Reports no additional endocrine complaints Hematologic/Lymphatic: Hematologic/Lymphatic: Reports no additional hematologic/lymphatic complaints Allergic/Immunologic: Allergic/Immunologic: Reports no additional allergic/immunologic complaints Exam Const: General: cooperative and comfortable Orientation/consciousness: oriented to person, oriented to place and oriented to time HENMT: Head: normal to inspection Ears: hearing grossly normal bilaterally Eyes: General: appearance normal, both eyes and all related structures Neck: Neck: normal visual inspection Chest: Chest palpation & inspection: normal inspection of the chest Resp: Effort & Inspection: normal respiratory effort and able to speak in complete sentences Auscultation: crackles, no rales, no rhonchi, no wheezes and diminished lung sounds Other: bases Cardio: Jugular venous distension: no JVD GI: Inspection: normal to inspection Skin: General skin exam: normal color Neuro: General: oriented to person, oriented to place and oriented to time Extrem: General: normal to inspection Other: Swollen left upper extremity no pedal edema Psych: Appearance: grossly normal Objective Data Vital Signs Vital Signs: Vital Signs - 24 hr 05/06/24 13:45 05/06/24 14:00 05/06/24 19:27 Temperature 36.4 C L 36.6 C Pulse Rate 62 70 65 Respiratory Rate 18 16 20 Blood Pressure 103/47 L 90/48 L Pulse Oximetry 96 99 Oxygen Delivery Oxygen Flow Rate 05/06/24 19:46 05/06/24 19:46 05/06/24 19:51 Temperature Pulse Rate 60 73 Respiratory Rate 15 15 Blood Pressure Pulse Oximetry 95 Oxygen Delivery Nasal Cannula Oxygen Flow Rate 1 05/06/24 20:00 05/07/24 06:00 05/07/24 07:50 Temperature 36.1 C L Pulse Rate 65 Respiratory Rate 18 Blood Pressure 112/47 L Pulse Oximetry 99 92 94 Oxygen Delivery Nasal Cannula Nasal Cannula Oxygen Flow Rate 1 2 05/07/24 07:50 05/07/24 08:00 05/07/24 08:01 Temperature Pulse Rate 64 76 62 Respiratory Rate 16 18 16 Blood Pressure Pulse Oximetry 96 Oxygen Delivery Nasal Cannula Oxygen Flow Rate 1 05/07/24 09:41 Temperature Pulse Rate 46 L Respiratory Rate Blood Pressure Pulse Oximetry Oxygen Delivery Oxygen Flow Rate Intake/Output Intake/Output: Intake & Output 05/04/24 05/05/24 05/06/24 05/07/24 23:59 23:59 23:59 23:59 Intake Total 757 944 5439 200 Output Total 1200 1550 650 600 Balance -220 -710 716 -400 Meds/Results Medications: Active Medications Generic Name Dose Route Start Last Admin Trade Name Freq PRN Reason Stop Dose Admin Acetaminophen 650 mg 04/29/24 22:48 Acetaminophen 325 Mg Tablet PO Q6H PRN PAIN RATED 1-3/FEVER Albuterol/Ipratropium 3 ml 05/03/24 08:00 05/07/24 09:46 Ipratropium 0.5 Mg/Albuterol Sulfate 2.5 Mg Ampul.Neb 3 Ml INHALATION Not Given Q6HRT WILMA Atorvastatin Calcium 10 mg 04/30/24 21:00 05/06/24 19:32 Atorvastatin 10 Mg Tablet PO 10 mg HS WILMA Administration Calcium Carbonate 200 mg 04/29/24 22:48 Calcium Carbonate (Tums) 500 Mg (200 Mg Elemental) PO DAILY PRN indigestion Cyanocobalamin 1,000 mcg 04/30/24 09:00 05/07/24 09:39 Cyanocobalamin 1,000 Mcg Tablet PO 1,000 mcg QAM WILMA Administration Ferrous Sulfate 325 mg 05/01/24 17:00 05/07/24 09:39 Ferrous Sulfate [address] PO 325 mg BIDWM [facility] Administration Guaifenesin 1,200 mg 04/30/24 09:00 05/07/24 09:39 Guaifenesin 12 Hr 600 Mg Tabcr PO 1,200 mg Q12HR WILMA Administration Hydralazine HCl 25 mg 04/30/24 09:00 05/07/24 09:39 Hydralazine Hcl 25 Mg Tablet PO 25 mg Q12HR WILMA Administration Hydroxychloroquine Sulfate 200 mg 04/30/24 09:00 05/07/24 09:39 Hydroxychloroquine Sulfate 200 Mg Tablet PO 200 mg Q12HR WILMA Administration Levofloxacin 750 mg 05/07/24 09:00 05/07/24 09:39 Levofloxacin 750 Mg Tablet PO 05/10/24 09:01 750 mg DAILY [facility] Administration Levothyroxine Sodium 75 mcg 04/30/24 06:30 05/07/24 05:30 Levothyroxine Sodium 75 Mcg Tablet PO 75 mcg 0630 [facility] Administration Metoprolol Succinate 100 mg 04/30/24 09:00 05/07/24 09:41 Metoprolol Succinate Ext Rel 100 Mg Tabcr PO Not Given DAILY [facility] Olanzapine 2.5 mg 05/05/24 10:08 05/07/24 10:42 Olanzapine 2.5 Mg Tablet PO 2.5 mg BID PRN Administration Anxiety Ondansetron HCl 4 mg 04/29/24 14:56 Ondansetron Inj 4 Mg/2 Ml Vial IV PUSH Q4H PRN Nausea Polyethylene Glycol 17 gm 04/30/24 09:00 05/07/24 09:39 Polyethylene Glycol 3350 17 Gm Powd.Pack PO 17 gm BID WILMA Administration Rivaroxaban 20 mg 04/30/24 17:00 05/03/24 16:20 Rivaroxaban 20 Mg Tablet PO 20 mg DAILY@1700 [facility] Administration Senna 8.6 mg 04/30/24 09:00 05/07/24 09:39 Sennosides 8.6 Mg Tablet PO 8.6 mg DAILY WILMA Administration Simethicone 125 mg 04/29/24 22:48 Simethicone 125 Mg Chew Tab PO Q8H PRN gas Tamsulosin HCl 0.4 mg 04/30/24 21:00 05/06/24 19:31 Tamsulosin Hcl 0.4 Mg Capsule PO 0.4 mg HS WILMA Administration Venlafaxine HCl 37.5 mg 04/30/24 08:00 05/07/24 09:39 Venlafaxine Hcl Xr 37.5 Mg Cap PO 37.5 mg DAILY@0800 WILMA Administration Radiology Results: ITS Impressions Venous Doppler Study 05/03/24 16:17 IMPRESSION: No left upper extremity deep venous thrombosis. Chest CT 05/04/24 14:47 IMPRESSION: 1. Diffuse lung disease, consistent with pneumonia. 2. Small loculated right pleural effusion. Moderate-sized left pleural effusion. 3. Cardiomegaly. Thoracentesis Ultrasound 05/05/24 16:31 IMPRESSION: 1. Successful ultrasound-guided thoracentesis yielding 1000 mL of yellow fluid. Chest X-Ray 05/06/24 08:14 IMPRESSION: Right upper lobe pneumonia. Labs Labs: Laboratory Results - last 24 hr 05/07/24 05:32 WBC 2.7 L RBC 2.86 L Hgb 8.8 L Hct 28.3 L MCV 99.0 MCH 30.8 MCHC 31.1 L RDW 14.9 H Plt Count 185 MPV 10.4 Immature Gran % (Auto) 0.0 Neut % (Auto) 48.0 Lymph % (Auto) 21.2 Jones % (Auto) 17.8 H Eos % (Auto) 11.5 H Baso % (Auto) 1.5 H Lymph # (Auto) 0.57 L Jones # (Auto) 0.5 Eos # (Auto) 0.3 Baso # (Auto) 0.0 Abs Immat Gran (auto) 0.00 Absolute Neuts (auto) 1.3 Absolute Nucleated RBC 0.000 Nucleated RBC % 0.0 Sodium 136 L Potassium 3.9 Chloride 101 Carbon Dioxide 34 H Anion Gap 1 L BUN 19 Creatinine 0.93 Estim Creat Clear Calc 52 Estimated GFR > 60 Glucose 81 Calcium 8.6 Total Bilirubin 0.7 AST 27 ALT 21 Alkaline Phosphatase 105 Total Protein 5.0 L Albumin 2.4 L
--- NOTE | 2024-05-07 13:13 | P.DS_ITS ---
DS: Admitting Diagnosis Discharge Date 05/07/2024 Admitting Diagnosis Shortness of Breath DS: Discharge Diagnosis Discharge Diagnosis (1) Acute hypoxic respiratory failure: Code(s): J96.01 - Acute respiratory failure with hypoxia Status: Acute Assessment and Plan: - Likely secondary to below +/vs pleural effusion +/vs other. - Stabilized. Now on 2L/NC for sats > 90 %. (2) Bilateral pneumonia: Code(s): J18.9 - Pneumonia, unspecified organism Status: Acute Assessment and Plan: - CXR 05/04/24: Diffuse lung disease with worsening in left midlung zone, consistent with pneumonia. - (3) Paroxysmal atrial fibrillation: Code(s): I48.0 - Paroxysmal atrial fibrillation Status: Acute Assessment and Plan: - Rate well controlled. - Continued on Metoprolol and Xarelto. (4) Hypertension: Code(s): I10 - Essential (primary) hypertension Status: Acute Assessment and Plan: - Well controlled. - Continued on metoprolol and hydralazine. (5) Coronary artery disease: Code(s): I25.10 - Atherosclerotic heart disease of [place] coronary artery without angina pectoris Status: Acute Assessment and Plan: - Stable. - Continued on metoprolol, xarelto and statin. (6) Hyperlipidemia: Code(s): E78.5 - Hyperlipidemia, unspecified Status: Acute Assessment and Plan: - Statin resumed. (7) Hypothyroidism: Code(s): E03.9 - Hypothyroidism, unspecified Status: Acute Assessment and Plan: - Continued on levothyroxine. (8) Leukopenia: Code(s): D72.819 - Decreased white blood cell count, unspecified Status: Acute Assessment and Plan: - Appears to be chronic. WBC 2.4>>2.7>>2.8>>2.7 (9) Iron deficiency anemia: Code(s): D50.9 - Iron deficiency anemia, unspecified Status: Acute Assessment and Plan: * 04/11/24: Iron 24, TIBC 225, % saturation 11. * Started on Ferrous Sulfate 325 mg PO BID. * Seen by Oncology/Hematology, appreciate recommendations. * Hgb stable and trending up; 8.4>>8.6>>9>>8.8 * Family and pt do not want any invasive work-up. Plan Discharge to SNF. DS: Summary Hospital Course Reason for hospitalization: Acute Hypoxic Respiratory Failure Hospital Course: Patient was brought in to the ER from the longterm that he resides with reports of worsening SOB within the last couple of days prior to his presentation. Patient was just discharged from this facility less than 2 weeks prior to this presentation after being treated for acute respiratory failure secondary to PNA. Patient had swallow evaluation done on his last admission and bite size moist foods with thickened liquids was recommended after MBS showed pharyngeal dysphagia with laryngeal penetration without aspiration. Patient however refuses liquid thickener and declined repeat MBS, stating he'll still drink thin liquids regardless of the results of repeat MBS. Patient CXR was consistent with bilateral PNA and he has been treated with Vancomycin, Cefepime and Levaquin. He will complete PO Levaquin treatment at the SNF. Patient also was noted with left pleural effusion and underwent left thoracentesis with 1L fluid removed. He was also treated with bronchodilators and was on supplemental O2 as high as 5L/NC but has been weaned down to 2L/NC with O2 sats > 90 %. Overnight sleep study was also done and pt needs 3L/NC with sleep or nap per therapy manager to maintain sats > 90 %. The therapy manager participated in stabilizing patient's symptoms. Patient could possibly be having chronic silent aspiration on thin liquids but pt and family want to continue with thin liquids for patient comfort and to promote PO intake as pt refusing fluids with thickener. Aspiration risks was discussed with both pt and son bedside and they opted for thin liquids per pt request despite aspiration risks. Patient is comfortable in bed and denies any acute distress, stating he's ready to go back to SNF. Patient is medically stable for discharge and has been cleared by the therapy manager as well, with no acute distress noted or reported prior to discharge. Status at Discharge Functional status at discharge: wheelchair bound Overall status at discharge: patient is progressing back to baseline Time Spent with Patient Time attestation: Total time spent providing and/or coordinating discharge services: Time spent: Greater than 30 minutes Exam Narrative: General: Fair appearing, generalized muscle weakness. HEENT: Atraumatic, PERRL, EOM, anicteric, moist mucosa. NECK: Supple. Lungs: Faint crackles to bases. Heart: RRR, no murmurs. Abdomen: Soft, non-tender, non-distended, +ve BS X4 Quadrants. Extremities: Acyanotic, no edema. Skin: Warm and dry. Neuro: Fairly oriented, LOWER [place], CN II-XII grossly intact. Psych: Calm and co-operative. DS: Data Data Completed and Pending Completed studies during hospitalization: Pending at discharge 05/05/24 09:17 Cytology [PTH] Routine Labs on day of discharge: Labs from last 24 hours 05/07/24 05/07/24 12:19 05:32 WBC 2.7 L RBC 2.86 L Hgb 8.8 L Hct 28.3 L MCV 99.0 MCH 30.8 MCHC 31.1 L RDW 14.9 H Plt Count 185 MPV 10.4 Immature Gran % (Auto) 0.0 Neut % (Auto) 48.0 Lymph % (Auto) 21.2 [place] % (Auto) 17.8 H Eos % (Auto) 11.5 H Baso % (Auto) 1.5 H Lymph # (Auto) 0.57 L [place] # (Auto) 0.5 Eos # (Auto) 0.3 Baso # (Auto) 0.0 Abs Immat Gran (auto) 0.00 Absolute Neuts (auto) 1.3 Absolute Nucleated RBC 0.000 Nucleated RBC % 0.0 Sodium 136 L Potassium 3.9 Chloride 101 Carbon Dioxide 34 H Anion Gap 1 L BUN 19 Creatinine 0.93 Estim Creat Clear Calc 52 Estimated GFR > 60 Glucose 81 Calcium 8.6 Total Bilirubin 0.7 AST 27 ALT 21 Alkaline Phosphatase 105 Total Protein 5.0 L Albumin 2.4 L SARS-CoV-2 RNA (RT-PCR) Pending Preliminary micro results at discharge 05/05/24 15:44 Acid Fast Bacilli Culture - Preliminary Pleural Fluid 05/05/24 20:20 Sputum Culture - Preliminary Sputum 05/05/24 15:43 Anaerobic Culture - Preliminary Pleural Fluid Aerobic Culture - Preliminary Discharge Plan Discharge Attending physician on discharge: Yonny Scott Consulting providers: Margarette Sotelo; Brian Jang Discharging Clinician: Florencia Easley Anticipated Discharge Date/Time: 05/07/24 13:20 Patient Disposition: SNF Activity: as tolerated Diet: as tolerated Patient Language: Indonesian Stand Alone Forms: General Discharge Information Follow-up/Referrals: Aleyda,Bossman Snell DO [Primary Care Provider] - 1 Week Brian Jang MD [Physician] - Call for Appointment Discharge Medications: New ferrous sulfate 325 mg (65 mg iron) Tablet,Delayed Release (Dr/Ec) 325 mg PO BIDWM Qty: 20 0RF olanzapine [Zyprexa] 2.5 mg Tablet 2.5 mg PO BID PRN (Reason: Anxiety) Qty: 14 0RF olanzapine 2.5 mg tablet 2.5 mg PO HS Qty: 10 0RF levofloxacin 750 mg tablet 750 mg PO DAILY Qty: 3 0RF Continued acetaminophen 650 mg tablet extended release 650 mg PO Q6H PRN (Reason: Pain, fever) ipratropium-albuterol 0.5 mg-3 mg(2.5 mg base)/3 mL solution for nebulization 3 ml INHALATION Q6-8H PRN (Reason: shortness of breath or wheezing) atorvastatin 10 mg tablet 10 mg PO HS metoprolol succinate 100 mg tablet extended release 24 hr 100 mg PO DAILY hydralazine 25 mg tablet 25 mg PO Q12H levothyroxine 75 mcg tablet 75 mcg PO 0630 hydroxychloroquine 200 mg tablet 200 mg PO .q12hr polyethylene glycol 3350 [Miralax] 17 gram/dose powder 17 g PO BID Xarelto 20 mg tablet 20 mg PO Q24H tamsulosin 0.4 mg capsule 0.4 mg PO Q24H sennosides 8.6 mg tablet 8.6 mg PO DAILY simethicone [Gas Relief (simethicone)] 125 mg capsule 125 mg PO .q8 PRN (Reason: gas) calcium carbonate [Antacid (calcium carbonate)] 200 mg calcium (500 mg) tablet,chewable 200 mg PO DAILY PRN (Reason: indigestion) cyanocobalamin (vitamin B-12) [Vitamin B-12] 1,000 mcg Tablet 1,000 mcg PO QAM Qty: 30 0RF guaifenesin [Mucus Relief ER] 600 mg Tablet Extended Release 12hr 1,200 mg PO Q12HR Qty: 10 0RF venlafaxine [Effexor XR] 37.5 mg Capsule,Extended Release 24hr 37.5 mg PO DAILY@0800 Qty: 30 0RF Discontinued amoxicillin-pot clavulanate 875-125 mg tablet 1 tablet PO Q12H Qty: 3 0RF Rx Instructions: twice a day x 7 days olanzapine 2.5 mg tablet 2.5 mg PO QPM PRN (Reason: Anxiety) Qty: 10 0RF Rx Instructions: POA requests this medication be made PRN Date of admission: 05/01/24 15:12 Primary Care Provider: AleydaBossman Admitting Provider: Vitaly Martin Attending physician on admission: Vitaly Martin Condition: Stable Quality VTE Prophylaxis VTE prophylaxis: pharmacologic ordered Hospitalist MIPS Heart Failure (Exclusion) Patient has history of Heart Transplant or Left Ventricular Assistive Device?: No IF YES, STOP HERE Heart Failure (Qualifier) Patient has current or prior documentation of LVEF less than or equal to 40%, or mod/servere depressed LVSF?: No IF NO, STOP HERE
[2024-05-07 13:17] LABS: SARS-CoV-2 RNA PCR Negative (Negative)
[2024-05-09 03:33] LABS: Adenovirus DNA Not Detected (Not Detected); Chlamydophila pneumoniae Not Detected (Not Detected); Coronavirus 229E Not Detected (Not Detected); Coronavirus HKU1 Not Detected (Not Detected); Coronavirus NL63 Not Detected (Not Detected); Coronavirus OC43 Not Detected (Not Detected); Human Metapneumovirus Not Detected (Not Detected); Human Parainfluenza Virus 1 Not Detected (Not Detected); Human Parainfluenza Virus 2 Not Detected (Not Detected); Human Parainfluenza Virus 3 Not Detected (Not Detected); Human Parainfluenza Virus 4 Not Detected (Not Detected); Human RSV B Not Detected (Not Detected); Influenza A Not Detected (Not Detected); Influenza B Not Detected (Not Detected); Mycoplasma pneumoniae Not Detected (Not Detected); Rhinovirus/Enterovirus Not Detected (Not Detected)
[2024-05-13 02:24] LABS: Albumin Pleural Fluid. 1.1 g/dL; Glucose Pleural Fluid. 85 mg/dL; LDH Pleural Fluid. 64 U/L; Total Protein Pleural Fluid <3.0 g/dL
[2024-05-20 12:03] LABS: Cholesterol Pleural Fluid. 20 mg/dL
== END 2024-05-07 14:35 | DRG 194 ==
LOC: ANHED 10:51 → ANH3MEDSUR 15:41 → ANH3MED 16:32
PROVIDERS: Internal Medicine Medical Oncology; Internal Medicine Pulmonary Disease; Nurse Practitioner Family; Admitting Provider Internal Medicine; Emergency Provider Student in an Organized Health Care Education/Training Program; PCP Internal Medicine; Visit Provider Nurse Practitioner Adult Health
DX: J18.9 Pneumonia, unspecified organism (principal); J90 Pleural effusion, not elsewhere classified; F03.90 Unspecified dementia, unspecified severity, without behavioral disturbance, psychotic disturbance, mood disturbance, and anxiety; I25.10 Atherosclerotic heart disease of native coronary artery without angina pectoris; I48.0 Paroxysmal atrial fibrillation; D50.9 Iron deficiency anemia, unspecified; R13.13 Dysphagia, pharyngeal phase; D72.819 Decreased white blood cell count, unspecified; E03.9 Hypothyroidism, unspecified; E78.5 Hyperlipidemia, unspecified; I10 Essential (primary) hypertension; M06.9 Rheumatoid arthritis, unspecified; G47.33 Obstructive sleep apnea (adult) (pediatric); Z95.5 Presence of coronary angioplasty implant and graft; Z79.01 Long term (current) use of anticoagulants; Z95.0 Presence of cardiac pacemaker
CPT/HCPCS: 32555; 36415; 36600; 71045; 71046; 71250; 80048; 80053; 82042; 82150; 82607; 82728; 82746; 82805; 82945; 83615; 83690; 83735; 83880; 84145; 84157; 84311; 84478; 84484; 85018; 85025; 85046; 85610; 85730; 87015; 87040; 87070; 87075; 87102; 87116; 87205; 87206; 87449; 87633; 87635; 87637; 87641; 88108; 88305; 89051; 92610; 93005; 93971; 94640; 94667; 94668; 96365; 96367; 96375; 96376; 97110; 97161; 97165; 97530; 99285; A9270; G0378; J0456; J0692; J0696; J1940; J1956; J3370

== ENCOUNTER 2024-07-09 09:29 | Outpatient (CLI) | payer MEDICARE, SELFPAY ==
--- OUTSIDE RECORDS SUMMARY | 2024-07-09 10:41 | XMS_ITS | Clinical Summary ---
Author Organization [facility] Address [address] [place] [address] Care Team Providers Care [employer] [place] Worker Name Role Phone Elian Dawson MD Primary Care Provider [phone] Thierry Martini MD Unavailable [phone] Source Comments [facility],non-owned Affiliates and Associated Physician Practices is amultiple site organization consisting of ambulatory clinics and hospital sitesin [place], [place], [place] and [place]. This disclosure is being madepursuant to the Care Everywhere program and may not contain all information available regarding this patient. Last updated 18.[facility] Allergies No known active allergies Medications * Be aware that medications may not be up to date on this document. Alwaysverify current medications with the patient. Medication Sig Dispensed Refills Start Date End Date Status levothyroxine (SYNTHROID) 100 MCG tablet Take 100 mcg by mouth every 2 days Alternates every other day with 50 mcg Active blood glucose (ONETOUCH ULTRA TEST STRIPS) test strip Test once daily 02/19/2014 A ctive Blood Glucose Monitoring Suppl (ONE TOUCH ULTRA SYSTEM KIT) W/DEVICE KIT Test once daily 02/19/2014 Active simvastatin (ZOCOR) 20 MG tablet Take 20 mg by mouth once daily 08/26/2014 Active SYNTHROID 50 MCG tabletIndications:Pe rsistent atrial fibrillation (HCC) 50 mcg every 2 days Alternates every other day with 100 mcg 11/24/2014 Active cyanocobalamin (VITAMIN B-12) 1000 MCG tablet Take 1,000 mcg by mouth once daily Active Magnesium 400 MG Take 400 mg by mouth once daily Active venlafaxine XR 24hr (EFFEXOR XR) 150 MG capsule Take 150 mg by mouth daily with breakfast Active hydroxychloroquine (PLAQUENIL) 200 MG tablet Take 200 mg by mouth 2 times daily Active metoprolol succinate XL 24hr (TOPROL XL) 100 MG tablet TAKE ONE AND ONE-HALF TABLETS ONCE DAILY 135 tablet 3 07/31/2019 Active XARELTO 15 MG tablet TAKE 1 TABLET DAILY AT BEDTIME 90 tablet 3 09/30/2019 Active Active Problems Problem Noted Date Diagnosed Date S/P ablation of atrial fibrillation 02/06/2017 Overview (02/06/2017): Surgical AF ablation 2006 - thoracotomy for bilateral PVI with excision of left atrial appendage Percutaneous ablation 2013 - PVI/CTI/MVI/Roof ablation S/P coronary artery stent placement 08/06/2016 Pacemaker 01/04/2016 Overview (01/04/2016): [employer] Pacemaker - Assurity [id number] SN: [id number] - Implanted 01/04/[address] Jason Castillo RA: ARLEN 1998 SN: [id number] (Implanted 01/04/2016) RV: SJ 1688 SN: [id number] (Implanted 01/04/2016) Blood glucose elevated 11/19/2013 Essential hypertension 01/07/2012 Overview (08/20/2016): PATRICK 08/2016 -- Rest PATRICK 1.24 R, 1.50 L. Exercise PATRICK normal bilaterally with biphasic to triphasic PVRs. TBIs mildly decreased 0.66 R, 0.62 L. Abdominal Ao US - no AAA Coronary artery disease invo lving [place] coronary artery of [place] heart without angina pectoris 10/09/2011 Overview (08/19/2016): Cath 2001 -- LVEDP 25-28 mmHg. LVEF 35-40%. LAD prox 100% occlusion. LCx 50-60% prox. RCA 30-40% prox. 3.0 x 18 mm Velocity stent to LAD. Cath 2002 -- LVEDP 18-20 mmHg. Normal EF. 80% in-stent LAD restenosis. 40-50% prox LAD. 50% ostial diagonal. 50% proximal LCx. 30% prox RCA. Successful cutting balloon (3.25 mm) PTCA to LAD. Exercise SPECT Stress 07/2016 - Walked 4:57 (107% predicted). Clin/EKG negative. No ischemia or infarct. Inferior artifact. EF > 70%. 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 Implantable Loop Recorder - Confirm [id number] SN: [id number] - Implanted 12/31/[address] Jason Castillo Overview: [employer] Implantable Loop Recorder - Confirm [id number] SN: [id number] - Implanted 12/31/[address] Castillo [employer] ILR - Confirm [id number] SN: [id number] - Implanted 12/31/[address] Jason Castillo Dyspnea and respiratory abnormality 08/08/2013 08/06/2016 Abnormal respiratory rate 08/08/2013 Pneumonia due to organism 08/08/2013 Routine general medical exam ination at a health care facility 10/03/2010 08/06/2016 Leukocytopenia 09/08/2010 08/06/2016 Family History Medical History Relation Name Comments Cancer Father Diabetes Mother Relation Name Status Comments Father Mother Social History Tobacco Use Types Packs/Day Years Used Date Smoking Tobacco: Never Smokeless Tobacco: Never Alcohol Use Standard Drinks/Week Comments No 0 (1 standard drink = 0.6 oz pur e alcohol) Sex and Gender Information Value Date Recorded Sex Assigned at Not on file Gender Identity Not on file Sexual Orientation Not on file Last Filed Vital Signs Vital Sign Reading Time Taken Comments Blood Pressure 121/80 05/27/2020 1:42 PM [employer] Pulse 60 05/27/2020 1:42 PM [employer] Temperature 36.5 C (97.7 F) 01/04/2016 7:27 AM CDT Respiratory Rate 10 05/27/2020 1:42 PM [employer] Oxygen Saturation 96% 03/04/2019 11:25 AM [employer] Inhaled Oxygen Concentration - - Weight 101.6 kg (224 lb) 05/27/2020 1:42 PM [employer] Height 181.6 cm (5' 11.5 ) 05/27/2020 1:42 PM CS T Body Mass Index 30.81 05/27/2020 1:42 PM [employer] Plan of Treatment Health Maintenance Due Date Last Done Comments DTAP/TDAP/TD VACCINES (1 - Tdap) 11/05/1954 PNEUMOCOCCAL VACCINE 50+ (1 of 2 - PCV) 11/05/1954 ZOSTER VACCINE (1 of 2) 1986 Respiratory Syncytial Virus (RSV) Vaccine Pt: or over 60 yrs (1 - 1-dose 75+ series) 11/05/2011 COVID-19 VACCINE ( - season) 2023 INFLUENZA VACCINE (#1) 2023 0, 01/27/2019, 01/28/2018, Additional history exists DEPRESSION SCREENING 04/29/2024 MEDICARE AWV CALENDAR YEAR 2024 HEPATITIS B VACCINE Aged Out No longe r eligible based on patient's age to complete this topic HIB VACCINE Aged Out No longer eligi ble based on patient's age to complete this topic HPV VACCINE Aged Out No longer eligi ble based on patient's age to complete this topic MENINGOCOCCAL (Group B) VACCINE SHARED DECISION-MAKING Aged Out No longer eligible based on patient's age to complete this topic MENINGOCOCCAL GROUPS A/C/Y/W VACCINE Aged Out No longer eligible based on patient's age to complete this topic Care Teams [employer] [place] Worker Relationship Specialty Start Date End Date Elian Dawson MD PCP - General 10/07/14 Thierry Martini MD Cardiovascular Disease 10/07/14
--- OUTSIDE RECORDS SUMMARY | 2024-07-09 10:42 | XMS_ITS | Patient Health Summary ---
Author Organization [facility] Address [address] [place] [address] Care Team Providers Care Consumer Safety Inspector Name Role Phone Elian Dawson MD Primary Care Provider [phone] Thierry Martini MD Unavailable [phone] Note from [facility],non-owned Affiliates and Associated Physician Practices is amultiple site organization consisting of ambulatory clinics and hospital sitesin [place], [place], [place] and [place]. This disclosure is being madepursuant to the Care Everywhere program and may not contain all information available regarding this patient. Last updated 18.[facility] Allergies No known active allergies Medications * Be aware that medications may not be up to date on this document. Alwaysverify current medications with the patient. * levothyroxine (SYNTHROID) 100 MCG tablet Take 100 mcg by mouth every 2 days Alternates every other day with 50 mcg * blood glucose (ONETOUCH ULTRA TEST STRIPS) test strip(Started 02/19/2014) Test once daily * Blood Glucose Monitoring Suppl (ONE TOUCH ULTRA SYSTEM KIT) W/DEVICE KIT (Started 02/19/2014) Test once daily * simvastatin (ZOCOR) 20 MG tablet(Started 08/26/2014) Take 20 mg by mouth once daily * SYNTHROID 50 MCG tablet(Started 11/24/2014) 50 mcg every 2 days Alternates every other day with 100 mcg * cyanocobalamin (VITAMIN B-12) 1000 MCG tablet Take 1,000 mcg by mouth once daily * Magnesium 400 MG Take 400 mg by mouth once daily * venlafaxine XR 24hr (EFFEXOR XR) 150 MG capsule Take 150 mg by mouth daily with breakfast * hydroxychloroquine (PLAQUENIL) 200 MG tablet Take 200 mg by mouth 2 times daily * metoprolol succinate XL 24hr (TOPROL XL) 100 MG tablet(Started 07/31/2019) TAKE ONE AND ONE-HALF TABLETS ONCE DAILY 3 refills by 07/30/2020 * XARELTO 15 MG tablet(Started 09/30/2019) TAKE 1 TABLET DAILY AT BEDTIME 3 refills by 09/29/2020 Active Problems Problem Noted Date Diagnosed Date S/P ablation of atrial fibrillation 02/06/2017 S/P coronary artery stent placement 08/06/2016 Pacemaker 01/04/2016 Blood glucose elevated 11/19/2013 Essential hypertension 01/07/2012 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 10/09/2011 Obstructive sleep apnea 09/18/2011 Sinoatrial node dysfunction 11/16/2010 Leukopenia 11/01/2010 Hypothyroidism 10/03/2010 Asthma 10/03/2010 Major depressive disorder, single episode 2010 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 PAF (paroxysmal atrial fibrillation) 05/24/2010 Resolved Problems Problem Noted Date Diagnosed Date Resolved Date Palpitations 10/06/2014 08/06/2016 Encounter for other specifie d cardiac device in situ 10/06/2014 01/04/2016 Dyspnea and respiratory abnormality 08/08/2013 08/06/2016 Abnormal respiratory rate 08/08/2013 Pneumonia due to organism 08/08/2013 Routine general medical exam ination at a health care facility 10/03/2010 08/06/2016 Leukocytopenia 09/08/2010 08/06/2016 Social History Tobacco Use Types Packs/Day Years [...] Comments Blood Pressure 121/80 05/27/2020 1:42 PM VOICE PATHOLOGIST Pulse 60 05/27/2020 1:42 PM VOICE PATHOLOGIST Temperature 36.5 C (97.7 F) 01/04/2016 7:27 AM CDT Respiratory Rate 10 05/27/2020 1:42 PM VOICE PATHOLOGIST Oxygen Saturation 96% 03/04/2019 11:25 AM VOICE PATHOLOGIST Inhaled Oxygen Concentration - - Weight 101.6 kg (224 lb) 05/27/2020 1:42 PM VOICE PATHOLOGIST Height 181.6 cm (5' 11.5 ) 05/27/2020 1:42 PM CS T Body Mass Index 30.81 05/27/2020 1:42 PM VOICE PATHOLOGIST Procedures * COMPREHENSIVE METABOLIC PANEL(Performed 02/24/2024) * CBC W AUTO DIFFERENTIAL(Performed 02/24/2024) * PACEMAKER CLINIC CHECK(Performed 05/27/2020) Performed for Sinoatrial node dysfunction (HCC), Pacemaker reprogramming/check * PACEMAKER CLINIC CHECK(Performed 04/12/2020) Performed for Sinoatrial node dysfunction (HCC), Pacemaker * PACEMAKER CLINIC CHECK(Performed 12/25/2019) Performed for Sinoatrial node dysfunction (HCC), Pacemaker * PACEMAKER CLINIC CHECK(Performed 09/11/2019) Performed for Pacemaker, Sinoatrial node dysfunction (HCC) * PACEMAKER CLINIC CHECK(Performed 05/21/2019) Performed for Sinoatrial node dysfunction (HCC), Pacemaker * EKG 12-LEAD(Performed 05/01/2019) Performed for PAF (paroxysmal atrial fibrillation) (HCC) * PACEMAKER CLINIC CHECK(Performed 02/06/2019) Performed for Sinoatrial node dysfunction (HCC), Pacemaker * PACEMAKER CLINIC CHECK(Performed 10/29/2018) Performed for Sinoatrial node dysfunction (HCC), Pacemaker * EKG 12-LEAD(Performed 10/23/2018) Performed for PAF (paroxysmal atrial fibrillation) (HCC) * PACEMAKER CLINIC CHECK(Performed 07/21/2018) Performed for Sinoatrial node dysfunction (HCC), Pacemaker * EKG 12-LEAD(Performed 04/17/2018) Performed for PAF (paroxysmal atrial fibrillation) (HCC) * PACEMAKER CLINIC CHECK(Performed 04/11/2018) Performed for Sinoatrial node dysfunction (HCC), Pacemaker * LAB MISC TEST(Performed 03/19/2018) * PACEMAKER CLINIC CHECK(Performed 01/10/2018) Performed for Sinoatrial node dysfunction (HCC), Pacemaker * PACEMAKER CLINIC CHECK(Performed 10/10/2017) Performed for Sinoatrial node dysfunction (HCC), Pacemaker reprogramming/check * EKG 12-LEAD(Performed 10/10/2017) Performed for PAF (paroxysmal atrial fibrillation) (HCC), Pacemaker, Essential hypertension, Coronary artery disease involving modoc coronary artery of modoc heart without angina pectoris * PACEMAKER CLINIC CHECK(Performed 08/16/2017) Performed for Sinoatrial node dysfunction (HCC), Pacemaker * PACEMAKER CLINIC CHECK(Performed 05/20/2017) Performed for Sinoatrial node dysfunction (HCC), Pacemaker * LAB MISC TEST(Performed 04/12/2017) * EKG 12-LEAD(Performed 03/29/2017) Performed for PAF (paroxysmal atrial fibrillation) (HCC), Pacemaker * PACEMAKER CLINIC CHECK(Performed 02/25/2017) Performed for PAF (paroxysmal atrial fibrillation) (HCC), Pacemaker * PACEMAKER CLINIC CHECK(Performed 01/25/2017) Performed for Sinoatrial node dysfunction (HCC), Pacemaker * EKG 12-LEAD(Performed 10/12/2016) Performed for PAF (paroxysmal atrial fibrillation) (HCC), Coronary artery disease involving modoc coronary artery of modoc heart without angina pectoris, Sinoatrial node dysfunction (HCC), Pacemaker * PACEMAKER CLINIC CHECK(Performed 10/12/2016) Performed for Sinoatrial node dysfunction (HCC), Pacemaker * NM MYOCARD PERF REST STRESS(Performed 08/13/2016) Performed for Coronary artery disease involving modoc coronary artery, angina presence unspecified, unspecified whether modoc or transplanted heart, Exertional dyspnea, PAF (paroxysmal atrial fibrillation) (HCC), S/P coronary artery stent placement * US AORTA IVC ILIAC DOPPL COMP(Performed 08/13/2016) Performed for Decreased pedal pulses * VAS ARTERIAL ANKLE ARM INDEX STRESS(Performed 08/13/2016) Performed for Decreased pedal pulses * PACEMAKER CLINIC CHECK(Performed 07/06/2016) Performed for Sinoatrial node dysfunction (HCC), Pacemaker * EKG 12-LEAD(Performed 04/06/2016) Performed for Paroxysmal atrial fibrillation (HCC), Palpitations * PACEMAKER CLINIC CHECK(Performed 04/06/2016) Performed for Sinoatrial node dysfunction (HCC), Fitting and adjustment of cardiac pacemaker * PACEMAKER CLINIC CHECK(Performed 01/05/2016) Performed for Sinoatrial node dysfunction (HCC), Pacemaker * PACEMAKER IMPLANT(Performed 01/04/2016) Performed for Asystole (HCC), Sinoatrial node dysfunction (HCC), Paroxysmal atrial fibrillation (HCC) * CBC W AUTO DIFFERENTIAL(Performed 12/30/2015) Performed for Paroxysmal atrial fibrillation (HCC), Sinoatrial node dysfunction (HCC), Pre-operative laboratory examination * BASIC METABOLIC PANEL (CALCIUM TOTAL)(Performed 12/30/2015) Performed for Paroxysmal atrial fibrillation (HCC), Sinoatrial node dysfunction (HCC), Pre-operative laboratory examination * ILR CLINIC CHECK(Performed 12/28/2015) Performed for Palpitations, Cardiac device in situ * LAB MISC TEST(Performed 10/25/2015) * ILR CLINIC CHECK(Performed 09/16/2015) Performed for Palpitations, Cardiac device in situ * EKG 12-LEAD(Performed 09/16/2015) Performed for Atrial fibrillation, unspecified type (HCC), Palpitations * ILR CLINIC CHECK(Performed 06/15/2015) Performed for Palpitations, Encounter for other specified cardiac device in situ * EKG 12-LEAD(Performed 03/09/2015) Performed for Atrial fibrillation, unspecified, Palpitations * ILR CLINIC CHECK(Performed 03/09/2015) Performed for Sinoatrial node dysfunction (HCC), Palpitations, Cardiac device in situ * ECHOCARDIOGRAM TRANSESOPHAGEAL(Performed 12/13/2014) Performed for Persistent atrial fibrillation (HCC) * EKG 12-LEAD(Performed 12/13/2014) Performed for Persistent atrial fibrillation (HCC) * CARDIOVERSION EXTERNAL(Performed 12/13/2014) Performed for Persistent atrial fibrillation (HCC) * EKG 12-LEAD(Performed 12/10/2014) Performed for Palpitations * CARDIOVERSION EXTERNAL(Performed 11/16/2014) Performed for Persistent atrial fibrillation (HCC) * EKG 12-LEAD(Performed 11/15/2014) Performed for Implantable Loop Recorder, Palpitations * ILR CLINIC CHECK(Performed 11/15/2014) Performed for Palpitations, Implantable Loop Recorder * ILR CLINIC CHECK(Performed 10/07/2014) Performed for Palpitations, Implantable Loop Recorder * ECHOCARDIOGRAM TRANSESOPHAGEAL(Performed 11/09/2013) * ABLATION(Performed 11/09/2013) * ABLATION(Performed 08/06/2013) * CBC - POINT OF CARE (AMB)(Performed 11/01/2010) Performed for Leukopenia * CARDIAC CATH(Performed 08/03/2002) * CARDIAC CATH(Performed 03/13/2002) Results * (ABNORMAL) CBC WITH DIFFERENTIAL (02/24/2024 4:30 AM CDT) Only the most recent of2 resultswithin the time period is included. WBC 3.4(L) 4.0 - 10.7 x10E9/L 02/24/2024 9:45 AM CDT [facility] RBC Count 3.99(L) 4.30 - 5.80 x10E12/L 02/24/2024 9:45 AM CDT [facility] Hemoglobin 11.9(L) 13.3 - 17.5 g/dL 02/24/2024 9:45 AM CDT [facility] Hematocrit 38.2(L) 38.7 - 51.1 % 02/24/2024 9:45 AM CDT [facility] MCV 95.7 80.0 - 98.0 fL 02/24/2024 9:45 AM CDT [facility] MCH 29.8 26.7 - 33.6 pg 02/24/2024 9:45 AM CDT [facility] MCHC 31.2(L) 31.7 - 36.3 g/dL 02/24/2024 9:45 AM CDT [facility] RDW-CV 15.4(H) 11.3 - 14.8 % 02/24/2024 9:45 AM CDT [facility] Platelet Count 171 150 - 420 x10E9/L 02/24/2024 9:45 AM CDT [facility] MPV 11.3 7.8 - 11.4 fL 02/24/2024 9:45 AM CDT [facility] Neutrophil % 51.4 41.0 - 74.0 % 02/24/2024 9:45 AM CDT [facility] Lymphocyte % 23.4 17.0 - 47.0 % 02/24/2024 9:45 AM CDT [facility] Monocyte % 12.4(H) 3.0 - 11.0 % 02/24/2024 9:45 AM CDT [facility] Eosinophil % 10.4(H) 0.0 - 7.0 % 02/24/2024 9:45 AM CDT [facility] Basophil % 2.1(H) 0.0 - 1.6 % 02/24/2024 9:45 AM CDT [facility] Immature Granulocytes % 0.3 0.0 - 1.0 % 02/24/2024 9:45 AM CDT [facility] Neutrophil Absolute 1.74 1.60 - 7.50 x10E9/L 02/24/2024 9:45 AM CDT [facility] Lymphocyte Absolute 0.79(L) 1.00 - 4.40 x10E9/L 02/24/2024 9:45 AM CDT [facility] Monocyte Absolute 0.42 0.15 - 1.00 x10E9/L 02/24/2024 9:45 AM CDT [facility] Eosinophil Absolute 0.35 0.00 - 0.60 x10E9/L 02/24/2024 9:45 AM CDT [facility] Basophil Absolute 0.07 0.00 - 0.13 x10E9/L 02/24/2024 9:45 AM CDT [facility] Blood BLOOD SPECIMEN / Unknown 02/24/2024 4:30 AM CDT 02/24/2024 9:31 AM CDT Michael Ivey MD LAB - HEMATOLOGY ORD ERABLES Performing Organization Address City/[facility] Co de Phone Number [facility] [address], [place] [phone] * (ABNORMAL) COMPREHENSIVE METABOLIC PANEL (02/24/2024 4:30 AM CDT) [facility] Signature Glucose 67(L) 70 - 99 mg/dL 02/24/2024 10:35 AM CDT [facility] Sodium 142 136 - 145 mmol/L 02/24/2024 10:35 AM CDT [facility] Potassium 3.7 3.5 - 5.1 mmol/L 02/24/2024 10:35 AM CDT [facility] Chloride 107 98 - 107 mmol/L 02/24/2024 10:35 AM CDT [facility] CO2 28 22 - 29 mmol/L 02/24/2024 10:35 AM CDT [facility] Calcium 9.5 8.4 - 10.4 mg/dL 02/24/2024 10:35 AM CDT [facility] Anion Gap 7 6 - 16 mmol/L 02/24/2024 10:35 AM CDT [facility] BUN 12 7 - 26 mg/dL 02/24/2024 10:35 AM CDT [facility] Creatinine 0.94 0.72 - 1.25 mg/dL 02/24/2024 10:35 AM CDT [facility] Alkaline Phosphatase 101 40 - 150 U/L 02/24/2024 10:35 AM CDT [facility] ALT 12 0 - 55 U/L 02/24/2024 10:35 AM CDT [facility] AST 20 5 - 34 U/L 02/24/2024 10:35 AM CDT [facility] Protein Total 5.5(L) 6.4 - 8.3 gm/dL 02/24/2024 10:35 AM CDT [facility] Albumin 2.7(L) 3.4 - 5.0 gm/dL 02/24/2024 10:35 AM CDT [facility] Bilirubin Total 0.7 0.2 - 1.2 mg/dL 02/24/2024 10:35 AM CDT [facility] eGFR by CKD-EPI 78(L) >=90 mL/min/1.7 3 m2 02/24/2024 10:35 AM CDT [facility] Blood BLOOD SPECIMEN / Unknown Venipuncture / Unknown 02/24/2024 4:30 AM CDT 02/24/2024 9:31 AM CDT Michael Ivey MD LAB - CHEMISTRY WENDY [facility] Organization Address [facility]/State/[facility] Co de Phone Number [facility] [address] [phone] * PACEMAKER CLINIC CHECK (05/27/2020 1:05 PM VOICE PATHOLOGIST) Only the most recent of19 resultswithin the time period is included. Narrative Ashley Feliz - 05/27/2020 1:05 PM VOICE PATHOLOGIST Ashley Feliz 05/27/2020 1:34 PM See scan for Parameters, Rate histograms, and EGMs. Thierry Martini MD CARDIAC SERVICE S ORDERABLES * EKG 12-LEAD (05/01/2019 11:23 AM VOICE PATHOLOGIST) Only the most recent of12 resultswithin the time period is included. Narrative Sheela Castañeda - 05/01/2019 11:23 AM VOICE PATHOLOGIST Wendy Bain, [facility] 05/01/2019 11:24 AM See scan Procedure Note Wendy Bain RDMS - 05/01/2019 11:23 AM CST See scan Thierry Martini MD ECG ORDERABLES * LAB MISC TEST (03/19/2018) Only the most recent of3 resultswithin the time period is included. Blood BLOOD SPECIMEN / Unknown Provider Unknown LAB SEND OUT * NM MYOCARD PERFUSION SPECT STRESS AND REST (08/13/2016 11:56 AM CDT) Anatomical Region Laterality Modality Chest Other Narrative 08/13/2016 11:56 AM CDT Sidra Barakat 08/13/2016 11:56 AM See scan Avery Schumacher MD NM ORDERABLES * US AORTA IVC ILIAC DOPPL COMP (08/13/2016 9:23 AM CDT) Anatomical Region Laterality Modality Abdomen Ultrasound Narrative 08/13/2016 9:23 AM CDT Rebecca Doe RDMS 08/13/2016 9:23 AM SEE SCAN Avery Schumacher MD US ORDERABLES * VAS ARTERIAL ANKLE ARM INDEX STRESS (08/13/2016) Anatomical Region Laterality Modality Ankle / Foot, Upper Extremity Ot her Avery Schumacher MD VASCULAR LAB ORDERAB LES * PACEMAKER IMPLANT (01/04/2016 3:23 PM CDT) Narrative Jason Castillo MD - 01/04/2016 3:23 PM CDT Jason Castillo MD 01/04/2016 3:23 PM Pacemaker Implantation Operative Note Name: Edwardo Justice : 1935 CSN: [id number] MRN: [id number] Today's date: 01/04/2016 Pre-operative Dx: 1. SSS 2. Syncope Post-operative Dx: 1. Pacemaker IMplant 2. Loop Recorder Explant Procedure: 1. Dual Chamber Pacemaker 2. ILR explant 3. Venogram 4. Fluoroscopy Fluorotime: 10 min Blood Loss: <10cc Complications: None Operative Course: After a long discussion with patient concerning the risks and benefits of the procedure, the patient underwent a sterile prep. The patient also received antibiotics less than one hour prior to procedure. After local 2% lidocaine to the left deltopectoral groove, an incision was made. Dissection down to the fat stripe was performed with blunt dissection and short bursts of electrocautery. There was no cephalic vein. A pocket was formed with blunt and sharp dissection and electrocatuery for hemostasis. The ILR was located and removed via the PM pocket. Venogram was performed to document patency of the axilllary vein. Under fluoroscopic guidance, the axillary vein was cannulated without difficulty and guidewire/sheath assembly advanced (two 7 F). A SJM 58 cm lead serial # [id number] was placed into the RV apex. Threshold was 0.7 V at 0.4 ms. R wave sensing amplitude was 4.8 mV and impedance was 650 ohms. The SJM 52 cm lead serial # [id number] right atrial lead was placed into the RA appendage. P wave sensing was 2.7 mV. Threshold in the atrium was 0.7 V at 0.4ms and impedance of 400 ohms. The leads were sutured into position with 3 separate 0 ethibond sutures per lead over the suture sleeve. The proximal and distal vein cuffs were sutured shut. The leads were connected to a SJM Device with the serial number [id number]. Setscrews were tightened and position in the header was verified. Gentle retraction confirmed positioning. Serial numbers of leads were confirmed with industry representatives. The pocket was then created bluntly and irrigated with antibiotic solution without and then with the device in position. There was no residual bleeding. The wound was then closed with O vicryl and then Liquiband for the skin surface. A five minute dry time was allowed. A tegaderm pressure dressing then was placed. Conclusion: 1. Successful placement of a dual chamber pacemaker 2. ILR Explant 3. Venogram 4. Continue antibiotics at home 5. F/U 1 week for wound check at the [facility]3]. Jason Castillo MD Thierry Martini MD CARDIAC SERVICE S ORDERABLES * BASIC METABOLIC PANEL (BMP) (12/30/2015) Blood specimen (specimen) BLOOD SPECIMEN / Unknown Jason Castillo MD LAB - CHEMISTRY WENDY [facility] Organization Address City/State/ZIP Co de Phone Number OTHER LAB * ILR CLINIC CHECK (12/28/2015 12:50 PM CDT) Only the most recent of6 resultswithin the time period is included. Narrative Lula Sifuentes - 12/28/2015 12:50 PM CDT Lula Sifuentes 12/28/2015 12:50 PM See scan for Parameters, Rate histograms, and EGMs Thierry Martini MD CARDIAC SERVICE S ORDERABLES * CARDIOVERSION EXTERNAL (12/13/2014 1:28 PM CDT) Only the most recent of2 resultswithin the time period is included. Narrative Liss Miller RN - 12/13/2014 1:28 PM CDT Liss Miller RN 12/13/2014 1:28 PM See scan Thierry Martini MD ELECTROPHYSIOLO GY ORDERABLES * ECHO LYSSA (12/13/2014 1:28 PM CDT) Only the most recent of2 resultswithin the time period is included. Narrative Liss Miller RN - 12/13/2014 1:28 PM CDT Liss Miller RN 12/13/2014 1:28 PM See scan Thierry Martini MD ECHO ORDERABLES * ABLATION (11/09/2013) Only the most recent of2 resultswithin the time period is included. Thierry Martini MD CARDIAC SERVICE S ORDERABLES * (ABNORMAL) CBC - POINT OF CARE (AMB) (11/01/2010 10:59 AM CDT) WBC POCT 4.2 RBC POCT 4.18 3.90 - 5.70 x10^6/uL Hemoglobin POCT 14.3 12.1 - 16.0 g/dL Hematocrit POCT 39.6 36.1 - 50.3 % MCV 94.7 80.0 - 100.0 fL MCH 34.2(A) 27.6 - 33.3 pg MCHC 36.1(A) 33.0 - 34.8 g/dL RDW % POCT 13.2 11.6 - 13.7 % Platelet Count POCT 226 150 - 400 x10^3/uL MPV 8.5 7.8 - 11.0 fL Lymphocyte % POCT 35.5 Lymphocytes Absolute 1.5 Monocytes % POCT 9.6 Monocytes Absolute POCT 0.4 Granulocytes % POCT 54.9 Gran Absolute POCT 2.3 BLOOD BLOOD SPECIMEN / Unknown 11/01/2010 10:59 AM CDT Ruben [place] MD LAB - POINT OF CARE ORDERABLES * CARDIAC CATH (08/03/2002) Only the most recent of2 resultswithin the time period is included. Jason Castillo MD CARDIAC SERVICES ORD [facility] Care Teams Consumer Safety Inspector Relationship Specialty Start Date End Date Elian Dawson MD PCP - General 10/07/14 Thierry Martini MD Cardiovascular Disease 10/07/14
--- OUTSIDE RECORDS SUMMARY | 2024-07-09 10:42 | XMS_ITS | Clinical Summary ---
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 Driver Name Role Phone Elian Dawson MD Primary Care Provider Isael Devries MD Unavailable [phone] John Deo MD Unavailable [phone] Allergies Active Allergy Reactions Criticality Noted Date Comments Grass Pollen Rhinorrhea Low 11/25/2022 Medications atorvastatin (Lipitor) 10 mg tablet Take 1 tablet (10 mg total) by mouth daily 30 tablet 3 Active Additional Information Patient taking differently:10 mg oralNightly, Reported on 02/15/2024 hydrALAZINE (APRESOLINE) 25 mg tabletIndication s:hypertension Take 1 tablet (25 mg total) by mouth 2 (two) times a day 60 tablet 3 Active levothyroxine (SYNTHROID) 75 mcg tablet Take 1 tablet (75 mcg total) by mouth beauty therapist before breakfast 30 tablet 3 Active metoprolol XL (TOPROL-XL) 100 mg 24 hr tablet Take 1 tablet (100 mg total) by mouth daily 30 tablet 3 Active polyethylene glycol (MIRALAX) 17 gram/dose bulk powder Take 17 g by mouth daily 3 Active senna (SENOKOT) 8.6 mg tablet Take 2 tablets by mouth daily 60 tablet 3 Active venlafaxine XR (EFFEXOR-XR) 150 mg 24 hr capsuleIndicatio ns:major depressive disorder Take 1 capsule (150 mg total) by mouth daily Take with 75mg tab for a total of 225mg daily 30 capsule 3 Active calcium carbonate (TUMS) 500 mg (200 mg elemental calcium) chewable tablet Take 0.4 tablet/chew tab (200 mg total) by mouth daily as needed for indigestion Active acetaminophen (TYLENOL) 325 mg tablet Take 2 tablets (650 mg total) by mouth every 6 (six) hours as needed for pain 4 Active tamsulosin (FLOMAX) 0.4 mg extended release capsule Take 1 capsule (0.4 mg total) by mouth daily with dinner 4 Active hydroxychloroqui ne (PLAQUENIL) 200 mg tablet Take 1 tablet (200 mg total) by mouth 2 (two) times a day 4 Active OLANZapine (ZyPREXA) 2.5 mg tablet Take 1 tablet (2.5 mg total) by mouth 2 (two) times a day as needed (agitation) 10 tablet 4 Active rivaroxaban (XARELTO) 20 mg tabletIndication s:atrial fibrillation Take 1 tablet (20 mg total) by mouth daily with dinner 30 tablet 11 4 02/21/20 25 Active morphine concentrated solution 100 mg/5 mLIndications:Se sruthi Pain with Opioid Tolerance Take 5 mg by mouth every hour as needed for pain. Indications: severe pain with opioid tolerance 4 Active LORazepam (ATIVAN) 0.5 mg tabletIndication s:anxiety Take 0.5 mg by mouth every 2 (two) hours as needed for anxiety, sedation or seizures. Indications: anxious 4 Active haloperidol (HALDOL) 2 mg/mL solutionIndicati ons:Delirium Take 1 mg by mouth every 4 (four) hours as needed for agitation. Indications: delirium 4 Active bisacodyL (DULCOLAX) 10 mg suppositoryIndic ations:Bowel Evacuation,const ipation Insert 10 mg into the rectum daily as needed for constipation. Indications: constipation, emptying of the bowel 4 Active oxygenIndication s:Dyspnea Administer 2-4 L/min into each nostril as needed (shortness of breath). Indications: trouble breathing Active Active Problems Problem Noted Date Diagnosed Date AMS (altered mental status) 02/16/2024 Syncope and collapse 02/15/2024 Pneumonia of left lower lobe due to infectious o rganism 02/14/2024 Closed fracture of multiple ribs of left side Closed nondisplaced fracture of acromial end of left clavicle 08/08/2023 Multiple rib fractures involving four or more ri bs 08/08/2023 Fall, initial encounter 08/07/2023 Altered mental status, unspe cified altered mental status type 08/05/2023 Dementia with mood disturbance 12/28/2022 Assessment & Plan (01/02/2023 9:35 PM CDT): Slums initially was 2/30, improved to 17/30 with time and therapy. Mood has been generally better controlled with high dose Effexor. Patient has been accepted at [facility], will discharge when room available. Assessment & Plan (01/01/2023 2:04 PM CDT): Mood depressed and affect flat but has been making progress with therapy. Pt has been accepted at [facility], awaiting pt family to move in [facility], anticipate DC this week. Pt more interactive today, answering simple questions. Continue effexor Assessment & Plan (12/28/2022 8:54 PM CDT): Patient with labile interaction/alertness. Slums has improved to 17/30 but continues to indicate moderate cognitive decline. Patient has been accepted at [facility], however family requires time to move patient into facility. Continue Effexor for mood control. Patient with no other signs or symptoms change in clinical issues that would contribute to lethargy/confusion. He is actually had significant improvement since his admission. Acute kidney injury 12/18/2022 Assessment & Plan (01/02/2023 9:38 PM CDT): Renal function has remained stable with a creatinine of 1.2 which is his baseline. Assessment & Plan (12/18/2022 10:24 AM CDT): Cr increased to 1.3, will hold ibuprofen. Encourage po fluid intake. Repeat BMP 12/19 Moderate episode of recurrent major depressive d isorder 12/10/2022 Assessment & Plan (01/02/2023 9:36 PM CDT): Patient follows with psychiatry, continue Effexor 225 mg daily, Remeron 15 mg q.h.s.. Assessment & Plan (12/12/2022 10:55 AM CDT): Pt remains withdrawn. Have not received return call from psychiatrist. Continue Effexor 225 mg daily, Remeron 15 mg q.h.s.. Have not noted increased lethargy during the day Assessment & Plan (12/10/2022 9:55 PM CDT): Patient remains withdrawn, although confused. Continue high-dose Effexor 225 mg daily. Contacted psychiatrist to confirm that Remeron was okay to use. We will start Remeron 15 mg q.h.s. to help with appetite, sleep. COVID 12/04/2022 Assessment & Plan (01/02/2023 9:37 PM CDT): Diagnosed with COVID on 12/03/2022, patient had significant confusion but otherwise was asymptomatic. Treated with 5 day course of Molnupiravir, tolerated well, patient is now COVID recovered Assessment & Plan (12/10/2022 9:53 PM CDT): Pulmonary status stable, no other new symptoms. Tolerating Molnupiravir. Remain on isolation times 10 days. Assessment & Plan (12/05/2022 9:09 PM CDT): Would recommend Molnupiravir as patient is on Xarelto therefore Paxlovid is contraindicated. Patient is at higher risk for developing worsening symptoms with COVID due to his age, underlying/comorbid conditions. We will await family's decision. Patient is currently asymptomatic. Continue supportive care. Assessment & Plan (12/04/2022 8:10 PM CDT): Pt is currently asymptomatic Patient tested positive for COVID-19 on 12/03/22. Pulmonary status has remained stable off O2. Paxlovid and Molnupiravir are available. Paxlovid is contraindicated as pt is on Xarelto. The patient qualifies for Molnupiravir based on his age and comorbidity of hypertension, afib, RA. The patient is at higher risk for progression of severe disease due to age and comorbidities. It was explained that this medication has been shown to reduce the risk of hospitalization/progression of COVID sympotms. It is given orally with observation. It appears safe but full side effects are not known. side effects include allergic reaction, nausea, diarrhea are possible. The FDA has authorized the emergency use of Molnupavrir for the treatment of [id number] COVID-19 in adults. The Fact Sheet for Patients, Parents and Caregivers was reviewed with the patient at the bedside. He has been informed of alternatives (no current alternatives except for supportive standard of care) to receiving authorized Molnupiravir and have been informed that Molnupavrir is an unapproved drug that is authorized for use under this Emergency Use Authorization. After the above discussion with the patient and family they were agreeable to receive the medication. Will monitor patient closely, offered supportive care. Constipation 12/03/2022 Assessment & Plan (01/02/2023 9:38 PM CDT): Stable, continue daily senna, daily MiraLax Debility 12/03/2022 Assessment & Plan (12/03/2022 11:23 AM CDT): I have reviewed ds I have reviewed outside lab cbc, cmp I have reviewed imaging reports ct head, ct lss, xr lss and disc w son I have ordered xr pelvis and BL hips because he fell since admission and has a small bruise L hip At present he high risk for fall, injury and readmission to hosp I have admitted to snf and I have consulted PT, OT, and ST for eval, advice, and treatment I have ok'ed son's request for a heating pad but low head and only 5m per treatment when son is present; Acute delirium 11/30/2022 Assessment & Plan (12/24/2022 7:59 PM CDT): Pt has made great progress with behavior and cognition. SLUMS now from . No further behaviors and is cooperative with care. Assessment & Plan (12/18/2022 10:21 AM CDT): Probable underlying dementia worsened by hospital stay, pain, medications and multiple facility transfers, as well as COVID. Reversible causes workup negative. Pt becoming less agitated, more cooperative with care. Continue ST, supportive care. Continue Remeron for appetite stimulation Assessment & Plan (12/12/2022 10:51 AM CDT): Vitamin-D, vitamin B12, folate, TSH all within normal limits. Recent CT without acute intracranial findings but does describe Prominent confluent white matter hypoattenuation is nonspecific, though suggestive of chronic microvascular ischemic changes. This likely could be underlying cause of general confusion/vascular dementia. Continue supportive care, speech therapy. UA performed, within normal limits. Assessment & Plan (12/10/2022 9:52 PM CDT): Patient essentially unchanged over the past week, continues to have sundowning/behaviors at night especially when woken from sleep. Will check reversible causes including TSH, B12, folate, vitamin-D. Patient had a recent CT head that was unremarkable. Patient likely had underlying very mild dementia and was functional/coping as an outpatient that significantly worsened after hospital stay, narcotic use, transferred to new facility, and COVID. Patient's family is insisting on getting a UA, culture if indicated-although patient is asymptomatic Assessment & Plan (12/05/2022 9:10 PM CDT): Slowly improving, patient able to answer simple questions and follow 1-2 step instructions. Continues to have some restlessness at night. Continue Effexor. MOCA . We will monitor as time improved delirium, speech therapy following Assessment & Plan (12/04/2022 8:20 PM CDT): Per family patient seems more interactive today with less combativeness. Patient has some concerned about worsening depression. Delirium felt secondary to pain medication, transferred from hospital to SNF, multiple room changes. Continue high-dose Effexor. Patient follows with psychiatrist is Dr Canchola [phone]. Per family patient does not have an underlying diagnosis of dementia. Continue supportive care, limit narcotic use. Added p.r.n. melatonin per family's request. Assessment & Plan (12/03/2022 11:20 AM CDT): Have reviewed ct head from nov 4 Have ordered lab tomorrow cbc, cmp, ua Have disc w son/daughter; they have requested four bedrails. Per admin, only two allowed in house and this is explained to the family. In interim, son is sitting w him and redirecting His psychiatrist is Dr Canchola [phone]; I have ordered effexor xr 225mg/day Intractable low back pain 11/25/2022 Assessment & Plan (01/02/2023 9:35 PM CDT): Pain is improved significantly, continue scheduled Tylenol, p.r.n. [place], recommend using sparingly Assessment & Plan (12/24/2022 8:04 PM CDT): Pain control is improving - rarely using [place], continue prn tylenol. Pt is participating with therapy and now making progress. Continue all therapy modalities Assessment & Plan (12/04/2022 8:20 PM CDT): Patient denies pain at present, continue p.r.n. Tylenol, p.r.n. [place], p.r.n. ibuprofen. We will need to monitor for renal dysfunction, anemia/gastritis with ibuprofen use. Hip/pelvic x-rays performed, demonstrating only osteoarthritis. Assessment & Plan (12/03/2022 11:17 AM CDT): I have ordered tylenol, lidoderm, and norco Rheumatoid arthritis involving multiple sites Assessment & Plan (01/02/2023 9:35 PM CDT): Stable, continue Plaquenil Assessment & Plan (12/03/2022 11:17 AM CDT): I have ordered plaquenil S/P coronary artery stent placement 08/06/2016 Pacemaker 01/04/2016 Overview (04/03/2023): Overview: [employer] Pacemaker - Assurity [id number] SN: [id number] - Implanted 01/04/[address] Jason Castillo RA: SJNaldo 1998 SN: [id number] (Implanted 01/04/2016) RV: SJM 1688 SN: [id number] (Implanted 01/04/2016) Actinic keratosis 08/02/2014 Keratosis, senilis 08/02/2014 Hyperglycemia 11/19/2013 Pneumonia 08/08/2013 Achalasia of esophagus 01/27/2012 Essential hypertension 01/07/2012 Overview (04/03/2023): PATRICK 08/2016 -- Rest PATRICK 1.24 R, 1.50 L. Exercise PATRICK normal bilaterally with biphasic to triphasic PVRs. TBIs mildly decreased 0.66 R, 0.62 L. Abdominal Ao US - no AAA Assessment & Plan (01/02/2023 9:39 PM CDT): Blood pressure well controlled, continue hydralazine, metoprolol Assessment & Plan (01/01/2023 1:59 PM CDT): BP well controlled, continue hydralazine, metoprolol Assessment & Plan (12/28/2022 8:58 PM CDT): Blood pressure is well controlled, continue metoprolol 100 mg daily, hydralazine 25 mg b.i.d.. Assessment & Plan (12/24/2022 8:00 PM CDT): BP controlled, continue hydralazine 25mg BID, metoprolol 100mg daily Assessment & Plan (12/18/2022 10:25 AM CDT): Blood pressure stable, continue metoprolol 100 mg daily, hydralazine 25 mg b.i.d. Assessment & Plan (12/12/2022 10:56 AM CDT): Blood pressure stable, continue hydralazine 25 mg b.i.d., metoprolol 100 mg daily. Assessment & Plan (12/10/2022 9:54 PM CDT): Blood pressure control improved, continue hydralazine 25 mg b.i.d., metoprolol 100 mg daily. Assessment & Plan (12/05/2022 9:11 PM CDT): Blood pressure remains elevated, has not received added hydralazine yet. We will refrain from adjusting dose until a full days dosing has been given. Continue metoprolol 100 mg daily, hydralazine 25 mg b.i.d.. Assessment & Plan (12/04/2022 8:26 PM CDT): Blood pressure is elevated, continue metoprolol 100 mg daily, add hydralazine 25 mg b.i.d. and titrate if needed. Unable to titrate beta-maureen further due to bradycardia. Coronary atherosclerosis of [place] coronary callie ry 10/09/2011 Assessment & Plan (01/02/2023 9:39 PM CDT): Stable, no chest pain. Continue aspirin, statin, blood pressure control Obstructive sleep apnea (adult) (pediatric) 08/28 Assessment & Plan (01/02/2023 9:32 PM CDT): And has home CPAP machine, will wear if applied to face by staff. Continue q.h.s. and p.r.n. sleep Assessment & Plan (01/01/2023 2:05 PM CDT): Home CPAP at bedside, pt using nightly. Assessment & Plan (12/28/2022 8:46 PM CDT): Notified by family today that patient uses CPAP, they have brought unit from home in, will order CPAP q.h.s. and p.r.n. sleep, in the hopes that this will assist with patient's alertness. Hypothyroidism 10/03/2010 Assessment & Plan (01/02/2023 9:38 PM CDT): Patient previously alternated dosing to simplify regimen continue Synthroid 75 mcg daily Assessment & Plan (12/03/2022 11:16 AM CDT): I have ordered synthroid 75mcg/day; at home he alterated 50mcg w 100mcg daily Asthma 10/03/2010 Leukocytopenia 09/08/2010 Atrial fibrillation 05/24/2010 Assessment & Plan (01/02/2023 9:39 PM CDT): Heart rate controlled, continue metoprolol. Continue Xarelto for anticoagulation. 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 INFORMATIONAL VISIT from Last 3 Months Immunizations Immunization Administration Dates Next Due Influenza, Trivalent, High D ose, Split, Preservative Free, Intramuscular 02/21/2024 Tdap 01/07/2023 Surgical History Surgery Date Site/Laterality Comments ABLATION Catheter Ablation - (Added by TW Conv) VENA CAVA FILTER PLACEMENT Interruption Inferior Vena Cava [place] Filter Placement - (Added by TW Conv) TX INSERT INTRACORONARY STENT Cath Stent Placement - (Added by TW Conv) TX VASECTOMY UNI/BI SPX W/PO STOP SEMEN EXAMS Surgery Vas Deferens Vasectomy - (Added by TW Conv) ESOPHAGOGASTRODUODENOSCOPY Diagnostic Esophagogastroduodenoscopy - (Added by TW Conv) TX COLONOSCOPY FLX DX W/ELIJAH J SPEC WHEN PFRMD Colonoscopy (Fiberoptic) - (Added by TW Conv) Medical History Medical History Date Comments History of other diseases of the circulatory system, not elsewhere classified Coronary Artery Disease - (A dded by TW Conv) Personal history of thrombophlebitis Thromboembolic Disease - (Added by TW Conv) Personal history of pulmonary embolism Pulmonary Embolism - (Added by TW Conv) Personal history of other di seases of the circulatory system History of hypertension - (A dded by TW Conv) Benign neoplasm of sigmoid colon Polyp of sigmoid colon - (Added by TW Conv) 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 Anticoagulant long-term use - (Added by TW Conv) Atrial fibrillation (HCC) Atrial fibrillation - (Added by TW Conv) Acute embolism and thrombosi s of deep vein of lower extremity (HCC) Deep vein thrombosis of lower extremity - (Added by TW Conv) Personal history of other en docrine, nutritional and metabolic disease History of hypothyro idism - (Added by TW Conv) Personal history of other en docrine, nutritional and metabolic disease History of diabetes mellitus - (Added by TW Conv) Social History Tobacco Use Types Packs/Day Years Used Date Smoking Tobacco: Never Interviu Me Answer Date Recorded In the past 12 months has th e Sonics, gas, oil, or water [employer] threatened to shut off services in your home? No 02/19/2024 Social Connection and Isolat ion Panel [NHANES] Answer Date Recorded In a typical week, how many times do you talk on the phone with family, friends, or neighbors? More than three times a week 02/19/2024 How often do you get togethe r with friends or relatives? Twice a week 02/19/2024 How often do you attend chur ch or voodoo services? Never 02/19/2024 Do you belong to any clubs o r organizations such as congregational groups, unions, fraternal or athletic groups, or school groups? No 02/19/2024 How often do you attend meet ings of the clubs or organizations you belong to? Never 02/19/2024 Are you , , di vorced, , never , or living with a partner? 02/19/2024 AUDIT-C Answer Date Recorded Q1: How often do you have a drink containing alcohol? Never 08/07/2023 Q2: How many drinks containi ng alcohol do you have on a typical day when you are drinking? Patient does not drink Q3: How often do you have si x or more drinks on one occasion? Never 08/07/2023 Overall Financial Resource Strain (CARDIA) Answe r Date Recorded How hard is it for you to pa y for the very basics like food, housing, medical care, and heating? Not hard at all 02/19/2024 Hunger Vital Sign Answer Date Recorded Within the past 12 months, y ou worried that your food would run out before you got the money to buy more. Never true 02/19/20 24 Within the past 12 months, t he food you bought just didn't last and you didn't have money to get more. Never true 02/19/2024 PRAPARE - Transportation Answer Date Re corded In the past 12 months, has l ack of transportation kept you from medical appointments or from getting medications? No 01/28 In the past 12 months, has l ack of transportation kept you from meetings, work, or from getting things needed for daily living? No 02/19/2024 Housing Stability Vital Sign Answer Pio e Recorded In the last 12 months, was t here a time when you were not able to pay the mortgage or rent on time? No 08/08/2023 In the last 12 months, how many places have you lived? 1 08/08/2023 In the last 12 months, was t here a time when you did not have a steady place to sleep or slept in a senior living (including now)? No 08/08/2023 Housing Stability Vital Sign Answer Pio e Recorded In the last 12 months, was t here a time when you were not able to pay the mortgage or rent on time? No 02/19/2024 In the past 12 months, how m any times have you moved where you were living? 1 02/19/2024 At any time in the past [address] [facility], were you homeless or living in a senior living (including now)? No 02/19/2024 Personal Safety Answer Date Recorded Have you ever been in or are you currently in a harmful physical or emotional relationship or is someone making you feel afraid or unsafe? Denies 03/04/2024 Education Answer Date Recorded What is the highest level of school you have completed or the highest degree you have received? 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 Gender Identity Not on file Sexual Orientation Not on file Obstetrics History Last Filed Vital Signs Vital Sign Reading Time Taken Comments Blood Pressure 102/52 03/04/2024 1:51 PM SAFE AND VAULT INSTALLER Pulse 62 03/04/2024 1:51 PM SAFE AND VAULT INSTALLER Temperature 36.4 C (97.6 F) 03/04/2024 1:51 PM SAFE AND VAULT INSTALLER Respiratory Rate 16 03/04/2024 1:51 PM SAFE AND VAULT INSTALLER Oxygen Saturation 97% 03/04/2024 1:51 PM SAFE AND VAULT INSTALLER Inhaled Oxygen Concentration - - Weight 74.8 kg (165 lb) 03/04/2024 1:51 PM SAFE AND VAULT INSTALLER Height 182.9 cm (6') 03/04/2024 1:51 PM SAFE AND VAULT INSTALLER Body Mass Index 22.38 03/04/2024 1:51 PM SAFE AND VAULT INSTALLER Plan of Treatment Health Maintenance Due Date Last Done Comments Depression Screening 1936 Hepatitis B Screening 1954 Zoster Vaccine (1 of 2) 1986 Well Visit 65+ 2001 Covid-19 Vaccine (2023-2 5 season) 2023 02/14/2021, 07/19/2020, 06/28/2020 Fall Risk Assessment 02/20/2025 02/21/2024 DTaP/Tdap/Td Vaccine (2 - Td or Tdap) 01/07/2033 01/07/2023, 02/15/2007 Pneumococcal vaccine 65+ Completed 02/16/2014, 12/29 Influenza Vaccine Completed 02/21/2024, , 01/27/2019, Additional history exists Insurance AETNA MEDICARE AETNA MEDICARE Advance Directives For more information, please contact: [phone] Documents on File Type Date Recorded Patient Grounds Crew Supervisor Expl anation Power of Project Manager/Team Coach 09/05/2023 12:36 PM ADVANCE DIRECTIVE 08/12/2023 10:21 AM Karen r of Project Manager/Team Coach-Medical ADVANCE DIRECTIVE 08/05/2023 6:12 PM POLST - Phys Order for PT Preferences * LIMITED - No CPR (Latest Code Status on File) Date Activated Date Inactivated Comments 02/14/2024 10:52 PM 02/21/2024 8:38 PM * Full Code Date Activated Date Inactivated Comments 08/07/2023 8:22 PM 08/12/2023 12:25 AM * Full Code Date Activated Date Inactivated Comments 08/05/2023 7:30 PM 08/07/2023 3:29 PM * LIMITED - No CPR Date Activated Date Inactivated Comments 11/25/2022 3:23 PM 12/01/2022 12:02 AM Question Answer Comments Provide aggressive medical m anagement before a full cardiopulmonary arrest occurs. Use antibiotics, IV Fluids, and medical treatment unless specifically selected below: No intubationNo non-invasive ventilationNo cardioversionNo internal / external pacemakerNo vasopressors * Full Code Date Activated Date Inactivated Comments 11/25/2022 10:56 AM 11/25/2022 3:23 PM Healthcare Agents on File Name Relationship Healthcare Agent [facility] p Communication Connor Marroquin First Alternate Health Care Agent Care Teams Motor Vehicle Escort Driver Relationship Specialty Start Date End Date Elian Dawson MD PCP - General 05/24/06 John Doe MD [address] [facility] [place] [address] PCP - Hospice Physician Family Medicine 04/25/24 Isael Devries MD [address] [facility] [address] [place] [address] Surgeon Orthopedic Surgery 08/11/23
--- OUTSIDE RECORDS SUMMARY | 2024-07-09 10:42 | XMS_ITS | Encounter Summary ---
Author Organization [facility] Health Address [address] [facility] [place] [address] Care Team Providers Care Non Destructive Testing Scientist Name Role Phone Elian Dawson MD Primary Care Provider [phone] Thierry Martini MD Unavailable Encounter Details Date Type Department Care Team (Late st Contact Info) Description 02/24/2024 Lab Requisition [facility] [address] [place] [id number] Michael Ivey MD [address] [place] [address] Social History Tobacco Use Types Packs/Day Years Used Date Smoking Tobacco: Never Smokeless Tobacco: Never Alcohol Use Standard Drinks/Week Comments No 0 (1 standard drink = 0.6 oz pur e alcohol) Sex and Gender Information Value Date Recorded Sex Assigned at Not on file Gender Identity Not on file Sexual Orientation Not on file documented as of this encounter Plan of Treatment Not on file documented as of this encounter Procedures Procedure Name Priority Date/Time Associated Diagnosis Comments CBC W AUTO DIFFERENTIAL STAT 02/24/2024 4:30 AM CDT COMPREHENSIVE METABOLIC PANEL STAT 02/24/2024 4:30 AM CDT documented in this encounter Results * (ABNORMAL) COMPREHENSIVE METABOLIC PANEL (02/24/2024 4:30 AM CDT) Glucose 67(L) 70 - 99 mg/dL 02/24/2024 10:35 AM CDT [facility] Sodium 142 136 - 145 mmol/L 02/24/2024 10:35 AM CDT [facility] Potassium 3.7 3.5 - 5.1 mmol/L 02/24/2024 10:35 AM CDT [facility] Chloride 107 98 - 107 mmol/L 02/24/2024 10:35 AM CDT [facility] CO2 28 22 - 29 mmol/L 02/24/2024 10:35 AM CDT [facility] Calcium 9.5 8.4 - 10.4 mg/dL 02/24/2024 10:35 AM CDT [facility] Anion Gap 7 6 - 16 mmol/L 02/24/2024 10:35 AM CDT [facility] BUN 12 7 - 26 mg/dL 02/24/2024 10:35 AM CDT [facility] Creatinine 0.94 0.72 - 1.25 mg/dL 02/24/2024 10:35 AM CDT [facility] Alkaline Phosphatase 101 40 - 150 U/L 02/24/2024 10:35 AM CDT [facility] ALT 12 0 - 55 U/L 02/24/2024 10:35 AM CDT [facility] AST 20 5 - 34 U/L 02/24/2024 10:35 AM T [facility] Protein Total 5.5(L) 6.4 - 8.3 gm/dL 02/24/2024 10:35 AM CDT [facility] Albumin 2.7(L) 3.4 - 5.0 gm/dL 02/24/2024 10:35 AM CDT [facility] Bilirubin Total 0.7 0.2 - 1.2 mg/dL 02/24/2024 10:35 AM T [facility] eGFR by CKD-EPI 78(L) >=90 mL/min/1.7 3 m2 02/24/2024 10:35 AM CDT [facility] Blood BLOOD SPECIMEN / Unknown Venipuncture / Unknown 02/24/2024 4:30 AM CDT 02/24/2024 9:31 AM CDT Michael Ivey MD LAB - CHEMISTRY WENDY ZAMORA [facility] Organization Address City/State/ZIP Co de Phone Number [facility] [address] [place] [address] * (ABNORMAL) CBC WITH DIFFERENTIAL (02/24/2024 4:30 AM CDT) [facility] WBC 3.4(L) 4.0 - 10.7 x10E9/L 02/24/2024 9:45 AM CDT [facility] RBC Count 3.99(L) 4.30 - 5.80 x10E12/L 02/24/2024 9:45 AM CDT [facility] Hemoglobin 11.9(L) 13.3 - 17.5 g/dL 02/24/2024 9:45 AM CDT [facility] Hematocrit 38.2(L) 38.7 - 51.1 % 02/24/2024 9:45 AM CDT [facility] MCV 95.7 80.0 - 98.0 fL 02/24/2024 9:45 AM CDT [facility] MCH 29.8 26.7 - 33.6 pg 02/24/2024 9:45 AM CDT [facility] MCHC 31.2(L) 31.7 - 36.3 g/dL 02/24/2024 9:45 AM CDT [facility] RDW-CV 15.4(H) 11.3 - 14.8 % 02/24/2024 9:45 AM CDT [facility] Platelet Count 171 150 - 420 x10E9/L 02/24/2024 9:45 AM CDT [facility] MPV 11.3 7.8 - 11.4 fL 02/24/2024 9:45 AM CDT [facility] Neutrophil % 51.4 41.0 - 74.0 % 02/24/2024 9:45 AM CDT [facility] Lymphocyte % 23.4 17.0 - 47.0 % 02/24/2024 9:45 AM CDT [facility] Monocyte % 12.4(H) 3.0 - 11.0 % 02/24/2024 9:45 AM CDT [facility] Eosinophil % 10.4(H) 0.0 - 7.0 % 02/24/2024 9:45 AM CDT [facility] Basophil % 2.1(H) 0.0 - 1.6 % 02/24/2024 9:45 AM CDT [facility] Immature Granulocytes % 0.3 0.0 - 1.0 % 02/24/2024 9:45 AM CDT [facility] Neutrophil Absolute 1.74 1.60 - 7.50 x10E9/L 02/24/2024 9:45 AM CDT [facility] Lymphocyte Absolute 0.79(L) 1.00 - 4.40 x10E9/L 02/24/2024 9:45 AM CDT [facility] Monocyte Absolute 0.42 0.15 - 1.00 x10E9/L 02/24/2024 9:45 AM CDT [facility] Eosinophil Absolute 0.35 0.00 - 0.60 x10E9/L 02/24/2024 9:45 AM CDT [facility] Basophil Absolute 0.07 0.00 - 0.13 x10E9/L 02/24/2024 9:45 AM CDT [facility] Blood BLOOD SPECIMEN / Unknown 02/24/2024 4:30 AM CDT 02/24/2024 9:31 AM CDT Michael Ivey MD LAB - HEMATOLOGY ORD ERABLES Performing Organization Address City/State/[facility] Co de Phone Number [facility] [address] [phone] documented in this encounter Visit Diagnoses Not on filedocumented in this encounter Care Teams Non Destructive Testing Scientist Relationship Specialty Start Date End Date Elian Dawson MD PCP - General 10/07/14 Thierry Martini MD Cardiovascular Disease 10/07/14 documented as of this encounter
--- OUTSIDE RECORDS SUMMARY | 2024-07-09 10:42 | XMS_ITS | Encounter Summary ---
Author Organization [facility] Address 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
--- OUTSIDE RECORDS SUMMARY | 2024-07-09 10:42 | XMS_ITS | Clinical Summary ---
Author Organization [facility] Address [facility] [place] [address] Care Team Providers Care Pantographer Name Role Phone Mia Mitchell [facility] Primary Care Provider [phone] Allergies Active Allergy Reactions Criticality Noted Date Comments Grass Pollen(K-O-R-T-Swt Sunil) Runny Nose Low 11/25 Medications acetaminophen (TYLENOL) 325 MG tablet Take 2 tablets 4 times a day by oral route. 01/03/2023 Active atorvastatin (LIPITOR) 10 MG tablet Take 1 tablet every day by oral route in the evening. 01/03/2023 Active vitamin C (ASCORBIC ACID) 1000 MG tablet 05/28/2023 Acti ve Dextromethorpha n-guaiFENesin (MUCINEX DM MAXIMUM STRENGTH) 60-1200 MG TABLET SR 12 HR 04/02/2023 Act sarah hydrALAZINE (APRESOLINE) 25 MG tablet Take 1 tablet twice a day by oral route. 01/03/2023 Active HYDROcodone-jane taminophen (NORCO) 5-325 MG tablet Take 1 tablet by mouth. 01/03/2023 Active hydroxychloroqu ine (PLAQUENIL) 200 MG tablet Take 1 tablet twice a day by oral route. 01/03/2023 Active levothyroxine (SYNTHROID) 75 MCG tablet Take 1 tablet every day by oral route in the morning. 01/03/2023 Active loperamide (IMODIUM) 2 MG capsule Take 1 capsule 4 times a day by oral route as needed. Active menthol-methyl salicylate (MUSCLE RUB) 10-15 % Cream 01/18/2023 Activ e metoprolol succinate ER (TOPROL-XL) 100 MG 24 hr tablet Take 1 tablet every day by oral route. 01/03/2023 Active Multiple Vitamin (MULTIVITAMIN) Tab 05/28/2023 Active polyethylene glycol (GLYCOLAX) 17 GM/SCOOP powder Take 17 g by mouth daily. 01/03/2023 Active QUEtiapine XR (SEROQUEL XR) 50 MG 24 hr tablet Take 2 tablets every day by oral route for 90 days. Active sennosides (SENNA-TIME) 8.6 MG Tab tablet Take 2 tablets every day by oral route. 01/03/2023 Active XARELTO 15 MG tablet Take 1 tablet every day by oral route in the evening. 01/03/2023 Active simvastatin (ZOCOR) 20 MG tablet 10/31/2022 Active QUEtiapine (SEROQUEL) 25 MG tablet Take 1 tablet (25 mg total) by mouth daily. 03/08/2023 Active polyvinyl alcohol 1% - povidone 0.6% (REFRESH PF) 1.4-0.6 % ophthalmic solution Instill one drop into both eyes as needed for discomfort. Active ARIPiprazole (ABILIFY) 2 MG tablet Take 0.5 tablets every day by oral route for 30 days, for Severe MDD. Active amoxicillin-cla vulanate (AUGMENTIN) 875-125 MG tablet Take 1 tablet (875 mg total) by mouth 2 (two) times daily. for 10 days 04/03/2023 Active Social History Tobacco Use Types Packs/Day Years Used Date Smoking Tobacco: Never Assessed PHQ-2 Answer Date Recorded Patient Health Questionnaire-2 Score 2 06/12/2023 Sex and Gender Information Value Date Recorded Sex Assigned at Not on file Legal Sex Male 12:47 PM EDGE STAINER MACHINE Gender Identity Not on file Sexual Orientation Not on file Last Filed Vital Signs Vital Sign Reading Time Taken Comments Blood Pressure 105/67 06/12/2023 1:20 PM EDGE STAINER MACHINE Pulse 67 06/12/2023 1:20 PM EDGE STAINER MACHINE Temperature 36.2 C (97.1 F) 06/12/2023 1:20 PM EDGE STAINER MACHINE Respiratory Rate - - Oxygen Saturation 95% 06/12/2023 1:20 PM EDGE STAINER MACHINE Inhaled Oxygen Concentration - - Weight 94.3 kg (208 lb) 06/12/2023 1:20 PM EDGE STAINER MACHINE Height 182.9 cm (6') 06/12/2023 1:20 PM EDGE STAINER MACHINE Body Mass Index 28.21 06/12/2023 1:20 PM EDGE STAINER MACHINE Plan of Treatment Health Maintenance Due Date Last Done Comments Zoster Vaccines (1 of 2) 1986 Annual Medicare Wellness Visit 2001 Pneumococcal Vaccine: 65+ Years (1 of 1 - PCV) 2001 RSV Immunization or 60+ Years (1 - 1-dose 75+ series) 11/05/2011 COVID-19 Vaccine (4 - 2023-2 5 season) 2023 02/14/2021, 07/19/2020, 06/28/2020 Influenza Adult (#1) 2024 02/20/2017, 02/12/2016, 02/01/2014 PHQ-2 (Physician [place]) 04/29/2024 06/12/2023 PHQ-2 (Physician [place]) 06/12/2024 06/12/2023 DTaP, Tdap and Td Vaccines ( 2 - Td or Tdap) 01/07/2033 01/07/2023 Meningococcal B Vaccine Aged Out No l onger eligible based on patient's age to complete this topic Meningococcal Vaccine Aged Out No irwin lazarus eligible based on patient's age to complete this topic RSV Immunizations Under 20 Months Aged Out No longer eligible b ased on patient's age to complete this topic Insurance AETNA Advance Directives Documents on File Type Date Recorded Patient Business Process Modeler Expl anation Power of Apparel Manufacture Instructor 06/09/2023 6:00 PM ISAA = Connor Justice = [facility] Care Teams Pantographer Relationship Specialty Start Date End Date Mia Mitchell, PRIMER SUPERVISOR-EMILY [address] [phone] PCP - General NURSE PRACTITIONER 03/19/23
--- OUTSIDE RECORDS SUMMARY | 2024-07-09 10:42 | XMS_ITS | Clinical Summary ---
Author Organization [facility] Address [address] [place] [address] Phone Care Team Providers Care Airport Maintenance Chief Name Role Phone Elian Dawson MD Primary Care Provider Medications No known medications Social History Tobacco Use Types Packs/Day Years Used Date Smoking Tobacco: Never Assessed Sex and Gender Information Value Date Recorded Sex Assigned at Not on file Legal Sex Male 11:30 PM CDT Gender Identity Not on file Sexual Orientation Not on file Last Filed Vital Signs Vital Sign Reading Time Taken Comments Blood Pressure 165/77 02/20/2023 4:30 PM CDT Pulse 71 02/20/2023 4:30 PM CDT Temperature 37.3 C (99.2 F) 02/20/2023 2:49 PM CDT Respiratory Rate 16 02/20/2023 2:49 PM CDT Oxygen Saturation 96% 02/20/2023 4:30 PM CDT Inhaled Oxygen Concentration - - Weight 90.7 kg (200 lb) 02/20/2023 2:49 PM CDT Height 180.3 cm (5' 11 ) 02/20/2023 2:49 PM CDT Body Mass Index 27.89 02/20/2023 2:49 PM CDT Plan of Treatment Not on file Insurance MEDICARE C AETNA Care Teams Airport Maintenance Chief Relationship Specialty Start Date End Date Elian Dawson [place] [id number] [place] [phone] PCP - General Internal Medicine 02/20/23
--- OUTSIDE RECORDS SUMMARY | 2024-07-09 10:42 | XMS_ITS | Encounter Summary ---
Author Organization [facility] Address 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
--- OUTSIDE RECORDS SUMMARY | 2024-07-09 10:42 | XMS_ITS ---
Author Organization [facility] Address [address] [place] [address] Care Team Providers Care Rug Inspector Helper Name Role Phone zzzzMigration, zzzzProvider Unavailable Unav ailable REASON FOR VISIT EMR-Edwin Encounters Encounter Location Date Provider Diagnosis [facility] [address] [facility] [address] [place] [address] 02/17/2023 zzzzProvider zzzzMigration Plan Of Treatment No Information Progress Notes * Edwardo PRYOR ADOB:1935 (88 yo M)Acc No.[id number]:02/17/2023 Patient: Sofia Edwardo WOLFF :1935 A ge:87 Y S ex:Male Address:[address] [place] [address] [address] [facility] [address] Subjective: * Chief Complaints: * E MR-Edwin * Medical History: * Surgical History: * Hospitalization/Major Diagno stic Procedure: * Medications: Objective: * Vitals: * Physical Examination: Assessment: Plan: * Treatment: * Procedure Codes: * * Date:
--- OUTSIDE RECORDS SUMMARY | 2024-07-09 10:42 | XMS_ITS | Encounter Summary ---
Author Organization [facility] Address [address] [place] [address] Care Team Providers Care Infection Prevention Coordinator Name Role Phone Elian Dawson MD Primary Care Provider Encounter Details Date Type Department Care Team (Latest Contact Info) Description 09/17/2007 Outpatient Historical [facility] [place] 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 HYDRAMATIC SPECIALIST Gender Identity Not on file Sexual Orientation Not on file documented as of this encounter Plan of Treatment Not on file documented as of this encounter Procedures Procedure Name Priority Date/Time Associated Diagnosis Comments TSH Routine 09/17/2007 11:46 AM CDT T4 FREE Routine 09/17/2007 11:46 AM CDT LIPID PANEL Routine 09/17/2007 11:46 AM CDT COMPREHENSIVE METABOLIC PANEL Routine 09/17/2007 11:46 AM CDT documented in this encounter Results * (ABNORMAL) COMPREHENSIVE METABOLIC PANEL (09/17/2007 11:46 AM CDT) [facility] Signature CHLORIDE 105 96 - 108 mmol/L [facility] ALBUMIN 4.3 3.4 - 4.8 g/dL [facility] CREATININE 1.22(H) 0.67 - 1.17 mg/dL [facility] SODIUM 139 135 - 145 mmol/L [facility] ALT 35 0 - 41 U/L [facility] ALKALINE PHOSPHATASE 78 40 - 129 U/L [facility] BILIRUBIN TOTAL 0.6 0.2 - 1.0 mg/dL [facility] CO2 29 22 - 30 mmol/L [facility] TOTAL PROTEIN 7.5 6.3 - 8.6 g/dL [facility] POTASSIUM 4.8 3.5 - 4.9 mmol/L [facility] GLUCOSE 98 65 - 99 mg/dL [facility] AST 33 12 - 38 U/L [facility] BUN 18 6 - 20 mg/dL [facility] CALCIUM 9.3 8.4 - 10.2 mg/dL [facility] GFR, >60 >=60 mL/min/1. 7 sq meter [facility] GFR 59(L) >=60 mL/min/1. 7 sq meter [facility] Comment: Modification of Diet in Renal Disease (MDRD) study formula. Estimated GFR rate interpretative information for both Americans and non- Americans is available on the [facility] Intranet at: [email or web address] Select: Lab Policies and Procedures Select: Reference Ranges - GFR Blood specimen (specimen) 09/17/2007 11:46 AM CDT 09/17/2007 12:12 PM CDT us Elian Dawson MD CHEMISTRY ORDERABLES Ed ited [facility] CLIA# [id number] [address] [place] [address] * (ABNORMAL) TSH (09/17/2007 11:46 AM CDT) [facility] TSH 4.85(H) 0.27 - 4.20 uU/mL [facility] Blood specimen (specimen) 09/17/2007 11:46 AM CDT 09/17/2007 12:12 PM CDT Elian Dawson MD CHEMISTRY ORDERABLES Fi nal Result Performing Organization Address City/[facility]/ZIP Co de Phone Number [facility] CLIA# [id number] [address] [place] [address] * (ABNORMAL) T4 FREE (09/17/2007 11:46 AM CDT) [facility] T4 FREE 0.8(L) 0.9 - 1.7 ng/dL [facility] Blood specimen (specimen) 09/17/2007 11:46 AM CDT 09/17/2007 12:12 PM CDT Elian Dawson MD CHEMISTRY ORDERABLES Fi nal Result Performing Organization Address City/[facility]/ZIP Co de Phone Number [facility] CLIA# [id number] [address] [place] [address] * (ABNORMAL) LIPID PANEL (09/17/2007 11:46 AM CDT) [facility] HDL 41 40 - 59 mg/dL [facility] CHOLESTEROL 206(H) 100 - 199 mg/dL [facility] CHOL/HDL RATIO 5.0 2.0 - 5.0 [facility] TRIGLYCERIDE 114 10 - 149 mg/dL [facility] LDL CALCULATED 142(H) <=99 mg/dL [facility] LIPID PANEL COMMENT See Below [facility] Comment: The adult ATP and pediatric NCEP classifications for lipids are available on the [facility] Intranet at: [email or web address] Select: Lab Policies and Procedures,Current Select: Lipid Panel Interpretation Blood specimen (specimen) 09/17/2007 11:46 AM CDT 09/17/2007 12:12 PM CDT us Elian Dawson MD CHEMISTRY ORDERABLES Ed ited [facility] CLIA# [id number] [address] [place] [address] documented in this encounter Visit Diagnoses Diagnosis Other and unspecified hyperlipidemia documented in this encounter Care Teams Infection Prevention Coordinator Relationship Specialty [place] [address] [facility] [address] [place] [address] PCP - General 04/15/00 documented as of this encounter
--- OUTSIDE RECORDS SUMMARY | 2024-07-09 10:42 | XMS_ITS | Encounter Summary ---
Author Organization [employer] Address [address] [place] [address] Care Team Providers Care Manager Foreign Name Role Phone Elian Dawson MD Primary Care Provider Encounter Details Date Type Department Care Team (Late st Contact Info) Description 01/29/2002 Outpatient Historical [facility] Jaskaran Vasquez MD [address] [place] [address] Emergency Department [place], [place] [id number] Er, Authorized P NO ADDRESS ON FILE ABDOMINAL PAIN OTHER SPEC SITE (Primary Dx) Social History Tobacco Use Types Packs/Day Years Used Date Smoking Tobacco: Never Assessed Sex and Gender Information Value Date Recorded Sex Assigned at Not on file Legal Sex Male 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
--- OUTSIDE RECORDS SUMMARY | 2024-07-09 10:42 | XMS_ITS | Encounter Summary ---
Author Organization [facility] Address 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
--- OUTSIDE RECORDS SUMMARY | 2024-07-09 10:42 | XMS_ITS | Encounter Summary ---
Author Organization [employer] Address [address] [place] [address] Care Team Providers Care Power Sewing Machine Operator Name Role Phone Elian Dawson MD Primary Care Provider Encounter Details Date Type Department Care Team (Latest Contact Info) Description 07/31/2006 Outpatient Historical [facility] [place] 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 Gender Identity Not on file Sexual Orientation Not on file documented as of this encounter Plan of Treatment Not on file documented as of this encounter Procedures Procedure Name Priority Date/Time Associated Diagnosis Comments PSA MEDICARE SCREEN Routine 07/31/2006 1 1:25 AM CDT CBC WITH DIFFERENTIAL Routine 07/31/2006 11:25 AM CDT CBC WITH DIFFERENTIAL Routine 07/31/2006 11:25 AM CDT TSH Routine 07/31/2006 11:25 AM CDT LIPID PANEL Routine 07/31/2006 11:25 AM CDT COMPREHENSIVE METABOLIC PANEL Routine 07/31/2006 11:25 AM CDT documented in this encounter Results * (ABNORMAL) CBC WITH DIFFERENTIAL (07/31/2006 11:25 AM CDT) NEUTROPHILS 38(L) 45 - 70 % INTERFAC E SYSTEM LYMPHOCYTES 41 16 - 45 % INTERFAC E SYSTEM MONOCYTES 14(H) 3 - 13 % INTERFACE SYSTEM EOSINOPHILS 6 0 - 7 % INTERFAC E SYSTEM BASOPHILS 2 0 - 2 % INTERFACE SYSTEM NEUTROPHIL ABSOLUTE 1.16(L) 1.90 - 7.00 K/uL INTERFACE SYSTEM LYMPHOCYTE ABSOLUTE 1.25 0.70 - 4.50 K/uL INTERFACE SYSTEM MONOCYTE ABSOLUTE 0.42 0.10 - 1.30 K/uL INTERFACE SYSTEM EOSINOPHIL ABSOLUTE 0.18 0.00 - 0.70 K/uL INTERFACE SYSTEM BASOPHILS ABSOLUTE 0.05 0.00 - 0.20 K/uL INTERFACE SYSTEM 07/31/2006 11:2 5 AM CDT Elian Dawson MD HEMATOLOGY ORDERABLES E dited INTERFACE SYSTEM Refer to clinic/hospital department * (ABNORMAL) CBC WITH DIFFERENTIAL (07/31/2006 11:25 AM CDT) WBC 3.1(L) 4.0 - 9.8 K/uL INTERFACE SYSTEM RBC 4.67 4.50 - 5.40 M/uL INTERFACE SYSTEM HEMOGLOBIN 15.3 13.6 - 16.5 g/dL INTERFACE SYSTEM HEMATOCRIT 44.4 40.0 - 48.0 % INTERFACE SYSTEM MCV 95.1 82.0 - 99.0 fL INTERFACE SYSTEM MCH 32.8(H) 27.2 - 32.6 pg INTERFACE SYSTEM MCHC 34.5 31.5 - 35.5 % INTERFACE SYSTEM RDW 13.1 11.5 - 14.5 % INTERFACE SYSTEM RDW-STDEV 44.9 37.1 - 48.7 fL INTERFACE SYSTEM PLATELETS 241 140 - 350 K/uL INTERFACE SYSTEM MPV 11.6 9.3 - 12.4 fL INTERFACE SYSTEM 07/31/2006 11:2 5 AM CDT us Elian Dawson MD HEMATOLOGY ORDERABLES E dited INTERFACE SYSTEM Refer to clinic/hospital department * TSH (07/31/2006 11:25 AM CDT) TSH 3.98 0.27 - 4.20 uU/mL INTERFACE SYSTEM 07/31/2006 11:2 5 AM CDT Elian Dawson MD CHEMISTRY ORDERABLES Ed ited INTERFACE SYSTEM Refer to clinic/hospital department * PSA MEDICARE SCREEN (07/31/2006 11:25 AM CDT) PSA, SCREEN 0.3 0.0 - 4.0 ng/mL INTERFACE SYSTEM Comment:Performed on Hello Chair M170 System 07/31/2006 11:2 5 AM CDT Elian Dawson MD CHEMISTRY ORDERABLES CO M Edited Performing Organization Address City/[facility] Co de Phone Number INTERFACE SYSTEM Refer to clinic/hospital department * LIPID PANEL (07/31/2006 11:25 AM CDT) CHOLESTEROL 146 100 - 199 mg/dL INTERFACE SYSTEM TRIGLYCERIDE 135 10 - 149 mg/dL INTERFACE SYSTEM HDL 40 40 - 59 mg/dL INTERFACE SYSTEM CHOL/HDL RATIO 3.7 2.0 - 5.0 INTER FACE SYSTEM LDL CALCULATED 79 <=99 mg/dL INTERFACE SYSTEM LIPID PANEL COMMENT See Below INTERFACE SYSTEM Comment: The adult ATP and pediatric NCEP classifications for lipids are available on the [facility] Intranet at: [email or web address] Select: Lab Policies and Procedures Select: Reference Ranges - Lipids 07/31/2006 11:2 5 AM CDT Elian Dawson MD CHEMISTRY ORDERABLES Ed ited INTERFACE SYSTEM Refer to clinic/hospital department * (ABNORMAL) COMPREHENSIVE METABOLIC PANEL (07/31/2006 11:25 AM CDT) GLUCOSE 96 65 - 99 mg/dL INTERFACE SYSTEM CREATININE 1.21(H) 0.67 - 1.17 mg/dL INTERFACE SYSTEM CALCIUM 9.3 8.4 - 10.2 mg/dL INTERFACE SYSTEM ALKALINE PHOSPHATASE 75 40 - 129 U/L INTERFACE SYSTEM AST 38 12 - 38 U/L INTERFACE SYSTEM ALT 39 0 - 41 U/L INTERFACE SYSTEM TOTAL PROTEIN 7.3 6.3 - 8.6 g/dL INTERFACE SYSTEM ALBUMIN 4.5 3.4 - 4.8 g/dL INTERFACE SYSTEM BILIRUBIN TOTAL 0.5 0.2 - 1.0 mg/dL INTERFACE SYSTEM BUN 18 6 - 20 mg/dL INTERFACE SYSTEM SODIUM 141 135 - 145 mmol/L INTERFACE SYSTEM POTASSIUM 4.5 3.5 - 4.9 mmol/L INTERFACE SYSTEM CHLORIDE 104 96 - 108 mmol/L INTERFACE SYSTEM CO2 27 22 - 30 mmol/L INTERFACE SYSTEM GFR, >60 >=60 mL/min/1. 7 sq meter INTERFACE SYSTEM GFR 59(L) >=60 mL/min/1. 7 sq meter INTERFACE SYSTEM Comment: Estimated GFR rate interpretative information for both Americans and non- Americans is available on the [facility] Intranet at: [email or web address] Select: Lab Policies and Procedures Select: Reference Ranges - GFR 07/31/2006 11:2 5 AM CDT us Elian Dawson MD CHEMISTRY ORDERABLES Ed ited INTERFACE SYSTEM Refer to clinic/hospital department documented in this encounter Visit Diagnoses Diagnosis Unspecified asthma(493.90)- Primary Unspecified asthma documented in this encounter Care Teams Power Sewing Machine Operator Relationship Specialty [place] [address] [address] [place] [address] PCP - General 04/15/00 documented as of this encounter
--- OUTSIDE RECORDS SUMMARY | 2024-07-09 10:42 | XMS_ITS | Patient Health Record ---
Author Organization [facility] Address [address] [place] [address] Support Name Relationship Address Phone Edwardo Justice Guarantor Unknown [phone] Reason For Referral No Information Plan Of Treatment No Information Insurance Providers Payer Name Payer Address Payer Phone Subscriber Number Group Number Insured Name Patient Relationship to Insured Coverage Start Date Coverage End Date [employer] [facility] [address] [place] [address] [id number] Edwardo Justice Self - patient is the insured 1
--- OUTSIDE RECORDS SUMMARY | 2024-07-09 10:42 | XMS_ITS | Encounter Summary ---
Author Organization [employer] Address 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 [place] [address] PCP - General 04/15/00 documented as of this encounter
--- OUTSIDE RECORDS SUMMARY | 2024-07-09 10:42 | XMS_ITS | Encounter Summary ---
Author Organization [facility] Address [address] [place] [address] Care Team Providers Care Inclusion Manager Name Role Phone Elian Dawson MD Primary Care Provider Encounter Details Date Type Department Care Team (Latest Contact Info) Description 08/04/2007 Outpatient Historical [facility] 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 Gender Identity Not on file Sexual Orientation Not on file documented as of this encounter Plan of Treatment Not on file documented as of this encounter Procedures Procedure Name Priority Date/Time Associated Diagnosis Comments PSA MEDICARE SCREEN Routine 08/04/2007 1 2:28 PM CDT TSH REFLEXIVE Routine 08/04/2007 12:28 PM CDT T4 FREE Routine 08/04/2007 12:28 PM CDT LIPID PANEL Routine 08/04/2007 12:28 PM CDT COMPREHENSIVE METABOLIC PANEL Routine 08/04/2007 12:28 PM CDT documented in this encounter Results * (ABNORMAL) T4 FREE (08/04/2007 12:28 PM CDT) FREE T4E,THYROID SCREEN 0.7(L) 0.9 - 1.7 ng/dL [facility] Blood specimen (specimen) 08/04/2007 12:28 PM CDT 08/04/2007 12:38 PM CDT us Elian Dawson MD CHEMISTRY ORDERABLES Fi nal Result [facility] [address] [place] [address] * (ABNORMAL) COMPREHENSIVE METABOLIC PANEL (08/04/2007 12:28 PM CDT) [facility] BILIRUBIN TOTAL 0.5 0.2 - 1.0 mg/dL [facility] CO2 29 22 - 30 mmol/L [facility] TOTAL PROTEIN 7.5 6.3 - 8.6 g/dL [facility] POTASSIUM 4.7 3.5 - 4.9 mmol/L [facility] GLUCOSE 102(H) 65 - 99 mg/dL [facility] AST 37 12 - 38 U/L [facility] BUN 14 6 - 20 mg/dL [facility] CALCIUM 9.5 8.4 - 10.2 mg/dL [facility] ALBUMIN 4.3 3.4 - 4.8 g/dL [facility] CHLORIDE 104 96 - 108 mmol/L [facility] CREATININE 1.15 0.67 - 1.17 mg/dL [facility] ALT 41 0 - 41 U/L [facility] SODIUM 140 135 - 145 mmol/L [facility] ALKALINE PHOSPHATASE 84 40 - 129 U/L [facility] GFR, >60 >=60 mL/min/1. 7 sq meter [facility] GFR >60 >=60 mL/min/1. 7 sq meter [facility] Comment: Estimated GFR rate interpretative information for both Americans and non- Americans is available on the [facility] Intranet at: [email or web address] Select: Lab Policies and Procedures Select: Reference Ranges - GFR Blood specimen (specimen) 08/04/2007 12:28 PM CDT 08/04/2007 12:38 PM CDT Result [facility] Elian Dawson MD CHEMISTRY ORDERABLES Ed ited [facility] [address] [place] [address] * (ABNORMAL) TSH WITH REFLEX FT4 (08/04/2007 12:28 PM CDT) TSH 4.49(H) 0.27 - 4.20 uU/mL [facility] Blood specimen (specimen) 08/04/2007 12:28 PM CDT 08/04/2007 12:38 PM CDT Result [facility] Elian Dawson MD CHEMISTRY ORDERABLES Ed ited [facility] [address] [place] [address] * PSA MEDICARE SCREEN (08/04/2007 12:28 PM CDT) PSA, SCREEN 0.4 0.0 - 4.0 ng/mL [facility] Comment:Performed on [employer] E170 system Blood specimen (specimen) 08/04/2007 12:28 PM CDT 08/04/2007 12:38 PM CDT Elian Dawson MD CHEMISTRY ORDERABLES CO M Edited Performing Organization Address [facility] Co de Phone Number [facility] [address] [place] [address] * (ABNORMAL) LIPID PANEL (08/04/2007 12:28 PM CDT) HDL 42 40 - 59 mg/dL [facility] CHOLESTEROL 218(H) 100 - 199 mg/dL [facility] CHOL/HDL RATIO 5.2(H) 2.0 - 5.0 [facility] TRIGLYCERIDE 123 10 - 149 mg/dL [facility] LDL CALCULATED 151(H) <=99 mg/dL [facility] LIPID PANEL COMMENT See Below [facility] Comment: The adult ATP and pediatric NCEP classifications for lipids are available on the [facility] Intranet at: [email or web address] Select: Lab Policies and Procedures,Current Select: Lipid Panel Interpretation Blood specimen (specimen) 08/04/2007 12:28 PM CDT 08/04/2007 12:38 PM CDT us Elian Dawson MD CHEMISTRY ORDERABLES Ed ited Performing Organization Address [facility] Co de Phone Number [facility] [address] [place] [address] documented in this encounter Visit Diagnoses Diagnosis Other abnormal blood chemistry documented in this encounter Care Teams Inclusion Manager Relationship Specialty [place] [address] [place] [address] PCP - General 04/15/00 documented as of this encounter
--- OUTSIDE RECORDS SUMMARY | 2024-07-09 10:42 | XMS_ITS | Encounter Summary ---
Author Organization [employer] [facility] Address 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
--- OUTSIDE RECORDS SUMMARY | 2024-07-09 10:42 | XMS_ITS | Continuity of Care Document ---
Author Organization [facility] Address [address] [id number] Care Team Providers Care Brimmer Blocker Name Role Phone Eunice Elian R Primary Care Physician Encounter [facility] Financial Number [id number] Date(s): 07/08/24 - 07/08/24 [facility] [address] [id number] Discharge Disposition: Home or Self Care Attending Physician: Avery Schumacher MD Referring Physician: Avery Schumahcer MD Encounter Type: Clinic Allergies, Adverse Reactions, Alerts No Known Allergies Assessment and Plan Future Appointments Appointment Date:09/30/2024 02:00:00 PM Scheduled Provider:Avery Schumacher MD Location:[facility] Appointment Type:[facility] Follow Up Appointment Date:12/03/2024 12:30:00 PM Scheduled Provider: Location:[facility] ST Appointment Type:[facility] DC Pacemaker Check Appointment Date:05/26/2025 10:45:00 AM Scheduled Provider: Location:[facility] Appointment Type:[facility] EKG Appointment Date:05/26/2025 11:00:00 AM Scheduled Provider: Location:[facility] Appointment Type:[facility] DC Pacemaker Check Appointment Date:05/26/2025 11:30:00 AM Scheduled Provider:Thierry Martini MD Location:[facility] Appointment Type:[facility] Follow Up Medications ascorbic acid 1000 mg oral tablet 1,000 mg, 1 tablet(s), Oral, daily, 30 tablet(s), Tablet(s), 0 Start Date: 06/14/23 Status: Ordered Quantity: 30.0 Unit: Repeat number: 1 Ativan 0.5 mg oral tablet 0.5 mg, 1 tablet(s), Oral, daily, 0 Start Date: 07/08/24 Status: Ordered Repeat number: 1 atorvastatin 10 mg oral tablet 10 mg, 1 tablet(s), Oral, daily, 90 tablet(s), Tablet(s), 0 Start Date: 06/14/23 Status: Ordered Quantity: 90.0 Unit: Repeat number: 1 calcium carbonate (Tums) 500 mg oral tablet, chewable 500 mg, 1 tablet(s), Oral, as needed, 30 tablet(s), Tablet(s), 0 Start Date: 06/14/23 Status: Ordered Quantity: 30.0 Unit: Repeat number: 1 Effexor XR 37.5 mg oral capsule, extended release 37.5 mg, 1 capsule(s), Oral, daily, 30 capsule(s), 0 Start Date: 07/08/24 Status: Ordered Quantity: 30.0 Unit: Repeat number: 1 ferrous sulfate 325 mg (65 mg elemental iron) oral tablet 325 mg, 1 tablet(s), Oral, bid with meals, Tablet(s), 0 Start Date: 07/08/24 Status: Ordered Repeat number: 1 guaiFENesin 600 mg oral tablet, extended release 600 mg, 1 tablet(s), Oral, [id number], 14 tablet(s), 0 Start Date: 07/08/24 Stop Date: 07/15/24 Status: Ordered Quantity: 14.0 Unit: Repeat number: 1 hydroxychloroquine 200 mg oral tablet 200 mg, 1 tablet(s), Oral, bid, 180 tablet(s), 3, 3, Route to Pharmacy Electronically, [facility], [id number], 180, cm, 10/22/2022 1334, Height, 97.8, kg, 10/22/2022 1335, Weight Start Date: 10/22/22 Stop Date: 10/17/23 Status: Ordered Quantity: 180.0 Unit: Repeat number: 4 Jardiance 10 mg oral tablet 10 mg, 1 tablet(s), Oral, daily, 30 tablet(s), Tablet(s), 3, 3, This medication can be used for both Heart Failure and Diabetes, please do not stop or substitute without talking to the prescribing physician., Route to Pharmacy Electronically, [facility], [id number], 180, cm, 07/12/23 14:24:00 CDT, Height, 87.3, kg, 06/19/24 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, Weight Start Date: 06/19/24 Status: Ordered Quantity: 30.0 Unit: Repeat number: 4 levothyroxine 75 mcg (0.075 mg) oral tablet 75 mcg, 1 tablet(s), Oral, daily before breakfast, 30 tablet(s), Tablet(s), 0 Start Date: 07/08/24 Status: Ordered Quantity: 30.0 Unit: Repeat number: 1 magnesium oxide 400 mg oral tablet 400 mg, 1 tablet(s), Oral, daily, 7 tablet(s), Tablet(s), 0 Start Date: 01/07/19 Stop Date: 01/14/19 Status: Ordered Quantity: 7.0 Unit: Repeat number: 1 memantine 5 mg oral tablet 5 mg, 1 tablet(s), Oral, daily, 30 tablet(s), Tablet(s), 0 Start Date: 07/08/24 Status: Ordered Quantity: 30.0 Unit: Repeat number: 1 Metoprolol Succinate ER 100 mg oral tablet, extended release 100 mg, 1 tablet(s), Oral, daily, 30 tablet(s), Tablet CR, 3, 3, Do Not Route Start Date: 06/19/24 Status: Ordered Quantity: 30.0 Unit: Repeat number: 4 MiraLax oral powder for reconstitution 1 packet(s), Oral, bid, 30 packet(s), Packet, 0 Start Date: 06/14/23 Status: Ordered Quantity: 30.0 Unit: Repeat number: 1 potassium chloride 10 mEq oral tablet, extended release 10 mEq, 1 tablet(s), Oral, daily with breakfast, 90 tablet(s), Tablet CR, 3, 3, Route to Pharmacy Electronically, [facility], [id number], 180, cm, 07/12/23 14:24:00 CDT, Height, 87.3, kg, 06/19/24 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, 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 Start Date: 06/22/24 Status: Ordered Quantity: 90.0 Unit: Repeat number: 4 senna 8.6 mg oral tablet 17.2 mg, 2 tablet(s), Oral, qpm, 20 tablet(s), Tablet(s), 0 Start Date: 06/14/23 Status: Ordered Quantity: 20.0 Unit: Repeat number: 1 simethicone 125 mg oral tablet, chewable 125 mg, 1 tablet(s), Oral, qid, PRN, 60 tablet(s), Tab Chew, 0, gas Start Date: 07/08/24 Status: Ordered Quantity: 60.0 Unit: Repeat number: 1 tamsulosin 0.4 mg oral capsule 0.4 mg, 1 capsule(s), Oral, pm after dinner, 30 capsule(s), Capsule(s), 0 Start Date: 07/08/24 Status: Ordered Quantity: 30.0 Unit: Repeat number: 1 torsemide 10 mg oral tablet 10 mg, 1 tablet(s), Oral, daily, 90 tablet(s), Tablet(s), 3, 3, Route to Pharmacy Electronically, [facility], [id number], 180, cm, 07/12/23 14:24:00 CDT, Height, 8 7.3, kg, 06/19/24 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, 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0 Unit: Repeat number: 1 Xarelto 20 mg oral tablet 20 mg, 1 tablet(s), Oral, pm with dinner, 90 tablet(s), 0, 0, Take with Food, Do Not Route Start Date: 06/19/24 Status: Ordered Quantity: 90.0 Unit: Repeat number: 1 ZyPREXA 2.5 mg oral tablet 2.5 mg, 1 tablet(s), Oral, daily, 60 tablet(s), Tablet(s), 0, 0, Do Not Route Start Date: 06/19/24 Status: Ordered Quantity: 60.0 Unit: Repeat number: 1 Problem List Condition Confirmation Course Effective Dates Status Health Status Informant Acute hypoxic respiratory failure Confirmed Active Asthma Confirmed Active Atrial fibrillation Confirmed Active CAD - Coronary artery disease Confirmed Active Pacemaker 1 Confirmed Active Claustrophobia Confirmed Active Coronary artery disease involving yuhaaviatam coronary artery of yuhaaviatam heart without angina pectoris 2 Confirmed Active CSA - Central sleep apnea Confirmed Active Diabetes mellitus 3 Confirmed Active High risk medication use Confirmed Active Shortness of breath Confirmed Active Ecchymosis Confirmed Active Essential hypertension 4 Confirmed Active 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 S/P ablation of atrial fibrillation 5 Confirmed Active Acute heart failure with preserved ejection fraction (HFpEF) Confirmed Active Left hip pain Confirmed Active S/P coronary artery stent placement Confirmed Active Hypercalcemia Confirmed Active Hypercholesteremia Confirmed Active Blood glucose elevated Confirmed Active Hyperparathyroidism Confirmed Active Hypothyroidism Confirmed Active Leukopenia Confirmed Active Localized swelling, mass and lump, neck Confirmed Active Major depressive disorder, single episode Confirmed Active VT (myocardial infarction) 6 Confirmed Active Obstructive sleep apnea Confirmed Active Osteoarthritis of multiple joints Confirmed Active PAF (paroxysmal atrial fibrillation) 7 Confirmed Active Periodic limb movement disorder Confirmed Active Polymyalgia rheumatica Confirmed Active Pulmonary embolism Confirmed Active Seronegative rheumatoid arthritis Confirmed Active Stiffness of left shoulder joint Confirmed Active Sinoatrial node dysfunction Confirmed Active Complex sleep apnea syndrome Confirmed Active 1Problem Detail Noted: 01/04/2016 Overview Signed 01/04/2016 8:42 AM by 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 [facility] Pacemaker - Assurity [id number] SN: [id number] - Implanted 01/04/[address] Jason Castillo RA: ARLEN 1998 SN: [id number] (Implanted 01/04/2016) RV: SJM 1688 SN: [id number] (Implanted 01/04/2016) 2Problem Detail Noted: 10/09/2011 Overview Addendum 08/19/2016 3:34 PM by Avery Schumacher MD Cath 2001 -- LVEDP 25-28 mmHg. LVEF [...] or infarct. Inferior artifact. EF > 70%. [id number] A1C up to 7, diet controlled 4Problem Detail Noted: 01/07/2012 Priority: Not Prioritized Overview Signed 08/20/2016 12:31 PM by Avery Schumacher MD PATRICK 08/2016 -- Rest PATRICK 1.24 R, 1.50 L. Exercise PATRICK normal bilaterally with biphasic to triphasic PVRs. TBIs mildly decreased 0.66 R, 0.62 L. Abdominal Ao US - no AAA 5Problem Detail Noted: 02/06/2017 Priority: Not Prioritized Overview Signed 02/06/2017 4:54 PM by Avery Schumacher MD Surgical AF ablation 2006 - thoracotomy for bilateral PVI with excision of left atrial appendage Percutaneous ablation 2013 - PVI/CTI/MVI/Roof ablation [id number] 7Problem Detail Noted: 05/24/2010 Overview Signed 08/06/2016 11:38 AM by Avery Schumacher MD LYSSA 10/2013 -- EF 60%, mild AI, mild MR, LAE, normal RVEF LYSSA 11/2014 -- mild LVH, EF 55-60%, severe LAE with spontaneous echo contrast but no thrombus, mild to mod MR, trace to mild AI, mod TR, RVSP 30 mmHg Procedures Procedure Date Related Diagnosis Body Site Status CT scan - whole body Comp leted MRI of brain Completed Social History Social History Type Response Alcohol Former alcohol user, Beer, 1-2 times per month Substance Abuse Never drug user Smoking Status Never smoker;Never; Tobacco Cessation Counseling Requested N/A entered on: 07/08/24 Sex Male Sex Representation Male (finding) Note * Event Display: Consent/Registration Forms * Event Display: Consent/Registration Forms * Event Display: ROI_Correspondence Authored Date: * Event Display: ROI_Correspondence Authored Date: * HPF, Image_Migration: VERIFY, PERFORM Event Display: ROI_Correspondence Authored Date: Heart * Event Display: Echocardiogram Report Cardiology * Event Display: [facility] Echo Complete * Event Display: [facility] Echo Complete Authored Date: [id number] [facility] [place] [address] \F\ [phone] Transthoracic Echocardiogram Patient Name: AMBAR PRYOR A : 1935 Study Date: 07/08/2024 2:11:24 PM Gender: M Technical Designer: BEATRIS Location: [address] Provider: AVERY SCHUMACHER Height(Cm): 180 BSA: 2.13 Weight(Kg): 91 Quality: Good Order Provider: AVERY SCHUMACHER PROCEDURES: Echocardiographic Report: Transthoracic echocardiogram with complete 2D, M-Mode, color and Doppler examination. INDICATIONS: Paroxysmal atrial fibrillation/ AFIB. I48.0 Heart failure with preserved ejection fraction Measurements: 2D/M Mode Doppler Measurement Value Normal Range Measurement Value Normal Range LVIDd 2D 4.6 [ 3.9 - 5.7 ] cm LVOT Peak Bo 43.8 [ 80.0 - 150.0 ] cm/s LVIDs 2D 2.9 [ 2.0 - 3.8 ] cm LVOT VTI 9.9 [ 20.0 - 30.0 ] cm IVSd 2D 1.0 [ 0.6 - 1.0 ] cm LVOT Diam 2.2 [ 1.4 - 2.6 ] cm LVPWd 2D 0.7 [ 0.6 - 1.0 ] cm SI LVOT 17.05 [ 35.00 - 70.00 ] mL/m2 LV Mass 128 g AV Peak Bo 68.7 cm/s LV Mass Index 60 [ 49 - 115 ] g/m2 AV Peak PG 1.9 mmHg RWT 0.30 [ 0.00 - 0.42 ] AV Mean PG 1.2 mmHg EDV Mod BP 76 [ 60 - 145 ] cm3 AV VTI 13.1 cm LV Diastolic Volume Index 36 [ 34 - 74 ] SUMANTH VTI 2.87 cm2 ESV Mod BP 40 [ 20 - 60 ] cm3 AV DV Index (Velocity) 0.64 [ >= 0.50 ] EF Mod BP 47 [ 50 - 74 ] % AV DVTI Index (VTI) 0.76 [ >= 0.50 ] LV FS 2D 36 [ 25 - 47 ] % MV E Peak Bo 105.3 [ 70.0 - 120.0 ] cm/s LA Volume Index 43.10 [ 20.00 - 34.00 ] cc/m2 MV Decel Time 178.3 [ 180.0 - 240.0 ] msec RA Area 24 [ 8 - 20 ] cm2 MV Mean PG 1.0 mmHg LVOT Diam 2.2 [ 1.4 - 2.6 ] cm PV Mean PG 1.1 mmHg AoR Diam 2D 3.2 [ 2.0 - 3.7 ] cm PV Peak Bo 74.6 [ 80.0 - 150.0 ] cm/s Asc Ao Diam 2D 2.4 [ 2.0 - 3.7 ] cm PV Peak PG 2.2 mmHg LA Volume BP 91.80 ml PV VTI 13.2 cm ___ ___ ___ TR Peak Bo 319.9 [ 150.0 - 270.0 ] cm/s ___ ___ ___ TR Peak PG 40.9 [ 20.0 - 32.0 ] mmHg ___ ___ ___ Lat E` Bo 9.20 cm/s ___ ___ ___ Med E` Bo 7.27 cm/s ___ ___ ___ Average E` 8.24 cm/s ___ ___ ___ E/E` 12.78 [ <= 14.00 ] Measurement Value Normal Range Measurement Value Normal Range 2D/M Mode Doppler - FINDINGS: Left Ventricle: Normal left ventricular cavity size. Low normal global left ventricular systolic function with septal dyssynchrony. The left ventricular ejection fraction is visually estimated at 50-55 %. Indeterminate diastolic function due to atrial fibrillation or flutter. Normal left ventricular mass index. Right Ventricle: The right ventricle is not well visualized. Dilated right ventricle on limited views. Probably mild to moderate right ventricular systolic dysfunction on limited views. Pacemaker wire noted in the right heart. Left Atrium: Moderately dilated left atrium. Right Atrium: Mildly to moderately dilated right atrium. Atrial Septum: The atrial septum is not well visualized. Mitral Valve: Mild thickening of the anterior and posterior mitral valve leaflets. Moderate mitral regurgitation. (ERO 0.2 cmsq.). No mitral stenosis. Aortic Valve: Mild focal thickening of the aortic valve with uncertain leaflet morphology. Trace to mild aortic regurgitation. Tricuspid Valve: Normal appearance of the tricuspid valve. There is severe tricuspid regurgitation. Pulmonic Valve: The pulmonic valve is not well visualized. No pulmonic stenosis. There is trace to mild pulmonic regurgitation. Pericardium: No hemodynamically significant pericardial effusion. Aorta: Aortic root size is normal. IVC: The inferior vena cava is not well visualized. Rhythm: The rhythm during the study was atrial fibrillation. CONCLUSIONS: 1. Technically difficult study. 2. The left ventricular ejection fraction is visually estimated at 50-55 %. 3. The right ventricle is not well visualized. Dilated right ventricle on limited views. Probably mild to moderate right ventricular systolic dysfunction on limited views. Pacemaker wire noted in the right heart. 4. Moderately dilated left atrium. 5. Mildly to moderately dilated right atrium. 6. Moderate mitral regurgitation. (ERO 0.2 cmsq.). 7. There is severe tricuspid regurgitation. 8. RV systolic pressure peak = 41 mmHg + right atrial pressure. Electronically Signed By: Avery Schumacher III, MD [facility] 2024-07-08 15:17:19 CDT Patient Care team information Care Team Personnel Name: Elian Dawson M.D. Position: [facility] FAX ONLY - NOT ON STAFF Member Role: Primary Care Physician Address: [address] [place], [place] [address]- Telecom: Name: Avery Schumacher MD Position: Physician - Cardiology Member Role: Specialist Physician Address: [address] [address] [place], [place] [address] Telecom: Name: Jeff Ellis MD Position: Physician - Sleep Medicine Member Role: Specialist Physician Address: [address] [facility] [place] [address] Telecom: Name: Lindy Pedroza M.D. Position: Physician - Rheumatology Member Role: Specialist Physician Address: [address] [facility] [address] [place], [place] [address]- Telecom: Name: Alicja Guzman HANDBAG FINISHER Position: AMB HANDBAG FINISHER/PA Member Role: Nurse Practitioner Address: [address] [facility] [address] [place] [address] Telecom: Name: Avery Schumacher MD Position: Physician - Cardiology Med Service: Goldbeater Brimmer Blocker Role: Attending Physician Address: [address] [address] [place], [place] [address] Telecom: Care Team Related Persons Name: DEMETRIO PRYOR Name: DEMETRIO PRYOR Insurance Providers Guarantor name: AMBAR PRYOR Health Plan Information #: 1 Payer: [employer] Member Number: [id number] Policy Number: NA Group Number: NA Payer Identifier: [id number] Health Plan Information #: 2 Payer: [employer] Member Number: [id number] Policy Number: NA Group Number: NA Payer Identifier: [id number]
--- OUTSIDE RECORDS SUMMARY | 2024-07-09 10:42 | XMS_ITS | Clinical Summary ---
Author Organization [facility] Address [address] [place] [address] Phone Care Team Providers Care Slasher Operator Name Role Phone Elian Dawson MD Primary Care Provider Allergies No known active allergies Medications CYANOCOBALAMIN, VITAMIN B-12, (B-12 DOTS ORAL)Indication s:LOWRY (dyspnea on exertion) Take by mouth daily. Active magnesium oxide (MAG-OX) 400 mg tabletIndicatio ns:LOWRY (dyspnea on exertion) Take 400 mg by mouth daily. Active XARELTO 15 mg Tablet TAKE 1 TABLET DAILY AT BEDTIME 90 Tab 1 5 Active venlafaxine (EFFEXOR XR) 75 mg Extended Release 24 hour capsule Take 150 mg by mouth daily . 5 Active metoprolol succinate (TOPROL XL) 100 mg Extended Release 24 hour tablet Take 100 mg by mouth daily Take one and a half tablet daily . Active hydroxychloroqu ine (PLAQUENIL) 200 mg tablet Take 200 mg by mouth 2 times daily. Active simvastatin (ZOCOR) 20 mg tablet Take 20 mg by mouth daily. 2 Active cholecalciferol (vitamin D3) 25 mcg (1,000 unit) capsule Take 1,000 Units by mouth daily. Active levothyroxine 50 mcg tablet TAKE 1 TABLET ON EVEN DAYS, AND 2 TABLETS ON ODD DAYS 135 Tablet 3 3 Active acetaminophen (TYLENOL) 500 mg tablet Take 500 mg by mouth every 6 hours as needed. Active calcium as carbonate (TUMS) 500 mg (200 mg elemental) Tablet, Chewable Take 200 mg by mouth 1 time daily as needed for Indigestion. Active ascorbic acid, vitamin C, (VITAMIN C) 1,000 mg Tablet Take 1,000 mg by mouth daily. Active MULTIVITAMIN ORAL Take 1 Tablet by mouth daily. Active polyethylene glycol 3350 (MIRALAX) 17 gram/dose Powder Take by mouth 1 time daily as needed for Constipation. Dissolve in 8 ounces of fluid and drink entire liquid Active loperamide (IMODIUM) 2 mg Tablet Take 2 mg by mouth 4 times daily as needed for Diarrhea/Loose Stools. Active polyvinyl alcohol-povidon ,PF, (REFRESH CLASSIC) 1.4-0.6 % solution Administer 1 Drop in both eyes PRN for Discomfort. Active dextromethorpha n-guaiFENesin (MUCINEX DM) 30-600 mg Tablet Sustained Release 12HR Take 1 Tablet by mouth 2 times daily as needed for Cough or Congestion. Active methyl salicylate-ment hol (BENGAY) 15-10 % Cream Apply to affected area every 6 hours as needed for Discomfort. 28 Gram 4 3 Active Active Problems Patient Care Coordination No te Formatting of this note migh t be different from the original. Grinding Room Inspector- Dr Thierry Martini Problem Noted Date Diagnosed Date Vitamin B 12 deficiency 03/14/2020 History of depression 03/26/2017 S/P ablation of atrial fibrillation 02/06/2017 Overview (03/26/2017): Overview: Surgical AF ablation 2006 - thoracotomy for bilateral PVI with excision of left atrial appendage Percutaneous ablation 2013 - PVI/CTI/MVI/Roof ablation S/P coronary artery stent placement 08/06/2016 Pacemaker 01/04/2016 Overview (03/26/2017): Overview: [employer] Pacemaker - Assurity [id number] SN: [id number] - Implanted 01/04/[address] Jason Castillo RA: RALEN 1998 SN: [id number] (Implanted 01/04/2016) RV: [id number] SN: [id number] (Implanted 01/04/2016) Hyperglycemia 11/19/2013 LOWRY (dyspnea on exertion) 08/08/2013 Pneumonia 08/08/2013 Essential hypertension 01/07/2012 Coronary atherosclerosis of [place] coronary callie ry 10/09/2011 Obstructive sleep apnea (adult) (pediatric) 08/28 SSS (sick sinus syndrome) 11/16/2010 Asthma 10/03/2010 Routine general medical exam ination at a health care facility 10/03/2010 Hypothyroidism 10/03/2010 Depressive disorder, not elsewhere classified Mixed hyperlipidemia 09/08/2010 Leukocytopenia, unspecified 09/08/2010 Atrial fibrillation 05/24/2010 Implantable Loop Recorder Overview (01/27/2013): [employer] Implantable Loop Recorder - Confirm [id number] SN: [id number] - Implanted 12/31/[address] Jason Castillo Immunizations Immunization Administration Dates Next Due (PNEUMOVAX 23)(50 YRS UP) PN EUMOCOCCAL POLYSACCHARIDE (PPV23) 0.5 ML, IM 01/17/2005 (PREVNAR 13)(6 WKS UP) PNEUM OCOCCAL CONJUGATE (PCV13) 0.5 ML, IM 02/16/2014 (TDVAX)(7 YRS UP) TETANUS AN D DIPHTHERIA TOXOIDS, ADSORBED (2 LF OF TETANUS TOXOID AND 2 LF OF DIPHTHERIA TOXOID), 0.5ML (PF), IM 02/15/2007 INFLUENZA VACCINE HIGH DOSE QUADRIVALENT 65 YR UP PF IM 03/22/2021,01/05/2020 Influenza Seasonal Unspecifi ed Formulation IM 01/27/2019,01/28/2016,02/23/2015,02/01,02/23/2013,01/07/2012 Influenza Vaccine High Dose 65+ Yrs IM 8 Family History Medical History Relation Name Comments Cancer Father Heart Attack Father Lung Cancer Father Diabetes Mother Heart Failure Paternal Grandfather Heart Failure Paternal Grandmother Hypertension Paternal Grandmother Tuberculosis Paternal Grandmother Tuberculosis Paternal Uncle Asthma Neg Hx Bronchitis Neg Hx Emphysema Neg Hx Mesothelioma Neg Hx Relation Name Status Comments Father Mother Paternal Grandfather Paternal Grandmother Paternal Uncle Social History Tobacco Use Types Packs/Day Years Used Date Smoking Tobacco: Never Passive Smoke Exposure: Never Smokeless Tobacco: Never Alcohol Use Standard Drinks/Week Comments Yes 0 (1 standard drink = 0.6 oz pur e alcohol) social Financial Resource Strain Answer Date R ecorded How hard is it for you to pa y for the very basics like food, housing, medical care, and heating? Not hard at all 10/15/2022 Food Insecurity Answer Date Recorded In the past 12 months, have you worried that your food would run out before you had money to buy more? Never true 10/15/2022 In the past 12 months, did y ou run out of food and didn't have money to buy more? Never true 10/15/2022 Transportation Needs Answer Date Record ed In the past 12 months, has l ack of transportation kept you from medical appointments or from getting medications? 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 Gender Identity Not on file Sexual Orientation Not on file Occupation Industry Job Start Date Job End Date Not on file Not on file Not on file Not on file Last Filed Vital Signs Vital Sign Reading Time Taken Comments Blood Pressure 124/70 10/15/2022 1:17 PM CDT BP similar right to left arm, no orthostatic change Pulse 60 10/15/2022 1:17 PM CDT Temperature 36.7 C (98.1 F) 10/15/2022 1:17 PM CDT Respiratory Rate 16 10/15/2022 1:17 PM CDT Oxygen Saturation 95% 10/15/2022 1:1 7 PM CDT Inhaled Oxygen Concentration - - Weight 97.1 kg (214 lb) 10/15/2022 1:17 PM CDT Height 181.6 cm (5' 11.5 ) 10/15/2022 1 :17 PM CDT Body Mass Index 29.43 10/15/2022 1:17 PM CDT Plan of Treatment Health Maintenance Due Date Last Done Comments ZOSTER VACCINE (1 of 2) 11[birth year]05/1954 DTAP/TDAP/TD VACCINES (1 - Tdap) 02/16/2007 02/16/20 07 RSV VACCINE (60+ or ) (1 - 1-dose 75+ series) 11/05/2011 INFLUENZA VACCINE (#1) 2023 , 01/05/2020, 01/27/2019, Additional history exists Medicare Advantage ([place]) Preventative Visit/Annual Wellness Visit 04/29/2024 10/15/2022, 10/16/2021, 03/14/2020, Additional history exists PNEUMOCOCCAL VACCINE 50+ YEARS Completed 02/16/2014 , 01/17/2005 Medical Devices Implanted Type Area Fire Production Operator Device Identifier Shelf Expiration Date Model / Serial / Lot Loop Recorder Implanted:(Quant ity not on file) Explanted:(Quant ity not on file) Vena Cava Filter Implanted:(Quant ity not on file) Explanted:(Quant ity not on file) Stent X1 Implanted:(Quant ity not on file) Explanted:(Quant ity not on file) Insurance [facility] Advance Directives For more information, please contact: [phone] Documents on File Type Date Recorded Patient Painting Worker Expl anation Advance Directive POA 08/06/2013 9:51 AM A dvance Directive POA * Full Code (Latest Code Status on File) Date Activated Date Inactivated Comments 09/22/2014 12:25 PM 09/23/2014 2:24 AM * Full Code Date Activated Date Inactivated Comments 11/09/2013 5:36 PM 11/10/2013 2:16 PM * Full Code Date Activated Date Inactivated Comments 11/09/2013 10:33 AM 11/09/2013 5:36 PM * Full Code Date Activated Date Inactivated Comments 10/08/2013 8:16 AM 10/09/2013 2:17 AM * Full Code Date Activated Date Inactivated Comments 08/08/2013 11:08 PM 08/13/2013 5:02 PM Care Teams Slasher Operator Relationship Specialty [place] [id number] [id number] PCP - General 04/15/00
--- OUTSIDE RECORDS SUMMARY | 2024-07-09 10:42 | XMS_ITS | Encounter Summary ---
Author Organization [facility] Address 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 [place] [phone] PCP - General 04/15/00 documented as of this encounter
--- OUTSIDE RECORDS SUMMARY | 2024-07-09 10:42 | XMS_ITS | Encounter Summary ---
Author Organization [employer] [facility] Address 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
--- OUTSIDE RECORDS SUMMARY | 2024-07-09 10:42 | XMS_ITS | Encounter Summary ---
Author Organization [facility] Address [address] [place] [address] Care Team Providers Care Senior Civil Engineer Name Role Phone Elian Dawson MD Primary Care Provider Encounter Details Date Type Department Care Team (Late st Contact Info) Description 07/23/2002 Outpatient Historical [facility] [place] 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 [place] [address] PCP - General 04/15/00 documented as of this encounter
--- OUTSIDE RECORDS SUMMARY | 2024-07-09 10:42 | XMS_ITS | Referral Summary ---
Author Organization [facility] Address [address] [place] [address] Care Team Providers Care Test Desk Trouble Locator Name Role Phone Elian Dawson MD Primary Care Provider Isael Devries MD Unavailable [phone] John Doe MD Unavailable [phone] Encounters Date Type Department Care Team Description 04/26/2024 1:00 PM MICROBIOLOGICAL ANALYST Home Care Visit [address] [address] [address] [place] [address] Jackson Landrum, RN [facility] INFORMATIONAL VISIT from Last 3 Months Allergies Active Allergy Reactions Criticality Noted Date [...] 1 tablet (75 mcg total) by mouth early head start teacher before breakfast 30 tablet 3 Active metoprolol [...] hours as needed for agitation. Indications: delirium Active bisacodyL (DULCOLAX) 10 mg suppositoryIndic ations:Bowel Evacuation,const ipation Insert 10 mg into the rectum daily as needed for constipation. Indications: constipation, emptying of the bowel Active oxygenIndication s:Dyspnea Administer 2-4 L/min into [...] dose Effexor. Patient has been accepted at [facility], will discharge when room available. Assessment & Plan (01/01/2023 2:04 PM CDT): Mood depressed and affect flat but has been making progress with therapy. Pt has been accepted at [facility], awaiting pt family to move in [facility] this week. Pt more interactive today, answering simple questions. Continue effexor Assessment & Plan (12/28/2022 8:54 PM CDT): Patient with labile interaction/alertness. Slums has improved to 17/30 but continues to indicate moderate cognitive decline. Patient has been accepted at [facility], however family requires time to move patient [...] use of Molnupavrir for the treatment of nhvr-vp-eijaqncz COVID-19 in adults. The Fact Sheet for [...] Patient follows with psychiatrist is Dr Canchola [phone]. Per family patient does not have an [...] and redirecting His psychiatrist is Dr Canchola [phone]; I have ordered effexor xr 225mg/day Intractable low back pain 11/25/2022 Assessment & Plan (01/02/2023 9:35 PM CDT): Pain is improved significantly, continue scheduled Tylenol, p.r.n. [place], recommend using sparingly Assessment & Plan (12/24/2022 8:04 PM CDT): Pain control is improving - rarely using [place], continue prn tylenol. Pt is participating with therapy and now making progress. Continue all therapy modalities Assessment & Plan (12/04/2022 8:20 PM CDT): Patient denies pain at present, continue p.r.n. Tylenol, p.r.n. [place], p.r.n. ibuprofen. We will need to monitor [...] (04/03/2023): Overview: [employer] Pacemaker - Assurity [id number] SN: [id number] - Implanted 01/04/[address] Jason Castillo RA: ARLEN 1999 SN: [id number] (Implanted 01/04/2016) RV: KENYON 1688 SN: [id number] (Implanted 01/04/2016) Actinic keratosis 08/02/2014 Keratosis, senilis [...] further due to bradycardia. Coronary atherosclerosis of [place] coronary callie ry 10/09/2011 Assessment & Plan [...] (12/03/2022 11:15 AM CDT): I ordered xarelto Immunizations Immunization Administration Dates Next Due Influenza, Trivalent, High D ose, Split, Preservative Free, Intramuscular 02/21/2024 Tdap 01/07/2023 Social History Tobacco Use Types Packs/Day Years Used Date Smoking Tobacco: Never [facility] Utilities Answer Date Recorded In the past 12 months has [employer] oil, or water [employer] threatened to shut off services in your [...] often do you attend chur ch or spiritism services? Never 02/19/2024 Do you belong to any clubs o r organizations such as zoroastrian groups, unions, fraternal or athletic groups, or [...] place to sleep or slept in a jail (including now)? No 08/08/2023 Housing Stability Vital Sign Answer Pio e Recorded In the last 12 months, was t here a time when you were not able to pay the mortgage or rent on time? No 02/19/2024 In the past 12 months, how m any times have you moved where you were living? 1 02/19/2024 At any time in the past 12 m [facility], were you homeless or living in a jail (including now)? No 02/19/2024 Personal Safety Answer [...] on file Legal Sex Male 12:16 AM MICROBIOLOGICAL ANALYST Gender Identity Not on file Sexual Orientation Not on file Last Filed Vital Signs Vital Sign Reading Time Taken Comments Blood Pressure 102/52 03/04/2024 1:51 PM MICROBIOLOGICAL ANALYST Pulse 62 03/04/2024 1:51 PM MICROBIOLOGICAL ANALYST Temperature 36.4 C (97.6 F) 03/04/2024 1:51 PM MICROBIOLOGICAL ANALYST Respiratory Rate 16 03/04/2024 1:51 PM MICROBIOLOGICAL ANALYST Oxygen Saturation 97% 03/04/2024 1:51 PM MICROBIOLOGICAL ANALYST Inhaled Oxygen Concentration - - Weight 74.8 kg (165 lb) 03/04/2024 1:51 PM MICROBIOLOGICAL ANALYST Height 182.9 cm (6') 03/04/2024 1:51 PM MICROBIOLOGICAL ANALYST Body Mass Index 22.38 03/04/2024 1:51 PM MICROBIOLOGICAL ANALYST Plan of Treatment Not on file Insurance [employer] MEDICARE [facility] MEDIC[facility] Advance Directives For more information, please contact: [phone] Documents on File Type Date Recorded Patient Color Adviser Expl anation Power of Correspondence School Instructor 09/05/2023 12:36 PM ADVANCE DIRECTIVE 08/12/2023 10:21 AM Karen r of Correspondence School Instructor-Medical ADVANCE DIRECTIVE 08/05/2023 6:12 PM POLST - [...] Agents on File Name Relationship Healthcare Agent Relationshi p Communication Connor Marroquin First Alternate Health Care Agent Care Teams Test Desk Trouble Locator Relationship Specialty Start Date End Date Elian Dawson MD PCP - General 05/24/06 John Doe MD [address] [place] [address] PCP - Hospice Physician Family Medicine 04/25/24 Isael Devries MD [address] [place] [address] Surgeon Orthopedic Surgery 08/11/23
--- OUTSIDE RECORDS SUMMARY | 2024-07-09 10:42 | XMS_ITS | Referral Summary ---
Author Organization [facility] Address [address] [place] [address] Care Team Providers Care Software Development Engineer Name Role Phone Elian Dawson MD Primary Care Provider [phone] Thierry Martini MD Unavailable [phone] Source Comments [facility],non-owned Affiliates and Associated Physician Practices is amultiple site organization consisting of ambulatory clinics and hospital sitesin [place], [place], [place] and [place]. This disclosure is being madepursuant to the Care Everywhere program and may not contain all information available regarding this patient. Last updated 18.[facility] Allergies No known active allergies Medications * [...] Overview (01/04/2016): [employer]ron Pacemaker - Assurity [id number] SN: [id number] - Implanted 01/04/[address] Jason Castillo RA: ARLEN 1998 SN: [id number] (Implanted 01/04/2016) RV: SJ 1688 SN: [id number] (Implanted 01/04/2016) Blood glucose elevated 11/19/2013 Essential hypertension 01/07/2012 Overview (08/20/2016): PATRICK 08/2016 -- Rest PATRICK 1.24 R, 1.50 L. Exercise PATRICK normal bilaterally with biphasic to triphasic PVRs. TBIs mildly decreased 0.66 R, 0.62 L. Abdominal Ao US - no AAA Coronary artery disease invo lving [place] coronary artery of [place] heart without angina pectoris 10/09/2011 Overview (08/19/2016): [...] [employer]ron Implantable Loop Recorder - Confirm [id number] SN: [id number] - Implanted 12/31/[address] Jason Castillo Overview: [employer] Implantable Loop Recorder - Confirm [id number] SN: [id number] - Implanted 12/31/[address] Castillo [employer]ron Medical ILR - Confirm [id number] SN: [id number] - Implanted 12/31/[address] Jason Castillo [...] Comments Blood Pressure 121/80 05/27/2020 1:42 PM SPEECH COACH Pulse 60 05/27/2020 1:42 PM SPEECH COACH Temperature 36.5 C (97.7 F) 01/04/2016 7:27 AM CDT Respiratory Rate 10 05/27/2020 1:42 PM SPEECH COACH Oxygen Saturation 96% 03/04/2019 11:25 AM SPEECH COACH Inhaled Oxygen Concentration - - Weight 101.6 kg (224 lb) 05/27/2020 1:42 PM SPEECH COACH Height 181.6 cm (5' 11.5 ) 05/27/2020 1:42 PM CS T Body Mass Index 30.81 05/27/2020 1:42 PM SPEECH COACH Plan of Treatment Not on file Care Teams Software Development Engineer Relationship Specialty Start Date End Date Elian Dawson MD PCP - General 10/07/14 Thierry Martini MD Cardiovascular Disease 10/07/14
--- OUTSIDE RECORDS SUMMARY | 2024-07-09 10:43 | XMS_ITS | Encounter Summary ---
Author Organization [facility] Address [address] [place] [address] Care Team Providers Care Antique Finisher Name Role Phone Mia Mitchell [facility] Primary Care Provider [phone] Encounter Details Date Type Department Care Team (Latest Contact Info) Description 07/08/2023 Vertical Knowledget Message Enc [facility] Multispecialty Care - [facility] [address], [address] [place] [address] Fryolan Perez MD [address] [place] [address] Savi Asher NP Social History Tobacco Use Types Packs/Day Years Used Date Smoking Tobacco: Never Assessed PHQ-2 Answer Date Recorded Patient Health Questionnaire-2 Score 2 06/12/2023 Sex and Gender Information Value Date Recorded Sex Assigned at Not on file Legal Sex Male 12:47 PM 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
--- OUTSIDE RECORDS SUMMARY | 2024-07-09 10:43 | XMS_ITS | Continuity of Care Document ---
Author Organization [facility] Address [address] [id number] Care Team Providers Care Buyer Renter Name Role Phone Elian Dawson Primary Care Physician [phone] Encounter [facility] Financial Number [id number] Date(s): 07/08/24 - 07/08/24 [facility] [address] [id number] Encounter Diagnosis Acute heart failure with preserved ejection fraction (HFpEF)(Discharge Diagnosis) - 07/08/24 Acute hypoxic respiratory failure(Discharge Diagnosis) - 07/08/24 PAF (paroxysmal atrial fibrillation)(Discharge Diagnosis) - 07/08/24 CAD - Coronary artery disease(Discharge Diagnosis) - 07/08/24 Complex sleep apnea syndrome(Discharge Diagnosis) - 07/08/24 Discharge Disposition: Home or Self Care Attending Physician: Avery Schumacher MD Referring Physician: Avery Schumacher MD Encounter Type: Clinic Allergies, Adverse Reactions, Alerts No Known Allergies Assessment and Plan Future Appointments Appointment Date:09/30/2024 02:00:00 PM Scheduled Provider:Avery Schumacher MD Location:[facility] Appointment Type:[facility] Follow Up Appointment Date:12/03/2024 12:30:00 PM Scheduled Provider: Location:[facility] Appointment Type:[facility] DC Pacemaker Check Appointment Date:05/26/2025 10:45:00 AM Scheduled Provider: Location:[facility] Appointment Type:[facility] EKG Appointment Date:05/26/2025 11:00:00 AM Scheduled Provider: Location:[facility] Appointment Type:[facility] DC Pacemaker Check Appointment Date:05/26/2025 11:30:00 AM Scheduled Provider:Thierry Martini MD Location:[facility] Appointment Type:[facility] Follow Up Medications ascorbic acid 1000 mg [...] extended release 600 mg, 1 tablet(s), Oral, [id number], 14 tablet(s), 0 Start Date: 07/08/24 Stop Date: 07/15/24 Status: Ordered Quantity: 14.0 Unit: Repeat number: 1 hydroxychloroquine 200 mg oral tablet 200 mg, 1 tablet(s), Oral, bid, 180 tablet(s), 3, 3, Route to Pharmacy Electronically, [facility], [id number], 180, cm, 10/22/2022 1334, Height, 97.8, kg, [...] the prescribing physician., Route to Pharmacy Electronically, [facility], [id number], 180, cm, 07/12/23 14:24:00 CDT, Height, 87.3, kg, 06/19/24 11:43:00 MANAGER TEST, Weight Start Date: 06/19/24 Status: Ordered Quantity: [...] CR, 3, 3, Route to Pharmacy Electronically, [facility], [id number], 180, cm, 07/12/23 14:24:00 CDT, Height, 87.3, kg, 06/19/24 11:43:00 MANAGER TEST, Weight Start Date: 06/22/24 Status: Ordered Quantity: [...] Tablet(s), 3, 3, Route to Pharmacy Electronically, [facility], [id number], 180, cm, 07/12/23 14:24:00 CDT, Height, 8 7.3, kg, 06/19/24 11:43:00 MANAGER TEST, Weight Start Date: 06/19/24 Status: Ordered Quantity: 90.0 Unit: Repeat number: 4 Tylenol 325 mg oral tablet 325 mg, 1 tablet(s), Oral, [id number], PRN, 60 tablet(s), Tablet(s), 0, for pain [...] Ordered Quantity: 60.0 Unit: Repeat number: 1 Mental Status Assessment Effective Date Result of Evalua tion Total Depression Screen Score 07/08/24 11 Problem List Condition Confirmation Course Effective Dates Status Health Status Informant Acute hypoxic respiratory failure Confirmed Active Asthma Confirmed Active Atrial fibrillation Confirmed Active CAD - Coronary artery disease Confirmed Active Pacemaker 1 Confirmed Active Claustrophobia Confirmed Active Coronary artery disease involving makah coronary artery of makah heart without angina pectoris 2 Confirmed Active [...] Major depressive disorder, single episode Confirmed Active PR (myocardial infarction) 6 Confirmed Active Obstructive sleep [...] 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 Pacemaker - Assurity [id number] SN: [id number] - Implanted 01/04/[address] Jason Castillo RA: SJM 1999 SN: [id number] (Implanted 01/04/2016) RV: SJM 1688 SN: [id number] (Implanted 01/04/2016) 2Problem Detail Noted: 10/09/2011 Overview [...] or infarct. Inferior artifact. EF > 70%. 81897 A1C up to 7, diet controlled 4Problem [...] appendage Percutaneous ablation 2013 - PVI/CTI/MVI/Roof ablation 64608 7Problem Detail Noted: 05/24/2010 Overview Signed 08/06/2016 [...] body Comp leted MRI of brain Completed Vital Signs Most recent to oldest [Reference Range]: 1 Peripheral Pulse Rate [60-100 bpm] 60 bp m (07/08/24 3:23 PM) Blood Pressure [89-139/60-90 mm Hg] 133/ 78mm Hg (07/08/24 3:23 PM) Weight 79.8 kg (07/08/24 3:23 PM) Social History Social History Type Response Alcohol Former alcohol user, Beer, 1-2 times per month Substance Abuse Never drug user Smoking Status Never smoker;Never; Tobacco Cessation Counseling Requested N/A entered on: 07/08/24 Sex Male Sex Representation Male (finding) Note * Mable Cason Lead Person: PERFORM Event Display: Prior Authorization Documents Authored Date: * Mable Cason Lead Person: PERFORM Event Display: Prior Authorization Documents Authored Date: Drug Name: Dosage: Directions: Quantity: Days Supply: Drug Plan Name: Drug Plan Phone #: Member ID: * Event Display: ROI_Correspondence Authored Date: * Event Display: ROI_Correspondence Authored Date: * HPF, Image_Migration: VERIFY, PERFORM Event Display: ROI_Correspondence Authored Date: [id number] Cardiology Outpatient Note * Avery Schumacher MD: PERFORM Event Display: Cardiology Office/Clinic Note Authored Date: [id number] Patient Information Name:AMBAR JUSTICE Address: [address] [place] [address] [place], [place] [id number] Sex:Male Date of :1935 Emergency Contact:DEMETRIO JUSTICE Location:[facility] Registration Date and Time:07/08/2024 14:00 CDT Primary Care Physician: Elian Dawson M.D., Attending Physician: Avery Schumacher MD, Chief Complaint Follow-up acute HFpEF History of Present Illness Ambar Justice ( Jim ) carries diagnoses of heart failure, CAD s/p remote PR and PCI, in the setting ofatrial arrhythmias s/p ablation and pacemaker placement.? Update:?? Still using oxygen 19/11, but the living facility he lives in thinks he saturates fine without it during daytime hours.?? Nocturnal oxygen not yet tested.?? Son feels swelling much better .?? Patient does not identify a significant improvement since last visit.??Weight down 17 lbs since last OV.?? No chest pain.? Longitudinal care is provided today for patient's serious ongoing issues.?This office is the continuing focal point for these health services, providing continuity of care for multiple complex issues.?See Summary/Plan section.?Follow up visit arranged. ?? Past History:?? Coronary artery disease s/p remote PR and PCI, atrial fibrillation s/p ablation, pacemaker, hypertension, hyperlipidemia, diabetes, sleep apnea, asthma, s/p vasectomy, hypothyroidism.? Social:?.?? Lives in [facility] facility in [place], [place].?? Retired in 1994 or so. ??Then worked part-time for a while.?? No alcohol anymore.? Family:?? Noncontributory at his age.? CV testing: Cath 2002 - LVEDP 25-28 mmHg. ??LVEF 35-40%. ??LAD prox 100% occlusion. ??LCx 50-60% prox. ??RCA 30-40% prox. ??3.0 x 18 mm Velocity stent to LAD. Cath 2003 - LVEDP 18-20 mmHg. ??Normal EF. ??80% in-stent LAD restenosis. ??40- 50% prox LAD. ??50% ostial diagonal. ??50% proximal LCx. ??30% prox RCA. ??Successful cutting balloon (3.25 mm) PTCA to LAD. Surgical AF ablation 2006 - thoracotomy for bilateral PVI with excision of left atrial appendage Sinoatrial node dysfunction??11/16/2010 Percutaneous ablation 2013 - PVI/CTI/MVI/Roof ablation Pacemaker??01/04/2016 [employer] Pacemaker - Assurity [id number] SN: [id number] - Implanted 01/04/[address] Jason Castillo. RA: SJM 1999 SN: [id number] (Implanted 01/04/2016) RV: SJM 1688 SN: [id number] (Implanted 01/04/2016) LYSSA 10/2013 - EF 60%, mild AI, mild MR, LAE, normal RVEF LYSSA 11/2014 - mild LVH, EF 55-60%, severe LAE with spontaneous echo contrast but no thrombus, mild to mod MR, trace to mild AI, mod TR, RVSP 30 mmHg?? Exercise SPECT Stress 07/2016 - Walked 4:57 (107% predicted). ??Clin/EKG negative. ??No ischemia or infarct. Inferior artifact. EF > 70%. LE Doppler 06/2020 -??The bilateral lower extremity arterial Doppler reveals multiphasic waveforms in all??distributions with normal ankle/brachial indices and digit pressures. No evidence of??lower extremity arterial occlusive disease at rest bilaterally.?? Some distal pressures are??noncompressible consistent with calcifications of the artery but no signs of occlusive disease. Echo 03/2024 - EF 60-65%.?? Mild TR.?? Mild MR.?? Moderate pulmonary hypertension, estimated PASP 49 mmHg.?? There is a small pericardial effusion.?? Echo 06/2024 -?TDS.??EF 50-55 %. Dilated right ventricle on limited views.?Probably mild to moderate RV HK.?Pacemaker wire.??Mod LAE.??Mild??to mod ANGELINA.?Mod MR. (ERO 0.2 cmsq.).?? Severe TR.?? RVSP peak = 41 mmHg + right atrial pressure. ?? Exam: General - NAD, frail,??chronically ill appearing, in WC today HENT/Neck - NC/AT, JVP elevated, carotids 2+ without bruit, on NC O2 Eyes - sclerae anicteric CV - regular, normal rate, 2/6 apical systolic murmur Chest - CTA bilaterally Abdomen - ND, soft, NT, Ao not palpable, no HJR Extremities - no cyanosis, clubbing; trace bilateral LE??edema; trace??L. arm edema Vascular - 2+ radials; pedal pulses blunted??bilaterally Neuro - Alert, interactive, appropriate Psych - Calm and cooperative; + flat affect Derm - no rash ?? Assessment and Plan: Pulmonary HTN, moderate?? Acute HFpEF Increasing frailty?? Atrial fibrillation, paroxysmal S/p AFib ablation?? Sinoatrial node dysfunction Coronary artery disease?? S/p coronary stenting?? Hypertension, primary?? Diabetes mellitus?? 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 Obstructive sleep apnea?? Asthma? - Heart failure new in 2024 and closer to euvolemic.? - NYHA class IV, multi-factorial. - Torsemide 10 mg + 10 mEq KCl. - Start Jardiance??10 mg unless urinary infection would recur.? - BMP soon. - Continue Metoprolol for now. -??Continue Xarelto for CHADS-Vasc = 4. - Has a known diagnosis of sleep apnea, but not tolerating CPAP mask lately.?? - ABIs in 2017 nearly normal with no AAA on abdominal aortic US. - Routine pacer checks. ??Review of check in 04/2024??shows no ventricular arrhythmias.?? AF burden 7%.?? -??Advised exercise as able with joint pains and fatigue. - Counseled exercise, heart healthy diet & lifestyle strategies to achieve ideal body weight, heart safety and global wellness. - Advised of potential future CV symptoms for which patient should seek urgent help. - Again, counseled expectations in detail with patient and son.?? We can make patient more comfortable and help control symptoms.?? However, his HF has become complex.?? - Counseled Palliative??Care 06/2024??w/ patient and son.??Risk of readmission in next 6 months at least 50%.?? Advised that he is likely in??the last few years of his life.?In the best case scenario, our ability to improve his functional status will be limited - but certainly worth the effort, and we will be happy to help. - They have consulted with Hospice in past, but have never started on Hospice. - Patient is a DNR. -??Following with EP routinely.?? - Follow-up in 8-10 weeks. ?? It has been a pleasure to participate in the care of this nice patient. Vitals and Measurements Vital Signs Weight: 79.8 kg Weight in Pounds (kg conversion): 175.6 Systolic Blood Pressure: 133 mm Hg Diastolic Blood Pressure: 78 mm Hg Peripheral Pulse Rate: 60 bpm Oxygen Saturation: 95 % Assessment/Plan 1.??Acute heart failure with preserved ejection fraction (HFpEF) Ordered: Basic Metabolic Profile, 07/08/24, Blood, ROUTINE, Routine, Order for Future Visit, Nurse Collect, Print Label, Acute heart failure with preserved ejection fraction (HFpEF) Acute hypoxic respiratory failure PAF (paroxysmal atrial fibrillation) CAD - Coronary artery dise... [facility] Echo Complete, 07/08/24 14:00:00 CDT, As soon as possible, Atrial fibrillation Acute heart failure with preserved ejection fraction (HFpEF), Electronic, 07/08/24 14:00:00 CDT, [facility] Follow-up, *Est. 09/30/24 +/- 14 day(s), 2 Month Follow-Up, Future Order, CAD - Coronary arterydisease Complex sleep apnea syndrome Acute heart failure with preserved ejection fraction (HFpEF) PAF (paroxysmal atrial fibrillation) Acute hypoxic respirato... ?? 2.??Acute hypoxic respiratory failure Ordered: Basic Metabolic Profile, 07/08/24, Blood, ROUTINE, Routine, Order for Future Visit, Nurse Collect, Print Label, Acute heart failure with preserved ejection fraction (HFpEF) Acute hypoxic respiratory failure PAF (paroxysmal atrial fibrillation) CAD - Coronary artery dise... [facility] Follow-up, *Est. 09/30/24 +/- 14 day(s), 2 Month Follow-Up, Future Order, CAD - Coronary arterydisease Complex sleep apnea syndrome Acute heart failure with preserved ejection fraction (HFpEF) PAF (paroxysmal atrial fibrillation) Acute hypoxic respirato... ?? 3.??PAF (paroxysmal atrial fibrillation) Ordered: Basic Metabolic Profile, 07/08/24, Blood, ROUTINE, Routine, Order for Future Visit, Nurse Collect, Print Label, Acute heart failure with preserved ejection fraction (HFpEF) Acute hypoxic respiratory failure PAF (paroxysmal atrial fibrillation) CAD - Coronary artery dise... [facility] Follow-up, *Est. 09/30/24 +/- 14 day(s), 2 Month Follow-Up, Future Order, CAD - Coronary arterydisease Complex sleep apnea syndrome Acute heart failure with preserved ejection fraction (HFpEF) PAF (paroxysmal atrial fibrillation) Acute hypoxic respirato... ?? 4.??CAD - Coronary artery disease Ordered: Basic Metabolic Profile, 07/08/24, Blood, ROUTINE, Routine, Order for Future Visit, Nurse Collect, Print Label, Acute heart failure with preserved ejection fraction (HFpEF) Acute hypoxic respiratory failure PAF (paroxysmal atrial fibrillation) CAD - Coronary artery dise... [facility] Follow-up, *Est. 09/30/24 +/- 14 day(s), 2 Month Follow-Up, Future Order, CAD - Coronary arterydisease Complex sleep apnea syndrome Acute heart failure with preserved ejection fraction (HFpEF) PAF (paroxysmal atrial fibrillation) Acute hypoxic respirato... ?? 5.??Complex sleep apnea syndrome Ordered: Basic Metabolic Profile, 07/08/24, Blood, ROUTINE, Routine, Order for Future Visit, Nurse Collect, Print Label, Acute heart failure with preserved ejection fraction (HFpEF) Acute hypoxic respiratory failure PAF (paroxysmal atrial fibrillation) CAD - Coronary artery dise... [facility] Follow-up, *Est. 09/30/24 +/- 14 day(s), 2 Month Follow-Up, Future Order, CAD - Coronary arterydisease Complex sleep apnea syndrome Acute heart failure with preserved ejection fraction (HFpEF) PAF (paroxysmal atrial fibrillation) Acute hypoxic respirato... ?? Future Order Details Basic Metabolic Profile, 07/08/24, Blood, ROUTINE, Routine, Order for Future Visit, Nurse Collect, Print Label, Acute heart failure with preserved ejection fraction (HFpEF) Acute hypoxic respiratory failure PAF (paroxysmal atrial fibrillation) CAD - Coronary artery dise... Problem List/Past Medical History Ongoing Acute heart failure with preserved ejection fraction (HFpEF) Acute hypoxic respiratory failure Asthma Atrial fibrillation Blood glucose elevated CAD - Coronary artery disease Claustrophobia Complex sleep apnea syndrome Coronary artery disease involving makah coronary artery of makah heart without angina pectoris CSA - Central sleep apnea Diabetes mellitus Ecchymosis Essential hypertension Familial multiple lipoprotein-type hyperlipidemia High risk medication use Hypercalcemia Hypercholesteremia Hyperparathyroidism Hypothyroidism Left hip pain Leukopenia Localized swelling, mass and lump, neck Major depressive disorder, single episode PR (myocardial infarction) Obstructive sleep apnea Osteoarthritis of multiple joints Pacemaker PAF (paroxysmal atrial fibrillation) Periodic limb movement disorder Polymyalgia rheumatica Pulmonary embolism S/P ablation of atrial fibrillation S/P coronary artery stent placement Seronegative rheumatoid arthritis Shortness of breath Sinoatrial node dysfunction Stiffness of left shoulder joint Historical No qualifying data Procedure/Surgical History ???CT scan - whole body???MRI of brain Medications ascorbic acid 1000 mg oral tablet, 1000 mg= 1 tablet(s), Oral, daily Ativan 0.5 mg oral tablet, 0.5 mg= 1 tablet(s), Oral, daily atorvastatin 10 mg oral tablet, 10 mg= 1 tablet(s), Oral, daily calcium carbonate (Tums) 500 mg oral tablet, chewable, 500 mg= 1 tablet(s), Oral, as needed Effexor XR 37.5 mg oral capsule, extended release, 37.5 mg= 1 capsule(s), Oral, daily ferrous sulfate 325 mg (65 mg elemental iron) oral tablet, 325 mg= 1 tablet(s), Oral, bid with meals guaiFENesin 600 mg oral tablet, extended release, 600 mg= 1 tablet(s), Oral, [id number] hydroxychloroquine 200 mg oral tablet, 200 mg= 1 tablet(s), Oral, bid, 3 refills Jardiance 10 mg oral tablet, 10 mg= 1 tablet(s), Oral, daily, 3 refills levothyroxine 75 mcg (0.075 mg) oral tablet, 75 mcg= 1 tablet(s), Oral, daily before breakfast magnesium oxide 400 mg oral tablet, 400 mg= 1 tablet(s), Oral, daily memantine 5 mg oral tablet, 5 mg= 1 tablet(s), Oral, daily Metoprolol Succinate ER 100 mg oral tablet, extended release, 100 mg= 1 tablet(s), Oral, daily, 3 refills MiraLax oral powder for reconstitution, 1 packet(s), Oral, bid potassium chloride 10 mEq oral tablet, extended release, 10 mEq= 1 tablet(s), Oral, daily with breakfast, 3 refills senna 8.6 mg oral tablet, 17.2 mg= 2 tablet(s), Oral, qpm simethicone 125 mg oral tablet, chewable, 125 mg= 1 tablet(s), Oral, qid, PRN tamsulosin 0.4 mg oral capsule, 0.4 mg= 1 capsule(s), Oral, pm after dinner torsemide 10 mg oral tablet, 10 mg= 1 tablet(s), Oral, daily, 3 refills Tylenol 325 mg oral tablet, 325 mg= 1 tablet(s), Oral, [id number], PRN Vitamin B12 1000 mcg oral tablet, 1000 mcg= 1 tablet(s), Oral, daily Vitamin D3 1000 intl units (25 mcg) oral capsule, 1000 unit(s)= 1 capsule(s), Oral, daily Xarelto 20 mg oral tablet, 20 mg= 1 tablet(s), Oral, pm with dinner ZyPREXA 2.5 mg oral tablet, 2.5 mg= 1 tablet(s), Oral, daily Allergies NKA No Known Medication Allergies Social History Alcohol Former alcohol user, Beer, 1-2 times per month, 07/08/2024 Substance Abuse Never drug user, 06/19/2024 Tobacco Never smoker, Smokeless Tobacco use: Never. N/A Cessation Counseling., 07/08/2024 Family History ?Mother ?Positive ?Diabetes mellitus ?Father ?Positive ?Cancer ? Voice to Text Technology Disclaimer This note may contain text inserted via Dragon or other voice to text assistive technology and mental health orderly, variances may occur. Outpatient Summary note * Mable Cason Lead Person: PERFORM Event Display: Ambulatory Patient Summary Authored Date: [id number] AMBAR JUSTICE :1935 Visit Date:07/08/2024 [facility] Visit Instructions Your Diagnosis Acute heart failure with preserved ejection fraction (HFpEF) Acute hypoxic respiratory failure PAF (paroxysmal atrial fibrillation) CAD - Coronary artery disease Complex sleep apnea syndrome Your Care Team Attending Physician - Avery Schumacher MD Primary Care Physician - Elian Dawson M.D. Referring Physician - Avery Schumacher MD Procedure History ???CT scan - whole body???MRI of brain Discharge Vitals Vital Signs Weight: 79.8 kg Weight in Pounds (kg conversion): 175.6 Systolic Blood Pressure: 133 mm Hg Diastolic Blood Pressure: 78 mm Hg Peripheral Pulse Rate: 60 bpm Oxygen Saturation: 95 % What to do next Scheduled Follow-Up Appointments Saturday 2:00 PM CDT ?? With: Avery Schumacher MD Where: [facility] 2024 12:30 PM CDT ?? With: Where: [facility] Saturday2025 10:45 AM MANAGER TEST ?? With: Where: [facility] Saturday2025 11:00 AM MANAGER TEST ?? With: Where: [facility] Saturday2025 11:30 AM MANAGER TEST ?? With: Thierry Martini MD Where: [facility] You Need to Complete the Following Basic Metabolic Profile, 07/08/24, Blood, ROUTINE, Routine, Order for Future Visit, Nurse Collect, Print Label, Acute heart failure with preserved ejection fraction (HFpEF) Acute hypoxic respiratory failure PAF (paroxysmal atrial fibrillation) CAD - Coronary artery dise... Referral Information Referral Information ? No Results Found ? Medications What How Much When Instructions Unchanged acetaminophen (Tylenol 325 mg oral tablet) 1 tablet(s) By mouth Every 4 hours as needed for for pain Contact prescribing physician if questions or concerns ?? Unchanged ascorbic acid (ascorbic acid 1000 mg oral tablet) 1 tablet(s) By mouth Daily Contact prescribing physician if questions or concerns ?? Unchanged atorvastatin (atorvastatin 10 mg oral tablet) 1 tablet(s) By mouth Daily Contact prescribing physician if questions or concerns ?? Unchanged calcium carbonate (calcium carbonate (Tums) 500 mg oral tablet, chewable) 1 tablet(s) By mouth As needed Contact prescribing physician if questions or concerns ?? Unchanged cholecalciferol (Vitamin D3 1000 intl units (25 mcg) oral capsule) 1 capsule(s) By mouth Daily Contact prescribing physician if questions or concerns ?? Unchanged cyanocobalamin (Vitamin B12 1000 mcg oral tablet) 1 tablet(s) By mouth Daily Contact prescribing physician if questions or concerns ?? Unchanged empagliflozin (Jardiance 10 mg oral tablet) 1 tablet(s) By mouth Daily This medication can be used for both Heart Failure and Diabetes, please do not stop or substitute without talking to the prescribing physician. Contact prescribing physician if questions or concerns ?? Unchanged ferrous sulfate (ferrous sulfate 325 mg (65 mg elemental iron) oral tablet) 1 tablet(s) By mouth 2 times a day with meals Contact prescribing physician if questions or concerns ?? Unchanged guaiFENesin (guaiFENesin 600 mg oral tablet, extended release) 1 tablet(s) By mouth Every 12 hours Duration: 7 day(s) Contact prescribing physician if questions or concerns ?? Unchanged hydroxychloroquine (hydroxychloroquine 200 mg oral tablet) 1 tablet(s) By mouth 2 times a day Duration: 90 day(s) Contact prescribing physician if questions or concerns ?? Unchanged levothyroxine (levothyroxine 75 mcg (0.075 mg) oral tablet) 1 tablet(s) By mouth Daily before breakfast Contact prescribing physician if questions or concerns ?? Unchanged LORazepam (Ativan 0.5 mg oral tablet) 1 tablet(s) By mouth Daily Contact prescribing physician if questions or concerns ?? Unchanged magnesium oxide (magnesium oxide 400 mg oral tablet) 1 tablet(s) By mouth Daily Duration: 7 day(s) Contact prescribing physician if questions or concerns ?? Unchanged memantine (memantine 5 mg oral tablet) 1 tablet(s) By mouth Daily Contact prescribing physician if questions or concerns ?? Unchanged metoprolol (Metoprolol Succinate ER 100 mg oral tablet, extended release) 1 tablet(s) By mouth Daily Contact prescribing physician if questions or concerns ?? Unchanged OLANZapine (ZyPREXA 2.5 mg oral tablet) 1 tablet(s) By mouth Daily Contact prescribing physician if questions or concerns ?? Unchanged polyethylene glycol 3350 (MiraLax oral powder for reconstitution) 1 packet(s) By mouth 2 times a day Contact prescribing physician if questions or concerns ?? Unchanged potassium chloride (potassium chloride 10 mEq oral tablet, extended release) 1 tablet(s) By mouth Daily with breakfast Contact prescribing physician if questions or concerns ?? Unchanged rivaroxaban (Xarelto 20 mg oral tablet) 1 tablet(s) By mouth Every evening with dinner Take with Food Contact prescribing physician if questions or concerns ?? Unchanged senna (senna 8.6 mg oral tablet) 2 tablet(s) By mouth Once a day (in the evening) Contact prescribing physician if questions or concerns ?? Unchanged simethicone (simethicone 125 mg oral tablet, chewable) 1 tablet(s) By mouth 4 times a day as needed for gas Contact prescribing physician if questions or concerns ?? Unchanged tamsulosin (tamsulosin 0.4 mg oral capsule) 1 capsule(s) By mouth Every evening after dinner Contact prescribing physician if questions or concerns ?? Unchanged torsemide (torsemide 10 mg oral tablet) 1 tablet(s) By mouth Daily Contact prescribing physician if questions or concerns ?? Unchanged venlafaxine (Effexor XR 37.5 mg oral capsule, extended release) 1 capsule(s) By mouth Daily Contact prescribing physician if questions or concerns ? What How Much When Comments Stop Taking levothyroxine (Synthroid 50 mcg (0.05 mg) oral tablet) See instructions 2 tablets alternating with 1 tablet every other day ?? Stop Taking multivitamin (Multivitamin oral tablet) 1 tablet(s) By mouth Daily Stop Taking ocular lubricant (Refresh Dry Eye Therapy ophthalmic solution) 1 Drops Both eyes Every 2 hours as needed for dry eyes Stop Taking simvastatin (simvastatin 20 mg oral tablet) 1 tablet(s) By mouth Every evening at bedtime Medications and Immunizations Administered Medication Administrations ? No Results Found ? Allergies NKA No Known Medication Allergies Problems Ongoing Acute heart failure with preserved ejection fraction (HFpEF) Acute hypoxic respiratory failure Asthma Atrial fibrillation Blood glucose elevated CAD - Coronary artery disease Claustrophobia Complex sleep apnea syndrome Coronary artery disease involving makah coronary artery of mak[place] heart without angina pectoris CSA - Central sleep apnea Diabetes mellitus Ecchymosis Essential hypertension Familial multiple lipoprotein-type hyperlipidemia High risk medication use Hypercalcemia Hypercholesteremia Hyperparathyroidism Hypothyroidism Left hip pain Leukopenia Localized swelling, mass and lump, neck Major depressive disorder, single episode PR (myocardial infarction) Obstructive sleep apnea Osteoarthritis of multiple joints Pacemaker PAF (paroxysmal atrial fibrillation) Periodic limb movement disorder Polymyalgia rheumatica Pulmonary embolism S/P ablation of atrial fibrillation S/P coronary artery stent placement Seronegative rheumatoid arthritis Shortness of breath Sinoatrial node dysfunction Stiffness of left shoulder joint PatientStated No qualifying data Historical No qualifying data Common Emergency Awareness Tips IS IT A STROKE? Act FAST and Check for these signs: FACE Does the face look uneven? ARM Does one arm drift down? SPEECH Does their speech sound strange? TIME Call at any sign of stroke Voice to Text Technology Disclaimer This note may contain text inserted via Dragon or other voice to text assistive technology and mental health orderly, variances may occur. Patient Care team information Care Team Personnel Name: Elian Dawson M.D. Position: RAQUEL FAX ONLY - MD NOT ON STAFF Member Role: Primary Care Physician Address: [address] [place], [place] [address]- Telecom: Name: Avery Schumacher MD Position: Physician - Cardiology Member Role: Specialist Physician Address: [address] [facility] [address] Telecom: Name: Jeff Ellis MD Position: Physician - Sleep Medicine Member Role: Specialist Physician Address: [address] [facility] [address] Telecom: Name: Lindy Pedroza M.D. Position: Physician - Rheumatology Member Role: Specialist Physician Address: [address] [facility] [address] [place] [address]- Telecom: Name: Alicja Guzman CLINICAL DERMATOLOGIST Position: AMB CLINICAL DERMATOLOGIST/PA Member Role: Nurse Practitioner Address: [address] [facility] [address] [place], [place] [address] Telecom: Name: Avery Schumacher MD Position: Physician - Cardiology Med Service: Digital Media Specialist Buyer Renter Role: Attending Physician Address: [address] [facility] [address] [place], [place] [address] Telecom: Care Team Related Persons Name: DEMETRIO JUSTICE Name: DEMETRIO JUSTICE Insurance Providers Guarantor name: AMBAR JUSTICE [facility] Information #: 1 Payer: Aetna Member Number: [id number] Policy Number: NA Group Number: NA Payer Identifier: [id number] Health Plan Information #: 2 Payer: Aetna Member Number: [id number] Policy Number: FRANKLIN Group Number: [id number] Payer Identifier: [id number]
--- OUTSIDE RECORDS SUMMARY | 2024-07-09 10:43 | XMS_ITS ---
Author Organization [facility] Address [address] [facility] [address] [place] [address] Care Team Providers Care Cloth Bleaching Range Tender Name Role Phone zzzzMigration, zzzzProvider Unavailable Unav ailable REASON FOR VISIT EMR-Edwin Encounters Encounter Location Date Provider Diagnosis [facility] [address] [facility] [address] [place] [address] 02/16/2023 zzzzProvider zzzzMigration Plan Of Treatment No Information Progress Notes * Edwardo PRYOR ADOB:1935 (88 yo M)Acc No.[id number]:02/16/2023 Patient: Sofia Edwardo WOLFF :1935 A ge:87 Y S ex:Male Address:[address] [place] [address] [facility] [address] Subjective: * Chief Complaints: * E MR-Edwin * Medical History: * Surgical History: * Hospitalization/Major Diagno stic Procedure: * Medications: Objective: * Vitals: * Physical Examination: Assessment: Plan: * Treatment: * Procedure Codes: * * Date:
== END 2024-07-09 09:30 | disposition home or self-care (01) ==
PROVIDERS: PCP Internal Medicine; Visit Provider Internal Medicine
DX: H90.3 Sensorineural hearing loss, bilateral (principal)
CPT/HCPCS: 92557; 92567

== ENCOUNTER 2024-09-09 07:55 | Outpatient (CLI) | payer MEDICARE, SELFPAY ==
[2024-09-09 07:50] VITALS: PULSE 68; O2SAT 93
[2024-09-09 08:00] VITALS: PULSE 74; O2SAT 88
--- OUTSIDE RECORDS SUMMARY | 2024-09-09 08:03 | XMS_ITS | Clinical Summary ---
Author Organization [facility] Address [address] [place] [address] Care Team Providers Care Line Tester Name Role Phone Elian Dawson MD Primary Care Provider Isael Devries MD Unavailable John Doe MD Unavailable [phone] Allergies Active Allergy Reactions Criticality Noted Date [...] 1 tablet (75 mcg total) by mouth tax record clerk before breakfast 30 tablet 3 Active metoprolol [...] dose Effexor. Patient has been accepted at [facility], will discharge when room available. Assessment & Plan (01/01/2023 2:04 PM CDT): Mood depressed and affect flat but has been making progress with therapy. Pt has been accepted at [facility], awaiting pt family to move in [facility], anticipate DC this week. Pt more interactive today, answering simple questions. Continue effexor Assessment & Plan (12/28/2022 8:54 PM CDT): Patient with labile interaction/alertness. Slums has improved to 17/30 but continues to indicate moderate cognitive decline. Patient has been accepted at [facility], however family requires time to move patient [...] use of Molnupavrir for the treatment of ycyw-mi-hyrujsfg COVID-19 in adults. The Fact Sheet for [...] Patient follows with psychiatrist is Dr Canchola [phone]. Per family patient does not have an [...] and redirecting His psychiatrist is Dr Canchola [phone]; I have ordered effexor xr 225mg/day Intractable low back pain 11/25/2022 Assessment & Plan (01/02/2023 9:35 PM CDT): Pain is improved significantly, continue scheduled Tylenol, p.r.n. [place], recommend using sparingly Assessment & Plan (12/24/2022 8:04 PM CDT): Pain control is improving - rarely using [place], continue prn tylenol. Pt is participating with therapy and now making progress. Continue all therapy modalities Assessment & Plan (12/04/2022 8:20 PM CDT): Patient denies pain at present, continue p.r.n. Tylenol, p.r.n. [place], p.r.n. ibuprofen. We will need to monitor [...] (04/03/2023): Overview: [employer]ron Pacemaker - Assurity [id number] SN: [id number] - Implanted 01/04/[address] Jason Castillo RA: SJNaldo 1998 SN: [id number] (Implanted 01/04/2016) RV: SJM 1688 SN: [id number] (Implanted 01/04/2016) Actinic keratosis 08/02/2014 Keratosis, senilis [...] further due to bradycardia. Coronary atherosclerosis of [place] coronary callie ry 10/09/2011 Assessment & Plan [...] CAVA FILTER PLACEMENT Interruption Inferior Vena Cava [place] Filter Placement - (Added by TW Conv) SC INSERT INTRACORONARY STENT Cath Stent Placement - (Added by TW Conv) SC VASECTOMY UNI/BI SPX W/PO STOP SEMEN EXAMS Surgery Vas Deferens Vasectomy - (Added by TW Conv) ESOPHAGOGASTRODUODENOSCOPY Diagnostic Esophagogastroduodenoscopy - (Added by TW Conv) SC COLONOSCOPY FLX DX W/ELIJAH J SPEC WHEN [...] sigmoid colon - (Added by TW Conv) care home current use of anticoagulant Anticoagulant long-term use [...] Packs/Day Years Used Date Smoking Tobacco: Never bitmovin Answer Date Recorded In the past 12 months has [employer], [employer], oil, or water [employer] threatened to shut off services in your [...] 02/19/2024 How often do you attend chur or sikh services? Never 02/19/2024 Do you belong to any clubs o r organizations such as nondenominational groups, unions, fraternal or athletic groups, or [...] place to sleep or slept in a correction (including now)? No 08/08/2023 Housing Stability Vital Sign Answer Pio e Recorded In the last 12 months, was t here a time when you were not able to pay the mortgage or rent on time? No 02/19/2024 In the past 12 months, how m any times have you moved where you were living? 1 02/19/2024 At [facility] time in the [facility] were you homeless or living in a correction (including now)? 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 Gender Identity Not on file Sexual Orientation Not on file Obstetrics History Last Filed Vital Signs Vital Sign Reading Time Taken Comments Blood Pressure 102/52 03/04/2024 1:51 PM BLUEPRINT PROCESSOR Pulse 62 03/04/2024 1:51 PM BLUEPRINT PROCESSOR Temperature 36.4 C (97.6 F) 03/04/2024 1:51 PM BLUEPRINT PROCESSOR Respiratory Rate 16 03/04/2024 1:51 PM BLUEPRINT PROCESSOR Oxygen Saturation 97% 03/04/2024 1:51 PM BLUEPRINT PROCESSOR Inhaled Oxygen Concentration - - Weight 74.8 kg (165 lb) 03/04/2024 1:51 PM BLUEPRINT PROCESSOR Height 182.9 cm (6') 03/04/2024 1:51 PM BLUEPRINT PROCESSOR Body Mass Index 22.38 03/04/2024 1:51 PM BLUEPRINT PROCESSOR Plan of Treatment Health Maintenance Due Date [...] Advance Directives For more information, please contact: [phone] Documents on File Type Date Recorded Patient Voice Systems Engineer Expl anation Power of Insights Strategist 09/05/2023 12:36 PM ADVANCE DIRECTIVE 08/12/2023 10:21 AM Karen r of Insights Strategist-Medical ADVANCE DIRECTIVE 08/05/2023 6:12 PM POLST - [...] Relationship Healthcare Agent Relationshi p Communication Connor Justice Son First Alternate Health Care Agent Care Teams Line Tester Relationship Specialty Start Date End Date Elian Dawson MD PCP - General 05/24/06 John Doe MD [address] [place] [address] PCP - Hospice Physician Family Medicine 04/25/24 Isael Devries MD [address] [place] [address] Surgeon Orthopedic Surgery 08/11/23
--- OUTSIDE RECORDS SUMMARY | 2024-09-09 08:03 | XMS_ITS ---
Author Organization [facility] Address [address] [address] Care Team Providers Care Hod Carrier Name Role Phone Elian Dawson Primary Care Provider Kane Gillette Unavailable [phone] REASON FOR VISIT Levo MEDICATIONS Medication SIG (Take, Route, Frequency, Duration) Notes Start Date End Date Status Levothyroxine Sodium 100 MCG 1 tablet in the morning on an empty stomach Orally every other day alternating with 50 mcg for 30 day(s) 08/19/2024 Active Encounters Encounter Location Date Provider Diagnosis [facility] [address] [address] 08/19/2024 Kane Gillette Hypothyroidism E03.9 ASSESSMENTS Encounter Date Diagnosis Assessment Notes Treatment Notes Treatment Clinical Notes 08/19/2024 Hypothyroidism (ICD-10 - E03.9) PLAN OF TREATMENT Medication Medication Name Sig Start Date Stop Date Notes Levothyroxine 100 100 mcg 1 Tablet Orall y Every other day alternating with 50mcg Levothyroxine Sodium 100 MCG 1 tablet in the morning on an empty stomach Orally every other day alternating with 50 mcg for 30 day(s) 08/19/2024
--- OUTSIDE RECORDS SUMMARY | 2024-09-09 08:03 | XMS_ITS | Clinical Summary ---
Author Organization [facility] Address [address] [place] [address] Care Team Providers Care Quality Manager Name Role Phone Elian Dawson MD Primary Care Provider [phone] Thierry Martini MD Unavailable [phone] Source Comments [facility],non-owned Affiliates and Associated Physician Practices is amultiple site organization consisting of ambulatory clinics and hospital sitesin [place], [place], [place] and [place]. This disclosure is being madepursuant to the Care Everywhere program and may not contain all information available regarding this patient. Last updated 18.[facility] Allergies No known active allergies Medications * Be aware that medications may not be up to date on this document. Alwaysverify current medications with the patient. levothyroxine (SYNTHROID) 100 MCG tablet Take 100 mcg by mouth every 2 days Alternates every other day with 50 mcg Active blood glucose (ONETOUCH ULTRA TEST STRIPS) test strip Test once daily 4 Active Blood Glucose Monitoring Suppl (ONE TOUCH ULTRA SYSTEM KIT) W/DEVICE KIT Test once daily 4 Active simvastatin (ZOCOR) 20 MG tablet Take 20 mg by mouth once daily 5 Active SYNTHROID 50 MCG tabletIndications :Persistent atrial fibrillation (HCC) 50 mcg every 2 days Alternates every other day with 100 mcg 5 Active cyanocobalamin (VITAMIN B-12) 1000 MCG tablet Take 1,000 mcg by mouth once daily Active Magnesium 400 MG Take 400 mg by mouth once daily Active venlafaxine XR 24hr (EFFEXOR XR) 150 MG capsule Take 150 mg by mouth daily with breakfast Active hydroxychloroquin e (PLAQUENIL) 200 MG tablet Take 200 mg by mouth 2 times daily Active metoprolol succinate XL 24hr (TOPROL XL) 100 MG tablet TAKE ONE AND ONE-HALF TABLETS ONCE DAILY 135 tablet 3 0 Active XARELTO 15 MG tablet TAKE 1 TABLET DAILY AT BEDTIME 90 tablet 3 0 Active Active Problems Problem Noted Date Diagnosed Date S/P ablation of atrial fibrillation 02/06/2017 Overview (02/06/2017): Surgical AF ablation 2006 - thoracotomy for bilateral PVI with excision of left atrial appendage Percutaneous ablation 2013 - PVI/CTI/MVI/Roof ablation S/P coronary artery stent placement 08/06/2016 Pacemaker 01/04/2016 Overview (01/04/2016): [employer]ron Pacemaker - Assurity [id number] SN: [id number] - Implanted 01/04/[address] Jason Castillo RA: ARLEN 1998 SN: [id number] (Implanted 01/04/2016) RV: SJM 1688 SN: [id number] (Implanted 01/04/2016) Blood glucose elevated 11/19/2013 Essential hypertension 01/07/2012 Overview (08/20/2016): PATRICK 08/2016 -- Rest PATRICK 1.24 R, 1.50 L. Exercise PATRICK normal bilaterally with biphasic to triphasic PVRs. TBIs mildly decreased 0.66 R, 0.62 L. Abdominal Ao US - no AAA Coronary artery disease invo lving kot[place] coronary artery of [place] heart without angina pectoris 10/09/2011 Overview (08/19/2016): [...] [employer]ron Implantable Loop Recorder - Confirm [id number] SN: [id number] - Implanted 12/31/[address] Jason Castillo Overview: [employer]ron Implantable Loop Recorder - Confirm [id number] SN: [id number] - Implanted 12/31/[address] Castillo [employer]ron Medical ILR - Confirm [id number] SN: [id number] - Implanted 12/31/[address] Jason Castillo [...] at Not on file Legal Sex Male 6:12 AM PANTOGRAPH I ENGRAVER Gender Identity Not on file Sexual Orientation Not on file Last Filed Vital Signs Vital Sign Reading Time Taken Comments Blood Pressure 121/80 05/27/2020 1:42 PM PANTOGRAPH I ENGRAVER Pulse 60 05/27/2020 1:42 PM PANTOGRAPH I ENGRAVER Temperature 36.5 C (97.7 F) 01/04/2016 7:27 AM CDT Respiratory Rate 10 05/27/2020 1:42 PM PANTOGRAPH I ENGRAVER Oxygen Saturation 96% 03/04/2019 11:25 AM PANTOGRAPH I ENGRAVER Inhaled Oxygen Concentration - - Weight 101.6 kg (224 lb) 05/27/2020 1:42 PM PANTOGRAPH I ENGRAVER Height 181.6 cm (5' 11.5 ) 05/27/2020 1:42 PM CS T Body Mass Index 30.81 05/27/2020 1:42 PM PANTOGRAPH I ENGRAVER Plan of Treatment Health Maintenance Due Date Last Done Comments DTAP/TDAP/TD VACCINES (1 - Tdap) 11/05/1954 PNEUMOCOCCAL VACCINE 50+ (1 of 2 - PCV) 11/05/1954 ZOSTER VACCINE (1 of 2) 1986 Respiratory Syncytial Virus (RSV) Vaccine Pt: or over 60 yrs (1 - 1-dose 75+ series) 11/05/2011 COVID-19 VACCINE ( - season) 2023 DEPRESSION SCREENING 04/29/2024 MEDICARE AWV CALENDAR YEAR 2024 INFLUENZA VACCINE (Season Ended) 2024 01/05/2020, 01/27/2019, 01/28/2018, Additional history exists HEPATITIS B VACCINE Aged Out No longe [...] age to complete this topic Insurance AETNA AETNA [facility] MEDICARE [facility] Care Teams Quality Manager Relationship Specialty Start Date End Date Elian Dawson MD PCP - General 10/07/14 Thierry Martini MD Cardiovascular Disease 10/07/14
--- OUTSIDE RECORDS SUMMARY | 2024-09-09 08:03 | XMS_ITS | Encounter Summary ---
Author Organization [facility] Address [address] [place] [address] Care Team Providers Care Bond Manager Name Role Phone Elian Dawson MD Primary Care Provider Unavailable Encounter Details Date Type Department Care [...] on file Legal Sex Male 3:34 AM SKIN PEELING MACHINE OPERATOR Gender Identity Not on file Sexual Orientation Not on file documented as of this encounter Plan of Treatment Not on file documented as of this encounter Visit Diagnoses Diagnosis Nonspecific (abnormal) findings on radiological and other examination of lung field- Primary documented in this encounter Care Teams Bond Manager Relationship Specialty Start Date End Date Elian Dawson MD PCP - General 04/15/00 documented as of this encounter
--- OUTSIDE RECORDS SUMMARY | 2024-09-09 08:03 | XMS_ITS | Encounter Summary ---
Author Organization [facility] Address [address] [place] [address] Care Team Providers Care Instructor Extension Work Name Role Phone Elian Dawson MD Primary Care Provider Unavailable Encounter Details Date Type Department Care Team (Late st Contact Info) Description 12/01/2001 Outpatient Historical [facility] John Scott MD [address] [place] [address] [address] BENIGN NEOPLASM LG BOWEL (Primary Dx) Social History Tobacco Use Types Packs/Day Years Used Date Smoking Tobacco: Never Assessed Sex and Gender Information Value Date Recorded Sex Assigned at Not on file Legal Sex Male 3:34 AM BUCKET CHUCKER Gender Identity Not on file Sexual Orientation Not on file documented as of this encounter Plan of Treatment Not on file documented as of this encounter Visit Diagnoses Diagnosis Benign neoplasm of colon- Primary documented in this encounter Care Teams Instructor Extension Work Relationship Specialty Start Date End Date Elian Dawson MD PCP - General 04/15/00 documented as of this encounter
--- OUTSIDE RECORDS SUMMARY | 2024-09-09 08:03 | XMS_ITS | Referral Summary ---
Author Organization [facility] Address [address] [place] [address] Care Team Providers Care Financial Systems Manager Name Role Phone Elian Dawson MD Primary Care Provider Isael Devries MD Unavailable [phone] John Doe MD Unavailable [phone] Allergies Active Allergy Reactions Criticality Noted Date [...] 1 tablet (75 mcg total) by mouth language therapist before breakfast 30 tablet 3 Active [...] dose Effexor. Patient has been accepted at [facility], will discharge when room available. Assessment & Plan (01/01/2023 2:04 PM CDT): Mood depressed and affect flat but has been making progress with therapy. Pt has been accepted at [facility], awaiting pt family to move in [facility], anticipate DC this week. Pt more interactive today, answering simple questions. Continue effexor Assessment & Plan (12/28/2022 8:54 PM CDT): Patient with labile interaction/alertness. Slums has improved to 17/30 but continues to indicate moderate cognitive decline. Patient has been accepted at [facility], however family requires time to [...] use of Molnupavrir for the treatment of kjnf-rr-afkekxuc COVID-19 in adults. The Fact Sheet for [...] Patient follows with psychiatrist is Dr Canchola [phone]. Per family patient does not have an [...] and redirecting His psychiatrist is Dr Canchola [phone]; I have ordered effexor xr 225mg/day Intractable low back pain 11/25/2022 Assessment & Plan (01/02/2023 9:35 PM CDT): Pain is improved significantly, continue scheduled Tylenol, p.r.n. [place], recommend using sparingly Assessment & Plan (12/24/2022 8:04 PM CDT): Pain control is improving - rarely using [place], continue prn tylenol. Pt is participating with therapy and now making progress. Continue all therapy modalities Assessment & Plan (12/04/2022 8:20 PM CDT): Patient denies pain at present, continue p.r.n. Tylenol, p.r.n. [place], p.r.n. ibuprofen. We will need to monitor [...] (04/03/2023): Overview: [employer]ron Pacemaker - Assurity [id number] SN: [id number] - Implanted 01/04/[address] Jason Castillo RA: SJNaldo 1998 SN: [id number] (Implanted 01/04/2016) RV: SJM 1688 SN: [id number] (Implanted 01/04/2016) Actinic keratosis 08/02/2014 Keratosis, senilis [...] further due to bradycardia. Coronary atherosclerosis of [place] coronary callie ry 10/09/2011 Assessment & Plan [...] Packs/Day Years Used Date Smoking Tobacco: Never [facility] [place] Answer Date Recorded In the past 12 months has [employer], gas, oil, or water company threatened to shut off services in your [...] often do you attend chur ch or zoroastrianism services? Never 02/19/2024 Do you belong to any clubs o r organizations such as sabianist groups, unions, fraternal or athletic groups, or [...] place to sleep or slept in a retirement (including now)? No 08/08/2023 Housing Stability Vital Sign Answer Pio e Recorded In the last 12 months, was t here a time when you were not able to pay the mortgage or rent on time? No 02/19/2024 In the past 12 months, how m any times have you moved where you were living? 1 02/19/2024 At any time in the past 12 m [place], were you homeless or living in a retirement (including now)? No 02/19/2024 Personal Safety Answer [...] on file Legal Sex Male 12:16 AM CARPET MECHANIC Gender Identity Not on file Sexual Orientation Not on file Last Filed Vital Signs Vital Sign Reading Time Taken Comments Blood Pressure 102/52 03/04/2024 1:51 PM CARPET MECHANIC Pulse 62 03/04/2024 1:51 PM CARPET MECHANIC Temperature 36.4 C (97.6 F) 03/04/2024 1:51 PM CARPET MECHANIC Respiratory Rate 16 03/04/2024 1:51 PM CARPET MECHANIC Oxygen Saturation 97% 03/04/2024 1:51 PM CARPET MECHANIC Inhaled Oxygen Concentration - - Weight 74.8 kg (165 lb) 03/04/2024 1:51 PM CARPET MECHANIC Height 182.9 cm (6') 03/04/2024 1:51 PM CARPET MECHANIC Body Mass Index 22.38 03/04/2024 1:51 PM CARPET MECHANIC Plan of Treatment Not on file Insurance [facility] MEDICARE AETNA MEDICARE Advance Directives For more information, please contact: [phone] Documents on File Type Date Recorded Patient Grievance Manager Expl anation Power of Software Development Intern 09/05/2023 12:36 PM ADVANCE DIRECTIVE 08/12/2023 10:21 AM Karen r of Software Development Intern-Medical ADVANCE DIRECTIVE 08/05/2023 6:12 PM POLST - [...] Relationship Healthcare Agent Relationshi p Communication Connor Son First Alternate Health Care Agent Care Teams Financial Systems Manager Relationship Specialty Start Date End Date Elian Dawson MD PCP - General 05/24/06 John Doe MD [address] [place] [address] PCP - Hospice Physician Family Medicine 04/25/24 Isael Devries MD [address] [place] [address] Surgeon Orthopedic Surgery 08/11/23
--- OUTSIDE RECORDS SUMMARY | 2024-09-09 08:03 | XMS_ITS | Encounter Summary ---
Author Organization [facility] Address [address] [place] [address] Care Team Providers Care Dictating Machine Typist Name Role Phone Elian Dawson MD Primary Care Provider Unavailable Encounter Details Date Type Department Care Team (Latest Contact Info) Description 04/15/2000 Outpatient Historical HIS [facility] Brian Cisneros MD NO ADDRESS ON FILE Nonspecific (abnormal) findings on radiological and other examination of lung field (Primary Dx) Social History Tobacco Use Types Packs/Day Years Used Date Smoking Tobacco: Never Assessed Sex and Gender Information Value Date Recorded Sex Assigned at Not on file Legal 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
--- OUTSIDE RECORDS SUMMARY | 2024-09-09 08:03 | XMS_ITS | Encounter Summary ---
Author Organization [facility] Address [address] [place] [address] Care Team Providers Care Case Management Associate Name Role Phone Elian Dawson MD Primary Care Provider Unavailable Encounter Details Date Type Department Care Team (Latest Contact Info) Description 07/01/[address] 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
--- OUTSIDE RECORDS SUMMARY | 2024-09-09 08:03 | XMS_ITS | Encounter Summary ---
Author Organization [facility] Address 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
--- OUTSIDE RECORDS SUMMARY | 2024-09-09 08:03 | XMS_ITS | Encounter Summary ---
Author Organization [facility] Address [address] [place] [address] Care Team Providers Care Accessibility Lift Technician Name Role Phone Elian Dawson MD Primary Care Provider [phone] Thierry Martini MD Unavailable [phone] Encounter Details Date Type Department Care Team (Late st Contact Info) Description 02/24/2024 Lab Requisition [facility] [address] [place] [address] Michael Ivey MD [address] [place] [address] Social History Tobacco Use Types Packs/Day Years Used Date Smoking Tobacco: Never Smokeless Tobacco: Never Alcohol Use Standard Drinks/Week Comments No 0 (1 standard drink = 0.6 oz pur e alcohol) Sex and Gender Information Value Date Recorded Sex Assigned at Not on file 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 Gender Identity Not on file Sexual [...] - 99 mg/dL 02/24/2024 10:35 AM CDT [facility] Sodium 142 136 - 145 mmol/L 02/24/2024 10:35 AM CDT [facility] Potassium 3.7 3.5 - 5.1 mmol/L 02/24/2024 10:35 AM CDT [facility] Chloride 107 98 - 107 mmol/L 02/24/2024 10:35 AM CDT [facility] CO2 28 22 - 29 mmol/L 02/24/2024 10:35 AM CDT [facility] Calcium 9.5 8.4 - 10.4 mg/dL 02/24/2024 10:35 AM CDT [facility] Anion Gap 7 6 - 16 mmol/L 02/24/2024 10:35 AM CDT [facility] BUN 12 7 - 26 mg/dL 02/24/2024 10:35 AM CDT [facility] Creatinine 0.94 0.72 - 1.25 mg/dL 02/24/2024 10:35 AM [facility] Alkaline Phosphatase 101 40 - 150 U/L 02/24/2024 10:35 AM CDT [facility] ALT 12 0 - 55 U/L 02/24/2024 10:35 AM CDT [facility] AST 20 5 - 34 U/L 02/24/2024 10:35 AM [facility] Protein Total 5.5(L) 6.4 - 8.3 gm/dL 02/24/2024 10:35 AM [facility] Albumin 2.7(L) 3.4 - 5.0 gm/dL 02/24/2024 10:35 AM [facility] Bilirubin Total 0.7 0.2 - 1.2 mg/dL 02/24/2024 10:35 AM [facility] eGFR by CKD-EPI 78(L) >=90 mL/min/1.7 3 m2 02/24/2024 10:35 AM T [facility] Blood BLOOD SPECIMEN / Unknown Venipuncture / Unknown 02/24/2024 4:30 AM CDT 02/24/2024 9:31 AM CDT us Michael Ivey MD LAB - CHEMISTRY ORDERABLES Fi nal Result [facility] [address] [place] [address] * (ABNORMAL) CBC WITH DIFFERENTIAL (02/24/2024 4:30 AM CDT) [facility] WBC 3.4(L) 4.0 - 10.7 x10E9/L 02/24/2024 9:45 AM CDT [facility] RBC Count 3.99(L) 4.30 - 5.80 x10E12/L 02/24/2024 9:45 AM CDT [facility] Hemoglobin 11.9(L) 13.3 - 17.5 g/dL 02/24/2024 9:45 AM CDT [facility] Hematocrit 38.2(L) 38.7 - 51.1 % 02/24/2024 9:45 AM CDT [facility] MCV 95.7 80.0 - 98.0 fL 02/24/2024 9:45 AM CDT [facility] MCH 29.8 26.7 - 33.6 pg 02/24/2024 9:45 AM CDT [facility] MCHC 31.2(L) 31.7 - 36.3 g/dL 02/24/2024 9:45 AM CDT [facility] RDW-CV 15.4(H) 11.3 - 14.8 % 02/24/2024 9:45 AM CDT [facility] Platelet Count 171 150 - 420 x10E9/L 02/24/2024 9:45 AM CDT [facility] MPV 11.3 7.8 - 11.4 fL 02/24/2024 9:45 AM CDT [facility] Neutrophil % 51.4 41.0 - 74.0 % 02/24/2024 9:45 AM CDT [facility] Lymphocyte % 23.4 17.0 - 47.0 % 02/24/2024 9:45 AM CDT [facility] Monocyte % 12.4(H) 3.0 - 11.0 % 02/24/2024 9:45 AM CDT [facility] Eosinophil % 10.4(H) 0.0 - 7.0 % 02/24/2024 9:45 AM CDT [facility] Basophil % 2.1(H) 0.0 - 1.6 % 02/24/2024 9:45 AM CDT [facility] Immature Granulocytes % 0.3 0.0 - [...] - 0.13 x10E9/L 02/24/2024 9:45 AM CDT [facility] Blood BLOOD SPECIMEN / Unknown 02/24/2024 4:30 AM CDT 02/24/2024 9:31 AM CDT us Michael Ivey MD LAB - HEMATOLOGY ORDERABLES F inal Result Performing Organization Address City/State/[facility] Co de Phone Number [facility] [address] [place], [place] [id number] documented in this encounter Visit Diagnoses Not on filedocumented in this encounter Care Teams Accessibility Lift Technician Relationship Specialty Start Date End Date Elian Dawson MD PCP - General 10/07/14 Thierry Martini MD Cardiovascular Disease 10/07/14 documented as of this encounter
--- OUTSIDE RECORDS SUMMARY | 2024-09-09 08:03 | XMS_ITS | Encounter Summary ---
Author Organization [facility] Address 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
--- OUTSIDE RECORDS SUMMARY | 2024-09-09 08:03 | XMS_ITS | Continuity of Care Document ---
Author Organization [facility] Address [address] [place] [address] Phone Care Team Providers Care Button Tacker Name Role Phone John De León MD Unavailable Unavailable Allergies, Adverse Reactions, Alerts Substance Reaction Status Criticality No Known Allergies Active No Inform ation Medications Medication Instructions Dosage Effective Dates (start - stop) Status Comments venlafaxine ER 150 mg tablet,extended release 24 hr take 1 tablet by oral route every day in the morning at the same time each day with food 150 MG - Active simvastatin 20 mg tablet take 1 tablet by oral route every day in the evening 20 MG - Active metoprolol succinate ER 100 mg tablet,extended release 24 hr take 1 tablet by oral route every day 100 MG - Active Xarelto 15 mg tablet take 1 tablet by or al route every day with the evening meal 15 MG - Active levothyroxine 100 mcg tablet take 1 tablet by oral route every day 100 MCG - Active Vitamin B-12 1,000 mcg tablet - Active magnesium 400 mg (as magnesium oxide) tablet - Active Procedures Procedure Date OFFICE/OUTPATIENT VISIT [facility] Advance Directives Directive Yes / No Effective Date File Name No Information Encounters Encounter Description Practice Location Reason(s) For Visit Diagnoses Date Provider Providers Copied on Encounter OFFICE/OUTPA TIENT VISIT [facility], [address], [place], [address], [place] tel:[phone] [facility] Elevated blood-pressur e reading, w/o diagnosis of htnBody mass index (BMI) 29.0-29.9, adultPrimary osteoarthriti s of first carpometacarp al joint of left handPrimary osteoarthriti s of left shoulderRight shoulder tendonitis Jul- 0201 9 [address] Lopez. [address], [place], [place], [id number] . tel: [phone] Referring Provider: Rene [address], [place], [address]. tel:[phone] Family History Family Member Type Diagnosis Age At Onset Father Problem (finding) Payers Payer name Insurance type Covered green party ID Authoriza tion(s) No Information Social History Type Description Quantity Date Captured Comments Alcohol Use Details Unknown Caffeine Use Details Unknown Tobacco Use Status Current non-smoker 19 Smoking Status Never smoker Non-Smoking Tobacco Use Details : No Details Available : No Details Available Sex Male Vital Signs Date / Time: Height Weight BMI Pulse Rate Blood Pressure Temperature Respiratory Rate Body Surface Area Head Circumference Head Circ. Percentile Wt./[place]. Percentile BMI percentile Pulse Ox Inhaled Ox 12:56 PM 72.00 in 99.790 kg (220.00 lbs) 29.8 4 kg/m eter (2) 132/69 mm[Hg] Chief Complaint And Reason For Visit No Information Reason For Referral Reason For Referral No Information Plan Of Treatment Date Type Action Status Referral Ordered: RADEX WRST COMPL MINIMUM 3 VIEWS LT ordered Referral Ordered: RADEX TASHA COMPL MINIMUM 2 VIEWS RT ordered History Of Present Illness Encounter Date Complaint History Of Prese nt Illness No Information Functional Status Date Functional Assessmen t No Information Instructions Date Instruction Additional Infor mation Giving encouragement to exercise Related to Body mass index (BMI) 29.0-29.9, adult Assessments Type Assessment Date assessment Elevated blood-press ure reading, without diagnosis of hypertension assessment Body mass index (BMI) 29.0-29.9, adult assessment Primary osteoarthrit is of first carpometacarpal joint of left hand assessment Primary osteoarthritis of left s houlder assessment Right shoulder tendonitis Patient Care Teams Name Effective Dates (start - stop) Status Members No Information
--- OUTSIDE RECORDS SUMMARY | 2024-09-09 08:04 | XMS_ITS | Encounter Summary ---
Author Organization [facility] Address 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
--- OUTSIDE RECORDS SUMMARY | 2024-09-09 08:04 | XMS_ITS | Encounter Summary ---
Author Organization [facility] Address [address] [place] [address] Care Team Providers Care Putty Worker Name Role Phone Mia Mitchell [facility] Primary Care Provider [phone] Encounter Details Date Type Department Care Team (Latest Contact Info) Description 07/08/2023 [place] SPARKt Message Enc [facility] Multispecialty Care - [facility] [address], [address] [place] [address] Froylan Perez MD [address] [place] [address] Savi Asher NP Social History Tobacco Use Types Packs/Day Years Used Date Smoking Tobacco: Never Assessed PHQ-2 Answer Date Recorded Patient Health Questionnaire-2 Score 2 06/12/2023 Sex and Gender Information Value Date Recorded Sex Assigned at Not on file Legal 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
--- OUTSIDE RECORDS SUMMARY | 2024-09-09 08:04 | XMS_ITS | Clinical Summary ---
Author Organization [facility] Address [address] [place] [place] [address] Phone Care Team Providers Care Final Cleaner Name Role Phone Elian Dawson MD Primary Care Provider Unavailable Allergies No known active allergies Medications CYANOCOBALAMIN, [...] migh t be different from the original. Non Profit Director- Dr Thierry Martini Problem Noted Date Diagnosed Date Vitamin B 12 deficiency 03/14/2020 History of depression 03/26/2017 S/P ablation of atrial fibrillation 02/06/2017 Overview (03/26/2017): Overview: Surgical AF ablation 2006 - thoracotomy for bilateral PVI with excision of left atrial appendage Percutaneous ablation 2013 - PVI/CTI/MVI/Roof ablation S/P coronary artery stent placement 08/06/2016 Pacemaker 01/04/2016 Overview (03/26/2017): Overview: [employer] Pacemaker - Assurity [id number] SN: [id number] - Implanted 01/04/[address] Jason Castillo RA: ARLEN 1998 SN: [id number] (Implanted 01/04/2016) RV: SJM 1688 SN: [id number] (Implanted 01/04/2016) Hyperglycemia 11/19/2013 LOWRY (dyspnea on exertion) 08/08/2013 Pneumonia 08/08/2013 Essential hypertension 01/07/2012 Coronary atherosclerosis of pauma coronary callie ry 10/09/2011 Obstructive sleep apnea (adult) (pediatric) 08/28 SSS (sick sinus syndrome) 11/16/2010 Asthma 10/03/2010 Routine general medical exam ination at a health care facility 10/03/2010 Hypothyroidism 10/03/2010 Depressive disorder, not elsewhere classified Mixed hyperlipidemia 09/08/2010 Leukocytopenia, unspecified 09/08/2010 Atrial fibrillation 05/24/2010 Implantable Loop Recorder Overview (01/27/2013): [employer] Implantable Loop Recorder - Confirm [id number] SN: [id number] - Implanted 12/31/[address] 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 Gender Identity Not on file Sexual Orientation [...] 2023 , 01/05/2020, 01/27/2019, Additional history exists PNEUMOCOCCAL VACCINE 50+ YEARS Completed 02/16/2014 , 01/17/2005 Medical Devices Implanted Type Area Compliance Review Officer Device Identifier Shelf Expiration Date Model / Serial / Lot Loop Recorder Implanted:(Quant ity not on file) Explanted:(Quant ity not on file) Vena Cava Filter Implanted:(Quant ity not on file) Explanted:(Quant ity not on file) Stent X1 Implanted:(Quant ity not on file) Explanted:(Quant ity not on file) Insurance [facility] Advance Directives For more information, please contact: [phone] Documents on File Type Date Recorded Patient Power Line Lineman Expl anation Advance Directive POA 08/06/2013 9:51 [...] 11:08 PM 08/13/2013 5:02 PM Care Teams Final Cleaner Relationship Specialty Start Date End Date Elian Dawson MD PCP - General 04/15/00
--- OUTSIDE RECORDS SUMMARY | 2024-09-09 08:04 | XMS_ITS | Continuity of Care Document ---
Author Organization [facility] Address [address] [place] [address] Phone Care Team Providers Care Hand Tube Winder Name Role Phone Popeye Hunter MD Unavailable Unavailable Procedures Procedure Date OFFICE/OUTPATIENT VISIT, EST CLOSE TEAR DUCT OPENING VISUAL FUNCT STATUS ASSESS Advance Directives Directive Yes / No Effective Date File Name No Information Encounters Encounter Description Practice Location Reason(s) For Visit Diagnoses Date Provider Providers Copied on Encounter OFFICE/OUTPAT IENT VISIT, [facility], [id number] [place], [place] [address], [place], [place], [id number], tel:[phone] [phone] Office No Information [address] Dale Nye. [address], [address], [place], [place], [id number] , [place]. [phone] Referring Provider: John Beckett MD A, [address], [place], [address]. tel:[phone] Family History Family Member Type Diagnosis Age At Onset No Information Payers Payer name Insurance type Covered alliance party ID Authoriza tion(s) [place] [id number] [employer] MEDICARE [place] [id number] Social History Type Description Quantity Date Captured Comments Sex Male Smoking Status No Information Chief Complaint And Reason For Visit No Information Reason For Referral Reason For Referral No Information History Of Present Illness Encounter Date Complaint History Of Prese nt Illness No Information Functional Status Date Functional Assessmen t No Information Instructions Date Instruction Additional Infor mation No Information Assessments Type Assessment Date No Information Patient Care Teams Name Effective Dates (start - stop) Status Members No Information
--- OUTSIDE RECORDS SUMMARY | 2024-09-09 08:04 | XMS_ITS | Clinical Summary ---
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 Gender Identity Not on file Sexual Orientation Not on file Last Filed Vital Signs Vital Sign Reading Time Taken Comments Blood Pressure 105/67 06/12/2023 1:20 PM FIELD MECHANICAL METER TESTER Pulse 67 06/12/2023 1:20 PM FIELD MECHANICAL METER TESTER Temperature 36.2 C (97.1 F) 06/12/2023 1:20 PM FIELD MECHANICAL METER TESTER Respiratory Rate - - Oxygen Saturation 95% 06/12/2023 1:20 PM FIELD MECHANICAL METER TESTER Inhaled Oxygen Concentration - - Weight 94.3 kg (208 lb) 06/12/2023 1:20 PM FIELD MECHANICAL METER TESTER Height 182.9 cm (6') 06/12/2023 1:20 PM FIELD MECHANICAL METER TESTER Body Mass Index 28.21 06/12/2023 1:20 PM FIELD MECHANICAL METER TESTER Plan of Treatment Health Maintenance Due Date Last Done Comments Pneumococcal Vaccine: 50+ Years (1 of 1 - PCV) 1986 Zoster Vaccines (1 of 2) 1986 Annual Medicare Wellness Visit 2001 RSV Immunization or 60+ Years (1 - 1-dose 75+ series) 11/05/2011 COVID-19 Vaccine (4 - 2023-2 5 season) 2023 02/14/2021, 07/19/2020, 06/28/2020 PHQ-2 (Physician [place]) 04/29/2024 06/12/2023 DTaP, Tdap and Td Vaccines ( [...] Documents on File Type Date Recorded Patient Development System Efficiency Manager Expl anation Power of Furniture Cleaner 06/09/2023 6:00 PM POA = Connor Justice = [facility] Care Teams Gravity Prospecting Supervisor Relationship Specialty Start Date End Date Mia Mitchell, WAFER LINE WORKER-BC [address] [place] [address] PCP - General NURSE PRACTITIONER 03/19/23
--- OUTSIDE RECORDS SUMMARY | 2024-09-09 08:04 | XMS_ITS | Encounter Summary ---
Author Organization [facility] Address [address] [place] [address] Care Team Providers Care School Patrol Name Role Phone Elian Dawson MD Primary Care Provider Unavailable Encounter Details Date Type Department Care Team (Late st Contact Info) Description 01/29/2002 Outpatient Historical HIS EMERGENCY ROOM [facility] Jaskaran Vasquez MD [address] [place] [address] [place] [address] Er, Authorized P NO ADDRESS ON FILE ABDOMINAL PAIN OTHER SPEC SITE (Primary Dx) Social History Tobacco Use Types Packs/Day Years Used Date Smoking Tobacco: Never Assessed Sex and Gender Information Value Date Recorded Sex Assigned at Not on file Legal 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
--- OUTSIDE RECORDS SUMMARY | 2024-09-09 08:04 | XMS_ITS | Encounter Summary ---
Author Organization [employer] [facility] Address 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
--- OUTSIDE RECORDS SUMMARY | 2024-09-09 08:04 | XMS_ITS | Clinical Summary ---
Author Organization [facility] Address [address] [place] [address] Phone Care Team Providers Care Glassware Finisher Name Role Phone Elian Dawson MD Primary [...] file Insurance MEDICARE C AETNA Care Teams Glassware Finisher Relationship Specialty Start Date [place] [id number] [place] [phone] PCP - General Internal Medicine 02/20/23
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
--- OUTSIDE RECORDS SUMMARY | 2024-09-09 08:04 | XMS_ITS | Encounter Summary ---
Author Organization [employer] [facility] Address 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 Gender Identity Not on file Sexual Orientation [...] T4E,THYROID SCREEN 0.7(L) 0.9 - 1.7 ng/dL [facility] Blood specimen (specimen) 08/04/2007 12:28 PM CDT 08/04/2007 12:38 PM CDT us Elian Dawson MD CHEMISTRY ORDERABLES Fi nal Result [facility] [address] [place] [address] * (ABNORMAL) COMPREHENSIVE METABOLIC PANEL (08/04/2007 12:28 PM CDT) BILIRUBIN TOTAL 0.5 0.2 - 1.0 mg/dL [facility] CO2 29 22 - 30 mmol/L [facility] TOTAL PROTEIN 7.5 6.3 - 8.6 g/dL [facility] POTASSIUM 4.7 3.5 - 4.9 mmol/L [facility] GLUCOSE 102(H) 65 - 99 mg/dL [facility] AST 37 12 - 38 U/L [facility] BUN 14 6 - 20 mg/dL [facility] CALCIUM 9.5 8.4 - 10.2 mg/dL [facility] ALBUMIN 4.3 3.4 - 4.8 g/dL [facility] CHLORIDE 104 96 - 108 mmol/L [facility] CREATININE 1.15 0.67 - 1.17 mg/dL [facility] ALT 41 0 - 41 U/L [facility] SODIUM 140 135 - 145 mmol/L [facility] ALKALINE PHOSPHATASE 84 40 - 129 U/L [facility] GFR, >60 >=60 mL/min/1. 7 sq meter [facility] GFR >60 >=60 mL/min/1. 7 sq meter [facility] Comment: Estimated GFR rate interpretative information for both Americans and non- Americans is available on the [facility] Intranet at: [email or web address] Select: Lab Policies and Procedures Select: Reference Ranges - GFR Blood specimen (specimen) 08/04/2007 12:28 PM CDT 08/04/2007 12:38 PM CDT Elian Dawson MD CHEMISTRY ORDERABLES Ed ited [facility] [address] [place] [address] * (ABNORMAL) TSH WITH REFLEX FT4 (08/04/2007 12:28 PM CDT) TSH 4.49(H) 0.27 - 4.20 uU/mL [facility] Blood specimen (specimen) 08/04/2007 12:28 PM CDT 08/04/2007 12:38 PM CDT Elian Dawson MD CHEMISTRY ORDERABLES Ed ited Performing Organization Address City/[facility]/ZIP Co de Phone Number [facility] [address] [place] [address] * PSA MEDICARE SCREEN (08/04/2007 12:28 PM CDT) PSA, SCREEN 0.4 0.0 - 4.0 ng/mL [facility] Comment:Performed on [employer] E170 system Blood specimen (specimen) 08/04/2007 12:28 PM CDT 08/04/2007 12:38 PM CDT Elian Dawson MD CHEMISTRY ORDERABLES CO M Edited [facility] [address] [place] [address] * (ABNORMAL) LIPID PANEL (08/04/2007 12:28 PM CDT) HDL 42 40 - 59 mg/dL [facility] CHOLESTEROL 218(H) 100 - 199 mg/dL [facility] CHOL/HDL RATIO 5.2(H) 2.0 - 5.0 [facility] TRIGLYCERIDE 123 10 - 149 mg/dL [facility] LDL CALCULATED 151(H) <=99 mg/dL [facility] LIPID PANEL COMMENT See Below [facility] Comment: The adult ATP and pediatric NCEP classifications for lipids are available on the [facility] Intranet at: [email or web address] Select: Lab Policies and Procedures,Current Select: Lipid Panel Interpretation Blood specimen (specimen) 08/04/2007 12:28 PM CDT 08/04/2007 12:38 PM CDT us Elian Dawson MD CHEMISTRY ORDERABLES Ed ited [facility] [address] [place] [address] documented in this encounter Visit Diagnoses Diagnosis Other abnormal blood chemistry documented in this encounter Care Teams Research Scholar Relationship Specialty Start Date End Date Elian Dawson MD PCP - General 04/15/00 documented as of this encounter
--- OUTSIDE RECORDS SUMMARY | 2024-09-09 08:04 | XMS_ITS | Encounter Summary ---
Author Organization [employer] [facility] Address 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 de Phone Number INTERFACE SYSTEM Refer to clinic/hospital department * (ABNORMAL) CBC WITH DIFFERENTIAL (07/31/2006 11:25 AM CDT) Pathologist [facility] WBC 3.1(L) 4.0 - 9.8 K/uL INTERFACE [...] Elian Dawson MD HEMATOLOGY ORDERABLES E dited Performing Organization Address [facility] de Phone Number INTERFACE SYSTEM Refer to clinic/hospital department * TSH (07/31/2006 11:25 AM CDT) TSH 3.98 0.27 - 4.20 uU/mL INTERFACE SYSTEM 07/31/2006 11:2 5 AM CDT us Elian Dawson MD CHEMISTRY ORDERABLES Ed ited INTERFACE SYSTEM Refer to clinic/hospital department * PSA MEDICARE SCREEN (07/31/2006 11:25 AM CDT) PSA, SCREEN 0.3 0.0 - 4.0 ng/mL INTERFACE SYSTEM Comment:Performed on [employer] M170 System 07/31/2006 11:2 5 AM CDT us Elian Dawson MD CHEMISTRY ORDERABLES CO M Edited Performing Organization Address City/State/[facility] Co de Phone Number INTERFACE SYSTEM Refer [...] classifications for lipids are available on the [facility] Intranet at: [email or web address] Select: Lab Policies and Procedures Select: Reference Ranges - Lipids 07/31/2006 11:2 5 AM CDT us Elian [...] and non- Americans is available on the [facility] Intranet at: [email or web address] Select: Lab Policies and Procedures Select: Reference Ranges - GFR 07/31/2006 11:2 5 AM CDT us Elian Dawson MD CHEMISTRY ORDERABLES Ed ited INTERFACE SYSTEM Refer to clinic/hospital department documented in this encounter Visit Diagnoses Diagnosis Unspecified asthma(493.90)- Primary Unspecified asthma documented in this encounter Care Teams Assistant Professor Of English Relationship Specialty Start Date End Date Elian Dawson MD PCP - General 04/15/00 documented as of this encounter
--- OUTSIDE RECORDS SUMMARY | 2024-09-09 08:04 | XMS_ITS | Encounter Summary ---
Author Organization [facility] Address 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 Gender Identity Not on file Sexual Orientation [...] COMPREHENSIVE METABOLIC PANEL (09/17/2007 11:46 AM CDT) CHLORIDE 105 96 - 108 mmol/L [facility] ALBUMIN 4.3 3.4 - 4.8 g/dL [facility] CREATININE 1.22(H) 0.67 - 1.17 mg/dL [facility] SODIUM 139 135 - 145 mmol/L [facility] ALT 35 0 - 41 U/L [facility] ALKALINE PHOSPHATASE 78 40 - 129 U/L [facility] BILIRUBIN TOTAL 0.6 0.2 - 1.0 mg/dL [facility] CO2 29 22 - 30 mmol/L [facility] TOTAL PROTEIN 7.5 6.3 - 8.6 g/dL [facility] POTASSIUM 4.8 3.5 - 4.9 mmol/L [facility] GLUCOSE 98 65 - 99 mg/dL [facility] AST 33 12 - 38 U/L [facility] BUN 18 6 - 20 mg/dL [facility] CALCIUM 9.3 8.4 - 10.2 mg/dL [facility] GFR, >60 >=60 mL/min/1. 7 sq meter [facility] GFR 59(L) >=60 mL/min/1. 7 sq meter [facility] Comment: Modification of Diet in Renal Disease (MDRD) study formula. Estimated GFR rate interpretative information for both Americans and non- Americans is available on the [facility] Intranet at: [email or web address] Select: Lab Policies and Procedures Select: Reference Ranges - GFR Blood specimen (specimen) 09/17/2007 11:46 AM CDT 09/17/2007 12:12 PM CDT us Elian Dawson MD CHEMISTRY ORDERABLES Ed ited [facility] CLIA# [id number] [address] [place] [address] * (ABNORMAL) TSH (09/17/2007 11:46 AM CDT) TSH 4.85(H) 0.27 - 4.20 uU/mL [facility] Blood specimen (specimen) 09/17/2007 11:46 AM CDT 09/17/2007 12:12 PM CDT Elian Dawson MD CHEMISTRY ORDERABLES Fi nal Result Performing Organization Address [facility] Co de Phone Number [facility] CLIA# [id number] [address] [place] [address] * (ABNORMAL) T4 FREE (09/17/2007 11:46 AM CDT) Pathologist [facility] T4 FREE 0.8(L) 0.9 - 1.7 ng/dL [facility] Blood specimen (specimen) 09/17/2007 11:46 AM CDT 09/17/2007 12:12 PM CDT Elina Dawson MD CHEMISTRY ORDERABLES Fi nal Result Performing Organization Address [facility] Co de Phone Number [facility] CLIA# [id number] [address] [place] [address] * (ABNORMAL) LIPID PANEL (09/17/2007 11:46 AM CDT) Pathologist [facility] HDL 41 40 - 59 mg/dL [facility] CHOLESTEROL 206(H) 100 - 199 mg/dL [facility] CHOL/HDL RATIO 5.0 2.0 - 5.0 [facility] TRIGLYCERIDE 114 10 - 149 mg/dL [facility] LDL CALCULATED 142(H) <=99 mg/dL [facility] LIPID PANEL COMMENT See Below [facility] Comment: The adult ATP and pediatric NCEP classifications for lipids are available on the [facility] Intranet at: [email or web address] Select: Lab Policies and Procedures,Current Select: Lipid Panel Interpretation Blood specimen (specimen) 09/17/2007 11:46 AM CDT 09/17/2007 12:12 PM CDT us Elian Dawson MD CHEMISTRY ORDERABLES Ed ited [facility] CLIA# [id number] [address] [place] [address] documented in this encounter Visit Diagnoses Diagnosis Other and unspecified hyperlipidemia documented in this encounter Care Teams Application Performance Engineer Relationship Specialty Start Date End Date Elian Dawson MD PCP - General 04/15/00 documented as of this encounter
[2024-09-09 08:05] VITALS: PULSE 75; O2SAT 91
[2024-09-09 08:20] VITALS: PULSE 63; O2SAT 92
--- NOTE | 2024-09-09 08:41 | HOMEO2EVAL ---
Evaluation was performed at [facility] Home Oxygen Evaluation RC: Home Oxygen (O2) Evaluation Start: 09/09/24 08:36 Freq: Status: Active Protocol: RPE Activity Type Activity Date Activity User E-sign Co-sign Detail Recorded Client Recorded Date Recorded By Document 09/09/24 07:50 PK [email or web address] 09/09/24 08:41 PK Document 09/09/24 08:00 PK RT_007 09/09/24 08:41 PK Document 09/09/24 08:05 [facility] [email or web address] 09/09/24 08:41 [facility] Document 09/09/24 08:20 [facility] [email or web address] 09/09/24 08:41 PK 09/09/24 09/09/24 09/09/24 07:50 08:00 08:05 Home O2 Evaluation [Oxygen] -Test Phase Resting Exercise Exercise -Oxygen Delivery Room Air Room Air Nasal Cannula -Oxygen Flow Rate (L/min) 1 [Pulse Oximetry] -Pulse Oximetry (90-100 %) 93 88 L 91 [Pulse Rate] -Pulse Rate (60-100 beats/min) 68 74 75 [Exercise] -Ambulation Distance (feet) 100 -Ambulation Distance (meters) 30.47 [Comments] -Home Oxygen Evaluation Comments [Charges] -Evaluation Charges O2 Evaluation by Pulmonary 09/09/24 08:20 Home O2 Evaluation [Oxygen] -Test Phase Resting -Oxygen Delivery Room Air -Oxygen Flow Rate (L/min) [Pulse Oximetry] -Pulse Oximetry (90-100 %) 92 [Pulse Rate] -Pulse Rate (60-100 beats/min) 63 [Exercise] -Ambulation Distance (feet) -Ambulation Distance (meters) [Comments] -Home Oxygen Evaluation Comments Patient requires room air with rest and 1lpm with activity. [Charges] -Evaluation Charges
== END 2024-09-09 07:56 | disposition home or self-care (01) ==
PROVIDERS: PCP Internal Medicine; Visit Provider Internal Medicine Pulmonary Disease
DX: J84.9 Interstitial pulmonary disease, unspecified (principal)
CPT/HCPCS: 94618